=== PATIENT | female | born 1945 | race Caucasian/White ===

== ENCOUNTER 2017-05-25 01:12 | Inpatient (IN) | payer MEDICARE ==
[2017-05-25] VITALS (8 sets, daily range): BP systolic 139–182; BP diastolic 67–93; PULSE 68–116; RESP 14–18; TEMP 97.3–99; O2SAT 94–98
[~2017-05-25] VITALS: Ht 162.6 cm; Wt 96.3 kg
[~2017-05-25 01:12] MED LIST: LISI40TA PO; LYNPARZA PO; REGL10TA5 PO; SENO8.6T5 PO; XANA1TAB2 PO
[2017-05-25] MEDS ORDERED: SODIUM CHLOR 0.9% 1000 ML INJ 1,000 ML IV SCH (01:36)
--- NOTE | 2017-05-25 01:43 | PD ---
HPI Chief Complaint: GI Complaint Time Seen by Provider: 01:23 Travel History International Travel<30 days: No Contact w/Intl Traveler<30days: No Traveled to known affect area: No History of Present Illness HPI The patient is a 71-year-old female who presents emergency department for abdominal pain and distention of 5 days' duration. The patient states abdominal pain and distention started 5 days ago, she notes decreased bowel movements over the last several days with a few small loose and runny bowel movements with decreasing passage of flatus. The patient does have a history of similar symptoms 1 year ago secondary to a small bowel obstruction. The patient does have a history of ovarian carcinoma and is currently treated by Dr. Huang. The patient does note nausea and vomiting earlier this week which have currently resolved. She also notes decreased appetite and estimates a 5 pound weight loss over the last several days. The patient does have a history of multiple previous abdominal surgeries including hysterectomy and cholecystectomy. She also has had a previous tummy tuck. The patient's primary physician is Dr. Hensley who is located in [place], [place]. She denies any fever, chills, or sweats. PFSH Past Medical History Anxiety: Yes Depression: No Cancer: Yes (DX 2011) Cardiovascular Problems: Yes (HTN) Chemotherapy: Yes (3 COURSES) Cerebrovascular Accident: No Diabetes: No Hypertension: Yes Kidney Stones: No Musculoskeletal: Yes Neurologic: No Psychiatric: Yes Respiratory: No Radiation Therapy: No Seizures: No Past Surgical History Abdominal Surgery: Yes (GALLBLADDER REMOVAL) Eye Surgery: Yes (LASIK SURGERY) Gynecologic Surgery: Yes (C SECTION X2, TUBAL LIG., CERVICAL CRYO) Oral Surgery: Yes (T & A) Other Surgery: Yes Social History Alcohol Use: No Tobacco Use: No Substance Use: No Allergies-Medications (Allergen,Severity, Reaction): Coded Allergies: amlodipine (Unverified Allergy, Severe, 05/25/17) atorvastatin (Unverified Allergy, Severe, 05/25/17) penicillin G (Unverified Allergy, Severe, RASH, 05/25/17) pravastatin (Unverified Allergy, Severe, 05/25/17) simvastatin (Unverified Allergy, Severe, 05/25/17) Uncoded Allergies: ZOCOR (Adverse Reaction, Severe, RENAL FAILURE, 11/05/11) Reported Meds & Prescriptions Reported Meds & Active Scripts Active Reported Xanax (Alprazolam) 1 Mg Tab 1 Mg PO HS PRN Reglan (Metoclopramide HCl) 10 Mg Tab 10 Mg PO BID Senokot (Sennosides) 8.6 Mg Tab 8.6 Mg PO BID Lisinopril 40 Mg Tab 40 Mg PO BID [Lynparza] 8 Tab PO BID Review of Systems Except as stated in HPI: all other systems reviewed are Neg HENT: No: Lightheadedness Cardiovascular: No: Chest Pain or Discomfort Respiratory: No: Shortness of Breath Gastrointestinal: Positive: Nausea, Vomiting, Abdominal Pain, Constipation, Changes in Bowel Habits, Loss of Appetite, No: Diarrhea Genitourinary: No: Dysuria Musculoskeletal: Positive: Weakness Neurologic: Positive: Weakness Physical Exam Narrative GENERAL: Awake, alert, pleasant 71-year-old female appears her stated age and is in no acute respiratory distress. SKIN: Focused skin assessment warm/dry. HEAD: Atraumatic. Normocephalic. EYES: No injection or drainage. ENT: No nasal bleeding or discharge. Slightly dry mucous members. NECK: Trachea midline. No JVD. CARDIOVASCULAR: Regular, tachycardic with a heart rate of 105. RESPIRATORY: No accessory muscle use. Clear to auscultation. Breath sounds equal bilaterally. GASTROINTESTINAL: Abdomen distended and tympanic. Mild diffuse tenderness. Rectal: The exam was performed in the presence of a female nurse. Digital exam reveals no fecal impaction. No gross blood. MUSCULOSKELETAL: No obvious deformities. No clubbing. No cyanosis. No edema. NEUROLOGICAL: Awake and alert. No obvious cranial nerve deficits. Motor grossly within normal limits. Normal speech. PSYCHIATRIC: Appropriate mood and affect; insight and judgment normal. Data Data Last Documented VS Vital Signs Date Time Temp Pulse Resp B/P (MAP) Pulse Ox O2 Delivery O2 Flow Rate FiO2 05/25/17 01:13 99.0 116 18 182/93 (122) 98 Room Air Orders Orders Complete Blood Count With Diff (05/25/17 01:36) Comprehensive Metabolic Panel (05/25/17 01:36) Lipase (05/25/17 01:36) Lactic Acid (05/25/17 01:36) Urinalysis - C+S If Indicated (05/25/17 01:36) Ct Abd/Pel W/O Iv Contrast (05/25/17 01:36) Iv Access Insert/Monitor (05/25/17 01:36) Ecg Monitoring (05/25/17 01:36) Oximetry (05/25/17 01:36) Morphine Inj (Morphine Inj) (05/25/17 01:45) Ondansetron Inj (Zofran Inj) (05/25/17 01:45) Sodium Chlor 0.9% 1000 Ml Inj (Ns 1000 M (05/25/17 01:36) Sodium Chloride 0.9% Flush (Ns Flush) (05/25/17 01:45) Electrocardiogram (05/25/17 01:36) Admit Order (Ed Use Only) (05/25/17 03:38) Labs Laboratory Tests Test 05/25/17 01:45 White Blood Count 3.5 TH/MM3 Red Blood Count 3.04 MIL/MM3 Hemoglobin 10.4 GM/DL Hematocrit 31.3 % Mean Corpuscular Volume 102.8 FL Mean Corpuscular Hemoglobin 34.3 PG Mean Corpuscular Hemoglobin Concent 33.4 % Red Cell Distribution Width 17.1 % Platelet Count 118 TH/MM3 Mean Platelet Volume 9.2 FL Neutrophils (%) (Auto) 65.9 % Lymphocytes (%) (Auto) 26.9 % Monocytes (%) (Auto) 6.6 % Eosinophils (%) (Auto) 0.5 % Basophils (%) (Auto) 0.1 % Neutrophils # (Auto) 2.3 TH/MM3 Lymphocytes # (Auto) 1.0 TH/MM3 Monocytes # (Auto) 0.2 TH/MM3 Eosinophils # (Auto) 0.0 TH/MM3 Basophils # (Auto) 0.0 TH/MM3 CBC Comment AUTO DIFF Differential Total Cells Counted 100 Neutrophils % (Manual) 72 % Lymphocytes % 26 % Monocytes % 2 % Neutrophils # (Manual) 2.5 TH/MM3 Differential Comment FINAL DIFF MANUAL Platelet Estimate LOW Platelet Morphology Comment NORMAL Ovalocytes 1+ Blood Urea Nitrogen 11 MG/DL Creatinine 1.02 MG/DL Random Glucose 120 MG/DL Total Protein 6.3 GM/DL Albumin 3.0 GM/DL Calcium Level 8.3 MG/DL Alkaline Phosphatase 100 U/L Aspartate Amino Transf (AST/SGOT) 63 U/L Alanine Aminotransferase (ALT/SGPT) 184 U/L Total Bilirubin 0.5 MG/DL Sodium Level 137 MEQ/L Potassium Level 3.2 MEQ/L Chloride Level 104 MEQ/L Carbon Dioxide Level 25.2 MEQ/L Anion Gap 8 MEQ/L Estimat Glomerular Filtration Rate 53 ML/MIN Lactic Acid Level 1.0 mmol/L Lipase 114 U/L MDM Medical Decision Making Medical Screen Exam Complete: Yes Emergency Medical Condition: Yes Medical Record Reviewed: Yes Interpretation(s) Laboratory Tests Test 05/25/17 01:45 White Blood Count 3.5 TH/MM3 Red Blood Count 3.04 MIL/MM3 Hemoglobin 10.4 GM/DL Hematocrit 31.3 % Mean Corpuscular Volume 102.8 FL Mean Corpuscular Hemoglobin 34.3 PG Mean Corpuscular Hemoglobin Concent 33.4 % Red Cell Distribution Width 17.1 % Platelet Count 118 TH/MM3 Mean Platelet Volume 9.2 FL Neutrophils (%) (Auto) 65.9 % Lymphocytes (%) (Auto) 26.9 % Monocytes (%) (Auto) 6.6 % Eosinophils (%) (Auto) 0.5 % Basophils (%) (Auto) 0.1 % Neutrophils # (Auto) 2.3 TH/MM3 Lymphocytes # (Auto) 1.0 TH/MM3 Monocytes # (Auto) 0.2 TH/MM3 Eosinophils # (Auto) 0.0 TH/MM3 Basophils # (Auto) 0.0 TH/MM3 CBC Comment AUTO DIFF Blood Urea Nitrogen 11 MG/DL Creatinine 1.02 MG/DL Random Glucose 120 MG/DL Total Protein 6.3 GM/DL Albumin 3.0 GM/DL Calcium Level 8.3 MG/DL Alkaline Phosphatase 100 U/L Aspartate Amino Transf (AST/SGOT) 63 U/L Alanine Aminotransferase (ALT/SGPT) 184 U/L Total Bilirubin 0.5 MG/DL Sodium Level 137 MEQ/L Potassium Level 3.2 MEQ/L Chloride Level 104 MEQ/L Carbon Dioxide Level 25.2 MEQ/L Anion Gap 8 MEQ/L Estimat Glomerular Filtration Rate 53 ML/MIN Lactic Acid Level 1.0 mmol/L Lipase 114 U/L Last Impressions Abdomen/Pelvis CT 05/25/17 0136 Signed Impressions: Service Date/Time: Thursday, May 25, 2017 01:51 - CONCLUSION: Diffusely dilated loops of small bowel down to the terminal ileum with air-fluid levels suggesting either diffuse ileus or small bowel obstruction. Renato Driscoll MD EKG reveals normal sinus rhythm with a rate of 75. Left axis deviation. Differential Diagnosis Differential diagnosis includes small bowel obstruction, volvulus, carcinoma, large bowel obstruction, ileus, dehydration, electrolyte abnormality. Narrative Course The patient's port was accessed, labs are drawn and sent, and the patient was placed on cardiac telemetry monitoring and continuous pulse oximetry monitoring. The patient was administered morphine, Zofran, and IV fluids. CT of the abdomen and pelvis was ordered to evaluate for obstruction. Labs revealed mild hypokalemia, mild leukopenia, mild anemia with a hemoglobin of 10.5. CT the abdomen and pelvis reveals ileus versus small bowel obstruction. The patient has poor intake secondary to increasing symptoms, therefore, will be admitted to the hospital with routine consult placed to her gynecologic oncologist. Patient agrees and understands. Physician Communication Physician Communication I discussed the patient with Dr. Nato Rae who agrees with admission to Dr. Arellano. Diagnosis Primary Impression: Small bowel obstruction Additional Impression: Hypokalemia Admitting Information Admitting Physician Requests: Admit Condition: Stable Guille Francois MD May 25, 2017 01:43
[2017-05-25] MEDS ORDERED: ONDANSETRON HCL 4 MG/2 ML VIAL IVP ONE (01:45)
[2017-05-25] MEDS ORDERED: MORPHINE SULFATE 4 MG/ML INJ IV PUSH ONE (01:45)
[2017-05-25] MEDS ORDERED: SODIUM CHLORIDE 0.9% FLUSH 10 ML FLUSH IV FLUSH PRN (01:45)
--- NOTE | 2017-05-25 02:21 | RADRPT ---
EXAM DATE/TIME: 05/25/2017 01:51 [facility] COMPARISON: SMALL BOWEL SERIES W/GASTROGRAFIN, April 23, 2016, 10:17. CT ABDOMEN & PELVIS W/O CONTRAST, April 22, 2016, 0:27. INDICATIONS : Abdominal pain with constipation. ORAL CONTRAST: No oral contrast ingested. RADIATION DOSE: 11.09 CTDIvol (mGy) MEDICAL HISTORY : Carcinoma, not otherwise specified. Hypertension. SURGICAL HISTORY : Cholecystectomy. Hysterectomy.Tubal ligation. ENCOUNTER: Initial ACUITY: 4 - 6 days PAIN SCALE: 8/10 LOCATION: abdomen TECHNIQUE: Volumetric scanning of the abdomen and pelvis was performed. Using automated exposure control and ad justment of the mA and/or kV according to patient size, radiation dose was kept as low as reasonably achievable to obtain optimal diagnostic quality images. DICOM format image data is available electro nically for review and comparison. FINDINGS: LOWER LUNGS: The visualized lower lungs are clear. LIVER: Homogeneous density without lesion for noncontrast technique. There is no dilation of the biliary tr ee. Hemoclips in the prachi from prior cholecystectomy. SPLEEN: Normal size without lesion. PANCREAS: Within normal limits. KIDNEYS: Normal in size and shape. There is no mass, stone, or hydronephrosis. ADRENAL GLANDS: Within normal limits. VASCULAR: There is no aortic aneurysm. BOWEL/MESENTERY: Diffusely dilated loops of small bowel containing multiple air fluid levels. Small bowel loops measu re up to 4.7 cm and are dilated down to the terminal ileum. No dilation of the colon. The appendix is identified in the right lower quadrant, measures 6 mm and has a normal radiographic appearance. N o evidence of free intraperitoneal gas or free fluid. ABDOMINAL WALL: Within normal limits. RETROPERITONEUM: There is no lymphadenopathy. BLADDER: No wall thickening or mass. REPRODUCTIVE: Within normal limits. INGUINAL: There is no lymphadenopathy or hernia. MUSCULOSKELETAL: Degenerative changes in posterior elements of the lower lumbar spine. CONCLUSION: Diffusely dilated loops of small bowel down to the terminal ileum with air-fluid levels suggesting ei ther diffuse ileus or small bowel obstruction. Renato Driscoll MD on May 25, 2017 at 2:14 Board Certified Radiologist. This report was verified electronically.
[2017-05-25 03:14] LABS: AUTOMATED NEUTROPHIL # 2.3 TH/MM3 (1.8-7.7); BASOPHIL % 0.1 % (0.0-2.0); EOSINOPHIL % 0.5 % (0.0-4.0); HEMATOCRIT 31.3 % (35.0-46.0); LYMPH % 26.9 % (9.0-44.0); MEAN CELL VOLUME 102.8 FL (80.0-100.0); MEAN CORPUSCULAR HEMOGLOBIN 34.3 PG (27.0-34.0); MEAN CORPUSCULAR HGB CONC 33.4 % (32.0-36.0); MONO % 6.6 % (0.0-8.0); NEUT % 65.9 % (16.0-70.0); PLATELET COUNT 118 TH/MM3 (150-450); RED BLOOD COUNT 3.04 MIL/MM3 (4.00-5.30); RED CELL DISTRIBUTION WIDTH 17.1 % (11.6-17.2); WHITE BLOOD COUNT 3.5 TH/MM3 (4.0-11.0)
[2017-05-25 03:17] LABS: ALT (GPT) 184 U/L (10-53); ANION GAP 8 MEQ/L (5-15); AST (GOT) 63 U/L (15-37); BICARBONATE 25.2 MEQ/L (21.0-32.0); BLOOD UREA NITROGEN 11 MG/DL (7-18); CHLORIDE 104 MEQ/L (98-107); GLOMERULAR FILTRATION RATE 53 ML/MIN (>89); POTASSIUM 3.2 MEQ/L (3.5-5.1); SODIUM (NA) 137 MEQ/L (136-145)
[2017-05-25 03:20] LABS: ALKALINE PHOSPHATASE 100 U/L (45-117); TOTAL BILIRUBIN ADULT 0.5 MG/DL (0.2-1.0)
[2017-05-25 03:22] LABS: HEMO FLAGS AUTO DIFF
[2017-05-25 04:33] LABS: NEUTROPHIL # MANUAL DIFF 2.5 TH/MM3 (1.8-7.7); POLYS (SEG NEUTROPHILS) 72 % (16-70); WBC DIFF SAMPLE 100
[2017-05-25 04:34] LABS: OVALOCYTES 1+ (NORMAL); PLATELET ESTIMATE SMEAR LOW (NORMAL); PLATELET MORPHOLOGY NORMAL (NORMAL); SCAN/DIFF FINAL DIFF MANUAL
[2017-05-25] MEDS ORDERED: NS + KCL 20 MEQ INJ 1,000 ML IV SCH (04:45)
[2017-05-25] MEDS ORDERED: ACETAMINOPHEN 325 MG TAB PO PRN (04:45)
[2017-05-25] MEDS ORDERED: ACETAMINOPHEN 650 MG SUPP PR PRN (04:45)
[2017-05-25] MEDS ORDERED: ONDANSETRON HCL 4 MG/2 ML VIAL IV PRN (04:45)
[2017-05-25] MEDS: MORPHINE SULFATE 4 MG/ML INJ IV PUSH PRN ×3 (04:52→15:24)
[2017-05-25] MEDS: SODIUM CHLORIDE 0.9% FLUSH 10 ML FLUSH IVF PRN (04:52)
[2017-05-25] MEDS: SODIUM CHLORIDE 0.9% FLUSH 10 ML FLUSH IV FLUSH SCH ×2 (09:00→21:00)
--- NOTE | 2017-05-25 09:43 | HHI.HP ---
HPI Service [facility]ists Primary Care Physician Nik Hensley MD Admission Diagnosis small bowel obstruction versus ileus Chief Complaint: abdomen pain Travel History International Travel<30 Days: No Contact w/Intl Traveler <30 Da: No Traveled to Known Affected Are: No History of Present Illness Pt is 71 yo with brca 2 who had ovarian ca with david/bso, omentectomy, lysis of adhesions back [place] [address] Huang. Has had chemo with taxol, carboplatin, gemzar, tamoxifen and then lynparza this past year. There have been concerns of recurrence with a recent rise in ca 125. She and dr Huang have done pet scans and find no major focus of disease. She was admitted last year for ileus felt related to lynparza 5 days after starting it. She needed left ureter stent soon after that admission for hydro and ureter stenosis. Now she has been getting Topotecan weekly for past 3 weeks and pt says this is when she has developed crampy abdomen pain with each treatment and now progression to no bm over past several days. CT in ED of A/P shows some dilation diffusely of the small bowel with afl and tapering down at ileum. Morphine has completely resolved her pain and she has no vomiting this AM. her abdomen is still more distended than baseline. she has been using senakot and miralax daily at home. She also restarted tamoxifen recently. Review of Systems Other abdomen pain and cramping on/off over past 3 weeks related to topotecan Past Family Social History Past Medical History ovarian ca. brca 2 s/p david/bso/omentectomy hx of taxol/carbaplatin/gemzar, lynparza this past year..?caused ileus her ca 125 has been rising.. apparent pet scans have been negative topotecan started 3 weeks ago. cholecystectomy port hx breast reconstructionl htn anxiety. Reported Medications Xanax (Alprazolam) 1 Mg Tab 1 Mg PO HS PRN Senokot (Sennosides) 8.6 Mg Tab 8.6 Mg PO BID miralax Lisinopril 40 Mg Tab 40mg daily topotecan x 3 weeks tamoxifen Allergies: Coded Allergies: amlodipine (Unverified Allergy, Severe, 05/25/17) atorvastatin (Unverified Allergy, Severe, 05/25/17) penicillin G (Unverified Allergy, Severe, RASH, 05/25/17) pravastatin (Unverified Allergy, Severe, 05/25/17) simvastatin (Unverified Allergy, Severe, 05/25/17) Uncoded Allergies: ZOCOR (Adverse Reaction, Severe, RENAL FAILURE, 11/05/11) Family History nc Social History no etoh/tob Physical Exam Vital Signs heart reg lung cta abd mild distention. bs. nontender ext no edema Vital Signs Date Time Temp Pulse Resp B/P (MAP) Pulse Ox O2 Delivery O2 Flow Rate FiO2 05/25/17 08:00 98.4 75 15 139/67 (91) 98 05/25/17 06:14 97.3 78 18 148/69 (95) 98 05/25/17 05:25 95 05/25/17 04:25 83 14 149/67 (94) 96 Room Air 05/25/17 01:13 99.0 116 18 182/93 (122) 98 Room Air Laboratory Laboratory Tests Test 05/25/17 01:45 White Blood Count 3.5 Red Blood Count 3.04 Hemoglobin 10.4 Hematocrit 31.3 Mean Corpuscular Volume 102.8 Mean Corpuscular Hemoglobin 34.3 Mean Corpuscular Hemoglobin Concent 33.4 Red Cell Distribution Width 17.1 Platelet Count 118 Mean Platelet Volume 9.2 Neutrophils (%) (Auto) 65.9 Lymphocytes (%) (Auto) 26.9 Monocytes (%) (Auto) 6.6 Eosinophils (%) (Auto) 0.5 Basophils (%) (Auto) 0.1 Neutrophils # (Auto) 2.3 Lymphocytes # (Auto) 1.0 Monocytes # (Auto) 0.2 Eosinophils # (Auto) 0.0 Basophils # (Auto) 0.0 CBC Comment AUTO DIFF Differential Total Cells Counted 100 Neutrophils % (Manual) 72 Lymphocytes % 26 Monocytes % 2 Neutrophils # (Manual) 2.5 Differential Comment FINAL DIFF MANUAL Platelet Estimate LOW Platelet Morphology Comment NORMAL Ovalocytes 1+ Blood Urea Nitrogen 11 Creatinine 1.02 Random Glucose 120 Total Protein 6.3 Albumin 3.0 Calcium Level 8.3 Alkaline Phosphatase 100 Aspartate Amino Transf (AST/SGOT) 63 Alanine Aminotransferase (ALT/SGPT) 184 Total Bilirubin 0.5 Sodium Level 137 Potassium Level 3.2 Chloride Level 104 Carbon Dioxide Level 25.2 Anion Gap 8 Estimat Glomerular Filtration Rate 53 Lactic Acid Level 1.0 Lipase 114 Result Diagram: 05/25/1714405/25/17144 Caprini VTE Risk Assessment Caprini VTE Risk Assessment: Mod/High Risk (score >= 2) Caprini Risk Assessment Model Point Value = 1 Point Value = 2 Point Value = 3 Point Value = 5 Age 41-60 Minor surgery BMI > 25 kg/m2 Swollen legs Varicose veins or History of unexplained or recurrent spontaneous Oral contraceptives or hormone replacement Sepsis (< 1 month) Serious lung disease, including pneumonia (< 1 month) Abnormal pulmonary function Acute myocardial infarction Congestive heart failure (< 1 month) History of inflammatory bowel disease Medical patient at bed rest Age 61-74 Arthroscopic surgery Major open surgery (> 45 min) Laparoscopic surgery (> 45 min) Malignancy Confined to bed (> 72 hours) Immobilizing plaster cast Central venous access Age >= 75 History of VTE Family history of VTE Factor V Leiden Prothrombin [id number] Lupus anticoagulant Anticardiolipin antibodies Elevated serum homocysteine Heparin-induced thrombocytopenia Other congenital or acquired thrombophilia Stroke (< 1 month) Elective arthroplasty Hip, pelvis, or leg fracture Acute spinal cord injury (< 1 month) Prophylaxis Regimen Total Risk Factor Score Risk Level Prophylaxis Regimen 0-1 Low Early ambulation 2 Moderate Order ONE of the following: *Sequential Compression Device (SCD) *Heparin 5000 units SQ BID 3-4 Higher Order ONE of the following medications: *Heparin 5000 units SQ TID *Enoxaparin/Lovenox 40 mg SQ daily (WT < 150 kg, CrCl > 30 mL/min) *Enoxaparin/Lovenox 30 mg SQ daily (WT < 150 kg, CrCl > 10-29 mL/min) *Enoxaparin/Lovenox 30 mg SQ BID (WT < 150 kg, CrCl > 30 mL/min) AND/OR *Sequential Compression Device (SCD) 5 or more Highest Order ONE of the following medications: *Heparin 5000 units SQ TID (Preferred with Epidurals) *Enoxaparin/Lovenox 40 mg SQ daily (WT < 150 kg, CrCl > 30 mL/min) *Enoxaparin/Lovenox 30 mg SQ daily (WT < 150 kg, CrCl > 10-29 mL/min) *Enoxaparin/Lovenox 30 mg SQ BID (WT < 150 kg, CrCl > 30 mL/min) AND *Sequential Compression Device (SCD) Assessment and Plan Problem List: (1) Bowel obstruction ICD Codes: K56.60 - Unspecified intestinal obstruction Status: Acute Plan: 1. small bowel ileus vs obstruction. similar events after starting lynparza in 2016 recently started topotecan within last [address] a/p shows small bowel dilation and AFL's down to Ileum.?medication/ adhesion/tumor 2. recurrent ovarian ca. brca 2 brca 2 who had ovarian ca with david/bso, omentectomy, lysis of adhesions [place] [address] Huang. Has had chemo with taxol, carboplatin, gemzar, tamoxifen and then lynparza Now on topotecan cont ivf check and replace lytes gentle laxative ambulate advance diet if flatus/bm slowly consulted dr Huang currently pain free. no need for ngt yet (2) Hypokalemia ICD Codes: E87.6 - Hypokalemia Status: Acute (3) Recurrent carcinoma of ovary ICD Codes: C56.9 - Malignant neoplasm of unspecified ovary Status: Chronic (4) HTN (hypertension), benign ICD Codes: I10 - Essential (primary) hypertension Status: Chronic (5) Anxiety ICD Codes: F41.9 - Anxiety disorder, unspecified Status: Chronic Physician Certification 2 Midnight Certification Type: Admission for Inpatient Services Order for Inpatient Services 3The services are ordered in accordance with Medicare regulations or non- Medicare payer requirements, as applicable. In the case of services not specified as inpatient-only, they are appropriately provided as inpatient services in accordance with the 2-midnight benchmark. Estimated LOS (days): 3 3 days is the estimated time the patient will need to remain in the hospital, assuming treatment plan goals are met and no additional complications. Post-Hospital Plan: Home Gary Arellano MD May 25, 2017 09:43
[2017-05-25] MEDS ORDERED: LACTULOSE SYRUP 20 GM/30 ML CUP PO ONE (10:15)
[2017-05-25] MEDS ORDERED: BISACODYL EC 5 MG TABEC PO ONE (10:15)
--- NOTE | 2017-05-25 12:53 | MB ---
cc: GARFIELD ROBLEDO M.D., KELLY L. MD SCAGLIA,FAUSTO ARELLANO,NAIDA RIOS,RUSSELL Diez MD DATE OF CONSULTATION: 05/25/2017 PHYSICIAN REQUESTING CONSULT: Dr. Guille Francois. Dr. Naida Arellano. REASON FOR CONSULTATION: Ovarian cancer, under our care, admitted for evaluation and management of small bowel obstruction versus ileus. HISTORY OF PRESENT ILLNESS: This is a 71 year-old female with known recurrent ovarian cancer who most recently started topotecan, she has now received three infusions of the weekly regimen. She is scheduled for labs next week and scheduled for topotecan to follow. She reports that after each topotecan infusion she had very intense cramp like pain in her abdomen, associated with decreased bowel sounds, decreased flatus but it has subsided each time such that she was able to take the next infusion. However, now she has gone several days with no bowel movements, has not had any flatus in a couple of days. She did have some nausea and vomiting at home, she has not had any more nausea or vomiting since she has been admitted to the hospital. Currently her morphine has controlled her pain. She is seen now in consultation. Her is present at the bedside. On further evaluation and recommendations regarding these findings. OBJECTIVE: CT imaging shows basically all of the small bowel could be dilated with air/fluid levels and largest diameter of small bowel 4.7 cm's, the colon is not distended, it is a noncontrasted study it is difficult to tell if the colon is full of stool but limited gas in the large bowel. There is no overt evidence of measurable disease detected on the study. No overt ascites, nodularity, adenopathy, some degenerative changes were noted in the lower lumbar spine. The patient has post operative changes in the gallbladder fossa. LABORATORY FINDINGS: Hemoglobin and hematocrit 10.4, 31.3, white count 3.5, platelets are 118. Electrolytes, potassium is low at 3.2. Blood urea nitrogen and creatinine are 11 and 1.02. Transaminase is elevated with an aspartate aminotransferase of 63, ALT 184. PAST MEDICAL HISTORY: Recurrent stage 3C ovarian cancer. She had surgery back in 2011, and been intermittently on treatment. PAST SURGICAL HISTORY Includes breast reconstruction ovarian cancer surgery cholecystectomy MEDICATIONS: Are as listed in the chart, they are reviewed. FAMILY HISTORY Noncontributory. SOCIAL HISTORY: Social history she is , has a supportive family. No significant alcohol or tobacco use. REVIEW OF SYSTEMS Review of systems is as per history of present illness. No fever, no bright red blood or melanotic stool change and no one else in the family has been sick. PHYSICAL EXAMINATION VITAL SIGNS: She is afebrile pulse ranging from 75-116 improving with hydration, respiratory rate 14-18, blood pressure 139-182 over 67-93, O2 saturations greater than equal to 95%. IN GENERAL: She is alert and oriented x3, currently comfortable. No acute distress. BACK: Back is nontender. No costovertebral angle tenderness. ABDOMEN: Abdomen is distended but it is nonacute. She allows the exam of deep palpation without rebound or guarding in all four quadrants. Bowel sounds are hypoactive. PELVIC: Exam deferred given recent office exam. EXTREMITIES: 1+ chronic symmetrical edema. No palpable cords. DISCUSSION: Time spent discussion with her reviewing the findings in her case to date is uncertain if this represents an obstruction due to small volume of multifocal carcinomatous implants, verses an ileus. She was admitted in 2016 for similar problem and followed and prior to chemotherapy and she may be prone to decrease peristalsis effects of some of these chemotherapeutic agents. IV fluids and bowel rest and is recommended if she has any more nausea or vomiting I would recommended nasogastric tube which at the present time she refuses and she reminds us that she refused it in the past, never the less the potential value was discussed and reviewed. The small bowel is functioning adequately but the colon is impacted with decreased peristalsis some stimulation per rectum starting with suppositories possibly enemas to try to overcome the symptoms, may be helpful. Furthermore reminded that upper GI with small-bowel follow thought previously did not show any focal obstruction that could be utilized to determine if there is a focal obstruction in the region of the ileocecum there may also be some cathartic benefit as the contrast causes significant GI stimulation and this may be considered if she is not significantly better within the next 24-48 hours. She is to use of narcotics as needed but minimally as the slow down peristalsis. She is encouraged to ambulate and physical activity can be beneficial, we will replete fluids correct. Electrolytes provide supportive care and I am very grateful for Dr. Arellano and his colleagues for excellent care. ASSESSMENT 1. Recurrent stage III C ovarian cancer. 2. Recently started on weekly Topotecan. 3. Small bowel obstruction versus ileus. 4. Discussion. PLAN 1. Continue IV fluids, correction of electrolyte supportive care on narcotic use sparingly. 2. Initiate using suppositories if they all provide some response in 24 hours consider enema and if that does not provide response with in 24-48 hours. Consider upper GI series with small-bowel follow-through for diagnostic and potentially therapeutic purposes. Thank for the consultation. Will follow along her care. MD ADELA Dennis/lulu /11:10 AM /12:33 PM
--- NOTE | 2017-05-25 14:56 | EKG ---
Date Performed: 05/25/2017 Time Performed: 03:43:50 PTAGE: 71 years EKG: Sinus rhythm MARKED LEFT AXIS DEVIATION ABNORMAL ECG PREVIOUS TRACING : 05/14/2016 12.27 Since previous tracing, the PVCs are no longer present. DOCTOR: Gary Tejeda Interpretating Date/Time 05/25/2017 14:55:02
[2017-05-25] MEDS: NS + KCL 20 MEQ INJ 1,000 ML IV SCH ×2 (14:58→22:54)
[2017-05-25] MEDS ORDERED: HYDROmorphone HCL PF 1 MG/ML VIAL IV PUSH ONE (18:00)
[2017-05-25] MEDS: BISACODYL 10 MG SUPP RECTAL SCH ×2 (18:25→22:53)
[2017-05-25] MEDS ORDERED: ENALAPRILAT 1.25 MG/ML VIAL IV PUSH PRN (19:00)
[2017-05-25] MEDS: HYDROmorphone HCL PF 1 MG/ML VIAL IV PUSH PRN (22:51)
[2017-05-26] VITALS (8 sets, daily range): BP systolic 139–185; BP diastolic 73–90; PULSE 85–102; RESP 16–18; TEMP 97.8–98.7; O2SAT 96–98
[2017-05-26] MEDS: BISACODYL 10 MG SUPP RECTAL SCH ×3 (05:01→17:52)
[2017-05-26] MEDS: NS + KCL 20 MEQ INJ 1,000 ML IV SCH ×3 (05:17→20:59)
[2017-05-26 07:10] LABS: BICARBONATE 20.8 MEQ/L (21.0-32.0); MAGNESIUM 1.7 MG/DL (1.5-2.5); POTASSIUM 3.8 MEQ/L (3.5-5.1)
[2017-05-26] MEDS: SODIUM CHLORIDE 0.9% FLUSH 10 ML FLUSH IV FLUSH SCH ×2 (08:10→20:58)
[2017-05-26] MEDS: HYDROmorphone HCL PF 1 MG/ML VIAL IV PUSH PRN ×3 (08:10→22:09)
[2017-05-26] MEDS ORDERED: LACTULOSE SYRUP 20 GM/30 ML CUP PO ONE (09:00)
[2017-05-26] MEDS ORDERED: ENALAPRILAT 1.25 MG/ML VIAL IV PUSH PRN (09:00)
[2017-05-26] MEDS ORDERED: BISACODYL EC 5 MG TABEC PO ONE (09:00)
--- NOTE | 2017-05-26 09:01 | HHI.PR ---
Subjective Remarks abdomen cramping no vomiting moved a semisolid bm last night small amt of liquid brown stool this AM Objective Vitals heart reg lung cta abd bs/mild distention ext no edema Vital Signs Date Time Temp Pulse Resp B/P (MAP) Pulse Ox O2 Delivery O2 Flow Rate FiO2 05/26/17 08:00 98.7 102 16 173/87 (115) 97 05/26/17 04:00 98.5 89 18 177/80 (112) 96 05/26/17 00:53 16 05/26/17 00:00 98.7 98 17 139/81 (100) 98 05/25/17 20:00 98.0 82 18 148/75 (99) 94 05/25/17 16:00 98.2 82 18 180/88 (118) 97 05/25/17 12:00 98.8 68 149/67 (94) 97 Result Diagram: 05/25/17 0145 05/26/17 0603 A/P Problem List: (1) Bowel obstruction ICD Codes: K56.60 - Unspecified intestinal obstruction Status: Acute Plan: 1. small bowel ileus vs partial obstruction. similar events after starting lynparza in 2016 recently started topotecan within last [address] a/p shows small bowel dilation and AFL's down to Ileum.?medication/ adhesion/tumor 2. recurrent ovarian ca. brca 2 brca 2 who had ovarian ca with david/bso, omentectomy, lysis of adhesions [place] [address] Huang. Has had chemo with taxol, carboplatin, gemzar, tamoxifen and then lynparza Now on topotecan cont ivf gentle laxatives liquid diet resume po meds. bp/anxiety prn ambulate consulted dr Huang. case discussed prn pain control. no need for ngt yet kub pending. (2) Hypokalemia ICD Codes: E87.6 - Hypokalemia Status: Acute (3) Recurrent carcinoma of ovary ICD Codes: C56.9 - Malignant neoplasm of unspecified ovary Status: Chronic (4) HTN (hypertension), benign ICD Codes: I10 - Essential (primary) hypertension Status: Chronic (5) Anxiety ICD Codes: F41.9 - Anxiety disorder, unspecified Status: Chronic Gary Arellano MD May 26, 2017 09:01
[2017-05-26] MEDS: LISINOPRIL 20 MG TAB PO SCH ×2 (09:59→20:57)
--- NOTE | 2017-05-26 12:00 | RADRPT ---
EXAM DATE/TIME: 05/26/2017 10:15 [facility] COMPARISON: CT ABDOMEN & PELVIS W/O CONTRAST, May 25, 2017, 1:51. ABDOMEN KUB ONLY, April 23, 2016, 8:06. INDICATIONS : Abdominal pain with constipation. MEDICAL HISTORY : None. SURGICAL HISTORY : section. Cholecystectomy. Hysterectomy. ENCOUNTER: Initial ACUITY: 4 - 6 days PAIN SCORE: 8/10 LOCATION: Bilateral abdomen FINDINGS: 2 supine frontal views of the abdomen and demonstrate abnormally dilated small bowel measuring up to 5.4 cm. The abnormally dilated bowel in the left mid abdomen demonstrates thumbprinting. Cholecystect connie clips are present. There is a paucity of distal bowel gas present. Bones demonstrate no acute fin ding. CONCLUSION: Stable abnormally dilated small bowel measuring up to 5.4 cm with paucity of distal bowel gas. Findin gs are suspicious for distal small bowel obstruction. One of the small bowel segments in the left abd omen demonstrates thumbprinting which can be seen with submucosal edema. Nik Bae MD on May 26, 2017 at 11:56 Board Certified Radiologist. This report was verified electronically.
[2017-05-26] MEDS: cloNIDine HCL 0.1 MG TAB PO PRN (14:20)
[2017-05-26] MEDS ORDERED: ALUMINUM/MAGNESIUM/SIMETH 30 ML CUP PO PRN (18:30)
[2017-05-26] MEDS ORDERED: BUMETANIDE INJ 1 MG/4 ML VIAL IV PUSH ONE (18:30)
[2017-05-26] MEDS ORDERED: ALUMINUM/MAGNESIUM/SIMETH 30 ML CUP PO ONE (18:30)
[2017-05-27] VITALS (7 sets, daily range): BP systolic 127–148; BP diastolic 56–73; PULSE 96–110; RESP 17–20; TEMP 97.1–99.2; O2SAT 92–97
[2017-05-27] MEDS: BISACODYL 10 MG SUPP RECTAL SCH ×3 (00:42→12:42)
[2017-05-27] MEDS: HYDROmorphone HCL PF 1 MG/ML VIAL IV PUSH PRN (01:49)
--- NOTE | 2017-05-27 08:09 | PD.ONC.PN ---
Subjective Subjective Remarks pt is resting in bed states had small amount of liquid stool last night cramping in abd when she lays down flat and that is when she has vomiting as well refusing NG tube Objective Data Date Time Temp Pulse Resp B/P (MAP) Pulse Ox O2 Delivery O2 Flow Rate FiO2 05/27/17 04:00 99.2 109 18 129/73 (91) 96 05/27/17 00:00 98.2 103 17 148/67 (94) 97 05/26/17 20:00 97.8 93 18 146/73 (97) 96 05/26/17 16:00 97.8 92 18 168/80 (109) 96 05/26/17 15:45 185/74 (111) 05/26/17 13:51 98 21 05/26/17 12:00 98.1 85 18 177/90 (119) 97 05/26/17 08:00 98.7 102 16 173/87 (115) 97 05/27/17 05/27/17 05/27/17 07:00 15:00 23:00 Output Total 600 ml Balance -600 ml Result Diagram: 05/25/17 0145 05/26/17 0603 Imaging Studies Last Impressions Abdomen X-Ray 05/26/17 0600 Signed Impressions: Service Date/Time: Friday, May 26, 2017 10:15 - CONCLUSION: Stable abnormally dilated small bowel measuring up to 5.4 cm with paucity of distal bowel gas. Findings are suspicious for distal small bowel obstruction. One of the small bowel segments in the left abdomen demonstrates thumbprinting which can be seen with submucosal edema. Nik Bae MD Abdomen/Pelvis CT 05/25/17 0136 Signed Impressions: Service Date/Time: Thursday, May 25, 2017 01:51 - CONCLUSION: Diffusely dilated loops of small bowel down to the terminal ileum with air-fluid levels suggesting either diffuse ileus or small bowel obstruction. Renato Driscoll MD Administered Medications Medications (Trade) Dose Ordered Sig/Anette Route PRN Reason Start Time Stop Time Status Last Admin Dose Admin Sodium Chloride (NS Flush) 2 ml BID IV FLUSH 05/25/17 09:00 05/26/17 20:58 Sodium Chloride (NS Flush) 2 ml UNSCH PRN IVF FLUSH AFTER USING IV ACCESS 05/25/17 04:45 05/25/17 04:52 Bisacodyl (Dulcolax Supp) 10 mg Q6HR RECTAL 05/25/17 18:00 05/27/17 12:00 05/27/17 00:42 Hydromorphone HCl (Dilaudid Pf Inj) 1 mg Q3H PRN IV PUSH pain over 4 05/25/17 18:00 05/27/17 01:49 Clonidine (Catapres) 0.1 mg Q6H PRN PO sbp > 170 05/26/17 09:00 05/26/17 14:20 Lisinopril (Prinivil) 20 mg Q12HR PO 05/26/17 09:00 05/26/17 20:57 Al Hydrox/Mg Hydrox/Simethicone (Mag-Al Plus Susp Liq) 30 ml Q4H PRN PO HEARTBURN 05/26/17 18:30 05/26/17 22:13 Potassium Chloride/Sodium Chloride 1,000 ml @ 75 mls/hr [id number] IV 05/26/17 21:00 05/26/17 20:59 Objective Remarks GENERAL: Well-nourished, well-developed patient. SKIN: Warm and dry. HEAD: Normocephalic. EYES: No scleral icterus. No injection or drainage. NECK: Supple CARDIOVASCULAR: Regular rate and rhythm without murmurs. RESPIRATORY: Breath sounds equal bilaterally. No accessory muscle use. GASTROINTESTINAL: Abdomen mildly distended + BS X 4, nontender EXTREMITIES: No cyanosis, or edema. MUSCULOSKELETAL: Adequate muscle tone. PSYCHIATRIC: Appropriate mood and affect; insight and judgment normal. Assessment/Plan Problem List: (1) Small bowel obstruction ICD Codes: K56.69 - Other intestinal obstruction Status: Acute Plan: pt to try enema today refusing NG tube has been OOB to ambulate and sitting in chair if no further response then consider small bowel follow through study for both diagnostic and therapeutic purposes. (2) Recurrent carcinoma of ovary ICD Codes: C56.9 - Malignant neoplasm of unspecified ovary Status: Chronic Plan: patient is s/p treatment for recurrent ovarian cancer with Topotecan has discusses with Dr. Huang changing her treatment Olivia Thacker May 27, 2017 08:09
[2017-05-27] MEDS: LISINOPRIL 20 MG TAB PO SCH ×2 (09:24→21:00)
[2017-05-27] MEDS: SODIUM CHLORIDE 0.9% FLUSH 10 ML FLUSH IV FLUSH SCH ×2 (09:24→21:00)
[2017-05-27] MEDS: NS + KCL 20 MEQ INJ 1,000 ML IV SCH ×2 (10:20→15:04)
--- NOTE | 2017-05-27 16:58 | HHI.PR ---
Subjective Remarks Pt with one watery BM this AM. Pt continues to have episodes of vomiting. Objective Vitals Vital Signs Date Time Temp Pulse Resp B/P (MAP) Pulse Ox O2 Delivery O2 Flow Rate FiO2 05/27/17 12:29 99.1 104 19 140/65 (90) 92 05/27/17 08:42 97.8 110 20 145/65 (91) 95 05/27/17 04:00 99.2 109 18 129/73 (91) 96 05/27/17 00:00 98.2 103 17 148/67 (94) 97 05/26/17 20:00 97.8 93 18 146/73 (97) 96 Result Diagram: 05/25/17 0145 05/26/17 0603 Imaging Last Impressions Abdomen X-Ray 05/26/17 0600 Signed Impressions: Service Date/Time: Friday, May 26, 2017 10:15 - CONCLUSION: Stable abnormally dilated small bowel measuring up to 5.4 cm with paucity of distal bowel gas. Findings are suspicious for distal small bowel obstruction. One of the small bowel segments in the left abdomen demonstrates thumbprinting which can be seen with submucosal edema. Nik Bae MD Abdomen/Pelvis CT 05/25/17 0136 Signed Impressions: Service Date/Time: Thursday, May 25, 2017 01:51 - CONCLUSION: Diffusely dilated loops of small bowel down to the terminal ileum with air-fluid levels suggesting either diffuse ileus or small bowel obstruction. Renato Driscoll MD Objective Remarks GENERAL: This is a well-nourished, well-developed patient, in no apparent distress. CARDIOVASCULAR: Regular rate and rhythm without murmurs, gallops, or rubs. RESPIRATORY: Clear to auscultation. Breath sounds equal bilaterally. No wheezes , rales, or rhonchi. GASTROINTESTINAL: distended, high pitched bowel sounds, no g/r/r MUSCULOSKELETAL: Extremities without clubbing, cyanosis, or edema. NEURO: Alert & Oriented x4 to person, place, time, situation. Moves all ext x4 A/P Problem List: (1) Bowel obstruction ICD Codes: K56.60 - Unspecified intestinal obstruction Status: Acute Plan: 1. small bowel ileus vs partial obstruction. similar events after starting lynparza in 2016 recently started topotecan within last [address] a/p shows small bowel dilation and AFL's down to Ileum.?medication/ adhesion/tumor 2. recurrent ovarian ca. brca 2 brca 2 who had ovarian ca with david/bso, omentectomy, lysis of adhesions back in [address] Huang. Has had chemo with taxol, carboplatin, gemzar, tamoxifen and then lynparza Now on topotecan - cont ivf - NGT - SBFT - encourage ambulation (2) Hypokalemia ICD Codes: E87.6 - Hypokalemia Status: Acute (3) Recurrent carcinoma of ovary ICD Codes: C56.9 - Malignant neoplasm of unspecified ovary Status: Chronic (4) HTN (hypertension), benign ICD Codes: I10 - Essential (primary) hypertension Status: Chronic (5) Anxiety ICD Codes: F41.9 - Anxiety disorder, unspecified Status: Chronic Brown Rivera DO May 27, 2017 16:58
[2017-05-27] MEDS ORDERED: LORazepam 2 MG/ML VIAL IV ONE (19:15)
[2017-05-28 04:00] VITALS: BP 126/76; PULSE 81; RESP 17; TEMP 97.7; O2SAT 93
[2017-05-28 06:37] LABS: AUTOMATED NEUTROPHIL # 5.3 TH/MM3 (1.8-7.7); BASOPHIL % 0.1 % (0.0-2.0); EOSINOPHIL % 0.2 % (0.0-4.0); HEMATOCRIT 29.2 % (35.0-46.0); LYMPH % 17.7 % (9.0-44.0); LYMPHOCYTE # 1.3 TH/MM3 (1.0-4.8); MEAN CELL VOLUME 101.8 FL (80.0-100.0); MEAN CORPUSCULAR HEMOGLOBIN 34.9 PG (27.0-34.0); MEAN CORPUSCULAR HGB CONC 34.3 % (32.0-36.0); MONO % 9.5 % (0.0-8.0); NEUT % 72.5 % (16.0-70.0); PLATELET COUNT 227 TH/MM3 (150-450); RED BLOOD COUNT 2.86 MIL/MM3 (4.00-5.30); RED CELL DISTRIBUTION WIDTH 17.7 % (11.6-17.2); WHITE BLOOD COUNT 7.3 TH/MM3 (4.0-11.0)
[2017-05-28 06:41] LABS: HEMO FLAGS AUTO DIFF
[2017-05-28] MEDS: ONDANSETRON HCL 4 MG/2 ML VIAL IV PRN (06:48)
[2017-05-28 06:59] LABS: BICARBONATE 24.8 MEQ/L (21.0-32.0); MAGNESIUM 1.9 MG/DL (1.5-2.5)
[2017-05-28 08:00] VITALS: BP 151/70; PULSE 99; RESP 18; TEMP 97.1; O2SAT 95
[2017-05-28] MEDS: LORazepam 2 MG/ML VIAL IV PUSH PRN ×2 (08:03→13:06)
[2017-05-28] MEDS: SODIUM CHLORIDE 0.9% FLUSH 10 ML FLUSH IV FLUSH SCH ×2 (08:04→22:05)
[2017-05-28 08:27] LABS: BANDS 22 % (0-6); CORRECTED NUCLEATED RBC 2 /100 WBC (0-0); MYELOCYTES 3 % (0-0); NEUTROPHIL # MANUAL DIFF 5.4 TH/MM3 (1.8-7.7); POLYS (SEG NEUTROPHILS) 49 % (16-70); WBC DIFF SAMPLE 100
[2017-05-28 08:28] LABS: DOHLE BODIES PRESENT (NONE SEEN); PLATELET ESTIMATE SMEAR NORMAL (NORMAL); PLATELET MORPHOLOGY NORMAL (NORMAL); SCAN/DIFF FINAL DIFF MANUAL
[2017-05-28] MEDS ORDERED: DIATRIZOATE MEGLUM/DIATRIZOATE SOD 120 ML BTL (for RAD DIAG) NG ONE (08:45)
[2017-05-28] MEDS: LISINOPRIL 20 MG TAB PO SCH ×2 (09:00→20:15)
[2017-05-28 12:00] VITALS: BP 148/69; PULSE 105; RESP 20; TEMP 98.2; O2SAT 95
[2017-05-28] MEDS: NS + KCL 20 MEQ INJ 1,000 ML IV SCH (13:00)
[2017-05-28 16:00] VITALS: BP 137/80; PULSE 118; RESP 22; TEMP 97.6; O2SAT 95
--- NOTE | 2017-05-28 17:21 | RADRPT ---
EXAM DATE/TIME: 05/28/2017 08:36 [facility] COMPARISON: CT ABDOMEN & PELVIS W/O CONTRAST, May 25, 2017, 1:51. SMALL BOWEL SERIES W/GASTROGRAFIN, [place] 2015, 10:17. INDICATIONS : Nausea, vomiting, constipation. FLUORO TIME: 0 minutes IMAGE COUNT: 15 CONTRAST: MD Troncoso IMAGING TIME(S): 15 min, 30 min, 45 min, 1 hr, 2 hr5hr 15min, 8.5 HR MEDICAL HISTORY : Hypertension. Arthritis. Ovarian carcinoma. SURGICAL HISTORY : section. Hysterectomy. Cholecystectomy. ENCOUNTER: Subsequent ACUITY: 4 - 6 days PAIN SCORE: 0/ 10 LOCATION: Abdomen. FINDINGS: A access developer view demonstrates abnormal bowel gas pattern with numerous dilated loops of small bowel seen, and some air in nondilated ascending colon. Contrast is instilled via NG tube, the distal tip of whi ch projects at the esophagogastric junction. The stomach is normal in appearance. Numerous dilated lo ops of small intestine progressively opacified with contrast over several hours. Contrast is felt to reach the large bowel on the 8.5 hour film to the level of the hepatic flexure. CONCLUSION: Delay in transit of the contrast to the large bowel by 8.5 hours. Numerous dilated loops of small intestine are seen. Luisito Barahona MD on May 28, 2017 at 17:17 Board Certified Radiologist. This report was verified electronically.
[2017-05-28 17:34] VITALS: O2SAT 95
--- NOTE | 2017-05-28 18:04 | HHI.PR ---
Subjective Remarks continued nausea and abdominal distension. Objective Vitals Vital Signs Date Time Temp Pulse Resp B/P (MAP) Pulse Ox O2 Delivery O2 Flow Rate FiO2 05/28/17 17:34 95 21 05/28/17 12:00 98.2 105 20 148/69 (95) 95 05/28/17 08:00 97.1 99 18 151/70 (97) 95 05/28/17 04:00 97.7 81 17 126/76 (93) 93 05/27/17 20:00 98.8 101 17 139/62 (87) 94 Result Diagram: 05/28/1715 05/28/17614 Other Results Laboratory Tests Test 05/28/17 06:15 White Blood Count 7.3 TH/MM3 Red Blood Count 2.86 MIL/MM3 Hemoglobin 10.0 GM/DL Hematocrit 29.2 % Mean Corpuscular Volume 101.8 FL Mean Corpuscular Hemoglobin 34.9 PG Mean Corpuscular Hemoglobin Concent 34.3 % Red Cell Distribution Width 17.7 % Platelet Count 227 TH/MM3 Mean Platelet Volume 8.9 FL Neutrophils (%) (Auto) 72.5 % Lymphocytes (%) (Auto) 17.7 % Monocytes (%) (Auto) 9.5 % Eosinophils (%) (Auto) 0.2 % Basophils (%) (Auto) 0.1 % Neutrophils # (Auto) 5.3 TH/MM3 Lymphocytes # (Auto) 1.3 TH/MM3 Monocytes # (Auto) 0.7 TH/MM3 Eosinophils # (Auto) 0.0 TH/MM3 Basophils # (Auto) 0.0 TH/MM3 CBC Comment AUTO DIFF Differential Total Cells Counted 100 Neutrophils % (Manual) 49 % Band Neutrophils % 22 % Lymphocytes % 17 % Monocytes % 9 % Neutrophils # (Manual) 5.4 TH/MM3 Myelocytes 3 % Nucleated Red Blood Cells 2 /100 WBC Differential Comment FINAL DIFF MANUAL Dohle Bodies PRESENT Platelet Estimate NORMAL Platelet Morphology Comment NORMAL Blood Urea Nitrogen 22 MG/DL Creatinine 1.00 MG/DL Random Glucose 119 MG/DL Calcium Level 8.5 MG/DL Magnesium Level 1.9 MG/DL Sodium Level 139 MEQ/L Potassium Level 4.0 MEQ/L Chloride Level 106 MEQ/L Carbon Dioxide Level 24.8 MEQ/L Anion Gap 8 MEQ/L Estimat Glomerular Filtration Rate 55 ML/MIN Imaging Last Impressions Small Bowel X-Ray 05/28/17 0000 Signed Impressions: Service Date/Time: Sunday, May 28, 2017 08:36 - CONCLUSION: Delay in transit of the contrast to the large bowel by 8.5 hours. Numerous dilated loops of small intestine are seen. Luisito Barahona MD Abdomen X-Ray 05/26/17 0600 Signed Impressions: Service Date/Time: Friday, May 26, 2017 10:15 - CONCLUSION: Stable abnormally dilated small bowel measuring up to 5.4 cm with paucity of distal bowel gas. Findings are suspicious for distal small bowel obstruction. One of the small bowel segments in the left abdomen demonstrates thumbprinting which can be seen with submucosal edema. Nik Bae MD Abdomen/Pelvis CT 05/25/17 0136 Signed Impressions: Service Date/Time: Thursday, May 25, 2017 01:51 - CONCLUSION: Diffusely dilated loops of small bowel down to the terminal ileum with air-fluid levels suggesting either diffuse ileus or small bowel obstruction. Renato Driscoll MD Objective Remarks General: NAD, AAOx3 Chest: CTA Cardiac: Regular Abd: distended, high pitched bowel sounds, no g/r/r Ext: No edema A/P Problem List: (1) Bowel obstruction ICD Codes: K56.60 - Unspecified intestinal obstruction Status: Acute Plan: - Pt is 71 yo with brca 2 who had ovarian Ca with LIZ/BSO, omentectomy, lysis of adhesions [place] [address] Huang. Has had chemo with Taxol, Carboplatin, Gemzar, Tamoxifen and then Lynparza this past year. There have been concerns of recurrence with a recent rise in ca 125. Dr. Huang has done PET scans and find no major focus of disease. Most recently she has been getting Topotecan weekly for past 3 weeks - Pt presented with crampy abdomen pain which occurs with each treatment and then progressed to no BM over several days prior to admission. - CT A/P shows diffusely dilated loops of small bowel down to the terminal ileum with air-fluid levels suggesting either diffuse ileus or small bowel obstruction. - Pt had similar events after starting lynparza in 2016 - Cont IVF - KUB (05/26) --> Stable abnormally dilated small bowel measuring up to 5.4 cm with paucity of distal bowel gas. Findings are suspicious for distal small bowel obstruction. One of the small bowel segments in the left abdomen demonstrates thumbprinting which can be seen with submucosal edema. - NGT with 250mL out overnight - SBFT (05/28) --> Delay in transit of the contrast to the large bowel by 8.5 hours. Numerous dilated loops of small intestine are seen. - SBFT results were discussed with radiology and they feel that these findings are most likely consistent with obstruction. - We will discuss the case with Dr. Huang and will consult [facility] General Surgery for further recommendations - NGT needs to be advanced as well, its noted to be in the GE junction on SBFT. - NPO except meds - Encourage ambulation (2) Recurrent carcinoma of ovary ICD Codes: C56.9 - Malignant neoplasm of unspecified ovary Status: Chronic Plan: - See above. (3) Hypokalemia ICD Codes: E87.6 - Hypokalemia Status: Acute Plan: - Improved. (4) HTN (hypertension), benign ICD Codes: I10 - Essential (primary) hypertension Status: Chronic Plan: - Home meds continued - monitor (5) Anxiety ICD Codes: F41.9 - Anxiety disorder, unspecified Status: Chronic Assessment and Plan Patient examined. Assessment and plan formulated with Julita Jones PA-C. I agree with the above. Julita Jones May 28, 2017 18:04 Brown Rivera DO May 29, 2017 09:19
[2017-05-28 20:00] VITALS: BP 141/67; PULSE 107; RESP 17; TEMP 99.6; O2SAT 94
[2017-05-29] VITALS (8 sets, daily range): BP systolic 134–168; BP diastolic 60–76; PULSE 91–108; RESP 17–20; TEMP 97–99.8; O2SAT 92–94
[2017-05-29] MEDS: NS + KCL 20 MEQ INJ 1,000 ML IV SCH (02:00)
[2017-05-29 04:09] LABS: AUTOMATED NEUTROPHIL # 7.2 TH/MM3 (1.8-7.7); BASOPHIL % 0.1 % (0.0-2.0); HEMATOCRIT 29.1 % (35.0-46.0); LYMPH % 9.9 % (9.0-44.0); LYMPHOCYTE # 0.9 TH/MM3 (1.0-4.8); MEAN CELL VOLUME 102.1 FL (80.0-100.0); MEAN CORPUSCULAR HEMOGLOBIN 33.6 PG (27.0-34.0); MEAN CORPUSCULAR HGB CONC 32.9 % (32.0-36.0); MONO % 6.5 % (0.0-8.0); NEUT % 83.5 % (16.0-70.0); PLATELET COUNT 263 TH/MM3 (150-450); RED BLOOD COUNT 2.85 MIL/MM3 (4.00-5.30); RED CELL DISTRIBUTION WIDTH 18.2 % (11.6-17.2); WHITE BLOOD COUNT 8.7 TH/MM3 (4.0-11.0)
[2017-05-29 04:14] LABS: HEMO FLAGS AUTO DIFF
[2017-05-29 04:31] LABS: BICARBONATE 27.3 MEQ/L (21.0-32.0); MAGNESIUM 2.1 MG/DL (1.5-2.5); POTASSIUM 3.8 MEQ/L (3.5-5.1)
[2017-05-29 05:36] LABS: BANDS 27 % (0-6); CORRECTED NUCLEATED RBC 1 /100 WBC (0-0); METAMYELOCYTES 1 % (0-1); MYELOCYTES 2 % (0-0); OVALOCYTES 1+ (NORMAL); POLYS (SEG NEUTROPHILS) 59 % (16-70); PROMYELOCYTES 3 % (0-0); SCAN/DIFF FINAL DIFF MANUAL; WBC DIFF SAMPLE 100
[2017-05-29 05:37] LABS: DOHLE BODIES PRESENT (NONE SEEN); PLATELET ESTIMATE SMEAR NORMAL (NORMAL); PLATELET MORPHOLOGY NORMAL (NORMAL)
[2017-05-29 05:38] LABS: ACANTHOCYTES OCC (NORMAL)
[2017-05-29 05:51] LABS: POLYCHROMASIA 3.2 % (0.0-1.9)
--- NOTE | 2017-05-29 05:58 | MB ---
cc: RYNE KNUTSON DATE OF CONSULTATION 05/29/2017 REASON FOR EVALUATION Bowel obstruction. HISTORY OF PRESENT ILLNESS This is a 71-year-old female with a history of ovarian cancer status post LIZ-BSO, omentectomy, who has been on chemotherapy, admitted with abdominal distension, findings concerning for ileus versus obstruction. The patient had a small bowel series today which revealed delayed passage of contrast into the colon. Surgical consult was requested. The patient states she is passing gas. She had a large bowel movement today. She complains of irritation of her throat from her NG tube. She denies abdominal pain. MEDICAL HISTORY Significant for above. SURGICAL HISTORY 1. Significant for above as well as - 2. Hysterectomy. 3. Cholecystectomy. 4. Breast reconstruction. MEDICATIONS The patient's medications can be obtained from the med reconciliation. ALLERGIES PENICILLIN. STATINS. AMLODIPINE. SOCIAL HISTORY She does not smoke or drink alcohol. PHYSICAL EXAMINATION GENERAL: On exam she is laying in bed in no acute distress. EYES: Pupils are reactive. RESPIRATIONS: Clear. Trachea is midline. ABDOMEN: Soft, distended. Well-healed Pfannenstiel incision. She has a reducible hernia in this incision, nontender. MUSCULOSKELETAL: No deformities. The patient was passing gas while I was in the room. RADIOLOGICAL IMAGES Reviewed. ASSESSMENT This is a patient with a history of recurrent ovarian CA on chemotherapy for this who likely has an ileus. PLAN We will try clamping the NG tube and checking residuals. If the residuals are low, we start her on a liquid diet. No surgical intervention at present. MD SLADE Godinez/SSB /3:33 AM /5:48 AM
--- NOTE | 2017-05-29 06:48 | RADRPT ---
EXAM DATE/TIME: 05/29/2017 06:24 [facility] COMPARISON: SMALL BOWEL SERIES W/GASTROGRAFIN, May 28, 2017, 8:36. INDICATIONS : Ileus. MEDICAL HISTORY : None. SURGICAL HISTORY : section. Cholecystectomy. Hysterectomy. ENCOUNTER: Initial ACUITY: 4 - 6 days PAIN SCORE: 1/10 LOCATION: Bilateral lower quadrant abdomen FINDINGS: Supine view of the abdomen was performed. Gaseous distention of small bowel is stable to slightly imp roved from May 26. There is residual contrast in large bowel. CONCLUSION: 1. Persistent dilatation of small bowel which is stable to slightly improved from May 26. Resid ual contrast throughout colon. Miki Chan MD on May 29, 2017 at 6:45 Board Certified Radiologist. This report was verified electronically.
[2017-05-29] MEDS: LISINOPRIL 20 MG TAB PO SCH ×2 (08:09→21:41)
--- NOTE | 2017-05-29 08:09 | PD.ONC.PN ---
Subjective Subjective Remarks pt is sleeping, awakens to voice denies BM general surgery into see pt and orders placed to clamp NG tube and start clear liquids Objective Data Date Time Temp Pulse Resp B/P (MAP) Pulse Ox O2 Delivery O2 Flow Rate FiO2 05/29/17 04:00 98.6 108 17 134/61 (85) 92 05/29/17 02:40 94 05/29/17 00:00 98.5 104 18 138/75 (96) 94 05/28/17 20:00 99.6 107 17 141/67 (91) 94 05/28/17 17:34 95 21 05/28/17 16:00 97.6 118 22 137/80 (99) 95 05/28/17 12:00 98.2 105 20 148/69 (95) 95 05/29/17 05/29/17 05/29/17 07:00 15:00 23:00 Output Total 1200 ml Balance -1200 ml Result Diagram: 05/29/17 0400 05/29/17 0400 Laboratory Results Laboratory Tests Test 05/29/17 04:00 White Blood Count 8.7 TH/MM3 Red Blood Count 2.85 MIL/MM3 Hemoglobin 9.6 GM/DL Hematocrit 29.1 % Mean Corpuscular Volume 102.1 FL Mean Corpuscular Hemoglobin 33.6 PG Mean Corpuscular Hemoglobin Concent 32.9 % Red Cell Distribution Width 18.2 % Platelet Count 263 TH/MM3 Mean Platelet Volume 8.3 FL Neutrophils (%) (Auto) 83.5 % Lymphocytes (%) (Auto) 9.9 % Monocytes (%) (Auto) 6.5 % Eosinophils (%) (Auto) 0.0 % Basophils (%) (Auto) 0.1 % Neutrophils # (Auto) 7.2 TH/MM3 Lymphocytes # (Auto) 0.9 TH/MM3 Monocytes # (Auto) 0.6 TH/MM3 Eosinophils # (Auto) 0.0 TH/MM3 Basophils # (Auto) 0.0 TH/MM3 CBC Comment AUTO DIFF Differential Total Cells Counted 100 Neutrophils % (Manual) 59 % Band Neutrophils % 27 % Lymphocytes % 4 % Monocytes % 4 % Neutrophils # (Manual) 8.0 TH/MM3 Metamyelocytes 1 % Myelocytes 2 % Promyelocytes 3 % Nucleated Red Blood Cells 1 /100 WBC Differential Comment FINAL DIFF MANUAL Toxic Granulation Dohle Bodies PRESENT Platelet Estimate NORMAL Platelet Morphology Comment NORMAL Polychromasia 3.2 % Ovalocytes 1+ Acanthocytes OCC Blood Urea Nitrogen 26 MG/DL Creatinine 1.03 MG/DL Random Glucose 131 MG/DL Calcium Level 8.5 MG/DL Magnesium Level 2.1 MG/DL Sodium Level 146 MEQ/L Potassium Level 3.8 MEQ/L Chloride Level 110 MEQ/L Carbon Dioxide Level 27.3 MEQ/L Anion Gap 9 MEQ/L Estimat Glomerular Filtration Rate 53 ML/MIN CA 125 Antigen 325.5 U/ML Imaging Studies Last 24 hours Impressions Abdomen X-Ray 05/29/17 0600 Signed Impressions: Service Date/Time: Monday, May 29, 2017 06:24 - CONCLUSION: 1. Persistent dilatation of small bowel which is stable to slightly improved from May 26. Residual contrast throughout colon. Miki Chan MD Administered Medications Medications (Trade) Dose Ordered Sig/Anette Route PRN Reason Start Time Stop Time Status Last Admin Dose Admin Sodium Chloride (NS Flush) 2 ml BID IV FLUSH 05/25/17 09:00 05/28/17 22:05 Sodium Chloride (NS Flush) 2 ml UNSCH PRN IVF FLUSH AFTER USING IV ACCESS 05/25/17 04:45 05/25/17 04:52 Ondansetron HCl (Zofran Inj) 4 mg Q4H PRN IV NAUSEA OR VOMITING 05/25/17 10:00 05/28/17 06:48 Hydromorphone HCl (Dilaudid Pf Inj) 1 mg Q3H PRN IV PUSH pain over 4 05/25/17 18:00 05/27/17 01:49 Clonidine (Catapres) 0.1 mg Q6H PRN PO sbp > 170 05/26/17 09:00 05/26/17 14:20 Lisinopril (Prinivil) 20 mg Q12HR PO 05/26/17 09:00 05/27/17 09:24 Al Hydrox/Mg Hydrox/Simethicone (Mag-Al Plus Susp Liq) 30 ml Q4H PRN PO HEARTBURN 05/26/17 18:30 05/26/17 22:13 Potassium Chloride/Sodium Chloride 1,000 ml @ 75 mls/hr [id number] IV 05/26/17 21:00 05/29/17 02:00 Objective Remarks GENERAL: Well-nourished, well-developed patient. SKIN: Warm and dry. HEAD: Normocephalic. EYES: No scleral icterus. No injection or drainage. CARDIOVASCULAR: Regular rate and rhythm without murmurs. RESPIRATORY: Breath sounds equal bilaterally. No accessory muscle use. GASTROINTESTINAL: abdomen distended, hyperactive BS x 4 quad EXTREMITIES: teds and scds MUSCULOSKELETAL: Adequate muscle tone. NEUROLOGICAL: No obvious focal deficit. Awake, alert, and oriented x3. PSYCHIATRIC: Appropriate mood and affect; insight and judgment normal. Assessment/Plan Problem List: (1) Small bowel obstruction ICD Codes: K56.69 - Other intestinal obstruction Status: Acute Plan: NG tube in place to [facility] general surgery consulted and orders placed to clamp NG and start clear liquids check residuals pt denies BM as of yet encouraged to get OOB and ambulate (2) Recurrent carcinoma of ovary ICD Codes: C56.9 - Malignant neoplasm of unspecified ovary Status: Chronic Plan: consideration of changing pt's current treatment for recurrent ovarian cancer. will follow up as outpt once discharged from hospital to further discuss with Dr. Huang. Attending Statement Dr. Huang is in agreement with plan of care. Olivia Thacker May 29, 2017 08:09
[2017-05-29] MEDS: SODIUM CHLORIDE 0.9% FLUSH 10 ML FLUSH IV FLUSH SCH ×2 (08:13→21:00)
[2017-05-29] MEDS: 1/2 NS + KCL 20 MEQ INJ 1,000 ML IV SCH ×2 (11:47→23:52)
--- NOTE | 2017-05-29 18:07 | HHI.PR ---
Subjective Remarks Pt reports 2 very small BMs early this AM. Objective Vitals Vital Signs Date Time Temp Pulse Resp B/P (MAP) Pulse Ox O2 Delivery O2 Flow Rate FiO2 05/29/17 12:00 92 05/29/17 12:00 97.0 91 18 139/67 (91) 94 05/29/17 08:00 97.5 95 20 134/60 (84) 93 05/29/17 04:00 98.6 108 17 134/61 (85) 92 05/29/17 02:40 94 05/29/17 00:00 98.5 104 18 138/75 (96) 94 05/28/17 20:00 99.6 107 17 141/67 (91) 94 05/29/17 05/29/17 05/30/17 15:00 23:00 07:00 Intake Total 0 ml 80 ml Output Total 1000 ml Balance -1000 ml 80 ml Intake Oral 0 ml 80 ml Gastric Drainage Total 1000 ml # Bowel Movements 1 1 Result Diagram: 05/29/17 0400 05/29/17 0400 Imaging Last Impressions Abdomen X-Ray 05/29/17 0600 Signed Impressions: Service Date/Time: Monday, May 29, 2017 06:24 - CONCLUSION: 1. Persistent dilatation of small bowel which is stable to slightly improved from May 26. Residual contrast throughout colon. Miki Chan MD Small Bowel X-Ray 05/28/17 0000 Signed Impressions: Service Date/Time: Sunday, May 28, 2017 08:36 - CONCLUSION: Delay in transit of the contrast to the large bowel by 8.5 hours. Numerous dilated loops of small intestine are seen. Luisito Barahona MD Abdomen/Pelvis CT 05/25/17 0136 Signed Impressions: Service Date/Time: Thursday, May 25, 2017 01:51 - CONCLUSION: Diffusely dilated loops of small bowel down to the terminal ileum with air-fluid levels suggesting either diffuse ileus or small bowel obstruction. Renato Driscoll MD Objective Remarks General: NAD, AAOx3 Chest: CTA Cardiac: Regular Abd: distended, bowel sounds present today, no g/r/r Ext: No edema A/P Problem List: (1) Bowel obstruction ICD Codes: K56.60 - Unspecified intestinal obstruction Status: Acute Plan: - Pt is 71 yo with brca 2 who had ovarian Ca with LIZ/BSO, omentectomy, lysis of adhesions [place] [address] Huang. Has had chemo with Taxol, Carboplatin, Gemzar, Tamoxifen and then Lynparza this past year. There have been concerns of recurrence with a recent rise in ca 125. Dr. Huang has done PET scans and find no major focus of disease. Most recently she has been getting Topotecan weekly for past 3 weeks - comgmt with [facility] - Pt presented with crampy abdomen pain which occurs with each treatment and then progressed to no BM over several days prior to admission. - CT A/P shows diffusely dilated loops of small bowel down to the terminal ileum with air-fluid levels suggesting either diffuse ileus or small bowel obstruction. - Pt had similar events after starting lynparza in 2016 - Cont IVF - KUB (05/26) --> Stable abnormally dilated small bowel measuring up to 5.4 cm with paucity of distal bowel gas. Findings are suspicious for distal small bowel obstruction. One of the small bowel segments in the left abdomen demonstrates thumbprinting which can be seen with submucosal edema. - NGT with 250mL out overnight - SBFT (05/28) --> Delay in transit of the contrast to the large bowel by 8.5 hours. Numerous dilated loops of small intestine are seen. - SBFT results were discussed with radiology and they feel that these findings are most likely consistent with obstruction. - bowel sounds improving - NGT - NPO except meds & hard candy - Encourage ambulation - continue supportive care (2) Recurrent carcinoma of ovary ICD Codes: C56.9 - Malignant neoplasm of unspecified ovary Status: Chronic Plan: - See above. (3) Hypokalemia ICD Codes: E87.6 - Hypokalemia Status: Acute Plan: - Improved. (4) HTN (hypertension), benign ICD Codes: I10 - Essential (primary) hypertension Status: Chronic Plan: - Home meds continued - monitor (5) Anxiety ICD Codes: F41.9 - Anxiety disorder, unspecified Status: Chronic Brown Rivera DO May 29, 2017 18:07
[2017-05-30] VITALS (9 sets, daily range): BP systolic 155–192; BP diastolic 76–89; PULSE 91–95; RESP 17–20; TEMP 97.4–98.7; O2SAT 91–99
[2017-05-30] MEDS: cloNIDine HCL 0.1 MG TAB PO PRN ×2 (04:04→15:57)
[2017-05-30 08:40] LABS: BICARBONATE 31.5 MEQ/L (21.0-32.0); MAGNESIUM 2.2 MG/DL (1.5-2.5); POTASSIUM 3.7 MEQ/L (3.5-5.1)
[2017-05-30] MEDS: SODIUM CHLORIDE 0.9% FLUSH 10 ML FLUSH IV FLUSH SCH ×2 (09:00→20:14)
[2017-05-30] MEDS: LISINOPRIL 20 MG TAB PO SCH ×2 (09:41→20:14)
--- NOTE | 2017-05-30 11:02 | HHI.PR ---
Subjective Subjective Notes She wants to eat. Very concerned about her nutrition. She has questions about her kidney function. Objective Vitals/I&O Vital Signs Date Time Temp Pulse Resp B/P (MAP) Pulse Ox O2 Delivery O2 Flow Rate FiO2 05/30/17 09:15 95 21 05/30/17 08:40 97.4 95 19 156/89 (111) Labs Laboratory Tests Test 05/30/17 07:30 Blood Urea Nitrogen 23 Creatinine 0.96 Random Glucose 88 Calcium Level 8.4 Magnesium Level 2.2 Sodium Level 147 Potassium Level 3.7 Chloride Level 109 Carbon Dioxide Level 31.5 Anion Gap 7 Estimat Glomerular Filtration Rate 57 Narrative Exam Anxious, no distress Abd: distended, soft, nontender. NGT 1000 cc output overnight. A/P Assessment and Plan 71 yo H/o radical hysterectomy/oophorectomy on chemotherapy for recurrent ovarian cancer with diffuse small bowel ileus vs partial obstruction. Contrast has reached rectum on yesterday KUB. Having small liquid bms and flatus. Still high output from NGT. She can have sips of clears and popsicles for comfort. This appears more consistent with ileus than obstruction. Reg Earl MD May 30, 2017 11:02
--- NOTE | 2017-05-30 11:15 | RADRPT ---
EXAM DATE/TIME: 05/30/2017 09:06 [place] COMPARISON: ABDOMEN KUB ONLY, May 29, 2017, 6:24. INDICATIONS : Obstruction. MEDICAL HISTORY : Hypertension. SURGICAL HISTORY : Hysterectomy. section. Mariah Hameed. ENCOUNTER: Subsequent ACUITY: 4 - 6 days PAIN SCORE: 0/10 LOCATION: Abdomen. FINDINGS: 2 AP supine views of the abdomen. Nasogastric tube is in place with the tip in the stomach. Multiple dilated air-filled loops of small bowel again identified. The maximum dilatation is unchanged. Disten tion of the cecum is seen as well. Minimal residual contrast in the distal colon. Scattered gas in th e mid to distal colon. Small amount contrast in the stomach. CONCLUSION: Persistent diffuse air filled small bowel dilatation. No significant interval change. Jakob Hassan MD on May 30, 2017 at 11:11 Board Certified Radiologist. This report was verified electronically.
[2017-05-30] MEDS: 1/2 NS + KCL 20 MEQ INJ 1,000 ML IV SCH (11:41)
--- NOTE | 2017-05-30 13:51 | HHI.PR ---
Subjective Remarks Patient reports feeling better now that she is able to have hard candy her throat is less sore continues to be concerned with nutritional status reports 2-3 small BMs (described a squirts) and endorse positive flatus Objective Vitals Vital Signs Date Time Temp Pulse Resp B/P (MAP) Pulse Ox O2 Delivery O2 Flow Rate FiO2 05/30/17 12:11 98.6 92 19 155/87 (109) 94 05/30/17 09:15 95 21 05/30/17 08:40 97.4 95 19 156/89 (111) 91 05/30/17 04:00 98.0 95 17 192/82 (118) 92 05/30/17 00:00 98.7 95 17 164/76 (105) 92 05/29/17 21:14 92 05/29/17 20:00 99.1 105 18 136/65 (88) 92 05/29/17 18:00 99.8 99 18 168/76 (106) 93 Result Diagram: 05/29/17 0400 05/30/17 0730 Other Results Laboratory Tests Test 05/28/17 06:15 05/29/17 04:00 05/30/17 07:30 White Blood Count 7.3 TH/MM3 8.7 TH/MM3 Red Blood Count 2.86 MIL/MM3 2.85 MIL/MM3 Hemoglobin 10.0 GM/DL 9.6 GM/DL Hematocrit 29.2 % 29.1 % Mean Corpuscular Volume 101.8 FL 102.1 FL Mean Corpuscular Hemoglobin 34.9 PG 33.6 PG Mean Corpuscular Hemoglobin Concent 34.3 % 32.9 % Red Cell Distribution Width 17.7 % 18.2 % Platelet Count 227 TH/MM3 263 TH/MM3 Mean Platelet Volume 8.9 FL 8.3 FL Neutrophils (%) (Auto) 72.5 % 83.5 % Lymphocytes (%) (Auto) 17.7 % 9.9 % Monocytes (%) (Auto) 9.5 % 6.5 % Eosinophils (%) (Auto) 0.2 % 0.0 % Basophils (%) (Auto) 0.1 % 0.1 % Neutrophils # (Auto) 5.3 TH/MM3 7.2 TH/MM3 Lymphocytes # (Auto) 1.3 TH/MM3 0.9 TH/MM3 Monocytes # (Auto) 0.7 TH/MM3 0.6 TH/MM3 Eosinophils # (Auto) 0.0 TH/MM3 0.0 TH/MM3 Basophils # (Auto) 0.0 TH/MM3 0.0 TH/MM3 CBC Comment AUTO DIFF AUTO DIFF Differential Total Cells Counted 100 100 Neutrophils % (Manual) 49 % 59 % Band Neutrophils % 22 % 27 % Lymphocytes % 17 % 4 % Monocytes % 9 % 4 % Neutrophils # (Manual) 5.4 TH/MM3 8.0 TH/MM3 Myelocytes 3 % 2 % Nucleated Red Blood Cells 2 /100 WBC 1 /100 WBC Differential Comment FINAL DIFF MANUAL FINAL DIFF MANUAL Dohle Bodies PRESENT PRESENT Platelet Estimate NORMAL NORMAL Platelet Morphology Comment NORMAL NORMAL Blood Urea Nitrogen 22 MG/DL 26 MG/DL 23 MG/DL Creatinine 1.00 MG/DL 1.03 MG/DL 0.96 MG/DL Random Glucose 119 MG/DL 131 MG/DL 88 MG/DL Calcium Level 8.5 MG/DL 8.5 MG/DL 8.4 MG/DL Magnesium Level 1.9 MG/DL 2.1 MG/DL 2.2 MG/DL Sodium Level 139 MEQ/L 146 MEQ/L 147 MEQ/L Potassium Level 4.0 MEQ/L 3.8 MEQ/L 3.7 MEQ/L Chloride Level 106 MEQ/L 110 MEQ/L 109 MEQ/L Carbon Dioxide Level 24.8 MEQ/L 27.3 MEQ/L 31.5 MEQ/L Anion Gap 8 MEQ/L 9 MEQ/L 7 MEQ/L Estimat Glomerular Filtration Rate 55 ML/MIN 53 ML/MIN 57 ML/MIN Metamyelocytes 1 % Promyelocytes 3 % Toxic Granulation Polychromasia 3.2 % Ovalocytes 1+ Acanthocytes OCC CA 125 Antigen 325.5 U/ML Imaging Last Impressions Abdomen X-Ray 05/29/17 0600 Signed Impressions: Service Date/Time: Monday, May 29, 2017 06:24 - CONCLUSION: 1. Persistent dilatation of small bowel which is stable to slightly improved from May 26. Residual contrast throughout colon. Miki Chan MD Small Bowel X-Ray 05/28/17 0000 Signed Impressions: Service Date/Time: Sunday, May 28, 2017 08:36 - CONCLUSION: Delay in transit of the contrast to the large bowel by 8.5 hours. Numerous dilated loops of small intestine are seen. Luisito Barahona MD Abdomen/Pelvis CT 05/25/17 0136 Signed Impressions: Service Date/Time: Saturday, May 25, 2017 01:51 - CONCLUSION: Diffusely dilated loops of small bowel down to the terminal ileum with air-fluid levels suggesting either diffuse ileus or small bowel obstruction. Renato Driscoll MD Objective Remarks General: NAD, AAOx3 Chest: CTA Cardiac: Regular Abd: soft distended, faint normoactive bowel sounds present, NG tube Ext: No edema A/P Problem List: (1) Bowel obstruction ICD Codes: K56.60 - Unspecified intestinal obstruction Status: Acute Plan: - Pt is 71 yo with brca 2 who had ovarian Ca with LIZ/BSO, omentectomy, lysis of adhesions [place] [address] Huang. Has had chemo with Taxol, Carboplatin, Gemzar, Tamoxifen and then Lynparza this past year. There have been concerns of recurrence with a recent rise in ca 125. Dr. Huang has done PET scans and find no major focus of disease. Most recently she has been getting Topotecan weekly for past 3 weeks - comgmt with [employer] [facility] - Pt presented with crampy abdomen pain which occurs with each treatment and then progressed to no BM over several days prior to admission. - CT A/P shows diffusely dilated loops of small bowel down to the terminal ileum with air-fluid levels suggesting either diffuse ileus or small bowel obstruction. - Pt had similar events after starting lynparza in 2016 - Cont IVF - KUB (05/26) --> Stable abnormally dilated small bowel measuring up to 5.4 cm with paucity of distal bowel gas. Findings are suspicious for distal small bowel obstruction. One of the small bowel segments in the left abdomen demonstrates thumbprinting which can be seen with submucosal edema. - NGT with 250mL out overnight - SBFT (05/28) --> Delay in transit of the contrast to the large bowel by 8.5 hours. Numerous dilated loops of small intestine are seen. - SBFT results were discussed with radiology and they feel that these findings are most likely consistent with obstruction. - bowel sounds improving - NGT - NPO except meds, hard candy and sips of clear liquids - Discussed case with Dr. Earl recommends continue current course of treatment - Encourage ambulation - continue supportive care (2) Recurrent carcinoma of ovary ICD Codes: C56.9 - Malignant neoplasm of unspecified ovary Status: Chronic Plan: - See above. (3) Hypokalemia ICD Codes: E87.6 - Hypokalemia Status: Acute Plan: - Improved. (4) HTN (hypertension), benign ICD Codes: I10 - Essential (primary) hypertension Status: Chronic Plan: - Home meds continued - monitor (5) Anxiety ICD Codes: F41.9 - Anxiety disorder, unspecified Status: Chronic Assessment and Plan Patient examined. Assessment and plan formulated with Le Flood PA-C. I agree with the above. Le Flood May 30, 2017 13:50 Brown Rivera DO Jun 01, 2017 00:01
[2017-05-30] MEDS: METOCLOPRAMIDE HCL 10 MG/2 ML VIAL IV PUSH SCH ×3 (14:00→22:30)
--- NOTE | 2017-05-30 17:03 | MB ---
cc: DENISE MEJIA MD, JEFFREY B. M.D. HILL, JOHN M. MD DATE OF CONSULTATION 05/30/17 FOLLOW UP CONSULTATION, DISCUSSION HISTORY Follow up discussion today with Shahida Hayden with her and daughter present. I summarized the findings again thus far. The upper GI series apparently had the contrast make it through the small bowel into the colon although the transit was delayed, there was no overt focal area of obstruction. Her plain film x-rays remained relatively unchanged with multiple dilated loops of small bowel. Overall, her labs are relatively normal. CA-125 is not unexpectedly elevated at 325. Renal function is preserved. BUN and creatinine 23 and 0.96. H&H 9.6 and 29.1. White count 8.7, platelets 263. Also, explained that her magnesium and phosphorus were normal all in response to questions regarding the labs, magnesium 2.2, phosphorus just below the normal range at 8.4. Clinically, there are a few points of optimism. Her intense intestinal crampy pain has resolved at the present time. On exam her abdomen is softer. There is no rebound or guarding. Bowel sounds remain hypoactive. The nasogastric tube is still having fairly significant output, 2000 cc over the previous 24 hours and 600 cc but it should be noted that she is on clear liquids and has been drinking a fair bit. Furthermore, she has had some flatus and she has had some loose watery bowel movements. Nursing reports five bowel movements today but in talking with Shahida Hayden her recollection is that she has had little to no bowel activity but I believe she has recently taken some anxiety medicine or pain medicine such that her recollection seems a little bit cloudy at the time of this discussion. Nevertheless, she is alert enough to feel that topotecan was the underlying problem that triggered this profound ileus. It is possible with that chemotherapeutic agent contributed significantly to this finding. It is also possible that she has a small volume but multifocal diffuse carcinomatous implants that are disrupting normal peristalsis and fixing loops of bowel and mesentery that are delaying normal digestion and peristalsis even though imaging does not show an overt tumor mass, ascites or adenopathy and with an elevated CA-125 and knowing her history as well as the behavior of ovarian cancer, multifocal carcinomatous implants are likely contributing factor as well. She is encouraged to get out of bed. I think it would be reasonable to clamp her NG tube at periods of time for 30 minutes, get her out of bed to a chair and to walk in the hallway as she has done little activity since hospital admission. It may be reasonable to elicit the help of physical therapy for evaluation and recommendations to help maintain her strength and facilitate her recovery. With respect to treatment for the cancer we will definitely discontinue the topotecan even though she has only received one cycle. Given her current set of circumstances and her strong belief that the chemotherapy was the underlying problem we will discontinue that chemotherapy. We will reevaluate her treatment history when she follows up in our office and we can make new recommendations accordingly. Discussion ensued, questions were answered to the best of my capacity for her, her and daughter. They expressed good understanding. They are aware that I will be out of town now until this forthcoming Saturday and very grateful for the care provided by hospitalists, surgeon's and all others involved in her care during. Olivia Thacker, our nurse practitioner, will be taking on her tomorrow. MD ADELA Dennis/SCOTTY /4:09 PM /4:47 PM LIZZIE
[2017-05-30] MEDS: POTASSIUM CHLORIDE INJ 20 MEQ in DEXTROSE 5% IN WATE 1000ML INJ 1,000 ML IV SCH ×2 (22:30)
[2017-05-30] MEDS: ALPRAZolam 1 MG TAB PO PRN (22:30)
[2017-05-31] VITALS (8 sets, daily range): BP systolic 133–163; BP diastolic 69–91; PULSE 85–103; RESP 18–20; TEMP 97.9–98.9; O2SAT 91–93
[2017-05-31] MEDS: METOCLOPRAMIDE HCL 10 MG/2 ML VIAL IV PUSH SCH ×3 (05:34→21:47)
[2017-05-31 06:19] LABS: BICARBONATE 31.6 MEQ/L (21.0-32.0); POTASSIUM 3.6 MEQ/L (3.5-5.1)
[2017-05-31] MEDS: SODIUM CHLORIDE 0.9% FLUSH 10 ML FLUSH IV FLUSH SCH ×2 (07:35→19:43)
--- NOTE | 2017-05-31 08:28 | PD.ONC.PN ---
Subjective Subjective Remarks rehabilitation physician/onc pt in bed no complaints at this time states had 3 liquid stool overnight and + flatus. NG tube to LIWS has not been OOB to ambulate encourage to ambulate Objective Data Date Time Temp Pulse Resp B/P (MAP) Pulse Ox O2 Delivery O2 Flow Rate FiO2 05/31/17 08:23 93 21 05/31/17 04:00 98.9 91 20 159/76 (103) 93 05/31/17 00:00 98.7 101 20 163/91 (115) 93 05/30/17 20:13 159/82 (107) 05/30/17 20:00 98.4 94 20 180/81 (114) 93 05/30/17 19:20 21 05/30/17 18:01 160/78 (105) 05/30/17 16:32 98.5 91 19 182/84 (116) 99 05/30/17 12:11 98.6 92 19 155/87 (109) 94 05/30/17 09:15 95 21 05/30/17 08:40 97.4 95 19 156/89 (111) 91 05/31/17 05/31/17 05/31/17 07:00 15:00 23:00 Intake Total 400 ml Output Total 2020 ml Balance -1620 ml Result Diagram: 05/29/17 0400 05/31/17 0535 Laboratory Results Laboratory Tests Test 05/31/17 05:35 Blood Urea Nitrogen 17 MG/DL Creatinine 1.08 MG/DL Random Glucose 149 MG/DL Calcium Level 8.4 MG/DL Sodium Level 141 MEQ/L Potassium Level 3.6 MEQ/L Chloride Level 102 MEQ/L Carbon Dioxide Level 31.6 MEQ/L Anion Gap 7 MEQ/L Estimat Glomerular Filtration Rate 50 ML/MIN Administered Medications Medications (Trade) Dose Ordered Sig/Anette Route PRN Reason Start Time Stop Time Status Last Admin Dose Admin Sodium Chloride (NS Flush) 2 ml BID IV FLUSH 05/25/17 09:00 05/28/17 22:05 Sodium Chloride (NS Flush) 2 ml UNSCH PRN IVF FLUSH AFTER USING IV ACCESS 05/25/17 04:45 05/25/17 04:52 Ondansetron HCl (Zofran Inj) 4 mg Q4H PRN IV NAUSEA OR VOMITING 05/25/17 10:00 05/28/17 06:48 Alprazolam (Xanax) 1 mg HS PRN PO anxiety 05/25/17 21:00 05/30/17 22:30 Hydromorphone HCl (Dilaudid Pf Inj) 1 mg Q3H PRN IV PUSH pain over 4 05/25/17 18:00 05/27/17 01:49 Clonidine (Catapres) 0.1 mg Q6H PRN PO sbp > 170 05/26/17 09:00 05/30/17 15:57 Al Hydrox/Mg Hydrox/Simethicone (Mag-Al Plus Susp Liq) 30 ml Q4H PRN PO HEARTBURN 05/26/17 18:30 05/26/17 22:13 Lisinopril (Prinivil) 40 mg BID PO 05/30/17 09:00 05/30/17 20:14 Metoclopramide HCl (Reglan Inj) 10 mg Q8HR IV PUSH 05/30/17 14:00 05/31/17 05:34 Potassium Chloride 20 meq/ Dextrose 1,010 ml @ 84 mls/hr Q12H2M IV 05/30/17 19:00 05/30/17 22:30 Objective Remarks GENERAL: Well-nourished, well-developed patient. SKIN: Warm and dry. HEAD: Normocephalic. EYES: No scleral icterus. No injection or drainage. CARDIOVASCULAR: Regular rate and rhythm without murmurs. RESPIRATORY: Breath sounds equal bilaterally. No accessory muscle use. GASTROINTESTINAL: Abdomen distended, hypoactive BS EXTREMITIES: teds and scds MUSCULOSKELETAL: Adequate muscle tone. Assessment/Plan Problem List: (1) Small bowel obstruction ICD Codes: K56.69 - Other intestinal obstruction Status: Acute Plan: NG tube in place to LIWS + liquid stool overnight pt drinking clear liquids encourage pt to ambulate continue medical management (2) Recurrent carcinoma of ovary ICD Codes: C56.9 - Malignant neoplasm of unspecified ovary Status: Chronic Plan: consideration of changing pt's current treatment for recurrent ovarian cancer. will follow up as outpt once discharged from hospital to further discuss with Dr. Huang. Olivia Thacker May 31, 2017 08:28
[2017-05-31] MEDS: LISINOPRIL 20 MG TAB PO SCH ×2 (08:44→19:44)
[2017-05-31] MEDS: POTASSIUM CHLORIDE INJ 20 MEQ in DEXTROSE 5% IN WATE 1000ML INJ 1,000 ML IV SCH ×2 (10:12)
[2017-05-31] MEDS: LORazepam 2 MG/ML VIAL IV PUSH PRN ×3 (10:35→18:43)
--- NOTE | 2017-05-31 11:38 | HHI.PR ---
Subjective Subjective Notes Denies abdominal pain. Had bowel movts and flatus overnight. Objective Vitals/I&O Vital Signs Date Time Temp Pulse Resp B/P (MAP) Pulse Ox O2 Delivery O2 Flow Rate FiO2 05/31/17 08:23 93 21 05/31/17 08:00 98.4 95 18 156/83 (107) Labs Laboratory Tests Test 05/31/17 05:35 Blood Urea Nitrogen 17 Creatinine 1.08 Random Glucose 149 Calcium Level 8.4 Sodium Level 141 Potassium Level 3.6 Chloride Level 102 Carbon Dioxide Level 31.6 Anion Gap 7 Estimat Glomerular Filtration Rate 50 Narrative Exam NAD Abd: distended, soft, nontender. NGT clear dark green output A/P Assessment and Plan 71 yo H/o radical hysterectomy/oophorectomy on chemotherapy for recurrent ovarian cancer with diffuse small bowel ileus vs partial obstruction. D/w radiology yesterday- not completely clear on imaging if diffuse severe ileus or partial high grade obstruction. Would continue nonoperative management. Dr. Huang note reviewed- there is possibility of low volume diffuse carcinomatosis. Will order chlorseptic spray. Replace K+. Reg Earl MD May 31, 2017 11:38
[2017-05-31] MEDS ORDERED: PHENOL 1.4% SOLN 180 ML BTL OROPHARYNG PRN (11:45)
[2017-05-31] MEDS: POTASSIUM CHLOR 20 MEQ PREMIX 100 ML IV SCH ×2 (11:51→14:05)
--- NOTE | 2017-05-31 13:02 | HHI.PR ---
Subjective Remarks Patient reports 250ml of liquid stool with flatus last night also has had 2 other smaller BMs today continues to have sore throat offers no other complaints at this time Objective Vitals Vital Signs Date Time Temp Pulse Resp B/P (MAP) Pulse Ox O2 Delivery O2 Flow Rate FiO2 05/31/17 12:29 98.7 85 18 158/78 (104) 93 05/31/17 08:23 93 21 05/31/17 08:00 98.4 95 18 156/83 (107) 91 05/31/17 04:00 98.9 91 20 159/76 (103) 93 05/31/17 00:00 98.7 101 20 163/91 (115) 93 05/30/17 20:13 159/82 (107) 05/30/17 20:00 98.4 94 20 180/81 (114) 93 05/30/17 19:20 21 05/30/17 18:01 160/78 (105) 05/30/17 16:32 98.5 91 19 182/84 (116) 99 05/31/17 05/31/17 06/01/17 15:00 23:00 07:00 Intake Total 1000 ml Balance 1000 ml IV Total 1000 ml Result Diagram: 05/29/17 0400 05/31/17 0535 Other Results Laboratory Tests Test 05/29/17 04:00 05/30/17 07:30 05/31/17 05:35 White Blood Count 8.7 TH/MM3 Red Blood Count 2.85 MIL/MM3 Hemoglobin 9.6 GM/DL Hematocrit 29.1 % Mean Corpuscular Volume 102.1 FL Mean Corpuscular Hemoglobin 33.6 PG Mean Corpuscular Hemoglobin Concent 32.9 % Red Cell Distribution Width 18.2 % Platelet Count 263 TH/MM3 Mean Platelet Volume 8.3 FL Neutrophils (%) (Auto) 83.5 % Lymphocytes (%) (Auto) 9.9 % Monocytes (%) (Auto) 6.5 % Eosinophils (%) (Auto) 0.0 % Basophils (%) (Auto) 0.1 % Neutrophils # (Auto) 7.2 TH/MM3 Lymphocytes # (Auto) 0.9 TH/MM3 Monocytes # (Auto) 0.6 TH/MM3 Eosinophils # (Auto) 0.0 TH/MM3 Basophils # (Auto) 0.0 TH/MM3 CBC Comment AUTO DIFF Differential Total Cells Counted 100 Neutrophils % (Manual) 59 % Band Neutrophils % 27 % Lymphocytes % 4 % Monocytes % 4 % Neutrophils # (Manual) 8.0 TH/MM3 Metamyelocytes 1 % Myelocytes 2 % Promyelocytes 3 % Nucleated Red Blood Cells 1 /100 WBC Differential Comment FINAL DIFF MANUAL Toxic Granulation Dohle Bodies PRESENT Platelet Estimate NORMAL Platelet Morphology Comment NORMAL Polychromasia 3.2 % Ovalocytes 1+ Acanthocytes OCC Blood Urea Nitrogen 26 MG/DL 23 MG/DL 17 MG/DL Creatinine 1.03 MG/DL 0.96 MG/DL 1.08 MG/DL Random Glucose 131 MG/DL 88 MG/DL 149 MG/DL Calcium Level 8.5 MG/DL 8.4 MG/DL 8.4 MG/DL Magnesium Level 2.1 MG/DL 2.2 MG/DL Sodium Level 146 MEQ/L 147 MEQ/L 141 MEQ/L Potassium Level 3.8 MEQ/L 3.7 MEQ/L 3.6 MEQ/L Chloride Level 110 MEQ/L 109 MEQ/L 102 MEQ/L Carbon Dioxide Level 27.3 MEQ/L 31.5 MEQ/L 31.6 MEQ/L Anion Gap 9 MEQ/L 7 MEQ/L 7 MEQ/L Estimat Glomerular Filtration Rate 53 ML/MIN 57 ML/MIN 50 ML/MIN CA 125 Antigen 325.5 U/ML Imaging Last Impressions Abdomen X-Ray 05/29/17 0600 Signed Impressions: Service Date/Time: Monday, May 29, 2017 06:24 - CONCLUSION: 1. Persistent dilatation of small bowel which is stable to slightly improved from May 26. Residual contrast throughout colon. Miki Chan MD Small Bowel X-Ray 05/28/17 0000 Signed Impressions: Service Date/Time: Sunday, May 28, 2017 08:36 - CONCLUSION: Delay in transit of the contrast to the large bowel by 8.5 hours. Numerous dilated loops of small intestine are seen. Luisito Barahona MD Abdomen/Pelvis CT 05/25/17 0136 Signed Impressions: Service Date/Time: Thursday, May 25, 2017 01:51 - CONCLUSION: Diffusely dilated loops of small bowel down to the terminal ileum with air-fluid levels suggesting either diffuse ileus or small bowel obstruction. Renato Driscoll MD Objective Remarks General: NAD, AAOx3 Chest: CTA Cardiac: Regular Abd: soft distended, faint normoactive bowel sounds present, NG tube in place Ext: No edema A/P Problem List: (1) Bowel obstruction ICD Codes: K56.60 - Unspecified intestinal obstruction Status: Acute Plan: - Pt is 71 yo with brca 2 who had ovarian Ca with LIZ/BSO, omentectomy, lysis of adhesions [place] [address] Huang. Has had chemo with Taxol, Carboplatin, Gemzar, Tamoxifen and then Lynparza this past year. There have been concerns of recurrence with a recent rise in ca 125. Dr. Huang has done PET scans and find no major focus of disease. Most recently she has been getting Topotecan weekly for past 3 weeks - comgmt with [facility] - Pt presented with crampy abdomen pain which occurs with each treatment and then progressed to no BM over several days prior to admission. - CT A/P shows diffusely dilated loops of small bowel down to the terminal ileum with air-fluid levels suggesting either diffuse ileus or small bowel obstruction. - Pt had similar events after starting lynparza in 2016 - Cont IVF - KUB (05/26) --> Stable abnormally dilated small bowel measuring up to 5.4 cm with paucity of distal bowel gas. Findings are suspicious for distal small bowel obstruction. One of the small bowel segments in the left abdomen demonstrates thumbprinting which can be seen with submucosal edema. - NGT with 250mL out overnight - SBFT (05/28) --> Delay in transit of the contrast to the large bowel by 8.5 hours. Numerous dilated loops of small intestine are seen. - SBFT results were discussed with radiology and they feel that these findings are most likely consistent with obstruction. - bowel sounds improving - NGT - NPO except meds, hard candy and sips of clear liquids - Discussed case with Dr. Earl recommends continue current course of treatment, added Reglan (05/30) - Chloraseptic spray ordered - Encourage ambulation - continue supportive care (2) Recurrent carcinoma of ovary ICD Codes: C56.9 - Malignant neoplasm of unspecified ovary Status: Chronic Plan: - See above. (3) Hypokalemia ICD Codes: E87.6 - Hypokalemia Status: Acute Plan: - Improved. (4) HTN (hypertension), benign ICD Codes: I10 - Essential (primary) hypertension Status: Chronic Plan: - Home meds continued - monitor (5) Anxiety ICD Codes: F41.9 - Anxiety disorder, unspecified Status: Chronic Assessment and Plan Patient examined. Assessment and plan formulated with Le Flood PA-C. I agree with the above. Case d/w Drs. Earl and Sal. Continue current treatment plan thru 06/02/17. Eg. IVFs, reglan, NGT to suction, and supportive care. Come 06/02/17 case will need to be reviewed between Medicine, [facility], and Gen Surgery If no improvement by Saturday, consider initiation of TPN. Le Flood May 31, 2017 13:02 Brown Rivera DO Jun 01, 2017 00:04
[2017-05-31] MEDS: 1/2 NS + KCL 20 MEQ INJ 1,000 ML IV SCH (14:05)
[2017-05-31] MEDS: ALPRAZolam 1 MG TAB PO PRN (21:47)
[2017-06-01] VITALS (7 sets, daily range): BP systolic 126–145; BP diastolic 67–87; PULSE 96–111; RESP 19–20; TEMP 99–99.6; O2SAT 90–93
[2017-06-01] MEDS: 1/2 NS + KCL 20 MEQ INJ 1,000 ML IV SCH ×2 (00:31→15:49)
[2017-06-01 05:11] LABS: BICARBONATE 31.7 MEQ/L (21.0-32.0); POTASSIUM 3.8 MEQ/L (3.5-5.1)
[2017-06-01] MEDS: METOCLOPRAMIDE HCL 10 MG/2 ML VIAL IV PUSH SCH ×3 (05:50→21:19)
--- NOTE | 2017-06-01 09:37 | HHI.PR ---
Subjective Subjective Notes She is still having high ngt output although is drinking some clears. Having some flatus and small BMs. Denies pain. Objective Vitals/I&O Vital Signs Date Time Temp Pulse Resp B/P (MAP) Pulse Ox O2 Delivery O2 Flow Rate FiO2 06/01/17 08:40 99.1 98 20 137/72 (93) 90 Manual Cuff/Auscultation 05/31/17 08:23 21 Labs Laboratory Tests Test 06/01/17 04:30 Blood Urea Nitrogen 14 Creatinine 1.15 Random Glucose 99 Calcium Level 8.3 Sodium Level 140 Potassium Level 3.8 Chloride Level 101 Carbon Dioxide Level 31.7 Anion Gap 7 Estimat Glomerular Filtration Rate 47 Narrative Exam NAD Abd: distended, soft, nontender. NGT clear dark green output A/P Assessment and Plan 71 yo H/o radical hysterectomy/oophorectomy on chemotherapy for recurrent ovarian cancer with diffuse small bowel ileus vs partial obstruction. Continue nonoperative management. Reg Earl MD Jun 01, 2017 09:37
[2017-06-01] MEDS ORDERED: BENZOCAINE 6 MG/MENTHOL 10 MG LOZENGE BUCCAL PRN (09:45)
[2017-06-01] MEDS: SODIUM CHLORIDE 0.9% FLUSH 10 ML FLUSH IV FLUSH SCH ×2 (10:22→21:00)
[2017-06-01] MEDS: LISINOPRIL 20 MG TAB PO SCH ×2 (10:25→21:20)
--- NOTE | 2017-06-01 10:29 | HHI.PR ---
Subjective Remarks Patient reports continued sore throat reports 2 BMs and flatus Objective Vitals Vital Signs Date Time Temp Pulse Resp B/P (MAP) Pulse Ox O2 Delivery O2 Flow Rate FiO2 06/01/17 08:40 99.1 98 20 137/72 (93) 90 Manual Cuff/Auscultation 06/01/17 04:00 99.1 96 19 126/87 (100) 91 06/01/17 00:00 99.4 111 19 127/67 (87) 91 05/31/17 20:00 152/80 (104) 05/31/17 20:00 97.9 103 18 139/69 (92) 92 05/31/17 19:23 92 05/31/17 16:00 98.9 97 18 133/71 (91) 91 05/31/17 12:29 98.7 85 18 158/78 (104) 93 Result Diagram: 05/29/17 0400 06/01/17 0430 Other Results Laboratory Tests Test 05/30/17 07:30 05/31/17 05:35 06/01/17 04:30 Blood Urea Nitrogen 23 MG/DL 17 MG/DL 14 MG/DL Creatinine 0.96 MG/DL 1.08 MG/DL 1.15 MG/DL Random Glucose 88 MG/DL 149 MG/DL 99 MG/DL Calcium Level 8.4 MG/DL 8.4 MG/DL 8.3 MG/DL Magnesium Level 2.2 MG/DL Sodium Level 147 MEQ/L 141 MEQ/L 140 MEQ/L Potassium Level 3.7 MEQ/L 3.6 MEQ/L 3.8 MEQ/L Chloride Level 109 MEQ/L 102 MEQ/L 101 MEQ/L Carbon Dioxide Level 31.5 MEQ/L 31.6 MEQ/L 31.7 MEQ/L Anion Gap 7 MEQ/L 7 MEQ/L 7 MEQ/L Estimat Glomerular Filtration Rate 57 ML/MIN 50 ML/MIN 47 ML/MIN Imaging Last Impressions Abdomen X-Ray 05/29/17 0600 Signed Impressions: Service Date/Time: Monday, May 29, 2017 06:24 - CONCLUSION: 1. Persistent dilatation of small bowel which is stable to slightly improved from May 26. Residual contrast throughout colon. Miki Chan MD Small Bowel X-Ray 05/28/17 0000 Signed Impressions: Service Date/Time: Sunday, May 28, 2017 08:36 - CONCLUSION: Delay in transit of the contrast to the large bowel by 8.5 hours. Numerous dilated loops of small intestine are seen. Luisito Barahona MD Abdomen/Pelvis CT 05/25/17 0136 Signed Impressions: Service Date/Time: Thursday, May 25, 2017 01:51 - CONCLUSION: Diffusely dilated loops of small bowel down to the terminal ileum with air-fluid levels suggesting either diffuse ileus or small bowel obstruction. Renato Driscoll MD Objective Remarks General: NAD, AAOx3 Chest: CTA Cardiac: Regular Abd: soft distended, faint normoactive bowel sounds as well as some high pitch bowel sounds present, NG tube in place to LIWS Ext: nonpitting edema BLE A/P Problem List: (1) Bowel obstruction ICD Codes: K56.60 - Unspecified intestinal obstruction Status: Acute Plan: - Pt is 71 yo with brca 2 who had ovarian Ca with LIZ/BSO, omentectomy, lysis of adhesions [place] [address] Huang. Has had chemo with Taxol, Carboplatin, Gemzar, Tamoxifen and then Lynparza this past year. There have been concerns of recurrence with a recent rise in ca 125. Dr. Huang has done PET scans and find no major focus of disease. Most recently she has been getting Topotecan weekly for past 3 weeks - comgmt with [facility] - Pt presented with crampy abdomen pain which occurs with each treatment and then progressed to no BM over several days prior to admission. - CT A/P shows diffusely dilated loops of small bowel down to the terminal ileum with air-fluid levels suggesting either diffuse ileus or small bowel obstruction. - Pt had similar events after starting lynparza in 2016 - Cont IVF - KUB (05/26) --> Stable abnormally dilated small bowel measuring up to 5.4 cm with paucity of distal bowel gas. Findings are suspicious for distal small bowel obstruction. One of the small bowel segments in the left abdomen demonstrates thumbprinting which can be seen with submucosal edema. - NGT with 250mL out overnight - SBFT (05/28) --> Delay in transit of the contrast to the large bowel by 8.5 hours. Numerous dilated loops of small intestine are seen. - SBFT results were discussed with radiology and they feel that these findings are most likely consistent with obstruction. - bowel sounds improving - NGT - NPO except meds, hard candy and sips of clear liquids - Discussed case with Dr. Earl recommends continue current course of treatment, added Reglan (05/30) - Chloraseptic spray - add lozenges - Encourage ambulation - continue supportive care - Case discussed by Dr. Rivera with Drs. Earl and Sal 05/31/17 - Per Dr. Huang consult note: small volume but multifocal diffuse carcinomatous implants that are disrupting normal peristalsis and fixing loops of bowel and mesentery that are delaying normal digestion and peristalsis even though imaging does not show an overt tumor mass, ascites or adenopathy - plan to Continue current treatment plan thru 06/02/17. Eg. IVFs, reglan , NGT to LIWS and supportive care. - Come 06/02/17 case will need to be reviewed between Medicine, [facility], and Gen Surgery - If no improvement by Saturday, consider initiation of TPN. - Patient has incresing edema BLE and tenderness to palpation RLE- US ordered to R/O DVT - start Lovenox daily (2) Recurrent carcinoma of ovary ICD Codes: C56.9 - Malignant neoplasm of unspecified ovary Status: Chronic Plan: - See above. (3) Hypokalemia ICD Codes: E87.6 - Hypokalemia Status: Acute Plan: - Improved. (4) HTN (hypertension), benign ICD Codes: I10 - Essential (primary) hypertension Status: Chronic Plan: - Home meds continued - monitor (5) Anxiety ICD Codes: F41.9 - Anxiety disorder, unspecified Status: Chronic Assessment and Plan Patient examined. Assessment and plan formulated with Le Flood PA-C. I agree with the above. Le Flood Jun 01, 2017 10:29 Brown Rivera DO Jun 03, 2017 00:21
--- NOTE | 2017-06-01 12:06 | RADRPT ---
EXAM DATE/TIME: 06/01/2017 11:21 [facility] COMPARISON: CT ABDOMEN & PELVIS W/O CONTRAST, May 25, 2017, 1:51. ABDOMEN KUB ONLY, May 30, 2017, 9: 06. INDICATIONS : Chest discomfort, abdominal distension MEDICAL HISTORY : Hypertension SURGICAL HISTORY : Hysterectomy. section. Mariah Hameed ENCOUNTER: Subsequent ACUITY: 4 - 6 days PAIN SCORE: 0/10 LOCATION: Bilateral chest FINDINGS: AP upright portable view the chest demonstrates mild left basilar airspace opacity which is new as co mpared to the prior CT and may reflect atelectasis versus early airspace consolidation. The right hem ithorax is clear. There is a right-sided central line with the tip overlying the distal SVC. NG tube in over the left upper quadrant with the proximal port below the level the diaphragm. The imaged port ion of the abdomen demonstrates air distention within large bowel. No evidence of free air. CONCLUSION: New left basilar airspace density consistent with either atelectasis or early air space consolidation .. Kaitlin Lu MD on June 01, 2017 at 12:02 Board Certified Radiologist. This report was verified electronically.
[2017-06-01] MEDS ORDERED: ENOXAPARIN SODIUM 40 MG/0.4 ML SYRINGE SQ SCH (13:00)
[2017-06-01] MEDS: LORazepam 2 MG/ML VIAL IV PUSH PRN ×2 (13:20→19:19)
--- NOTE | 2017-06-01 14:35 | RADRPT ---
EXAM DATE/TIME: 06/01/2017 13:35 [facility] COMPARISON: No previous studies available for comparison. INDICATIONS : Bilateral leg swelling. MEDICAL HISTORY : Hypertension. Arthritis. Osteoarthritis. Neck pain. Genital herpes. Ovarian can cer. Renal disease. Anxiety. Chemotherapy. SURGICAL HISTORY : Tonsillectomy.Cholecystectomy. section.Lasik eye surgery. Adenoidecto my. Tubal ligation. ENCOUNTER: Initial ACUITY: PAIN SCORE: LOCATION: Bilateral legs. TECHNIQUE: Venous ultrasound of the left and right leg was performed from the inguinal ligament t o the proximal calf. Real-time, color Doppler and spectral tracing, compression and augmentation deya hniques were used. FINDINGS: RIGHT LEG: There is normal compressibility and flow noted in the common femoral vein with flow de monstrated in the iliac vein. There is occlusive thrombus in the right proximal femoral vein extendin g to the posterior tibial vein. Greater saphenous vein is patent. LEFT LEG: There is partially occlusive chronic appearing thrombus involving the proximal femoral vein and posterior tibial vein. Otherwise, there is normal compressibility of the deep venous system from the inguinal region to the proximal calf. No echogenic clot is seen in the lumen of the common femoral, and popliteal veins. CONCLUSION: 1. Findings consistent with extensive acute right lower extremity DVT extending from the proximal rig ht femoral vein to the posterior tibial vein. More centrally, the common femoral and iliac veins appe ar patent. 2. 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 Patricio Pantoja MD on June 01, 2017 at 14:29 Board Certified Radiologist. This report was verified electronically.
[2017-06-01] MEDS: ENOXAPARIN SODIUM 100 MG/ML SYRINGE SQ SCH (18:53)
[2017-06-02] VITALS: BP 166/81; PULSE 107; RESP 19; TEMP 99.1; O2SAT 92
[2017-06-02 04:00] VITALS: BP 152/66; PULSE 114; RESP 20; TEMP 100.3; O2SAT 91
[2017-06-02] MEDS: ENOXAPARIN SODIUM 100 MG/ML SYRINGE SQ SCH ×2 (04:50→19:00)
[2017-06-02] MEDS: METOCLOPRAMIDE HCL 10 MG/2 ML VIAL IV PUSH SCH ×3 (04:50→21:28)
[2017-06-02] MEDS: LORazepam 2 MG/ML VIAL IV PUSH PRN ×3 (04:51→19:00)
[2017-06-02] MEDS: 1/2 NS + KCL 20 MEQ INJ 1,000 ML IV SCH ×2 (04:55→13:22)
[2017-06-02 05:37] LABS: AUTOMATED NEUTROPHIL # 9.7 TH/MM3 (1.8-7.7); BASOPHIL % 0.2 % (0.0-2.0); EOSINOPHIL # 0.1 TH/MM3 (0-0.4); EOSINOPHIL % 0.4 % (0.0-4.0); HEMATOCRIT 31.2 % (35.0-46.0); LYMPH % 11.1 % (9.0-44.0); LYMPHOCYTE # 1.3 TH/MM3 (1.0-4.8); MEAN CELL VOLUME 100.8 FL (80.0-100.0); MEAN CORPUSCULAR HGB CONC 31.8 % (32.0-36.0); MONO % 6.9 % (0.0-8.0); NEUT % 81.4 % (16.0-70.0); PLATELET COUNT 225 TH/MM3 (150-450); RED CELL DISTRIBUTION WIDTH 19.1 % (11.6-17.2); WHITE BLOOD COUNT 11.9 TH/MM3 (4.0-11.0)
[2017-06-02 05:55] LABS: HEMO FLAGS AUTO DIFF
[2017-06-02 06:26] LABS: SCAN/DIFF AUTO DIFF CONFIRMED
[2017-06-02 07:50] VITALS: BP 132/61; PULSE 95; RESP 20; TEMP 100.3; O2SAT 95
[2017-06-02] MEDS: SODIUM CHLORIDE 0.9% FLUSH 10 ML FLUSH IV FLUSH SCH ×2 (09:29→21:00)
[2017-06-02] MEDS: LISINOPRIL 20 MG TAB PO SCH ×2 (09:30→21:29)
--- NOTE | 2017-06-02 10:35 | HHI.PR ---
Subjective Remarks Patient reports feeling weak- concerned with nutritional status denies chills, cough, SOB, dysuria or increase urinary frequency still having liquid stool and positive flatus Objective Vitals Vital Signs Date Time Temp Pulse Resp B/P (MAP) Pulse Ox O2 Delivery O2 Flow Rate FiO2 06/02/17 07:50 100.3 95 20 132/61 (84) 95 06/02/17 05:14 Nasal Cannula 1.00 06/02/17 04:00 100.3 114 20 152/66 (94) 91 06/02/17 00:00 99.1 107 19 166/81 (109) 92 06/01/17 20:00 99.0 98 19 145/80 (101) 93 06/01/17 16:01 99.6 100 19 128/75 (92) 92 06/01/17 12:53 92 21 06/01/17 12:14 99.3 98 19 130/80 (97) 92 06/02/17 06/02/17 06/03/17 15:00 23:00 07:00 Output Total 300 ml Balance -300 ml Gastric Drainage Total 300 ml Result Diagram: 06/02/17 0500 06/01/17 0430 Other Results Laboratory Tests Test 05/31/17 05:35 06/01/17 04:30 06/02/17 05:00 Blood Urea Nitrogen 17 MG/DL 14 MG/DL Creatinine 1.08 MG/DL 1.15 MG/DL Random Glucose 149 MG/DL 99 MG/DL Calcium Level 8.4 MG/DL 8.3 MG/DL Sodium Level 141 MEQ/L 140 MEQ/L Potassium Level 3.6 MEQ/L 3.8 MEQ/L Chloride Level 102 MEQ/L 101 MEQ/L Carbon Dioxide Level 31.6 MEQ/L 31.7 MEQ/L Anion Gap 7 MEQ/L 7 MEQ/L Estimat Glomerular Filtration Rate 50 ML/MIN 47 ML/MIN White Blood Count 11.9 TH/MM3 Red Blood Count 3.10 MIL/MM3 Hemoglobin 9.9 GM/DL Hematocrit 31.2 % Mean Corpuscular Volume 100.8 FL Mean Corpuscular Hemoglobin 32.0 PG Mean Corpuscular Hemoglobin Concent 31.8 % Red Cell Distribution Width 19.1 % Platelet Count 225 TH/MM3 Mean Platelet Volume 8.5 FL Neutrophils (%) (Auto) 81.4 % Lymphocytes (%) (Auto) 11.1 % Monocytes (%) (Auto) 6.9 % Eosinophils (%) (Auto) 0.4 % Basophils (%) (Auto) 0.2 % Neutrophils # (Auto) 9.7 TH/MM3 Lymphocytes # (Auto) 1.3 TH/MM3 Monocytes # (Auto) 0.8 TH/MM3 Eosinophils # (Auto) 0.1 TH/MM3 Basophils # (Auto) 0.0 TH/MM3 CBC Comment AUTO DIFF Differential Comment AUTO DIFF CONFIRMED Imaging Last Impressions Abdomen X-Ray 05/29/17 0600 Signed Impressions: Service Date/Time: Monday, May 29, 2017 06:24 - CONCLUSION: 1. Persistent dilatation of small bowel which is stable to slightly improved from May 26. Residual contrast throughout colon. Miki Chan MD Small Bowel X-Ray 05/28/17 0000 Signed Impressions: Service Date/Time: Sunday, May 28, 2017 08:36 - CONCLUSION: Delay in transit of the contrast to the large bowel by 8.5 hours. Numerous dilated loops of small intestine are seen. Luisito Barahona MD Abdomen/Pelvis CT 05/25/17 0136 Signed Impressions: Service Date/Time: Thursday, May 25, 2017 01:51 - CONCLUSION: Diffusely dilated loops of small bowel down to the terminal ileum with air-fluid levels suggesting either diffuse ileus or small bowel obstruction. Renato Driscoll MD Objective Remarks General: NAD, AAOx3 Chest: CTA Cardiac: Regular Abd: soft distended, occasional faint normoactive bowel sounds, NG tube in place to LIWS Ext: nonpitting edema BLE A/P Problem List: (1) Bowel obstruction ICD Codes: K56.60 - Unspecified intestinal obstruction Status: Acute Plan: - Pt is 71 yo with brca 2 who had ovarian Ca with LIZ/BSO, omentectomy, lysis of adhesions [place] [address] Huang. Has had chemo with Taxol, Carboplatin, Gemzar, Tamoxifen and then Lynparza this past year. There have been concerns of recurrence with a recent rise in ca 125. Dr. Huang has done PET scans and find no major focus of disease. Most recently she has been getting Topotecan weekly for past 3 weeks - comgmt with [facility] - Pt presented with crampy abdomen pain which occurs with each treatment and then progressed to no BM over several days prior to admission. - CT A/P shows diffusely dilated loops of small bowel down to the terminal ileum with air-fluid levels suggesting either diffuse ileus or small bowel obstruction. - Pt had similar events after starting lynparza in 2016 - Cont IVF - KUB (05/26) --> Stable abnormally dilated small bowel measuring up to 5.4 cm with paucity of distal bowel gas. Findings are suspicious for distal small bowel obstruction. One of the small bowel segments in the left abdomen demonstrates thumbprinting which can be seen with submucosal edema. - NGT with 250mL out overnight - SBFT (05/28) --> Delay in transit of the contrast to the large bowel by 8.5 hours. Numerous dilated loops of small intestine are seen. - SBFT results were discussed with radiology and they feel that these findings are most likely consistent with obstruction. - bowel sounds improving - NGT - NPO except meds, hard candy and sips of clear liquids - Discussed case with Dr. Earl recommends continue current course of treatment, added Reglan (05/30) - Chloraseptic spray and lozenges for comfort - Encourage ambulation - continue supportive care - Case discussed by Dr. Rivera with Drs. Earl and Sal 05/31/17 - Per Dr. Huang consult note: small volume but multifocal diffuse carcinomatous implants that are disrupting normal peristalsis and fixing loops of bowel and mesentery that are delaying normal digestion and peristalsis even though imaging does not show an overt tumor mass, ascites or adenopathy - plan to Continue current treatment plan thru 06/02/17. Eg. IVFs, reglan , NGT to LIWS and supportive care. - Come 06/02/17 case will need to be reviewed between Medicine, [facility] On[facility], and Gen Surgery - If no improvement by Saturday, consider initiation of TPN. - Patient has increasing edema BLE and tenderness to palpation RLE - US BLE reviewed and reveals: extensive acute right lower extremity DVT extending from the proximal right femoral vein to the posterior tibial vein Chronic partially occlusive DVT involving the proximal left femoral vein and posterior tibial vein - Lovenox 100mg SQ BID - patient with fever 100.3 this a.m. urinalysis, stool for C diff, chest x-ray PA and lateral pending, white blood cell count increased to 11.9 neutrophils 81.4 - will start TPN - repeat labs in AM (2) Recurrent carcinoma of ovary ICD Codes: C56.9 - Malignant neoplasm of unspecified ovary Status: Chronic Plan: - See above. (3) Hypokalemia ICD Codes: E87.6 - Hypokalemia Status: Acute Plan: - Improved. (4) HTN (hypertension), benign ICD Codes: I10 - Essential (primary) hypertension Status: Chronic Plan: - Home meds continued - monitor (5) Anxiety ICD Codes: F41.9 - Anxiety disorder, unspecified Status: Chronic Assessment and Plan Patient examined. Assessment and plan formulated with Le Flood PA-C. I agree with the above. eL Flood Jun 02, 2017 10:35 Brown Rivera DO Jun 03, 2017 00:21
--- NOTE | 2017-06-02 11:22 | RADRPT ---
EXAM DATE/TIME: 06/02/2017 10:42 [facility] COMPARISON: CHEST SINGLE AP, June 01, 2017, 11:21. INDICATIONS : Fever MEDICAL HISTORY : Hypertension. Arthritis. Osteoarthritis. Neck pain. Genital herpes. Ovarian cancer Renal disease. Anx iety. Chemotherapy. SURGICAL HISTORY : Tonsillectomy.Cholecystectomy. section.Lasik eye surgery. Adenoidectomy. Tubal ligation. ENCOUNTER: Subsequent ACUITY: 2 weeks PAIN SCORE: 0/10 LOCATION: Bilateral chest FINDINGS: The heart is normal in size. The mediastinal contours are within normal limits. There is an area of p latelike atelectasis in the left midlung field. The Aiskhg-m-Kwzm in good position. There is a nasoga stric tube present. CONCLUSION: Small area of atelectasis in the left midlung field unchanged from previous. Lungs are otherwise betty r. Support equipment is stable. Malick Arias MD on June 02, 2017 at 11:19 Board Certified Radiologist. This report was verified electronically.
[2017-06-02 11:45] VITALS: BP 148/68; PULSE 104; RESP 20; TEMP 99.6; O2SAT 93
--- NOTE | 2017-06-02 14:26 | HHI.PR ---
Subjective Subjective Notes The patient states that she has had no abdominal pain or nausea. She has continued to pass flatus and has had several small bowel movements even today. Overall she states she is scared but has no other complaints. Objective Vitals/I&O Vital Signs Date Time Temp Pulse Resp B/P (MAP) Pulse Ox O2 Delivery O2 Flow Rate FiO2 06/02/17 11:45 99.6 104 20 148/68 (94) 93 06/02/17 05:14 Nasal Cannula 1.00 06/01/17 12:53 21 Labs Laboratory Tests Test 06/02/17 05:00 White Blood Count 11.9 Red Blood Count 3.10 Hemoglobin 9.9 Hematocrit 31.2 Mean Corpuscular Volume 100.8 Mean Corpuscular Hemoglobin 32.0 Mean Corpuscular Hemoglobin Concent 31.8 Red Cell Distribution Width 19.1 Platelet Count 225 Mean Platelet Volume 8.5 Neutrophils (%) (Auto) 81.4 Lymphocytes (%) (Auto) 11.1 Monocytes (%) (Auto) 6.9 Eosinophils (%) (Auto) 0.4 Basophils (%) (Auto) 0.2 Neutrophils # (Auto) 9.7 Lymphocytes # (Auto) 1.3 Monocytes # (Auto) 0.8 Eosinophils # (Auto) 0.1 Basophils # (Auto) 0.0 CBC Comment AUTO DIFF Differential Comment AUTO DIFF CONFIRMED Cardiovascular: Regular Lungs: Clear Extremities: No edema Narrative Exam The patient's abdomen is distended and tympanitic. She has no tenderness to palpation anywhere abdomen. She has no guarding or rebound. A/P Assessment and Plan Impression: Partial small bowel obstruction probably secondary to ovarian carcinoma. She is stable overall and has had increasing bowel function. Plan: I have clamped her nasogastric tube and have asked the nurses to open it to suction should she have any nausea or vomiting. A flat and upright abdominal film are ordered for tomorrow morning. I discussed with the patient and her that she may well require surgery at some point in the near future should she not resolve this issue. Heath Olivas MD Jun 02, 2017 14:26
[2017-06-02 15:50] VITALS: BP 140/69; PULSE 104; RESP 20; TEMP 99.4; O2SAT 92
[2017-06-02 20:00] VITALS: BP 145/70; PULSE 103; RESP 18; TEMP 99.8; O2SAT 92
[2017-06-02] MEDS: CLINIMIX E 5/25 2000 mL- >42 mls/hr IV-CENTRAL SCH ×3 (21:29)
[2017-06-02] MEDS: FAT EMULSION 20% INJ 250 ML (@10 mls/hr) IV-CENTRAL SCH (21:30)
[2017-06-02 22:06] LABS: BACTERIA, URINE RARE /hpf; BLOOD, URINE NEG (NEG); CALCIUM OXALATE CRYSTALS,URINE OCC /hpf; COMMENT (UR) CULTURE INDICATED; CULTURE IF INDICATED CULTURE INDICATED; GLUCOSE,URINE NEG (NEG); KETONE, URINE 10 mg/dL (NEG); NITRITE,URINE NEG (NEG); PH, URINE 8.5 (5.0-8.5); SQUAMOUS EPITHELIAL CELL URINE 3 /hpf (0-5); URINE COLOR YELLOW (YELLW/STRAW)
[2017-06-03] VITALS: BP 136/65; PULSE 101; RESP 19; TEMP 98.9; O2SAT 92
[2017-06-03 04:00] VITALS: BP 133/66; PULSE 105; RESP 18; TEMP 99.7; O2SAT 93
[2017-06-03] MEDS: METOCLOPRAMIDE HCL 10 MG/2 ML VIAL IV PUSH SCH ×3 (05:41→21:52)
[2017-06-03] MEDS: ENOXAPARIN SODIUM 100 MG/ML SYRINGE SQ SCH ×2 (05:41→17:17)
[2017-06-03 06:28] LABS: AUTOMATED NEUTROPHIL # 11.3 TH/MM3 (1.8-7.7); BASOPHIL % 0.1 % (0.0-2.0); EOSINOPHIL # 0.1 TH/MM3 (0-0.4); EOSINOPHIL % 0.5 % (0.0-4.0); HEMATOCRIT 30.8 % (35.0-46.0); LYMPH % 9.1 % (9.0-44.0); LYMPHOCYTE # 1.2 TH/MM3 (1.0-4.8); MEAN CELL VOLUME 100.3 FL (80.0-100.0); MEAN CORPUSCULAR HEMOGLOBIN 33.2 PG (27.0-34.0); MEAN CORPUSCULAR HGB CONC 33.1 % (32.0-36.0); MONO % 4.8 % (0.0-8.0); NEUT % 85.5 % (16.0-70.0); PLATELET COUNT 227 TH/MM3 (150-450); RED BLOOD COUNT 3.07 MIL/MM3 (4.00-5.30); RED CELL DISTRIBUTION WIDTH 19.3 % (11.6-17.2); WHITE BLOOD COUNT 13.2 TH/MM3 (4.0-11.0)
[2017-06-03 06:32] LABS: HEMO FLAGS AUTO DIFF
[2017-06-03 06:54] LABS: BICARBONATE 31.1 MEQ/L (21.0-32.0); POTASSIUM 3.7 MEQ/L (3.5-5.1)
--- NOTE | 2017-06-03 07:51 | PD.ONC.PN ---
Subjective Subjective Remarks Patient is resting in bed + flatus + liquid stool NG clamped no n/v with sips TPN started to help support nutrition patient felt too weak last night to walk but states she will try again today general surgery following pt on isolation precautions d/t fevers, elevated WBC c diff culture ordered blood culture and urine cultures are pending Objective Data Date Time Temp Pulse Resp B/P (MAP) Pulse Ox O2 Delivery O2 Flow Rate FiO2 06/03/17 04:00 99.7 105 18 133/66 (88) 93 06/03/17 00:00 98.9 101 19 136/65 (88) 92 06/02/17 21:28 Room Air 92 06/02/17 20:00 99.8 103 18 145/70 (95) 92 06/02/17 15:50 99.4 104 20 140/69 (92) 92 06/02/17 13:20 Room Air 06/02/17 11:45 99.6 104 20 148/68 (94) 93 06/02/17 07:50 100.3 95 20 132/61 (84) 95 06/03/17 06/03/17 06/03/17 07:00 15:00 23:00 Intake Total 240 ml Output Total 300 ml Balance -60 ml Result Diagram: 06/03/17 0545 06/03/1745 Laboratory Results Laboratory Tests Test 06/02/17 21:50 06/03/17 05:45 Urine Color YELLOW Urine Turbidity HAZY Urine pH 8.5 Urine Specific [place] 1.018 Urine Protein 100 mg/dL Urine Glucose (UA) NEG mg/dL Urine Ketones 10 mg/dL Urine Occult Blood NEG Urine Nitrite NEG Urine Bilirubin NEG Urine Urobilinogen 2.0 MG/DL Urine Leukocyte Esterase LARGE Urine RBC 4 /hpf Urine WBC 81 /hpf Urine Squamous Epithelial Cells 3 /hpf Urine Calcium Oxalate Crystals OCC /hpf Urine Bacteria RARE /hpf Microscopic Urinalysis Comment CULTURE INDICATED White Blood Count 13.2 TH/MM3 Red Blood Count 3.07 MIL/MM3 Hemoglobin 10.2 GM/DL Hematocrit 30.8 % Mean Corpuscular Volume 100.3 FL Mean Corpuscular Hemoglobin 33.2 PG Mean Corpuscular Hemoglobin Concent 33.1 % Red Cell Distribution Width 19.3 % Platelet Count 227 TH/MM3 Mean Platelet Volume 8.9 FL Neutrophils (%) (Auto) 85.5 % Lymphocytes (%) (Auto) 9.1 % Monocytes (%) (Auto) 4.8 % Eosinophils (%) (Auto) 0.5 % Basophils (%) (Auto) 0.1 % Neutrophils # (Auto) 11.3 TH/MM3 Lymphocytes # (Auto) 1.2 TH/MM3 Monocytes # (Auto) 0.6 TH/MM3 Eosinophils # (Auto) 0.1 TH/MM3 Basophils # (Auto) 0.0 TH/MM3 CBC Comment AUTO DIFF Blood Urea Nitrogen 15 MG/DL Creatinine 1.08 MG/DL Random Glucose 203 MG/DL Calcium Level 7.9 MG/DL Sodium Level 137 MEQ/L Potassium Level 3.7 MEQ/L Chloride Level 99 MEQ/L Carbon Dioxide Level 31.1 MEQ/L Anion Gap 7 MEQ/L Estimat Glomerular Filtration Rate 50 ML/MIN Culture Results Microbiology Date/Time Source Procedure Growth Status 06/02/17 14:45 Blood Peripheral Aerobic Blood Culture Pending Received 06/02/17 14:45 Blood Peripheral Anaerobic Blood Culture Pending Received 06/02/17 14:40 Blood Peripheral Aerobic Blood Culture Pending Received 06/02/17 14:40 Blood Peripheral Anaerobic Blood Culture Pending Received 06/02/17 21:50 Urine Random Urine Urine Culture Pending Received Imaging Studies Last Impressions Chest X-Ray 06/02/17 0000 Signed Impressions: Service Date/Time: Friday, June 02, 2017 10:42 - CONCLUSION: Small area of atelectasis in the left midlung field unchanged from previous. Lungs are otherwise clear. Support equipment is stable. Malick Arias MD Lower Extremity Ultrasound 06/01/17 0000 Signed Impressions: Service Date/Time: Thursday, June 01, 2017 13:35 - CONCLUSION: 1. Findings consistent with extensive acute right lower extremity DVT extending from the proximal right femoral vein to the posterior tibial vein. More centrally, the common femoral and iliac veins appear patent. 2. 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 Patricio Pantoja MD Abdomen X-Ray 05/30/17 0800 Signed Impressions: Service Date/Time: May 09:06 - CONCLUSION: Persistent diffuse air filled small bowel dilatation. No significant interval change. Jakob Hassan MD Small Bowel X-Ray 05/28/17 0000 Signed Impressions: Service Date/Time: Sunday, May 28, 2017 08:36 - CONCLUSION: Delay in transit of the contrast to the large bowel by 8.5 hours. Numerous dilated loops of small intestine are seen. Luisito Barahona MD Abdomen/Pelvis CT 05/25/17 0136 Signed Impressions: Service Date/Time: Thursday, May 25, 2017 01:51 - CONCLUSION: Diffusely dilated loops of small bowel down to the terminal ileum with air-fluid levels suggesting either diffuse ileus or small bowel obstruction. Renato Driscoll MD Administered Medications Medications (Trade) Dose Ordered Sig/Anette Route PRN Reason Start Time Stop Time Status Last Admin Dose Admin Sodium Chloride (NS Flush) 2 ml BID IV FLUSH 05/25/17 09:00 05/28/17 22:05 Sodium Chloride (NS Flush) 2 ml UNSCH PRN IVF FLUSH AFTER USING IV ACCESS 05/25/17 04:45 05/25/17 04:52 Ondansetron HCl (Zofran Inj) 4 mg Q4H PRN IV NAUSEA OR VOMITING 05/25/17 10:00 05/28/17 06:48 Alprazolam (Xanax) 1 mg HS PRN PO anxiety 05/25/17 21:00 05/31/17 21:47 Hydromorphone HCl (Dilaudid Pf Inj) 1 mg Q3H PRN IV PUSH pain over 4 05/25/17 18:00 05/27/17 01:49 Clonidine (Catapres) 0.1 mg Q6H PRN PO sbp > 170 05/26/17 09:00 05/30/17 15:57 Al Hydrox/Mg Hydrox/Simethicone (Mag-Al Plus Susp Liq) 30 ml Q4H PRN PO HEARTBURN 05/26/17 18:30 05/26/17 22:13 Lorazepam (Ativan Inj) 1 mg Q4H PRN IV PUSH anxiety 05/28/17 14:00 06/02/17 19:00 Lisinopril (Prinivil) 40 mg BID PO 05/30/17 09:00 06/02/17 21:29 Metoclopramide HCl (Reglan Inj) 10 mg Q8HR IV PUSH 05/30/17 14:00 06/03/17 05:41 Phenol (Chloraseptic [place]) 2 spray Q2H PRN OROPHARYNG SORE THROAT 05/31/17 11:45 05/31/17 14:26 Potassium Chloride/Sodium Chloride 1,000 ml @ 84 mls/hr [id number] IV 05/31/17 13:15 06/02/17 04:55 Enoxaparin Sodium (Lovenox Inj) 100 mg Q12H SQ 06/01/17 18:00 06/03/17 05:41 Multivitamins 10 ml/Folic Acid 1 mg/Amino Acids/ Electrolytes/ Dextrose 2,010.2 ml @ 83 mls/hr Q24H IV-CENTRAL 06/02/17 20:00 06/02/17 21:29 Fat Emulsion Intravenous 250 ml @ 10 mls/hr Q24H IV-CENTRAL 06/02/17 20:00 06/02/17 21:30 Objective Remarks GENERAL: Well-nourished, well-developed patient. SKIN: Warm and dry. HEAD: Normocephalic. EYES: No scleral icterus. No injection or drainage. CARDIOVASCULAR: Regular rate and rhythm without murmurs. RESPIRATORY: Breath sounds equal bilaterally. No accessory muscle use. GASTROINTESTINAL: Abdomen soft, non-tender, nondistended. + BS x 4 EXTREMITIES: teds and scds MUSCULOSKELETAL: Adequate muscle tone. NEUROLOGICAL: No obvious focal deficit. Awake, alert, and oriented x3. PSYCHIATRIC: Appropriate mood and affect; insight and judgment normal. Assessment/Plan Problem List: (1) Small bowel obstruction ICD Codes: K56.69 - Other intestinal obstruction Status: Acute Plan: NG tube clamped denies N/V with sips general surgery following, surgery maybe recommended if she does not continue to improve TPN small progress with + flatus and + liquid stool Fevers and elevated WBCs c-diff culture ordered urine and blood cultures pending pt on isolation (2) Recurrent carcinoma of ovary ICD Codes: C56.9 - Malignant neoplasm of unspecified ovary Status: Chronic Plan: Dr. Huang considering changing IV chemo once patient is well enough to restart IV chemo. Olivia Thacker Jun 03, 2017 07:51
[2017-06-03] MEDS: LISINOPRIL 20 MG TAB PO SCH ×2 (08:21→21:51)
[2017-06-03] MEDS: SODIUM CHLORIDE 0.9% FLUSH 10 ML FLUSH IV FLUSH SCH ×2 (08:22→21:00)
[2017-06-03 08:33] LABS: BANDS 7 % (0-6); BASOPHILS 1 % (0-2); CORRECTED NUCLEATED RBC 1 /100 WBC (0-0); HELMET CELLS OCC (NORMAL); MYELOCYTES 3 % (0-0); NEUTROPHIL # MANUAL DIFF 10.8 TH/MM3 (1.8-7.7); OVALOCYTES 1+ (NORMAL); PLATELET ESTIMATE SMEAR NORMAL (NORMAL); PLATELET MORPHOLOGY ENLARGED (NORMAL); POLYS (SEG NEUTROPHILS) 72 % (16-70); WBC DIFF SAMPLE 100
[2017-06-03 08:36] LABS: ACANTHOCYTES OCC (NORMAL); SCAN/DIFF FINAL DIFF MANUAL; TOXIC GRANULATION 1+ (NORMAL)
[2017-06-03 08:40] VITALS: BP 134/68; PULSE 103; RESP 20; TEMP 100.9; O2SAT 93
--- NOTE | 2017-06-03 09:24 | HHI.PR ---
Subjective Remarks alot of bloating/gas 2 small liquid bm's per griselda. no abdomen pain Objective Vitals ngt heart reg lung cta abd bs/distended. nt ext mild swelling lower ext. Vital Signs Date Time Temp Pulse Resp B/P (MAP) Pulse Ox O2 Delivery O2 Flow Rate FiO2 06/03/17 04:00 99.7 105 18 133/66 (88) 93 06/03/17 00:00 98.9 101 19 136/65 (88) 92 06/02/17 21:28 Room Air 92 06/02/17 20:00 99.8 103 18 145/70 (95) 92 06/02/17 15:50 99.4 104 20 140/69 (92) 92 06/02/17 13:20 Room Air 06/02/17 11:45 99.6 104 20 148/68 (94) 93 Result Diagram: 06/03/17 0545 06/03/17 0545 Imaging Last Impressions Abdomen X-Ray 05/29/17 0600 Signed Impressions: Service Date/Time: Monday, May 29, 2017 06:24 - CONCLUSION: 1. Persistent dilatation of small bowel which is stable to slightly improved from May 26. Residual contrast throughout colon. Miki Chan MD Small Bowel X-Ray 05/28/17 0000 Signed Impressions: Service Date/Time: Sunday, May 28, 2017 08:36 - CONCLUSION: Delay in transit of the contrast to the large bowel by 8.5 hours. Numerous dilated loops of small intestine are seen. Luisito Barahona MD Abdomen/Pelvis CT 05/25/17 0136 Signed Impressions: Service Date/Time: Thursday, May 25, 2017 01:51 - CONCLUSION: Diffusely dilated loops of small bowel down to the terminal ileum with air-fluid levels suggesting either diffuse ileus or small bowel obstruction. Renato Driscoll MD A/P Problem List: (1) Bowel obstruction ICD Codes: K56.60 - Unspecified intestinal obstruction Status: Acute Plan: - Pt is 71 yo with brca 2 who had ovarian Ca with LIZ/BSO, omentectomy, lysis of adhesions [place] [address] Huang. Has had chemo with Taxol, Carboplatin, Gemzar, Tamoxifen and then Lynparza this past year. There have been concerns of recurrence with a recent rise in ca 125. Dr. Huang has done PET scans and find no major focus of disease. Most recently she has been getting Topotecan weekly for past 3 weeks - comgmt with [facility] - Pt presented with crampy abdomen pain which occurs with each treatment and then progressed to no BM over several days prior to admission. - CT A/P shows diffusely dilated loops of small bowel down to the terminal ileum with air-fluid levels suggesting either diffuse ileus or small bowel obstruction. - Pt had similar events after starting lynparza in 2016 - Cont IVF - KUB (05/26) --> Stable abnormally dilated small bowel measuring up to 5.4 cm with paucity of distal bowel gas. Findings are suspicious for distal small bowel obstruction. One of the small bowel segments in the left abdomen demonstrates thumbprinting which can be seen with submucosal edema. - NGT with 250mL out overnight - SBFT (05/28) --> Delay in transit of the contrast to the large bowel by 8.5 hours. Numerous dilated loops of small intestine are seen. - SBFT results were discussed with radiology and they feel that these findings are most likely consistent with obstruction. - bowel sounds improving - NGT - NPO except meds, hard candy and sips of clear liquids - Discussed case with Dr. Earl recommends continue current course of treatment, added Reglan (05/30) - Chloraseptic spray and lozenges for comfort - Encourage ambulation - continue supportive care - Case discussed by Dr. Rivera with Drs. Earl and Sla 05/31/17 - Per Dr. Huang consult note: small volume but multifocal diffuse carcinomatous implants that are disrupting normal peristalsis and fixing loops of bowel and mesentery that are delaying normal digestion and peristalsis even though imaging does not show an overt tumor mass, ascites or adenopathy - Patient had increasing edema BLE and tenderness to palpation RLE - US BLE reviewed and reveals: extensive acute right lower extremity DVT extending from the proximal right femoral vein to the posterior tibial vein Chronic partially occlusive DVT involving the proximal left femoral vein and posterior tibial vein - Lovenox 100mg SQ BID - patient with low grade fevers. sources could be dvt, uti, bowel obstruction she is on TPN ambulate cont reglan gen surg following. ngt liws kub pending cont lovenox for dvt and convert to eliquis on d/c f/u cx for possible uti (2) Recurrent carcinoma of ovary ICD Codes: C56.9 - Malignant neoplasm of unspecified ovary Status: Chronic Plan: - See above. (3) Hypokalemia ICD Codes: E87.6 - Hypokalemia Status: Acute Plan: - Improved. (4) HTN (hypertension), benign ICD Codes: I10 - Essential (primary) hypertension Status: Chronic Plan: - Home meds continued - monitor (5) Anxiety ICD Codes: F41.9 - Anxiety disorder, unspecified Status: Chronic Gary Arellano MD Jun 03, 2017 09:24
[2017-06-03] MEDS ORDERED: SIMETHICONE 125 MG CHEWABLE TAB PO ONE (09:30)
[2017-06-03] MEDS: LORazepam 2 MG/ML VIAL IV PUSH PRN ×2 (10:29→16:21)
--- NOTE | 2017-06-03 10:51 | RADRPT ---
EXAM DATE/TIME: 06/03/2017 10:02 [facility] COMPARISON: ABDOMEN KUB ONLY, May 30, 2017, 9:06. INDICATIONS : Abdomen pain and discomfort. MEDICAL HISTORY : Hypertension. ovarian cancer SURGICAL HISTORY : section. Hysterectomy. Cholecystectomy. ENCOUNTER: Subsequent ACUITY: 1 week PAIN SCORE: 1/10 LOCATION: Bilateral abdomen FINDINGS: There is an NGT in position. Loops of significantly dilated air-filled small bowel are noted througho ut the abdomen with multiple air-fluid levels. Air is seen in the rectum although there is general pa ucity of air in the remainder of the colon. No definitive free air or pneumatosis. Remainder of the e xam is unchanged. CONCLUSION: 1. Persistent diffuse gaseous small bowel distention consistent with distal small bowel obstruction v ersus severe adynamic ileus. No definitive radiographically evidence for perforation or bowel infarct ion at this time. Patriico Pantoja MD on June 03, 2017 at 10:47 Board Certified Radiologist. This report was verified electronically.
[2017-06-03] MEDS: SIMETHICONE 125 MG CHEWABLE TAB PO SCH ×2 (12:24→21:52)
[2017-06-03] MEDS: SODIUM CHLORIDE 0.9% FLUSH 10 ML FLUSH IVF PRN ×2 (12:25→14:15)
[2017-06-03 12:58] VITALS: BP 107/59; PULSE 98; RESP 20; TEMP 97.7; O2SAT 94
[2017-06-03] MEDS: ONDANSETRON HCL 4 MG/2 ML VIAL IV PRN (14:11)
[2017-06-03 14:56] LABS: C. DIFF EPI 027 PRESUMPTIVE NEGATIVE (NEGATIVE)
[2017-06-03] MEDS: LEVOFLOXACIN 500 MG PREMIX INJ 100 ML IV SCH (16:00)
--- NOTE | 2017-06-03 16:03 | HHI.PR ---
Subjective Subjective Notes She required ng placed back to suction this afternoon after vomiting. It had been clamped for about twenty hrs. Denies abd pain. Tm 100.9 and has mild leukocytosis. Still having small liquid BMs. Objective Vitals/I&O Vital Signs Date Time Temp Pulse Resp B/P (MAP) Pulse Ox O2 Delivery O2 Flow Rate FiO2 06/03/17 12:58 97.7 98 20 107/59 (75) 94 06/03/17 11:14 Room Air 06/02/17 21:28 92 06/02/17 05:14 1.00 Labs Laboratory Tests Test 06/02/17 21:50 06/03/17 05:45 06/03/17 12:45 Urine Color YELLOW Urine Turbidity HAZY Urine pH 8.5 Urine Specific [place] 1.018 Urine Protein 100 Urine Glucose (UA) NEG Urine Ketones 10 Urine Occult Blood NEG Urine Nitrite NEG Urine Bilirubin NEG Urine Urobilinogen 2.0 Urine Leukocyte Esterase LARGE Urine RBC 4 Urine WBC 81 Urine Squamous Epithelial Cells 3 Urine Calcium Oxalate Crystals OCC Urine Bacteria RARE Microscopic Urinalysis Comment CULTURE INDICATED White Blood Count 13.2 Red Blood Count 3.07 Hemoglobin 10.2 Hematocrit 30.8 Mean Corpuscular Volume 100.3 Mean Corpuscular Hemoglobin 33.2 Mean Corpuscular Hemoglobin Concent 33.1 Red Cell Distribution Width 19.3 Platelet Count 227 Mean Platelet Volume 8.9 Neutrophils (%) (Auto) 85.5 Lymphocytes (%) (Auto) 9.1 Monocytes (%) (Auto) 4.8 Eosinophils (%) (Auto) 0.5 Basophils (%) (Auto) 0.1 Neutrophils # (Auto) 11.3 Lymphocytes # (Auto) 1.2 Monocytes # (Auto) 0.6 Eosinophils # (Auto) 0.1 Basophils # (Auto) 0.0 CBC Comment AUTO DIFF Differential Total Cells Counted 100 Neutrophils % (Manual) 72 Band Neutrophils % 7 Lymphocytes % 13 Monocytes % 4 Basophils % 1 Neutrophils # (Manual) 10.8 Myelocytes 3 Nucleated Red Blood Cells 1 Differential Comment FINAL DIFF MANUAL Atypical Lymphocytes Toxic Granulation 1+ Platelet Estimate NORMAL Platelet Morphology Comment ENLARGED Ovalocytes 1+ Helmet Cells OCC Acanthocytes OCC Blood Urea Nitrogen 15 Creatinine 1.08 Random Glucose 203 Calcium Level 7.9 Sodium Level 137 Potassium Level 3.7 Chloride Level 99 Carbon Dioxide Level 31.1 Anion Gap 7 Estimat Glomerular Filtration Rate 50 Stool C. difficile Toxin (PCR) NEGATIVE Stl C. difficile Toxin Epiderm 027 PRESUMPTIVE NEGATIVE Date/Time Source Procedure Growth Status 06/02/17 14:45 Blood Peripheral Aerobic Blood Culture - Preliminary NO GROWTH IN 1 DAY Resulted 06/02/17 14:45 Blood Peripheral Anaerobic Blood Culture - Preliminary NO GROWTH IN 1 DAY Resulted 06/02/17 21:50 Urine Random Urine Urine Culture - Preliminary Gram Negative [place] Resulted Narrative Exam NAD Abd: distended, soft, nontender. NGT clear dark green output A/P Assessment and Plan 71 yo H/o radical hysterectomy/oophorectomy on chemotherapy for recurrent ovarian cancer with diffuse small bowel ileus vs partial obstruction. She does not seem to be having any overall improvement. She may require operative intervention. I d/w Dr. Huang. She likely has carcinomatosis probably causing or contributing to the obstruction. Will f/u tomorrow. Reg Earl MD Jun 03, 2017 16:03
[2017-06-03 16:46] VITALS: BP 115/61; PULSE 103; RESP 20; TEMP 99.3; O2SAT 94
[2017-06-03 20:00] VITALS: BP 121/61; PULSE 115; RESP 18; TEMP 98.3; O2SAT 93
[2017-06-03] MEDS: FAT EMULSION 20% INJ 250 ML (@10 mls/hr) IV-CENTRAL SCH (21:51)
[2017-06-03] MEDS: ALPRAZolam 1 MG TAB PO PRN (21:52)
[2017-06-03] MEDS: CLINIMIX E 5/25 2000 mL- >42 mls/hr IV-CENTRAL SCH ×3 (21:53)
[2017-06-04] VITALS: BP 125/66; PULSE 99; RESP 17; TEMP 97.5; O2SAT 93
[2017-06-04 04:00] VITALS: BP 128/59; PULSE 100; RESP 17; TEMP 98.9; O2SAT 93
[2017-06-04] MEDS: ENOXAPARIN SODIUM 100 MG/ML SYRINGE SQ SCH ×2 (05:37→18:00)
[2017-06-04] MEDS: METOCLOPRAMIDE HCL 10 MG/2 ML VIAL IV PUSH SCH ×3 (05:44→20:44)
[2017-06-04] MEDS: LORazepam 2 MG/ML VIAL IV PUSH PRN ×4 (05:44→20:44)
[2017-06-04] MEDS: SIMETHICONE 125 MG CHEWABLE TAB PO SCH ×3 (05:49→20:41)
--- NOTE | 2017-06-04 08:04 | MB ---
cc: GARFIELD ROBLEDO M.D.,CACHORRO MEJIA,DENISE NAVARRO,NAIDA RIOS,RUSSELL Diez MD DATE OF CONSULTATION: 06/04/2017 Meeting with Shahida Hayden again, up dating overview, realizing that she had to have the NG tube placed back on suction after emesis. She has had some loose watery bowel movements but normal return of bowel function. Exam and imaging continue to show multiple dilated loops of small bowel without significant change. There is no evidence of perforation. New findings are that of gram-negative rods in the urine culture so she has an urinary tract infection. The white count was elevated yesterday up to 13.2. She remains anxious and apprehensive about the status. Again in our discussion I explained that there is almost certainly multifocal diffuse carcinomatous implants that are affecting the bowel and the mesentery and are contributing either directly or indirectly to hindering of the peristalsis. Imaging does not show a large measurable tumor mass and her abnormality has persisted for a significant period of time and is unlikely to be related just to an adynamic ileus. I had the opportunity to speak with Dr. Earl who is working with his colleagues to determine whether not surgical intervention is warranted. I explained to Ms. Hayden that if she cannot improve by conservative measures surgery may be warranted to evaluate and determine the cause of her obstruction and to alleviate it, it may require bowel resection. This may potentially result in ileostomy or colostomy which will try to be avoided if possible. Other alternatives would be placement of a gastrostomy tube which would not alleviate the obstruction but would allow palliative decompression of the stomach and small bowel without the NG tube in the nose, but this would not fix the underlying problem. With respect to the underlying problem she has had multiple lines of chemotherapy and the unfortunate nature of ovarian cancer is that at some point it becomes resistant to treatment and when we start seeing resistance to treatment it becomes less and less likely that any additional treatment would have a substantial or sustained response. I am not sure we are to that point but those are my concerns considering her current status and increasing CA-125 despite recent treatment. She recently completed treatment with a PARP inhibitor with elevated CA-125 and now on topotecan CA-125 is further elevated at 325. Discussion ensued. Questions were answered. Will continue current management, work with general surgery and follow their recommendations regarding surgical intervention. MD ADELA Dennis/GUICHO /7:40 AM /7:49 AM
[2017-06-04 08:55] VITALS: BP 114/59; PULSE 101; RESP 18; TEMP 98.7; O2SAT 96
[2017-06-04] MEDS: SODIUM CHLORIDE 0.9% FLUSH 10 ML FLUSH IV FLUSH SCH ×2 (09:59→21:00)
--- NOTE | 2017-06-04 10:01 | HHI.PR ---
Subjective Remarks irritated. wants to feel better. abdomen still distended ngt painful. Objective Vitals ngt heart reg lung cta abd reduced bs.distended. ext no edema Vital Signs Date Time Temp Pulse Resp B/P (MAP) Pulse Ox O2 Delivery O2 Flow Rate FiO2 06/04/17 08:55 98.7 101 18 114/59 (77) 96 06/04/17 04:00 98.9 100 17 128/59 (82) 93 06/04/17 00:00 97.5 99 17 125/66 (85) 93 06/03/17 21:52 Room Air 21 06/03/17 20:00 98.3 115 18 121/61 (81) 93 06/03/17 16:46 99.3 103 20 115/61 (79) 94 06/03/17 12:58 97.7 98 20 107/59 (75) 94 06/03/17 11:14 93 Room Air Result Diagram: 06/03/17 0545 06/03/17 0545 Imaging Last Impressions Abdomen X-Ray 05/29/17 0600 Signed Impressions: Service Date/Time: Monday, May 29, 2017 06:24 - CONCLUSION: 1. Persistent dilatation of small bowel which is stable to slightly improved from May 26. Residual contrast throughout colon. Miki Chan MD Small Bowel X-Ray 05/28/17 0000 Signed Impressions: Service Date/Time: Sunday, May 28, 2017 08:36 - CONCLUSION: Delay in transit of the contrast to the large bowel by 8.5 hours. Numerous dilated loops of small intestine are seen. Luisito Barahona MD Abdomen/Pelvis CT 05/25/17 0136 Signed Impressions: Service Date/Time: Thursday, May 25, 2017 01:51 - CONCLUSION: Diffusely dilated loops of small bowel down to the terminal ileum with air-fluid levels suggesting either diffuse ileus or small bowel obstruction. Renato Driscoll MD A/P Problem List: (1) Bowel obstruction ICD Codes: K56.60 - Unspecified intestinal obstruction Status: Acute Plan: - Pt is 71 yo with brca 2 who had ovarian Ca with LIZ/BSO, omentectomy, lysis of adhesions [place] [address] Huang. Has had chemo with Taxol, Carboplatin, Gemzar, Tamoxifen and then Lynparza this past year. There have been concerns of recurrence with a recent rise in ca 125. Dr. Huang has done PET scans and find no major focus of disease. Most recently she has been getting Topotecan weekly for past 3 weeks - comgmt with [facility] - Pt presented with crampy abdomen pain which occurs with each treatment and then progressed to no BM over several days prior to admission. - CT A/P shows diffusely dilated loops of small bowel down to the terminal ileum with air-fluid levels suggesting either diffuse ileus or small bowel obstruction. - Pt had similar events after starting lynparza in 2016 - Cont IVF - KUB (05/26) --> Stable abnormally dilated small bowel measuring up to 5.4 cm with paucity of distal bowel gas. Findings are suspicious for distal small bowel obstruction. One of the small bowel segments in the left abdomen demonstrates thumbprinting which can be seen with submucosal edema. - NGT with 250mL out overnight - SBFT (05/28) --> Delay in transit of the contrast to the large bowel by 8.5 hours. Numerous dilated loops of small intestine are seen. - SBFT results were discussed with radiology and they feel that these findings are most likely consistent with obstruction. - bowel sounds improving - NGT - NPO except meds, hard candy and sips of clear liquids - Discussed case with Dr. Earl recommends continue current course of treatment, added Reglan (05/30) - Chloraseptic spray and lozenges for comfort - Encourage ambulation - continue supportive care - Case discussed by Dr. Rivera with Drs. Earl and Sal 05/31/17 - Per Dr. Huang consult note: small volume but multifocal diffuse carcinomatous implants that are disrupting normal peristalsis and fixing loops of bowel and mesentery that are delaying normal digestion and peristalsis even though imaging does not show an overt tumor mass, ascites or adenopathy - Patient had increasing edema BLE and tenderness to palpation RLE - US BLE reviewed and reveals: extensive acute right lower extremity DVT extending from the proximal right femoral vein to the posterior tibial vein Chronic partially occlusive DVT involving the proximal left femoral vein and posterior tibial vein - Lovenox 100mg SQ BID - patient with low grade fevers. sources could be dvt, uti, bowel obstruction she is on TPN ambulate cont reglan gen surg following. ngt liws kub pending cont lovenox for dvt and convert to eliquis on d/c..will need to hold if surgery planned. f/u cx for uti. cont abx. 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 (3) Hypokalemia ICD Codes: E87.6 - Hypokalemia Status: Acute Plan: - Improved. (4) HTN (hypertension), benign ICD Codes: I10 - Essential (primary) hypertension Status: Chronic Plan: - Home meds continued - monitor (5) Anxiety ICD Codes: F41.9 - Anxiety disorder, unspecified Status: Chronic Gary Arellano MD Jun 04, 2017 10:01
[2017-06-04 12:00] VITALS: BP 131/58; PULSE 103; RESP 18; TEMP 98.9; O2SAT 95
[2017-06-04] MEDS: LISINOPRIL 20 MG TAB PO SCH ×2 (12:15→20:40)
[2017-06-04] MEDS: LEVOFLOXACIN 500 MG PREMIX INJ 100 ML IV SCH (15:00)
[2017-06-04 16:00] VITALS: BP 126/63; PULSE 106; RESP 18; TEMP 98.5; O2SAT 95
[2017-06-04 20:00] VITALS: BP 106/62; PULSE 107; RESP 18; TEMP 100.3; O2SAT 94
[2017-06-04] MEDS: FAT EMULSION 20% INJ 250 ML (@10 mls/hr) IV-CENTRAL SCH (20:43)
[2017-06-04] MEDS: CLINIMIX E 5/25 2000 mL- >42 mls/hr IV-CENTRAL SCH ×3 (20:43)
[2017-06-04] MEDS: ACETAMINOPHEN 1000 MG/100 ML 100 ML IV PRN ×2 (20:44→22:16)
[2017-06-05] VITALS: BP 99/53; PULSE 92; RESP 17; TEMP 98.1; O2SAT 93
[2017-06-05 04:00] VITALS: BP 110/65; PULSE 99; RESP 18; TEMP 97.1; O2SAT 95
[2017-06-05] MEDS: SIMETHICONE 125 MG CHEWABLE TAB PO SCH ×3 (04:08→21:15)
[2017-06-05 07:50] VITALS: BP 115/56; PULSE 112; RESP 20; TEMP 96.3; O2SAT 96
--- NOTE | 2017-06-05 07:56 | HHI.PR ---
Subjective Remarks frustrated. wants to know about surgery. passed some liquid stool ngt painful Objective Vitals ngt heart reg lung cta abd distended. reduced bs ext no edema Vital Signs Date Time Temp Pulse Resp B/P (MAP) Pulse Ox O2 Delivery O2 Flow Rate FiO2 06/05/17 04:00 97.1 99 18 110/65 (80) 95 06/05/17 00:00 98.1 92 17 99/53 (68) 93 06/04/17 20:55 Room Air 21 06/04/17 20:00 100.3 107 18 106/62 (77) 94 06/04/17 16:00 98.5 106 18 126/63 (84) 95 06/04/17 12:00 98.9 103 18 131/58 (82) 95 06/04/17 09:59 96 Room Air 21 06/04/17 08:55 98.7 101 18 114/59 (77) 96 Result Diagram: 06/03/17 0545 06/03/17 0545 Imaging Last Impressions Abdomen X-Ray 05/29/17 0600 Signed Impressions: Service Date/Time: Monday, May 29, 2017 06:24 - CONCLUSION: 1. Persistent dilatation of small bowel which is stable to slightly improved from May 26. Residual contrast throughout colon. Miki Chan MD Small Bowel X-Ray 05/28/17 0000 Signed Impressions: Service Date/Time: Sunday, May 28, 2017 08:36 - CONCLUSION: Delay in transit of the contrast to the large bowel by 8.5 hours. Numerous dilated loops of small intestine are seen. Luisito Barahona MD Abdomen/Pelvis CT 05/25/17 0136 Signed Impressions: Service Date/Time: Thursday, May 25, 2017 01:51 - CONCLUSION: Diffusely dilated loops of small bowel down to the terminal ileum with air-fluid levels suggesting either diffuse ileus or small bowel obstruction. Renato Driscoll MD A/P Problem List: (1) Bowel obstruction ICD Codes: K56.60 - Unspecified intestinal obstruction Status: Acute Plan: - Pt is 71 yo with brca 2 who had ovarian Ca with LIZ/BSO, omentectomy, lysis of adhesions [place] [address] Huang. Has had chemo with Taxol, Carboplatin, Gemzar, Tamoxifen and then Lynparza this past year. There have been concerns of recurrence with a recent rise in ca 125. Dr. Huang has done PET scans and find no major focus of disease. Most recently she has been getting Topotecan weekly for past 3 weeks - comgmt with [facility] - Pt presented with crampy abdomen pain which occurs with each treatment and then progressed to no BM over several days prior to admission. - CT A/P shows diffusely dilated loops of small bowel down to the terminal ileum with air-fluid levels suggesting either diffuse ileus or small bowel obstruction. - Pt had similar events after starting lynparza in 2016 - Cont IVF - KUB (05/26) --> Stable abnormally dilated small bowel measuring up to 5.4 cm with paucity of distal bowel gas. Findings are suspicious for distal small bowel obstruction. One of the small bowel segments in the left abdomen demonstrates thumbprinting which can be seen with submucosal edema. - NGT with 250mL out overnight - SBFT (05/28) --> Delay in transit of the contrast to the large bowel by 8.5 hours. Numerous dilated loops of small intestine are seen. - SBFT results were discussed with radiology and they feel that these findings are most likely consistent with obstruction. - bowel sounds improving - NGT - NPO except meds, hard candy and sips of clear liquids - Discussed case with Dr. Earl recommends continue current course of treatment, added Reglan (05/30) - Chloraseptic spray and lozenges for comfort - Encourage ambulation - continue supportive care - Case discussed by Dr. Rivera with Drs. Earl and Sal 05/31/17 - Per Dr. Huang consult note: small volume but multifocal diffuse carcinomatous implants that are disrupting normal peristalsis and fixing loops of bowel and mesentery that are delaying normal digestion and peristalsis even though imaging does not show an overt tumor mass, ascites or adenopathy - Patient had increasing edema BLE and tenderness to palpation RLE - US BLE reviewed and reveals: extensive acute right lower extremity DVT extending from the proximal right femoral vein to the posterior tibial vein Chronic partially occlusive DVT involving the proximal left femoral vein and posterior tibial vein - Lovenox 100mg SQ BID - patient with low grade fevers. sources could be dvt, uti, bowel obstruction she is on TPN ambulate cont reglan ngt liws cont lovenox for dvt and convert to eliquis on d/c. on hold for possible surgery abx for uti we are awaiting surgical plans. 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 (3) Hypokalemia ICD Codes: E87.6 - Hypokalemia Status: Acute Plan: - Improved. (4) HTN (hypertension), benign ICD Codes: I10 - Essential (primary) hypertension Status: Chronic Plan: - Home meds continued - monitor (5) Anxiety ICD Codes: F41.9 - Anxiety disorder, unspecified Status: Chronic Gary Arellano MD Jun 05, 2017 07:55
--- NOTE | 2017-06-05 08:04 | PD.ONC.PN ---
Subjective Subjective Remarks Patient is sitting on bedside commode liquid stool + flatus NG tube clamped overnight, pt denies N/V explained to pt that we are awaiting general surgery decision +/- surgery as she is not making progress the concern is that carcinomatosis maybe causing the obstruction. Objective Data Date Time Temp Pulse Resp B/P (MAP) Pulse Ox O2 Delivery O2 Flow Rate FiO2 06/05/17 04:00 97.1 99 18 110/65 (80) 95 06/05/17 00:00 98.1 92 17 99/53 (68) 93 06/04/17 20:55 Room Air 21 06/04/17 20:00 100.3 107 18 106/62 (77) 94 06/04/17 16:00 98.5 106 18 126/63 (84) 95 06/04/17 12:00 98.9 103 18 131/58 (82) 95 06/04/17 09:59 96 Room Air 21 06/04/17 08:55 98.7 101 18 114/59 (77) 96 Result Diagram: 06/03/1745 06/03/17 0545 Culture Results Microbiology Date/Time Source Procedure Growth Status 06/02/17 14:45 Blood Peripheral Aerobic Blood Culture - Preliminary NO GROWTH IN 2 DAYS Resulted 06/02/17 14:45 Blood Peripheral Anaerobic Blood Culture - Preliminary NO GROWTH IN 2 DAYS Resulted 06/02/17 14:40 Blood Peripheral Aerobic Blood Culture - Preliminary NO GROWTH IN 2 DAYS Resulted 06/02/17 14:40 Blood Peripheral Anaerobic Blood Culture - Preliminary NO GROWTH IN 2 DAYS Resulted 06/02/17 21:50 Urine Random Urine Urine Culture - Final Escherichia Coli Complete Administered Medications Medications (Trade) Dose Ordered Sig/Anette Route PRN Reason Start Time Stop Time Status Last Admin Dose Admin Sodium Chloride (NS Flush) 2 ml BID IV FLUSH 05/25/17 09:00 06/04/17 09:59 Sodium Chloride (NS Flush) 2 ml UNSCH PRN IVF FLUSH AFTER USING IV ACCESS 05/25/17 04:45 06/03/17 14:15 Ondansetron HCl (Zofran Inj) 4 mg Q4H PRN IV NAUSEA OR VOMITING 05/25/17 10:00 06/03/17 14:11 Alprazolam (Xanax) 1 mg HS PRN PO anxiety 05/25/17 21:00 06/03/17 21:52 Clonidine (Catapres) 0.1 mg Q6H PRN PO sbp > 170 05/26/17 09:00 05/30/17 15:57 Al Hydrox/Mg Hydrox/Simethicone (Mag-Al Plus Susp Liq) 30 ml Q4H PRN PO HEARTBURN 05/26/17 18:30 05/26/17 22:13 Lorazepam (Ativan Inj) 1 mg Q4H PRN IV PUSH anxiety 05/28/17 14:00 06/04/17 20:44 Lisinopril (Prinivil) 40 mg BID PO 05/30/17 09:00 06/04/17 12:15 Metoclopramide HCl (Reglan Inj) 10 mg Q8HR IV PUSH 05/30/17 14:00 06/04/17 20:44 Phenol (Chloraseptic [place]) 2 spray Q2H PRN OROPHARYNG SORE THROAT 05/31/17 11:45 05/31/17 14:26 Enoxaparin Sodium (Lovenox Inj) 100 mg Q12H SQ 06/01/17 18:00 06/03/17 17:17 Multivitamins 10 ml/Folic Acid 1 mg/Amino Acids/ Electrolytes/ Dextrose 2,010.2 ml @ 83 mls/hr Q24H IV-CENTRAL 06/02/17 20:00 06/04/17 20:43 Fat Emulsion Intravenous 250 ml @ 10 mls/hr Q24H IV-CENTRAL 06/02/17 20:00 06/04/17 20:43 Simethicone (Phazyme Chew) 125 mg Q8HR PO 06/03/17 14:00 06/03/17 21:52 Acetaminophen 100 ml @ 400 mls/hr Q6H PRN IV fever/pain 1-10 06/03/17 09:30 06/04/17 22:16 Levofloxacin/ Dextrose 100 ml @ 100 mls/hr Q24H IV 06/03/17 16:00 06/04/17 15:00 Objective Remarks GENERAL: well-developed patient, frail SKIN: Warm and dry. HEAD: Normocephalic. EYES: No scleral icterus. No injection or drainage. CARDIOVASCULAR: Regular rate and rhythm without murmurs. RESPIRATORY: Breath sounds equal bilaterally. No accessory muscle use. GASTROINTESTINAL: Abdomen firm with tympanic BS EXTREMITIES: edema to bilat LE mild MUSCULOSKELETAL: Adequate muscle tone. NEUROLOGICAL: No obvious focal deficit. Awake, alert, and oriented x3. Assessment/Plan Problem List: (1) Small bowel obstruction ICD Codes: K56.69 - Other intestinal obstruction Status: Acute Plan: NG tube clamped and was restarted on LIWS d/t vomiting. 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 Huang to determine next course of chemo If patient continues to decline consider consult Palliative Care. Olivia Thacker Jun 05, 2017 08:04
[2017-06-05] MEDS: SODIUM CHLORIDE 0.9% FLUSH 10 ML FLUSH IV FLUSH SCH ×2 (09:03→21:00)
[2017-06-05] MEDS: METOCLOPRAMIDE HCL 10 MG/2 ML VIAL IV PUSH SCH ×3 (09:03→21:11)
[2017-06-05] MEDS: LORazepam 2 MG/ML VIAL IV PUSH PRN ×3 (09:04→19:03)
[2017-06-05] MEDS: ENOXAPARIN SODIUM 100 MG/ML SYRINGE SQ SCH ×2 (10:27→18:00)
[2017-06-05] MEDS ORDERED: VANCOMYCIN INJ 1,000 MG in SODIUM CHLOR 0.9% 250 ML INJ 250 ML IV SCH (11:15)
[2017-06-05] MEDS ORDERED: metroNIDAZOLE 500 MG INJ 100 ML IV SCH (11:15)
[2017-06-05 11:50] VITALS: BP 128/60; PULSE 107; RESP 20; TEMP 98.2; O2SAT 97
[2017-06-05 12:10] LABS: AUTOMATED NEUTROPHIL # 11.6 TH/MM3 (1.8-7.7); BASOPHIL % 0.2 % (0.0-2.0); EOSINOPHIL # 0.1 TH/MM3 (0-0.4); EOSINOPHIL % 0.8 % (0.0-4.0); HEMATOCRIT 30.8 % (35.0-46.0); LYMPH % 9.6 % (9.0-44.0); LYMPHOCYTE # 1.3 TH/MM3 (1.0-4.8); MEAN CORPUSCULAR HEMOGLOBIN 32.7 PG (27.0-34.0); MEAN CORPUSCULAR HGB CONC 32.4 % (32.0-36.0); MONO % 6.4 % (0.0-8.0); PLATELET COUNT 182 TH/MM3 (150-450); RED BLOOD COUNT 3.05 MIL/MM3 (4.00-5.30); RED CELL DISTRIBUTION WIDTH 19.2 % (11.6-17.2)
[2017-06-05 12:12] LABS: HEMO FLAGS AUTO DIFF
[2017-06-05 12:45] LABS: BICARBONATE 26.4 MEQ/L (21.0-32.0); POTASSIUM 3.7 MEQ/L (3.5-5.1)
[2017-06-05 13:10] LABS: BANDS 11 % (0-6); EOSINOPHILS 1 % (0-4); METAMYELOCYTES 3 % (0-1); MYELOCYTES 12 % (0-0); NEUTROPHIL # MANUAL DIFF 12.2 TH/MM3 (1.8-7.7); POLYS (SEG NEUTROPHILS) 61 % (16-70); TOXIC GRANULATION 2+ (NORMAL); WBC DIFF SAMPLE 100
[2017-06-05 13:11] LABS: ACANTHOCYTES OCC (NORMAL); OVALOCYTES 2+ (NORMAL)
[2017-06-05 13:12] LABS: PLATELET ESTIMATE SMEAR NORMAL (NORMAL)
[2017-06-05 13:13] LABS: PLATELET MORPHOLOGY NORMAL (NORMAL)
[2017-06-05 13:14] LABS: SCAN/DIFF FINAL DIFF MANUAL
[2017-06-05] MEDS ORDERED: ROCURONIUM INJ 50 MG/5 ML SYRINGE IV PUSH ONE (14:03)
[2017-06-05] MEDS ORDERED: PHENYLEPH/NS 1000 MCG/10 ML SYR IV ONE (14:03)
[2017-06-05] MEDS ORDERED: GLYCOPYRROLATE 1 MG/5 ML SYRINGE IV PUSH ONE (14:03)
[2017-06-05] MEDS ORDERED: ePHEDrine/NS 25 MG/5 ML SYR IV ONE (14:03)
[2017-06-05] MEDS ORDERED: PHENYLEPHRINE HCL 10 MG/ML VIAL IV ONE (14:03)
[2017-06-05] MEDS ORDERED: NEOSTIGMINE 3 MG/3 ML SYR IV ONE (14:03)
[2017-06-05] MEDS ORDERED: LACTATED RINGER'S 1000 ML INJ 1,000 ML IV ONE (14:03)
[2017-06-05] MEDS ORDERED: SUCCINYLCHOLINE CHLORIDE 100 MG/5 ML SYRINGE IV PUSH ONE (14:03)
[2017-06-05] MEDS ORDERED: MORPHINE SULFATE 4 MG/ML INJ IV ONE (14:03)
[2017-06-05] MEDS ORDERED: ONDANSETRON HCL 4 MG/2 ML VIAL IV PUSH ONE (14:03)
[2017-06-05] MEDS ORDERED: MIDAZOLAM HCL 2 MG/2 ML VIAL IV ONE (14:03)
[2017-06-05] MEDS ORDERED: PROPOFOL 200 MG/20 ML AMP IV ONE (14:03)
[2017-06-05] MEDS ORDERED: LIDOCAINE HCL 1% PF 5 ML AMPULE OTHER ONE (14:03)
[2017-06-05] MEDS ORDERED: SODIUM CHLORIDE 0.9% FLUSH 10 ML FLUSH IV FLUSH PRN (16:45)
[2017-06-05] MEDS: SODIUM CHLOR 0.9% 1000 ML INJ 1,000 ML IV SCH (16:45)
[2017-06-05] MEDS ORDERED: oxyCODONE/ACETAMINOPHEN 5 MG/325 MG TAB PO PRN (16:45)
[2017-06-05] MEDS ORDERED: Post-op Orders (for Pharmacy) MISC XX ONE (16:45)
[2017-06-05] MEDS ORDERED: D5 NS ONE (17:39)
[2017-06-05] MEDS ORDERED: KCL ONE (17:39)
[2017-06-05] MEDS: LEVOFLOXACIN 500 MG PREMIX INJ 100 ML IV SCH (17:45)
[2017-06-05] MEDS: D5-1/2 NS + KCL 20 MEQ INJ 1,000 ML IV SCH (18:00)
[2017-06-05] MEDS: LISINOPRIL 20 MG TAB PO SCH ×2 (18:06→21:00)
[2017-06-05] MEDS ORDERED: DO NOT ADM ANY ANTICOAGULANT DRUGS PRN (18:15)
[2017-06-05 18:40] VITALS: BP 108/55; PULSE 123; RESP 20; TEMP 98; O2SAT 96
[2017-06-05] MEDS: ONDANSETRON HCL 4 MG/2 ML VIAL IV PUSH PRN (19:03)
[2017-06-05] MEDS: oxyCODONE/ACETAMINOPHEN 5 MG/325 MG TAB PO PRN (19:08)
[2017-06-05 20:00] VITALS: BP 109/51; PULSE 112; RESP 17; TEMP 96.4; O2SAT 97
[2017-06-05] MEDS: metroNIDAZOLE 500 MG INJ 100 ML IV SCH (21:00)
[2017-06-05] MEDS: MORPHINE SULFATE 4 MG/ML INJ IV PRN ×2 (21:10→23:30)
[2017-06-05] MEDS: KETOROLAC TROMETHAMINE 30 MG/ML (IVP) VIAL IV PUSH SCH (21:10)
[2017-06-05] MEDS: FAT EMULSION 20% INJ 250 ML (@10 mls/hr) IV-CENTRAL SCH (21:11)
[2017-06-05] MEDS: CLINIMIX E 5/25 2000 mL- >42 mls/hr IV-CENTRAL SCH ×3 (21:11)
[2017-06-05] MEDS: ACETAMINOPHEN 1000 MG/100 ML 100 ML IV PRN (23:32)
[2017-06-06] VITALS (8 sets, daily range): BP systolic 109–127; BP diastolic 54–58; PULSE 90–99; RESP 17–20; TEMP 96.3–97.2; O2SAT 94–98
[2017-06-06] MEDS: LORazepam 2 MG/ML VIAL IV PUSH PRN ×4 (00:29→21:18)
[2017-06-06] MEDS: ALPRAZolam 1 MG TAB PO PRN (01:33)
[2017-06-06] MEDS: D5-1/2 NS + KCL 20 MEQ INJ 1,000 ML IV SCH ×3 (02:00→16:57)
[2017-06-06] MEDS: SODIUM CHLOR 0.9% 1000 ML INJ 1,000 ML IV SCH (02:03)
[2017-06-06] MEDS: KETOROLAC TROMETHAMINE 30 MG/ML (IVP) VIAL IV PUSH SCH ×4 (04:03→21:18)
[2017-06-06] MEDS: metroNIDAZOLE 500 MG INJ 100 ML IV SCH ×2 (04:04→13:21)
[2017-06-06] MEDS: METOCLOPRAMIDE HCL 10 MG/2 ML VIAL IV PUSH SCH ×3 (04:51→21:18)
[2017-06-06] MEDS: SIMETHICONE 125 MG CHEWABLE TAB PO SCH ×3 (04:52→21:17)
[2017-06-06 05:24] LABS: AUTOMATED NEUTROPHIL # 9.7 TH/MM3 (1.8-7.7); BASOPHIL % 0.3 % (0.0-2.0); EOSINOPHIL # 0.1 TH/MM3 (0-0.4); LYMPH % 9.8 % (9.0-44.0); LYMPHOCYTE # 1.2 TH/MM3 (1.0-4.8); MEAN CELL VOLUME 101.1 FL (80.0-100.0); MEAN CORPUSCULAR HEMOGLOBIN 32.3 PG (27.0-34.0); MEAN CORPUSCULAR HGB CONC 31.9 % (32.0-36.0); MONO % 6.6 % (0.0-8.0); NEUT % 82.3 % (16.0-70.0); PLATELET COUNT 137 TH/MM3 (150-450); RED BLOOD COUNT 2.47 MIL/MM3 (4.00-5.30); WHITE BLOOD COUNT 11.8 TH/MM3 (4.0-11.0)
[2017-06-06 05:32] LABS: HEMO FLAGS AUTO DIFF
[2017-06-06 05:34] LABS: POTASSIUM 3.7 MEQ/L (3.5-5.1)
--- NOTE | 2017-06-06 06:18 | MP ---
cc: EAMONRYNE DATE OF 1945 DATE OF OPERATION 06/05/2017 PREOPERATIVE DIAGNOSIS Bowel obstruction. 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 PROCEDURE Laparoscopic gastrostomy tube placement, 20-Bulgarian Mick-gonzales catheter, laparoscopic loop ileostomy. SURGEON Ryne Franklin MD ANESTHESIA General endotracheal anesthesia. ESTIMATED BLOOD LOSS Scant. FINDINGS The patient was obstructed secondary to tumor that studded her bowels and obstructed in the right pelvis. The distal bowel that was decompressed was also involved with this tumor. It appeared to be distal terminal ileum. The patient also appeared to have some studding of the tumor in her cecum and descending colon. As a result it was decided to do a diverting ileostomy proximal to this and placement of a gastrostomy tube. SPECIMENS None. COMPLICATIONS None. OPERATION The patient was brought to the operating room, placed on the operating table in supine position. Bilateral sequential inflation device was connected, general anesthesia instituted. The abdomen was prepped and draped sterilely. The abdominal cavity was inspected. Findings were as above. A gastrostomy tube was focused on initially. Using the introducer kit and a Seldinger technique, a 20-Bulgarian Imck-gonzales catheter was placed into the stomach. The catheter was inflated with 10 cc of water. The stomach was secured to the abdominal wall using a T-fastener. Attention was then focused on the lower abdomen, the patient placed in Trendelenburg position. A point proximal to the obstruction was identified. This bowel was grasped with graspers the distance of approximately 1 foot proximal to the obstructed point. The CO2 was then released and then a point in the right lower quadrant identified. A coin-sized circular incision was made. It was taken through the fat, to the anterior rectus. The rectus muscle was split with Betzaida clamps and the posterior rectus opened, the peritoneal cavity entered. The grasper was then brought into the wound with the proximal bowel. This bowel was grabbed with Babcocks and brought through the opening. The joanna was then placed through the mesentery. The CO2 was released, all additional laparoscopic ports removed. The skin edges were approximated 4-0 Vicryl on the laparoscopic trocar sites. The bowel was then opened and the stoma matured. A colostomy appliance was applied and attention then focused on the G tube. The tube was secured to the flanges using 0 Vicryl suture and the flange was secured to the abdominal wall using 2-0 nylon. The abdominal wall was then cleaned and sterile dressing placed. The patient was awakened and taken to the recovery room. Ryne Franklin MD JS/SSB /6:03 PM /6:02 AM
[2017-06-06] MEDS: ENOXAPARIN SODIUM 100 MG/ML SYRINGE SQ SCH ×2 (06:33→16:57)
--- NOTE | 2017-06-06 08:11 | PD.ONC.PN ---
Subjective Subjective Remarks POD #1 exploratory laparoscopy, resection of bowel obstruction, ileostomy and g tube placement...by general surgery Patient states that her pain is controlled no complaints at this time patient is anxious to speak with general surgery about findings and daughter at bedside Objective Data Date Time Temp Pulse Resp B/P (MAP) Pulse Ox O2 Delivery O2 Flow Rate FiO2 06/06/17 04:00 96.3 91 18 112/54 (73) 97 06/06/17 00:00 97.2 99 17 109/54 (72) 96 06/05/17 20:20 Nasal Cannula 2.00 06/05/17 20:00 96.4 112 17 109/51 (70) 97 06/05/17 18:40 98.0 123 20 108/55 (72) 96 06/05/17 18:00 119 18 105/62 (76) 100 Nasal Cannula 3 06/05/17 17:30 123 18 111/58 (75) 98 Nasal Cannula 3 06/05/17 17:15 98.9 123 18 119/60 (79) 96 Nasal Cannula 3 06/05/17 11:50 98.2 107 20 128/60 (82) 97 06/05/17 08:52 95 Room Air 21 06/06/17 06/06/17 06/06/17 07:00 15:00 23:00 Intake Total 100 ml Output Total 1625 ml Balance -1525 ml Result Diagram: 06/06/17 0400 06/06/17 0400 Laboratory Results Laboratory Tests Test 06/05/17 09:10 06/06/17 04:00 White Blood Count 14.0 TH/MM3 11.8 TH/MM3 Red Blood Count 3.05 MIL/MM3 2.47 MIL/MM3 Hemoglobin 10.0 GM/DL 8.0 GM/DL Hematocrit 30.8 % 25.0 % Mean Corpuscular Volume 101.0 FL 101.1 FL Mean Corpuscular Hemoglobin 32.7 PG 32.3 PG Mean Corpuscular Hemoglobin Concent 32.4 % 31.9 % Red Cell Distribution Width 19.2 % 19.0 % Platelet Count 182 TH/MM3 137 TH/MM3 Mean Platelet Volume 9.6 FL 10.0 FL Neutrophils (%) (Auto) 83.0 % 82.3 % Lymphocytes (%) (Auto) 9.6 % 9.8 % Monocytes (%) (Auto) 6.4 % 6.6 % Eosinophils (%) (Auto) 0.8 % 1.0 % Basophils (%) (Auto) 0.2 % 0.3 % Neutrophils # (Auto) 11.6 TH/MM3 9.7 TH/MM3 Lymphocytes # (Auto) 1.3 TH/MM3 1.2 TH/MM3 Monocytes # (Auto) 0.9 TH/MM3 0.8 TH/MM3 Eosinophils # (Auto) 0.1 TH/MM3 0.1 TH/MM3 Basophils # (Auto) 0.0 TH/MM3 0.0 TH/MM3 CBC Comment AUTO DIFF AUTO DIFF Differential Total Cells Counted 100 Neutrophils % (Manual) 61 % Band Neutrophils % 11 % Lymphocytes % 9 % Monocytes % 3 % Eosinophils % 1 % Neutrophils # (Manual) 12.2 TH/MM3 Metamyelocytes 3 % Myelocytes 12 % Differential Comment FINAL DIFF MANUAL Toxic Granulation 2+ Platelet Estimate NORMAL Platelet Morphology Comment NORMAL Ovalocytes 2+ Acanthocytes OCC Blood Urea Nitrogen 27 MG/DL 27 MG/DL Creatinine 1.10 MG/DL 1.08 MG/DL Random Glucose 146 MG/DL 162 MG/DL Calcium Level 8.0 MG/DL 7.6 MG/DL Sodium Level 136 MEQ/L 136 MEQ/L Potassium Level 3.7 MEQ/L 3.7 MEQ/L Chloride Level 101 MEQ/L 105 MEQ/L Carbon Dioxide Level 26.4 MEQ/L 25.0 MEQ/L Anion Gap 9 MEQ/L 6 MEQ/L Estimat Glomerular Filtration Rate 49 ML/MIN 50 ML/MIN Administered Medications Medications (Trade) Dose Ordered Sig/Anette Route PRN Reason Start Time Stop Time Status Last Admin Dose Admin Alprazolam (Xanax) 1 mg HS PRN PO anxiety 05/25/17 21:00 06/06/17 01:33 Clonidine (Catapres) 0.1 mg Q6H PRN PO sbp > 170 05/26/17 09:00 05/30/17 15:57 Al Hydrox/Mg Hydrox/Simethicone (Mag-Al Plus Susp Liq) 30 ml Q4H PRN PO HEARTBURN 05/26/17 18:30 05/26/17 22:13 Lorazepam (Ativan Inj) 1 mg Q4H PRN IV PUSH anxiety 05/28/17 14:00 06/06/17 04:36 Lisinopril (Prinivil) 40 mg BID PO 05/30/17 09:00 06/04/17 12:15 Metoclopramide HCl (Reglan Inj) 10 mg Q8HR IV PUSH 05/30/17 14:00 06/06/17 04:51 Phenol (Chloraseptic [place]) 2 spray Q2H PRN OROPHARYNG SORE THROAT 05/31/17 11:45 05/31/17 14:26 Enoxaparin Sodium (Lovenox Inj) 100 mg Q12H SQ 06/01/17 18:00 06/06/17 06:33 Multivitamins 10 ml/Folic Acid 1 mg/Amino Acids/ Electrolytes/ Dextrose 2,010.2 ml @ 83 mls/hr Q24H IV-CENTRAL 06/02/17 20:00 06/05/17 21:11 Fat Emulsion Intravenous 250 ml @ 10 mls/hr Q24H IV-CENTRAL 06/02/17 20:00 06/05/17 21:11 Simethicone (Phazyme Chew) 125 mg Q8HR PO 06/03/17 14:00 06/06/17 04:52 Acetaminophen 100 ml @ 400 mls/hr Q6H PRN IV fever/pain 1-10 06/03/17 09:30 06/05/17 23:32 Levofloxacin/ Dextrose 100 ml @ 100 mls/hr Q24H IV 06/03/17 16:00 06/05/17 17:45 Oxycodone/ Acetaminophen (Percocet 5-325 Mg) 1 tab Q4H PRN PO PAIN SCALE 1 TO 5 06/05/17 16:45 06/05/17 19:08 Ondansetron HCl (Zofran Inj) 4 mg Q4H PRN IV PUSH NAUSEA OR VOMITING 06/05/17 16:45 06/05/17 19:03 Metronidazole 100 ml @ 200 mls/hr Q8H IV 06/05/17 21:00 06/06/17 13:29 06/06/17 04:04 Potassium Chloride/Dextrose/ Sod Cl 1,000 ml @ 125 mls/hr Q8H IV 06/05/17 18:00 06/05/17 18:00 Ketorolac Tromethamine (Toradol Inj) 30 mg Q6H IV PUSH 06/05/17 21:00 06/10/17 20:59 06/06/17 04:03 Morphine Sulfate (Morphine Inj) 2 mg Q1H PRN IV BREAKTROUGH PAIN > 5 06/05/17 21:00 06/05/17 23:30 Objective Remarks GENERAL: frail SKIN: Warm and dry. HEAD: Normocephalic. EYES: No scleral icterus. No injection or drainage. CARDIOVASCULAR: Regular rate and rhythm without murmurs. RESPIRATORY: Breath sounds equal bilaterally. No accessory muscle use. GASTROINTESTINAL: SS are c/d/i and ileostomy to right quad MUSCULOSKELETAL: Adequate muscle tone. NEUROLOGICAL: No obvious focal deficit. Awake, alert, and oriented x3. 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 Huang to determine next course of chemo (3) UTI (urinary tract infection) ICD Codes: N39.0 - Urinary tract infection, site not specified Status: Resolved Plan: + e coli Levaquin Attending Statement Discussed with Dr. Huang and he is in agreement. Olivia Thacker Jun 06, 2017 08:11
[2017-06-06 08:19] LABS: BANDS 15 % (0-6); EOSINOPHILS 1 % (0-4); METAMYELOCYTES 2 % (0-1); MYELOCYTES 4 % (0-0); NEUTROPHIL # MANUAL DIFF 10.1 TH/MM3 (1.8-7.7); OVALOCYTES 1+ (NORMAL); POLYS (SEG NEUTROPHILS) 65 % (16-70); WBC DIFF SAMPLE 100
[2017-06-06 08:20] LABS: ACANTHOCYTES OCC (NORMAL); PLATELET ESTIMATE SMEAR LOW (NORMAL); PLATELET MORPHOLOGY NORMAL (NORMAL); SCAN/DIFF FINAL DIFF MANUAL
[2017-06-06] MEDS: LISINOPRIL 20 MG TAB PO SCH (09:04)
[2017-06-06] MEDS: SODIUM CHLORIDE 0.9% FLUSH 10 ML FLUSH IV FLUSH SCH ×2 (09:04→21:00)
--- NOTE | 2017-06-06 09:17 | HHI.PR ---
Subjective Remarks family present. alot of questions. long discussion. Objective Vitals heart reg lung cta abd no bs. gastrostomy tube. ileostomy ext no edema Vital Signs Date Time Temp Pulse Resp B/P (MAP) Pulse Ox O2 Delivery O2 Flow Rate FiO2 06/06/17 08:38 96.4 90 20 120/56 (77) 94 06/06/17 04:00 96.3 91 18 112/54 (73) 97 06/06/17 00:00 97.2 99 17 109/54 (72) 96 06/05/17 20:20 Nasal Cannula 2.00 06/05/17 20:00 96.4 112 17 109/51 (70) 97 06/05/17 18:40 98.0 123 20 108/55 (72) 96 06/05/17 18:00 119 18 105/62 (76) 100 Nasal Cannula 3 06/05/17 17:30 123 18 111/58 (75) 98 Nasal Cannula 3 06/05/17 17:15 98.9 123 18 119/60 (79) 96 Nasal Cannula 3 06/05/17 11:50 98.2 107 20 128/60 (82) 97 Result Diagram: 06/06/17 0400 06/06/17 0400 Imaging Last Impressions Abdomen X-Ray 05/29/17 0600 Signed Impressions: Service Date/Time: Monday, May 29, 2017 06:24 - CONCLUSION: 1. Persistent dilatation of small bowel which is stable to slightly improved from May 26. Residual contrast throughout colon. Miki Chan MD Small Bowel X-Ray 05/28/17 0000 Signed Impressions: Service Date/Time: Sunday, May 28, 2017 08:36 - CONCLUSION: Delay in transit of the contrast to the large bowel by 8.5 hours. Numerous dilated loops of small intestine are seen. Luisito Barahona MD Abdomen/Pelvis CT 05/25/17 0136 Signed Impressions: Service Date/Time: Thursday, May 25, 2017 01:51 - CONCLUSION: Diffusely dilated loops of small bowel down to the terminal ileum with air-fluid levels suggesting either diffuse ileus or small bowel obstruction. Renato Driscoll MD A/P Problem List: (1) Bowel obstruction ICD Codes: K56.60 - Unspecified intestinal obstruction Status: Acute Plan: - Pt is 71 yo with brca 2 who had ovarian Ca with LIZ/BSO, omentectomy, lysis of adhesions [place] [address] Huang. Has had chemo with Taxol, Carboplatin, Gemzar, Tamoxifen and then Lynparza this past year. There have been concerns of recurrence with a recent rise in ca 125. Dr. Huang has done PET scans and find no major focus of disease. Most recently she has been getting Topotecan weekly for past 3 weeks - comgmt with [facility] - Pt presented with crampy abdomen pain which occurs with each treatment and then progressed to no BM over several days prior to admission. - CT A/P shows diffusely dilated loops of small bowel down to the terminal ileum with air-fluid levels suggesting either diffuse ileus or small bowel obstruction. - Pt had similar events after starting lynparza in 2016 - KUB (05/26) --> Stable abnormally dilated small bowel measuring up to 5.4 cm with paucity of distal bowel gas. Findings are suspicious for distal small bowel obstruction. One of the small bowel segments in the left abdomen demonstrates thumbprinting which can be seen with submucosal edema. - SBFT (05/28) --> Delay in transit of the contrast to the large bowel by 8.5 hours. Numerous dilated loops of small intestine are seen. - SBFT results were discussed with radiology and they feel that these findings are most likely consistent with obstruction. -- Per Dr. 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 ivf increase activity pain control cont anticoagulation for dvt hold bp meds cont reglan abx for uti updated pt/family. 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 (3) Hypokalemia ICD Codes: E87.6 - Hypokalemia Status: Acute Plan: - Improved. (4) HTN (hypertension), benign ICD Codes: I10 - Essential (primary) hypertension Status: Chronic Plan: - Home meds continued - monitor (5) Anxiety ICD Codes: F41.9 - Anxiety disorder, unspecified Status: Chronic Gary Arellano MD Jun 06, 2017 09:17
[2017-06-06] MEDS: VANCOMYCIN INJ 1,000 MG in SODIUM CHLOR 0.9% 250 ML INJ 250 ML IV SCH (13:23)
[2017-06-06] MEDS: LEVOFLOXACIN 500 MG PREMIX INJ 100 ML IV SCH (16:56)
[2017-06-06] MEDS: FAT EMULSION 20% INJ 250 ML (@10 mls/hr) IV-CENTRAL SCH (21:19)
[2017-06-06] MEDS: CLINIMIX E 5/25 2000 mL- >42 mls/hr IV-CENTRAL SCH ×3 (21:19)
[2017-06-07] VITALS (8 sets, daily range): BP systolic 95–126; BP diastolic 55–67; PULSE 92–110; RESP 14–18; TEMP 97.4–98.5; O2SAT 94–98
[2017-06-07] MEDS: D5-1/2 NS + KCL 20 MEQ INJ 1,000 ML IV SCH ×3 (02:00→18:04)
[2017-06-07] MEDS: VANCOMYCIN INJ 1,000 MG in SODIUM CHLOR 0.9% 250 ML INJ 250 ML IV SCH (02:07)
[2017-06-07] MEDS: KETOROLAC TROMETHAMINE 30 MG/ML (IVP) VIAL IV PUSH SCH ×4 (02:07→19:54)
[2017-06-07] MEDS: METOCLOPRAMIDE HCL 10 MG/2 ML VIAL IV PUSH SCH ×3 (04:33→22:48)
[2017-06-07] MEDS: SIMETHICONE 125 MG CHEWABLE TAB PO SCH ×3 (04:33→22:47)
[2017-06-07] MEDS: ACETAMINOPHEN 1000 MG/100 ML 100 ML IV PRN (04:33)
[2017-06-07] MEDS: ENOXAPARIN SODIUM 100 MG/ML SYRINGE SQ SCH ×2 (04:34→18:04)
[2017-06-07] MEDS: LORazepam 2 MG/ML VIAL IV PUSH PRN ×3 (04:43→22:48)
[2017-06-07 06:56] LABS: BICARBONATE 26.3 MEQ/L (21.0-32.0); POTASSIUM 4.1 MEQ/L (3.5-5.1)
--- NOTE | 2017-06-07 07:26 | MB ---
cc: RUSSELL RIOS MD,DENISE CRAWFORD,FAUSTO KNUTSON,RYNE NAVARRO,NAIDA ROBLEDO,GARFIELD Reese M.D. DATE OF CONSULTATION 06/07/2017 REASON FOR CONSULTATION I know she has been given some information and followup regarding findings at surgery. I wanted to reiterate findings and the steps taken at surgery. I explained that there is a plaque of tumor in the pelvis effecting and obstructive multifocal loops of small bowel. It was felt that neither resection or bypass were advisable. The bowel was markedly edematous. She has been malnourished because of prolonged obstruction and there was concern about adequate healing and for these reasons, Dr. Sinha had recommended and performed a diversion with ileostomy as the proximal small bowel appeared relatively normal, as well as a gastrostomy tube for palliation and to help facilitate healing. I explained the difficult nature of ovarian cancer and the situation that is present. In the past, she has been on and off chemotherapy and had excellent response to treatment, but as we have discussed on numerous prior occasions and with each subsequent treatment, the cancer develops resistance to chemotherapy or other interventions. To the extent to which additional treatment will be effective is unknown. We will certainly remain aggressive and continue to work for treating the tumor as long as she is philosophically in favor. At this time, she is still in favor of being aggressive against the tumor. She is understandably anxious and disappointing regarding the status of findings and the situation regarding the cancer. We will continue to provide supportive care physical and emotional support. More questions were asked and answered to the best my capacity. She expressed a good understanding. It is understood that at the present time, her performance status is diminished and she is not able to take additional treatment, but hopefully with hospital recovery and some time for rehabilitation, we will see her back in the office as well as an outpatient for reevaluation and consideration of additional intervention. MD ADELA Dennis/JIN /6:59 AM /7:15 AM
[2017-06-07] MEDS: SODIUM CHLORIDE 0.9% FLUSH 10 ML FLUSH IV FLUSH SCH ×2 (08:18→19:54)
--- NOTE | 2017-06-07 09:13 | HHI.PR ---
Subjective Remarks doing ok overnight. Objective Vitals heart reg lung air entry jodi abd bs/ostomy functioning. g tube ext no edema Vital Signs Date Time Temp Pulse Resp B/P (MAP) Pulse Ox O2 Delivery O2 Flow Rate FiO2 06/07/17 05:00 98.0 94 17 120/55 (76) 96 06/07/17 00:00 97.7 92 17 95/56 (69) 94 06/06/17 21:05 Room Air 06/06/17 20:00 96.7 97 17 127/57 (80) 94 06/06/17 18:20 98 06/06/17 15:30 96.3 92 20 109/58 (75) 98 06/06/17 11:35 97 06/06/17 11:30 96.8 90 20 109/54 (72) 97 06/06/17 10:38 Room Air Result Diagram: 06/06/17 0400 06/07/17 0610 Imaging Last Impressions Abdomen X-Ray 05/29/17 0600 Signed Impressions: Service Date/Time: Monday, May 29, 2017 06:24 - CONCLUSION: 1. Persistent dilatation of small bowel which is stable to slightly improved from May 26. Residual contrast throughout colon. Miki Chan MD Small Bowel X-Ray 05/28/17 0000 Signed Impressions: Service Date/Time: Sunday, May 28, 2017 08:36 - CONCLUSION: Delay in transit of the contrast to the large bowel by 8.5 hours. Numerous dilated loops of small intestine are seen. Luisito Barahona MD Abdomen/Pelvis CT 05/25/17 0136 Signed Impressions: Service Date/Time: Thursday, May 25, 2017 01:51 - CONCLUSION: Diffusely dilated loops of small bowel down to the terminal ileum with air-fluid levels suggesting either diffuse ileus or small bowel obstruction. Renato Driscoll MD A/P Problem List: (1) Bowel obstruction ICD Codes: K56.60 - Unspecified intestinal obstruction Status: Acute Plan: - Pt is 71 yo with brca 2 who had ovarian Ca with LIZ/BSO, omentectomy, lysis of adhesions [place] [address] Huang. Has had chemo with Taxol, Carboplatin, Gemzar, Tamoxifen and then Lynparza this past year. There have been concerns of recurrence with a recent rise in ca 125. Dr. Huang has done PET scans and find no major focus of disease. Most recently she has been getting Topotecan weekly for past 3 weeks - comgmt with [facility] - Pt presented with crampy abdomen pain which occurs with each treatment and then progressed to no BM over several days prior to admission. - CT A/P shows diffusely dilated loops of small bowel down to the terminal ileum with air-fluid levels suggesting either diffuse ileus or small bowel obstruction. - Pt had similar events after starting lynparza in 2016 - KUB (05/26) --> Stable abnormally dilated small bowel measuring up to 5.4 cm with paucity of distal bowel gas. Findings are suspicious for distal small bowel obstruction. One of the small bowel segments in the left abdomen demonstrates thumbprinting which can be seen with submucosal edema. - SBFT (05/28) --> Delay in transit of the contrast to the large bowel by 8.5 hours. Numerous dilated loops of small intestine are seen. - SBFT results were discussed with radiology and they feel that these findings are most likely consistent with obstruction. -- Per Dr. 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 ivf advance diet per GS increase activity pain control cont anticoagulation for dvt. convert to po on d/c hold bp meds cont reglan abx for uti updated pt/family. discussed with Dr Huang....cont chemo after pt heals. pt considering snf. 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 (3) Hypokalemia ICD Codes: E87.6 - Hypokalemia Status: Acute Plan: - Improved. (4) HTN (hypertension), benign ICD Codes: I10 - Essential (primary) hypertension Status: Chronic Plan: - Home meds continued - monitor (5) Anxiety ICD Codes: F41.9 - Anxiety disorder, unspecified Status: Chronic Gary Arellano MD Jun 07, 2017 09:13
--- NOTE | 2017-06-07 14:46 | HHI.PR ---
Subjective Subjective Notes Laying in bed Denies abdominal pain Objective Vitals/I&O Vital Signs Date Time Temp Pulse Resp B/P (MAP) Pulse Ox O2 Delivery O2 Flow Rate FiO2 06/07/17 12:00 97.7 110 14 112/67 (82) 98 06/07/17 09:42 Room Air 06/05/17 20:20 2.00 06/05/17 08:52 21 Labs Laboratory Tests Test 06/07/17 06:10 Blood Urea Nitrogen 32 Creatinine 1.06 Random Glucose 181 Calcium Level 7.8 Sodium Level 135 Potassium Level 4.1 Chloride Level 103 Carbon Dioxide Level 26.3 Anion Gap 6 Estimat Glomerular Filtration Rate 51 Date/Time Source Procedure Growth Status 06/02/17 14:45 Blood Peripheral Aerobic Blood Culture - Final NO GROWTH IN 5 DAYS Complete 06/02/17 14:45 Blood Peripheral Anaerobic Blood Culture - Final NO GROWTH IN 5 DAYS Complete 06/02/17 21:50 Urine Random Urine Urine Culture - Final Escherichia Coli Complete Radiology Last Impressions Abdomen X-Ray 06/03/17 0800 Signed Impressions: Service Date/Time: Saturday, June 03, 2017 10:02 - CONCLUSION: 1. Persistent diffuse gaseous small bowel distention consistent with distal small bowel obstruction versus severe adynamic ileus. No definitive radiographically evidence for perforation or bowel infarction at this time. Patricio Pantoja MD Chest X-Ray 06/02/17 0000 Signed Impressions: Service Date/Time: Friday, June 02, 2017 10:42 - CONCLUSION: Small area of atelectasis in the left midlung field unchanged from previous. Lungs are otherwise clear. Support equipment is stable. Malick Arias MD Lower Extremity Ultrasound 06/01/17 0000 Signed Impressions: Service Date/Time: Thursday, June 01, 2017 13:35 - CONCLUSION: 1. Findings consistent with extensive acute right lower extremity DVT extending from the proximal right femoral vein to the posterior tibial vein. More centrally, the common femoral and iliac veins appear patent. 2. 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 Patricio Pantoja MD Small Bowel X-Ray 05/28/17 0000 Signed Impressions: Service Date/Time: Sunday, May 28, 2017 08:36 - CONCLUSION: Delay in transit of the contrast to the large bowel by 8.5 hours. Numerous dilated loops of small intestine are seen. Luisito Barahona MD Abdomen/Pelvis CT 05/25/17 0136 Signed Impressions: Service Date/Time: Thursday, May 25, 2017 01:51 - CONCLUSION: Diffusely dilated loops of small bowel down to the terminal ileum with air-fluid levels suggesting either diffuse ileus or small bowel obstruction. Renato Driscoll MD Cardiovascular: Regular Lungs: Clear Abdomen: Non-distended Extremities: Perfused Narrative Exam Rt ileostomy stoma pink with moderate amount of liquid output Lt G-tube with minimal output in gravity bag. Abdomen non-distended with hypoactive bowel sounds. A/P Assessment and Plan 71yo F Status post exploratory laparotomy with creation of diverting ileostomy -Continue with OOB to chair -Advance to full liquid diet The exam, history, and the medical decision-making described in the above note were completed with the assistance of the mid-level provider. I reviewed and agree with the findings presented. I attest that I had a [id number] encounter with the patient on the same day, and personally performed and documented my assessment and findings in the medical record. Christin Aldridge Jun 07, 2017 14:46 Luke Franklin MD Jun 26, 2017 12:42
[2017-06-07] MEDS: LEVOFLOXACIN 500 MG PREMIX INJ 100 ML IV SCH (15:06)
[2017-06-07] MEDS: CLINIMIX E 5/25 2000 mL- >42 mls/hr IV-CENTRAL SCH ×3 (19:55)
[2017-06-07] MEDS: FAT EMULSION 20% INJ 250 ML (@10 mls/hr) IV-CENTRAL SCH (20:00)
[2017-06-07] MEDS: ALPRAZolam 1 MG TAB PO PRN (22:47)
[2017-06-08] VITALS: BP 133/73; PULSE 100; RESP 17; TEMP 98.4; O2SAT 98
[2017-06-08] MEDS: D5-1/2 NS + KCL 20 MEQ INJ 1,000 ML IV SCH ×2 (02:00→02:30)
[2017-06-08] MEDS: KETOROLAC TROMETHAMINE 30 MG/ML (IVP) VIAL IV PUSH SCH ×4 (03:48→20:30)
[2017-06-08 04:00] VITALS: BP 129/65; PULSE 95; RESP 18; TEMP 99.2; O2SAT 97
[2017-06-08] MEDS: SIMETHICONE 125 MG CHEWABLE TAB PO SCH ×3 (05:55→21:56)
[2017-06-08] MEDS: METOCLOPRAMIDE HCL 10 MG/2 ML VIAL IV PUSH SCH ×3 (05:56→22:05)
[2017-06-08 06:05] LABS: BICARBONATE 29.7 MEQ/L (21.0-32.0)
[2017-06-08] MEDS: ENOXAPARIN SODIUM 100 MG/ML SYRINGE SQ SCH ×2 (06:07→18:57)
[2017-06-08 08:00] VITALS: BP 131/66; PULSE 97; RESP 16; TEMP 99.3; O2SAT 97
[2017-06-08] MEDS: SODIUM CHLORIDE 0.9% FLUSH 10 ML FLUSH IV FLUSH SCH ×2 (08:42→20:33)
[2017-06-08] MEDS: LORazepam 2 MG/ML VIAL IV PUSH PRN ×2 (09:48→20:55)
--- NOTE | 2017-06-08 10:02 | HHI.PR ---
Subjective Remarks nervous about d/c to snf. tolerating liquids Objective Vitals heart reg lung cta abd ostomy.bs. ext trace edema Vital Signs Date Time Temp Pulse Resp B/P (MAP) Pulse Ox O2 Delivery O2 Flow Rate FiO2 06/08/17 08:00 Room Air 06/08/17 08:00 99.3 97 16 131/66 (87) 97 06/08/17 04:00 99.2 95 18 129/65 (86) 97 06/08/17 00:00 98.4 100 17 133/73 (93) 98 06/07/17 20:00 98.3 101 18 119/62 (81) 98 06/07/17 17:39 98 21 06/07/17 16:00 98.5 98 14 126/60 (82) 98 06/07/17 12:00 97.7 110 14 112/67 (82) 98 06/07/17 11:45 Room Air 06/07/17 10:25 97 06/08/17 06/08/17 06/09/17 14:59 22:59 06:59 Output Total 200 ml Balance -200 ml Stool Total 200 ml Result Diagram: 06/06/17 0400 06/08/17 0400 Imaging Last Impressions Abdomen X-Ray 05/29/17 0600 Signed Impressions: Service Date/Time: Monday, May 29, 2017 06:24 - CONCLUSION: 1. Persistent dilatation of small bowel which is stable to slightly improved from May 26. Residual contrast throughout colon. Miki Chan MD Small Bowel X-Ray 05/28/17 0000 Signed Impressions: Service Date/Time: Sunday, May 28, 2017 08:36 - CONCLUSION: Delay in transit of the contrast to the large bowel by 8.5 hours. Numerous dilated loops of small intestine are seen. Luisito Barahona MD Abdomen/Pelvis CT 05/25/17 0136 Signed Impressions: Service Date/Time: Thursday, May 25, 2017 01:51 - CONCLUSION: Diffusely dilated loops of small bowel down to the terminal ileum with air-fluid levels suggesting either diffuse ileus or small bowel obstruction. Renato Driscoll MD A/P Problem List: (1) Bowel obstruction ICD Codes: K56.60 - Unspecified intestinal obstruction Status: Acute Plan: - Pt is 71 yo with brca 2 who had ovarian Ca with LIZ/BSO, omentectomy, lysis of adhesions [place] [address] Huang. Has had chemo with Taxol, Carboplatin, Gemzar, Tamoxifen and then Lynparza this past year. There have been concerns of recurrence with a recent rise in ca 125. Dr. Huang has done PET scans and find no major focus of disease. Most recently she has been getting Topotecan weekly for past 3 weeks - comgmt with [facility] - Pt presented with crampy abdomen pain which occurs with each treatment and then progressed to no BM over several days prior to admission. - CT A/P shows diffusely dilated loops of small bowel down to the terminal ileum with air-fluid levels suggesting either diffuse ileus or small bowel obstruction. - Pt had similar events after starting lynparza in 2016 - KUB (05/26) --> Stable abnormally dilated small bowel measuring up to 5.4 cm with paucity of distal bowel gas. Findings are suspicious for distal small bowel obstruction. One of the small bowel segments in the left abdomen demonstrates thumbprinting which can be seen with submucosal edema. - SBFT (05/28) --> Delay in transit of the contrast to the large bowel by 8.5 hours. Numerous dilated loops of small intestine are seen. - SBFT results were discussed with radiology and they feel that these findings are most likely consistent with obstruction. -- Per Dr. uHang consult note: small volume but multifocal diffuse carcinomatous implants that are disrupting normal peristalsis and fixing loops of bowel and mesentery that are delaying normal digestion and peristalsis even though imaging does not show an overt tumor mass, ascites or adenopathy - US BLE reviewed and reveals: extensive acute right lower extremity DVT extending from the proximal right femoral vein to the posterior tibial vein Chronic partially occlusive DVT involving the proximal left femoral vein and posterior tibial vein - s/p gastrostomy tube and diverting loop ileostomy for carcinomatosis/ obstruction 06/05 tpn. ivf advance diet per GS. once advanced then wean tpn off increase activity pain control cont anticoagulation for dvt. convert to po on d/c hold bp meds cont reglan abx for uti updated pt/family. discussed with Dr Huang....cont chemo after pt heals. pt considering snf.....projected d/c to snf probably Saturday/Saturday. 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 (3) Hypokalemia ICD Codes: E87.6 - Hypokalemia Status: Acute Plan: - Improved. (4) HTN (hypertension), benign ICD Codes: I10 - Essential (primary) hypertension Status: Chronic Plan: - Home meds continued - monitor (5) Anxiety ICD Codes: F41.9 - Anxiety disorder, unspecified Status: Chronic Gary Arellano MD Jun 08, 2017 10:02
[2017-06-08 12:00] VITALS: BP 129/64; PULSE 104; RESP 16; TEMP 98.4; O2SAT 100
[2017-06-08] MEDS: LEVOFLOXACIN 500 MG PREMIX INJ 100 ML IV SCH (14:55)
[2017-06-08 16:00] VITALS: BP 125/62; PULSE 99; RESP 18; TEMP 98.2; O2SAT 100
[2017-06-08 20:00] VITALS: BP 140/66; PULSE 107; RESP 18; TEMP 97.9; O2SAT 97
[2017-06-08] MEDS: CLINIMIX E 5/25 2000 mL- >42 mls/hr IV-CENTRAL SCH ×3 (20:35)
[2017-06-08] MEDS: FAT EMULSION 20% INJ 250 ML (@10 mls/hr) IV-CENTRAL SCH (20:36)
[2017-06-09] VITALS (7 sets, daily range): BP systolic 129–158; BP diastolic 54–82; PULSE 81–106; RESP 16–18; TEMP 97.5–98.6; O2SAT 95–98
[2017-06-09] MEDS: D5-1/2 NS + KCL 20 MEQ INJ 1,000 ML IV SCH (02:30)
[2017-06-09] MEDS: KETOROLAC TROMETHAMINE 30 MG/ML (IVP) VIAL IV PUSH SCH ×2 (02:30→08:26)
[2017-06-09] MEDS: METOCLOPRAMIDE HCL 10 MG/2 ML VIAL IV PUSH SCH ×3 (06:45→21:41)
[2017-06-09] MEDS: SIMETHICONE 125 MG CHEWABLE TAB PO SCH ×3 (06:45→21:41)
[2017-06-09] MEDS: ENOXAPARIN SODIUM 100 MG/ML SYRINGE SQ SCH ×2 (06:48→17:10)
[2017-06-09] MEDS: SODIUM CHLORIDE 0.9% FLUSH 10 ML FLUSH IV FLUSH SCH ×2 (08:26→19:40)
--- NOTE | 2017-06-09 09:35 | HHI.PR ---
Subjective Remarks tolerating food anxious about snf Objective Vitals heart reg lung cta abd gastrostomy/ileostomy ext no edema Vital Signs Date Time Temp Pulse Resp B/P (MAP) Pulse Ox O2 Delivery O2 Flow Rate FiO2 06/09/17 08:55 Room Air 06/09/17 08:00 98.6 98 16 129/60 (83) 95 06/09/17 07:23 97 21 06/09/17 04:00 97.6 98 18 140/58 (85) 96 06/09/17 03:45 20 06/09/17 00:00 97.9 106 18 136/54 (81) 96 06/08/17 21:00 97 Room Air 21 06/08/17 20:00 97.9 107 18 140/66 (90) 97 06/08/17 16:00 98.2 99 18 125/62 (83) 100 06/08/17 12:00 98.4 104 16 129/64 (85) 100 Result Diagram: 06/06/17 0400 06/08/17 0400 Imaging Last Impressions Abdomen X-Ray 05/29/17 0600 Signed Impressions: Service Date/Time: Monday, May 29, 2017 06:24 - CONCLUSION: 1. Persistent dilatation of small bowel which is stable to slightly improved from May 26. Residual contrast throughout colon. Miki Chan MD Small Bowel X-Ray 05/28/17 0000 Signed Impressions: Service Date/Time: Sunday, May 28, 2017 08:36 - CONCLUSION: Delay in transit of the contrast to the large bowel by 8.5 hours. Numerous dilated loops of small intestine are seen. Luisito Barahona MD Abdomen/Pelvis CT 05/25/17 0136 Signed Impressions: Service Date/Time: Thursday, May 25, 2017 01:51 - CONCLUSION: Diffusely dilated loops of small bowel down to the terminal ileum with air-fluid levels suggesting either diffuse ileus or small bowel obstruction. Renato Driscoll MD A/P Problem List: (1) Bowel obstruction ICD Codes: K56.60 - Unspecified intestinal obstruction Status: Acute Plan: - Pt is 71 yo with brca 2 who had ovarian Ca with LIZ/BSO, omentectomy, lysis of adhesions [place] [address] Huang. Has had chemo with Taxol, Carboplatin, Gemzar, Tamoxifen and then Lynparza this past year. There have been concerns of recurrence with a recent rise in ca 125. Dr. Huang has done PET scans and find no major focus of disease. Most recently she has been getting Topotecan weekly for past 3 weeks - comgmt with [facility] - Pt presented with crampy abdomen pain which occurs with each treatment and then progressed to no BM over several days prior to admission. - CT A/P shows diffusely dilated loops of small bowel down to the terminal ileum with air-fluid levels suggesting either diffuse ileus or small bowel obstruction. - Pt had similar events after starting lynparza in 2016 - KUB (05/26) --> Stable abnormally dilated small bowel measuring up to 5.4 cm with paucity of distal bowel gas. Findings are suspicious for distal small bowel obstruction. One of the small bowel segments in the left abdomen demonstrates thumbprinting which can be seen with submucosal edema. - SBFT (05/28) --> Delay in transit of the contrast to the large bowel by 8.5 hours. Numerous dilated loops of small intestine are seen. - SBFT results were discussed with radiology and they feel that these findings are most likely consistent with obstruction. -- Per Dr. 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 ivf tolerating solid food wean off tpn tomorrow d/c beatty increase activity pain control cont anticoagulation for dvt. convert to po on d/c hold bp meds...resume as needed cont reglan abx for uti updated pt/family. discussed with Dr Huang....cont chemo after pt heals. pt considering snf.....projected d/c to snf probably Saturday/Saturday. 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 (3) Hypokalemia ICD Codes: E87.6 - Hypokalemia Status: Acute Plan: - Improved. (4) HTN (hypertension), benign ICD Codes: I10 - Essential (primary) hypertension Status: Chronic Plan: - Home meds continued - monitor (5) Anxiety ICD Codes: F41.9 - Anxiety disorder, unspecified Status: Chronic Gary Arellano MD Jun 09, 2017 09:35
--- NOTE | 2017-06-09 11:53 | HHI.PR ---
Subjective Subjective Notes The patient has no major complaints. Her pain is under control. She is still not very hungry but taking by mouth. Objective Vitals/I&O Vital Signs Date Time Temp Pulse Resp B/P (MAP) Pulse Ox O2 Delivery O2 Flow Rate FiO2 06/09/17 08:55 Room Air 06/09/17 08:00 98.6 98 16 129/60 (83) 95 06/09/17 07:23 21 06/05/17 20:20 2.00 Labs Laboratory Tests Test 06/08/17 04:00 Blood Urea Nitrogen 31 MG/DL Creatinine 1.14 MG/DL Random Glucose 182 MG/DL Calcium Level 8.4 MG/DL Sodium Level 134 MEQ/L Potassium Level 4.0 MEQ/L Chloride Level 99 MEQ/L Carbon Dioxide Level 29.7 MEQ/L Anion Gap 5 MEQ/L Estimat Glomerular Filtration Rate 47 ML/MIN Date/Time Source Procedure Growth Status 06/02/17 14:45 Blood Peripheral Aerobic Blood Culture - Final NO GROWTH IN 5 DAYS Complete 06/02/17 14:45 Blood Peripheral Anaerobic Blood Culture - Final NO GROWTH IN 5 DAYS Complete 06/02/17 21:50 Urine Random Urine Urine Culture - Final Escherichia Coli Complete Radiology Last Impressions Abdomen X-Ray 06/03/17 0800 Signed Impressions: Service Date/Time: Saturday, June 03, 2017 10:02 - CONCLUSION: 1. Persistent diffuse gaseous small bowel distention consistent with distal small bowel obstruction versus severe adynamic ileus. No definitive radiographically evidence for perforation or bowel infarction at this time. Patricio Pantoja MD Chest X-Ray 06/02/17 0000 Signed Impressions: Service Date/Time: Friday, June 02, 2017 10:42 - CONCLUSION: Small area of atelectasis in the left midlung field unchanged from previous. Lungs are otherwise clear. Support equipment is stable. Malick Arias MD Lower Extremity Ultrasound 06/01/17 0000 Signed Impressions: Service Date/Time: Thursday, June 01, 2017 13:35 - CONCLUSION: 1. Findings consistent with extensive acute right lower extremity DVT extending from the proximal right femoral vein to the posterior tibial vein. More centrally, the common femoral and iliac veins appear patent. 2. 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 Patricio Pantoja MD Small Bowel X-Ray 05/28/17 0000 Signed Impressions: Service Date/Time: Sunday, May 28, 2017 08:36 - CONCLUSION: Delay in transit of the contrast to the large bowel by 8.5 hours. Numerous dilated loops of small intestine are seen. Luisito Barahona MD Abdomen/Pelvis CT 05/25/17 0136 Signed Impressions: Service Date/Time: Thursday, May 25, 2017 01:51 - CONCLUSION: Diffusely dilated loops of small bowel down to the terminal ileum with air-fluid levels suggesting either diffuse ileus or small bowel obstruction. Renato Driscoll MD Cardiovascular: Regular Lungs: Clear Abdomen: Non-distended, Post-op tenderness Extremities: No edema Narrative Exam A/P Assessment and Plan Impression: Status post exploratory laparotomy with creation of diverting ileostomy. She is stable and gradually improving. Plan: The patient is scheduled to go to a rehabilitation facility this week and she should be stable from a general surgery standpoint to do so. Heath Olivas MD Jun 09, 2017 11:53
[2017-06-09] MEDS ORDERED: LEVOFLOXACIN 500 MG TAB PO ONE (13:00)
[2017-06-09] MEDS: ONDANSETRON HCL 4 MG/2 ML VIAL IV PUSH PRN (18:47)
[2017-06-09] MEDS: CLINIMIX E 5/25 2000 mL- >42 mls/hr IV-CENTRAL SCH ×3 (19:49)
[2017-06-09] MEDS: FAT EMULSION 20% INJ 250 ML (@10 mls/hr) IV-CENTRAL SCH (19:49)
[2017-06-09] MEDS: LORazepam 2 MG/ML VIAL IV PUSH PRN (21:41)
[2017-06-10] VITALS (7 sets, daily range): BP systolic 112–143; BP diastolic 59–72; PULSE 99–108; RESP 17–19; TEMP 97.6–99.1; O2SAT 95–98
[2017-06-10] MEDS: METOCLOPRAMIDE HCL 10 MG/2 ML VIAL IV PUSH SCH ×3 (05:20→22:59)
[2017-06-10] MEDS: ENOXAPARIN SODIUM 100 MG/ML SYRINGE SQ SCH ×2 (05:21→17:04)
[2017-06-10] MEDS: SIMETHICONE 125 MG CHEWABLE TAB PO SCH ×3 (05:21→22:59)
[2017-06-10 06:02] LABS: AUTOMATED NEUTROPHIL # 10.8 TH/MM3 (1.8-7.7); BASOPHIL % 0.2 % (0.0-2.0); EOSINOPHIL # 0.1 TH/MM3 (0-0.4); EOSINOPHIL % 0.9 % (0.0-4.0); HEMATOCRIT 27.8 % (35.0-46.0); LYMPH % 11.6 % (9.0-44.0); LYMPHOCYTE # 1.6 TH/MM3 (1.0-4.8); MEAN CELL VOLUME 98.3 FL (80.0-100.0); MEAN CORPUSCULAR HEMOGLOBIN 31.7 PG (27.0-34.0); MEAN CORPUSCULAR HGB CONC 32.2 % (32.0-36.0); NEUT % 79.3 % (16.0-70.0); PLATELET COUNT 286 TH/MM3 (150-450); RED BLOOD COUNT 2.83 MIL/MM3 (4.00-5.30); RED CELL DISTRIBUTION WIDTH 19.4 % (11.6-17.2); WHITE BLOOD COUNT 13.6 TH/MM3 (4.0-11.0)
[2017-06-10 06:20] LABS: HEMO FLAGS AUTO DIFF
[2017-06-10 06:23] LABS: POTASSIUM 4.4 MEQ/L (3.5-5.1)
[2017-06-10 06:50] LABS: BANDS 2 % (0-6); METAMYELOCYTES 2 % (0-1); MYELOCYTES 3 % (0-0); NEUTROPHIL # MANUAL DIFF 11.2 TH/MM3 (1.8-7.7); OVALOCYTES 1+ (NORMAL); PLATELET ESTIMATE SMEAR NORMAL (NORMAL); PLATELET MORPHOLOGY NORMAL (NORMAL); POLYS (SEG NEUTROPHILS) 75 % (16-70); SCAN/DIFF FINAL DIFF MANUAL; WBC DIFF SAMPLE 100
--- NOTE | 2017-06-10 07:24 | PD.ONC.PN ---
Subjective Subjective Remarks Mrs. Hayden is resting in bed, states pain is controlled still no appetite asking for Megace to hopefully help stimulate appetite will go to rehab in next day or so and follow up with foam tank laminator/onc as outpt for further discussion of chemotherapy Objective Data Date Time Temp Pulse Resp B/P (MAP) Pulse Ox O2 Delivery O2 Flow Rate FiO2 06/10/17 04:00 98.6 102 17 134/61 (85) 95 06/10/17 00:00 98.9 108 18 125/59 (81) 97 06/09/17 21:40 Room Air 06/09/17 20:00 97.5 81 18 158/82 (107) 98 06/09/17 16:00 97.5 106 16 142/63 (89) 98 06/09/17 12:00 98.4 95 16 130/63 (85) 96 06/09/17 08:55 Room Air 06/09/17 08:00 98.6 98 16 129/60 (83) 95 06/09/17 07:23 97 21 06/10/17 06/10/17 06/10/17 07:00 15:00 23:00 Intake Total 240 ml Output Total 2600 ml Balance -2360 ml Result Diagram: 06/10/17 0535 06/10/17 0535 Laboratory Results Laboratory Tests Test 06/10/17 05:35 White Blood Count 13.6 TH/MM3 Red Blood Count 2.83 MIL/MM3 Hemoglobin 9.0 GM/DL Hematocrit 27.8 % Mean Corpuscular Volume 98.3 FL Mean Corpuscular Hemoglobin 31.7 PG Mean Corpuscular Hemoglobin Concent 32.2 % Red Cell Distribution Width 19.4 % Platelet Count 286 TH/MM3 Mean Platelet Volume 9.4 FL Neutrophils (%) (Auto) 79.3 % Lymphocytes (%) (Auto) 11.6 % Monocytes (%) (Auto) 8.0 % Eosinophils (%) (Auto) 0.9 % Basophils (%) (Auto) 0.2 % Neutrophils # (Auto) 10.8 TH/MM3 Lymphocytes # (Auto) 1.6 TH/MM3 Monocytes # (Auto) 1.1 TH/MM3 Eosinophils # (Auto) 0.1 TH/MM3 Basophils # (Auto) 0.0 TH/MM3 CBC Comment AUTO DIFF Differential Total Cells Counted 100 Neutrophils % (Manual) 75 % Band Neutrophils % 2 % Lymphocytes % 14 % Monocytes % 4 % Neutrophils # (Manual) 11.2 TH/MM3 Metamyelocytes 2 % Myelocytes 3 % Differential Comment FINAL DIFF MANUAL Platelet Estimate NORMAL Platelet Morphology Comment NORMAL Ovalocytes 1+ Blood Urea Nitrogen 33 MG/DL Creatinine 1.06 MG/DL Random Glucose 152 MG/DL Calcium Level 8.5 MG/DL Sodium Level 132 MEQ/L Potassium Level 4.4 MEQ/L Chloride Level 98 MEQ/L Carbon Dioxide Level 28.0 MEQ/L Anion Gap 6 MEQ/L Estimat Glomerular Filtration Rate 51 ML/MIN Administered Medications Medications (Trade) Dose Ordered Sig/Anette Route PRN Reason Start Time Stop Time Status Last Admin Dose Admin Alprazolam (Xanax) 1 mg HS PRN PO anxiety 05/25/17 21:00 06/07/17 22:47 Clonidine (Catapres) 0.1 mg Q6H PRN PO sbp > 170 05/26/17 09:00 05/30/17 15:57 Al Hydrox/Mg Hydrox/Simethicone (Mag-Al Plus Susp Liq) 30 ml Q4H PRN PO HEARTBURN 05/26/17 18:30 05/26/17 22:13 Lorazepam (Ativan Inj) 1 mg Q4H PRN IV PUSH anxiety 05/28/17 14:00 06/09/17 21:41 Metoclopramide HCl (Reglan Inj) 10 mg Q8HR IV PUSH 05/30/17 14:00 06/10/17 05:20 Phenol (Chloraseptic [place]) 2 spray Q2H PRN OROPHARYNG SORE THROAT 05/31/17 11:45 05/31/17 14:26 Enoxaparin Sodium (Lovenox Inj) 100 mg Q12H SQ 06/01/17 18:00 06/10/17 05:21 Multivitamins 10 ml/Folic Acid 1 mg/Amino Acids/ Electrolytes/ Dextrose 2,010.2 ml @ 83 mls/hr Q24H IV-CENTRAL 06/02/17 20:00 06/09/17 19:49 Fat Emulsion Intravenous 250 ml @ 10 mls/hr Q24H IV-CENTRAL 06/02/17 20:00 06/09/17 19:49 Simethicone (Phazyme Chew) 125 mg Q8HR PO 06/03/17 14:00 06/10/17 05:21 Acetaminophen 100 ml @ 400 mls/hr Q6H PRN IV fever/pain 1-10 06/03/17 09:30 06/07/17 04:33 Sodium Chloride (NS Flush) 2 ml BID IV FLUSH 06/05/17 21:00 06/09/17 08:26 Oxycodone/ Acetaminophen (Percocet 5-325 Mg) 1 tab Q4H PRN PO PAIN SCALE 1 TO 5 06/05/17 16:45 06/05/17 19:08 Ondansetron HCl (Zofran Inj) 4 mg Q4H PRN IV PUSH NAUSEA OR VOMITING 06/05/17 16:45 06/09/17 18:47 Morphine Sulfate (Morphine Inj) 2 mg Q1H PRN IV BREAKTROUGH PAIN > 5 06/05/17 21:00 06/05/17 23:30 Objective Remarks General: A and oriented in NAD SKIN: Warm and dry. HEAD: Normocephalic. EYES: No scleral icterus. No injection or drainage. CARDIOVASCULAR: Regular rate and rhythm without murmurs. RESPIRATORY: Breath sounds equal bilaterally. No accessory muscle use. GASTROINTESTINAL: Abdomen soft, non-tender, nondistended. ileostomy to right quad MUSCULOSKELETAL: Adequate muscle tone. PSYCHIATRIC: Appropriate mood and affect; insight and judgment normal. Assessment/Plan Problem List: (1) Small bowel obstruction ICD Codes: K56.69 - Other intestinal obstruction Status: Acute Plan: POD # 5 exploratory laparoscopic resection of bowel obstruction, ileostomy and g tube placement general surgery following patient found to have diffuse carcinomatosis causing obstruction full diet IVF supportive care pt to SNF in next day or so will start Megace to increase appetite (2) Recurrent carcinoma of ovary ICD Codes: C56.9 - Malignant neoplasm of unspecified ovary Status: Chronic Plan: patient to rehab will follow up as outpt to discuss with Dr. Huang IV chemotherapy (3) UTI (urinary tract infection) ICD Codes: N39.0 - Urinary tract infection, site not specified Status: Resolved Plan: + e coli Levaquin Attending Statement Discussed with Dr. Huang and he is in agreement. Olivia Thacker Jun 10, 2017 07:24
[2017-06-10] MEDS: SODIUM CHLORIDE 0.9% FLUSH 10 ML FLUSH IV FLUSH SCH ×2 (07:28→19:58)
[2017-06-10] MEDS: MEGESTROL ACETATE SUSP 400 MG/10 ML CUP PO SCH (09:44)
[2017-06-10] MEDS: ONDANSETRON HCL 4 MG/2 ML VIAL IV PUSH PRN ×2 (09:44→19:58)
--- NOTE | 2017-06-10 13:34 | HHI.PR ---
Subjective Subjective Notes Occasional nausea but overall doing well. Ileostomy occasionally leaking. Objective Vitals/I&O Vital Signs Date Time Temp Pulse Resp B/P (MAP) Pulse Ox O2 Delivery O2 Flow Rate FiO2 06/10/17 12:54 98.1 99 19 132/61 (84) 98 06/10/17 07:32 Room Air 06/09/17 07:23 21 Labs Laboratory Tests Test 06/10/17 05:35 White Blood Count 13.6 Red Blood Count 2.83 Hemoglobin 9.0 Hematocrit 27.8 Mean Corpuscular Volume 98.3 Mean Corpuscular Hemoglobin 31.7 Mean Corpuscular Hemoglobin Concent 32.2 Red Cell Distribution Width 19.4 Platelet Count 286 Mean Platelet Volume 9.4 Neutrophils (%) (Auto) 79.3 Lymphocytes (%) (Auto) 11.6 Monocytes (%) (Auto) 8.0 Eosinophils (%) (Auto) 0.9 Basophils (%) (Auto) 0.2 Neutrophils # (Auto) 10.8 Lymphocytes # (Auto) 1.6 Monocytes # (Auto) 1.1 Eosinophils # (Auto) 0.1 Basophils # (Auto) 0.0 CBC Comment AUTO DIFF Differential Total Cells Counted 100 Neutrophils % (Manual) 75 Band Neutrophils % 2 Lymphocytes % 14 Monocytes % 4 Neutrophils # (Manual) 11.2 Metamyelocytes 2 Myelocytes 3 Differential Comment FINAL DIFF MANUAL Platelet Estimate NORMAL Platelet Morphology Comment NORMAL Ovalocytes 1+ Blood Urea Nitrogen 33 Creatinine 1.06 Random Glucose 152 Calcium Level 8.5 Sodium Level 132 Potassium Level 4.4 Chloride Level 98 Carbon Dioxide Level 28.0 Anion Gap 6 Estimat Glomerular Filtration Rate 51 Date/Time Source Procedure Growth Status 06/02/17 14:45 Blood Peripheral Aerobic Blood Culture - Final NO GROWTH IN 5 DAYS Complete 06/02/17 14:45 Blood Peripheral Anaerobic Blood Culture - Final NO GROWTH IN 5 DAYS Complete 06/02/17 21:50 Urine Random Urine Urine Culture - Final Escherichia Coli Complete Radiology Last Impressions Abdomen X-Ray 06/03/17 0800 Signed Impressions: Service Date/Time: Saturday, June 03, 2017 10:02 - CONCLUSION: 1. Persistent diffuse gaseous small bowel distention consistent with distal small bowel obstruction versus severe adynamic ileus. No definitive radiographically evidence for perforation or bowel infarction at this time. Patricio Pantoja MD Chest X-Ray 06/02/17 0000 Signed Impressions: Service Date/Time: Friday, June 02, 2017 10:42 - CONCLUSION: Small area of atelectasis in the left midlung field unchanged from previous. Lungs are otherwise clear. Support equipment is stable. Malick Arias MD Lower Extremity Ultrasound 06/01/17 0000 Signed Impressions: Service Date/Time: Thursday, June 01, 2017 13:35 - CONCLUSION: 1. Findings consistent with extensive acute right lower extremity DVT extending from the proximal right femoral vein to the posterior tibial vein. More centrally, the common femoral and iliac veins appear patent. 2. 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 Patricio Pantoja MD Small Bowel X-Ray 05/28/17 0000 Signed Impressions: Service Date/Time: Sunday, May 28, 2017 08:36 - CONCLUSION: Delay in transit of the contrast to the large bowel by 8.5 hours. Numerous dilated loops of small intestine are seen. Luisito Barahona MD Abdomen/Pelvis CT 05/25/17 0136 Signed Impressions: Service Date/Time: Thursday, May 25, 2017 01:51 - CONCLUSION: Diffusely dilated loops of small bowel down to the terminal ileum with air-fluid levels suggesting either diffuse ileus or small bowel obstruction. Renato Driscoll MD Narrative Exam NAD Abd: nondistended, soft. G tube clamped. Ileostomy pink, viable, edematous A/P Assessment and Plan 71 yo H/o radical hysterectomy/oophorectomy on chemotherapy for recurrent ovarian cancer with diffuse small bowel ileus vs partial obstruction. S/p ileostomy, g tube for obstruction. Requested appliance change from nursing due to leakage. Ok for dc to rehab when set up. Place g tube to gravity if significant nausea. Reg Earl MD Jun 10, 2017 13:34
[2017-06-10] MEDS: CLINIMIX E 5/25 2000 mL- >42 mls/hr IV-CENTRAL SCH ×3 (16:38)
[2017-06-10] MEDS: FAT EMULSION 20% INJ 250 ML (@10 mls/hr) IV-CENTRAL SCH (16:38)
--- NOTE | 2017-06-10 18:20 | HHI.PR ---
Subjective Remarks Pt had some nausea this morning but no vomiting She has had large volume output from ileostomy Objective Vitals Vital Signs Date Time Temp Pulse Resp B/P (MAP) Pulse Ox O2 Delivery O2 Flow Rate FiO2 06/10/17 17:36 97.6 06/10/17 16:00 99 18 143/72 (95) 95 06/10/17 12:54 98.1 99 19 132/61 (84) 98 06/10/17 08:00 99.1 100 19 123/59 (80) 97 06/10/17 07:32 Room Air 06/10/17 04:00 98.6 102 17 134/61 (85) 95 06/10/17 00:00 98.9 108 18 125/59 (81) 97 06/09/17 21:40 Room Air 06/09/17 20:00 97.5 81 18 158/82 (107) 98 06/10/17 06/10/17 06/11/17 15:00 23:00 07:00 Intake Total 120 ml Output Total 550 ml 1300 ml Balance -550 ml -1180 ml Intake Oral 120 ml Output Urine Total 200 ml 850 ml Stool Total 350 ml 450 ml # Voids 1 Result Diagram: 06/10/17 0535 06/10/17 0535 Other Results Laboratory Tests Test 06/10/17 05:35 White Blood Count 13.6 TH/MM3 Red Blood Count 2.83 MIL/MM3 Hemoglobin 9.0 GM/DL Hematocrit 27.8 % Mean Corpuscular Volume 98.3 FL Mean Corpuscular Hemoglobin 31.7 PG Mean Corpuscular Hemoglobin Concent 32.2 % Red Cell Distribution Width 19.4 % Platelet Count 286 TH/MM3 Mean Platelet Volume 9.4 FL Neutrophils (%) (Auto) 79.3 % Lymphocytes (%) (Auto) 11.6 % Monocytes (%) (Auto) 8.0 % Eosinophils (%) (Auto) 0.9 % Basophils (%) (Auto) 0.2 % Neutrophils # (Auto) 10.8 TH/MM3 Lymphocytes # (Auto) 1.6 TH/MM3 Monocytes # (Auto) 1.1 TH/MM3 Eosinophils # (Auto) 0.1 TH/MM3 Basophils # (Auto) 0.0 TH/MM3 CBC Comment AUTO DIFF Differential Total Cells Counted 100 Neutrophils % (Manual) 75 % Band Neutrophils % 2 % Lymphocytes % 14 % Monocytes % 4 % Neutrophils # (Manual) 11.2 TH/MM3 Metamyelocytes 2 % Myelocytes 3 % Differential Comment FINAL DIFF MANUAL Platelet Estimate NORMAL Platelet Morphology Comment NORMAL Ovalocytes 1+ Blood Urea Nitrogen 33 MG/DL Creatinine 1.06 MG/DL Random Glucose 152 MG/DL Calcium Level 8.5 MG/DL Sodium Level 132 MEQ/L Potassium Level 4.4 MEQ/L Chloride Level 98 MEQ/L Carbon Dioxide Level 28.0 MEQ/L Anion Gap 6 MEQ/L Estimat Glomerular Filtration Rate 51 ML/MIN Imaging Last Impressions Abdomen X-Ray 05/29/17 0600 Signed Impressions: Service Date/Time: Monday, May 29, 2017 06:24 - CONCLUSION: 1. Persistent dilatation of small bowel which is stable to slightly improved from May 26. Residual contrast throughout colon. Miki Chan MD Small Bowel X-Ray 05/28/17 0000 Signed Impressions: Service Date/Time: Sunday, May 28, 2017 08:36 - CONCLUSION: Delay in transit of the contrast to the large bowel by 8.5 hours. Numerous dilated loops of small intestine are seen. Luisito Barahona MD Abdomen/Pelvis CT 05/25/17 0136 Signed Impressions: Service Date/Time: Thursday, May 25, 2017 01:51 - CONCLUSION: Diffusely dilated loops of small bowel down to the terminal ileum with air-fluid levels suggesting either diffuse ileus or small bowel obstruction. Renato Driscoll MD Objective Remarks General: NAD, AAOx3 Chest: CTA Cardiac: Regular Abd: +BS, soft ileostomy in right abdomen, G-tub in place in LUQ Ext: No edema A/P Problem List: (1) Bowel obstruction ICD Codes: K56.60 - Unspecified intestinal obstruction Status: Acute Plan: - Pt is 71 yo with brca 2 who had ovarian Ca with LIZ/BSO, omentectomy, lysis of adhesions [place] [address] Huang. Has had chemo with Taxol, Carboplatin, Gemzar, Tamoxifen and then Lynparza this past year. There have been concerns of recurrence with a recent rise in ca 125. Dr. Huang has done PET scans and find no major focus of disease. Most recently she has been getting Topotecan weekly for past 3 weeks - comgmt with [facility] - Pt presented with crampy abdomen pain which occurs with each treatment and then progressed to no BM over several days prior to admission. - CT A/P shows diffusely dilated loops of small bowel down to the terminal ileum with air-fluid levels suggesting either diffuse ileus or small bowel obstruction. - Pt had similar events after starting lynparza in 2016 - KUB (05/26) --> Stable abnormally dilated small bowel measuring up to 5.4 cm with paucity of distal bowel gas. Findings are suspicious for distal small bowel obstruction. One of the small bowel segments in the left abdomen demonstrates thumbprinting which can be seen with submucosal edema. - SBFT (05/28) --> Delay in transit of the contrast to the large bowel by 8.5 hours. Numerous dilated loops of small intestine are seen. - SBFT results were discussed with radiology and they feel that these findings are most likely consistent with obstruction. -- Per Dr. Huang consult note: small volume but multifocal diffuse carcinomatous implants that are disrupting normal peristalsis and fixing loops of bowel and mesentery that are delaying normal digestion and peristalsis even though imaging does not show an overt tumor mass, ascites or adenopathy - US BLE reviewed and reveals: extensive acute right lower extremity DVT extending from the proximal right femoral vein to the posterior tibial vein Chronic partially occlusive DVT involving the proximal left femoral vein and posterior tibial vein - s/p gastrostomy tube and diverting loop ileostomy for carcinomatosis/ obstruction 06/05 - Pt weaned off TPN and IVF and is tolerating solid foods - increase activity - pain control - cont anticoagulation for dvt. convert to po on d/c - hold bp meds...resume as needed - cont reglan, watch ileostomy output - Abx for uti - Per previous discussion with with Dr Huang....cont chemo after pt heals. - Anticipate d/c tomorrow to SNF for continued rehab efforts (2) Recurrent carcinoma of ovary ICD Codes: C56.9 - Malignant neoplasm of unspecified ovary Status: Chronic Plan: - See above. (3) Hypokalemia ICD Codes: E87.6 - Hypokalemia Status: Acute Plan: - Improved. (4) HTN (hypertension), benign ICD Codes: I10 - Essential (primary) hypertension Status: Chronic Plan: - Home meds continued - monitor (5) Anxiety ICD Codes: F41.9 - Anxiety disorder, unspecified Status: Chronic Assessment and Plan Patient examined. Assessment and plan formulated with Julita Jones PA-C. I agree with the above. Julita Jones Jun 10, 2017 18:20 Brown Rivera DO Jun 15, 2017 23:43
[2017-06-10] MEDS: D5-1/2 NS + KCL 20 MEQ INJ 1,000 ML IV SCH (21:03)
[2017-06-10] MEDS: LORazepam 2 MG/ML VIAL IV PUSH PRN (23:02)
[2017-06-11] VITALS: BP 118/57; PULSE 98; RESP 17; TEMP 98.4; O2SAT 97
[2017-06-11] MEDS: oxyCODONE/ACETAMINOPHEN 5 MG/325 MG TAB PO PRN (02:37)
[2017-06-11 03:56] VITALS: BP 113/57; PULSE 90; RESP 16; TEMP 97.7; O2SAT 97
[2017-06-11] MEDS: D5-1/2 NS + KCL 20 MEQ INJ 1,000 ML IV SCH ×3 (03:59→20:15)
[2017-06-11 04:57] LABS: BASOPHIL # 0.1 TH/MM3 (0-0.2); BASOPHIL % 0.5 % (0.0-2.0); EOSINOPHIL # 0.1 TH/MM3 (0-0.4); HEMATOCRIT 28.7 % (35.0-46.0); LYMPH % 14.1 % (9.0-44.0); LYMPHOCYTE # 1.9 TH/MM3 (1.0-4.8); MEAN CELL VOLUME 97.5 FL (80.0-100.0); MEAN CORPUSCULAR HEMOGLOBIN 32.3 PG (27.0-34.0); MEAN CORPUSCULAR HGB CONC 33.1 % (32.0-36.0); MONO % 8.6 % (0.0-8.0); NEUT % 75.8 % (16.0-70.0); PLATELET COUNT 313 TH/MM3 (150-450); RED BLOOD COUNT 2.94 MIL/MM3 (4.00-5.30); RED CELL DISTRIBUTION WIDTH 19.9 % (11.6-17.2); WHITE BLOOD COUNT 13.2 TH/MM3 (4.0-11.0)
[2017-06-11 05:01] LABS: HEMO FLAGS AUTO DIFF
[2017-06-11 05:36] LABS: MAGNESIUM 1.9 MG/DL (1.5-2.5); POTASSIUM 4.8 MEQ/L (3.5-5.1)
[2017-06-11] MEDS: METOCLOPRAMIDE HCL 10 MG/2 ML VIAL IV PUSH SCH (06:00)
[2017-06-11] MEDS: ENOXAPARIN SODIUM 100 MG/ML SYRINGE SQ SCH ×2 (06:30→18:00)
[2017-06-11] MEDS: SIMETHICONE 125 MG CHEWABLE TAB PO SCH ×3 (06:30→22:00)
[2017-06-11 06:48] LABS: BANDS 4 % (0-6); EOSINOPHILS 1 % (0-4); METAMYELOCYTES 2 % (0-1); MYELOCYTES 1 % (0-0); NEUTROPHIL # MANUAL DIFF 11.6 TH/MM3 (1.8-7.7); POLYS (SEG NEUTROPHILS) 80 % (16-70); PROMYELOCYTES 1 % (0-0); WBC DIFF SAMPLE 100
[2017-06-11 06:49] LABS: OVALOCYTES 2+ (NORMAL); PLATELET ESTIMATE SMEAR NORMAL (NORMAL); PLATELET MORPHOLOGY NORMAL (NORMAL); SCAN/DIFF FINAL DIFF MANUAL
--- NOTE | 2017-06-11 07:54 | HHI.PR ---
Addendum to Inpatient Note Additional Information Patient seen. Trying to adjust to situation. Depressed affect. Working toward rehab placement. AF VSS Ox3 Abdomen soft, ileostomy & gastrostomy sites clean. Long discussion, Q&A. She remains hopeful for resuming additional treatment for ovarian cancer after rehab/recovery. CPM, increase OOB activity, ADAT, discharge planning. Betzaida Huang MD Jun 11, 2017 07:54
[2017-06-11 08:00] VITALS: BP 112/64; PULSE 93; TEMP 96.7; O2SAT 98
[2017-06-11] MEDS: MEGESTROL ACETATE SUSP 400 MG/10 ML CUP PO SCH (09:00)
[2017-06-11] MEDS ORDERED: DRONABINOL 5 MG CAP PO PRN (09:00)
[2017-06-11] MEDS: SODIUM CHLORIDE 0.9% FLUSH 10 ML FLUSH IV FLUSH SCH ×2 (09:00→20:50)
--- NOTE | 2017-06-11 10:14 | HHI.PR ---
Subjective Remarks Pt has had high volume output from ileostomy overnight Pt tolerating some oral intake Pts ostomy is still leaking and pt to be seen by Ostomy nurse today Objective Vitals Vital Signs Date Time Temp Pulse Resp B/P (MAP) Pulse Ox O2 Delivery O2 Flow Rate FiO2 06/11/17 08:00 96.7 93 112/64 (80) 98 06/11/17 03:56 97.7 90 16 113/57 (75) 97 06/11/17 00:00 98.4 98 17 118/57 (77) 97 06/10/17 21:13 Room Air 06/10/17 20:00 98.3 99 18 112/59 (76) 98 06/10/17 17:36 97.6 06/10/17 16:00 99 18 143/72 (95) 95 06/10/17 12:54 98.1 99 19 132/61 (84) 98 06/11/17 06/11/17 06/12/17 14:59 22:59 06:59 Output Total 400 ml Balance -400 ml Stool Total 400 ml Result Diagram: 06/11/17 0400 06/11/17 0400 Other Results Laboratory Tests Test 06/10/17 05:35 06/11/17 04:00 White Blood Count 13.6 TH/MM3 13.2 TH/MM3 Red Blood Count 2.83 MIL/MM3 2.94 MIL/MM3 Hemoglobin 9.0 GM/DL 9.5 GM/DL Hematocrit 27.8 % 28.7 % Mean Corpuscular Volume 98.3 FL 97.5 FL Mean Corpuscular Hemoglobin 31.7 PG 32.3 PG Mean Corpuscular Hemoglobin Concent 32.2 % 33.1 % Red Cell Distribution Width 19.4 % 19.9 % Platelet Count 286 TH/MM3 313 TH/MM3 Mean Platelet Volume 9.4 FL 9.4 FL Neutrophils (%) (Auto) 79.3 % 75.8 % Lymphocytes (%) (Auto) 11.6 % 14.1 % Monocytes (%) (Auto) 8.0 % 8.6 % Eosinophils (%) (Auto) 0.9 % 1.0 % Basophils (%) (Auto) 0.2 % 0.5 % Neutrophils # (Auto) 10.8 TH/MM3 10.0 TH/MM3 Lymphocytes # (Auto) 1.6 TH/MM3 1.9 TH/MM3 Monocytes # (Auto) 1.1 TH/MM3 1.1 TH/MM3 Eosinophils # (Auto) 0.1 TH/MM3 0.1 TH/MM3 Basophils # (Auto) 0.0 TH/MM3 0.1 TH/MM3 CBC Comment AUTO DIFF AUTO DIFF Differential Total Cells Counted 100 100 Neutrophils % (Manual) 75 % 80 % Band Neutrophils % 2 % 4 % Lymphocytes % 14 % 6 % Monocytes % 4 % 5 % Neutrophils # (Manual) 11.2 TH/MM3 11.6 TH/MM3 Metamyelocytes 2 % 2 % Myelocytes 3 % 1 % Differential Comment FINAL DIFF MANUAL FINAL DIFF MANUAL Platelet Estimate NORMAL NORMAL Platelet Morphology Comment NORMAL NORMAL Ovalocytes 1+ 2+ Blood Urea Nitrogen 33 MG/DL 36 MG/DL Creatinine 1.06 MG/DL 1.38 MG/DL Random Glucose 152 MG/DL 128 MG/DL Calcium Level 8.5 MG/DL 8.3 MG/DL Sodium Level 132 MEQ/L 129 MEQ/L Potassium Level 4.4 MEQ/L 4.8 MEQ/L Chloride Level 98 MEQ/L 94 MEQ/L Carbon Dioxide Level 28.0 MEQ/L 29.0 MEQ/L Anion Gap 6 MEQ/L 6 MEQ/L Estimat Glomerular Filtration Rate 51 ML/MIN 38 ML/MIN Eosinophils % 1 % Promyelocytes 1 % Magnesium Level 1.9 MG/DL Imaging Last Impressions Abdomen X-Ray 05/29/17 0600 Signed Impressions: Service Date/Time: Monday, May 29, 2017 06:24 - CONCLUSION: 1. Persistent dilatation of small bowel which is stable to slightly improved from May 26. Residual contrast throughout colon. Miki Chan MD Small Bowel X-Ray 05/28/17 0000 Signed Impressions: Service Date/Time: Sunday, May 28, 2017 08:36 - CONCLUSION: Delay in transit of the contrast to the large bowel by 8.5 hours. Numerous dilated loops of small intestine are seen. Luisito Barahona MD Abdomen/Pelvis CT 05/25/17 0136 Signed Impressions: Service Date/Time: Thursday, May 25, 2017 01:51 - CONCLUSION: Diffusely dilated loops of small bowel down to the terminal ileum with air-fluid levels suggesting either diffuse ileus or small bowel obstruction. Renato Driscoll MD Objective Remarks General: NAD, AAOx3 Chest: CTA Cardiac: Regular Abd: +BS, soft ileostomy in right abdomen, G-tub in place in LUQ Ext: No edema A/P Problem List: (1) Bowel obstruction ICD Codes: K56.60 - Unspecified intestinal obstruction Status: Acute Plan: - Pt is 71 yo with brca 2 who had ovarian Ca with LIZ/BSO, omentectomy, lysis of adhesions [place] [address] Huang. Has had chemo with Taxol, Carboplatin, Gemzar, Tamoxifen and then Lynparza this past year. There have been concerns of recurrence with a recent rise in ca 125. Dr. Huang has done PET scans and find no major focus of disease. Most recently she has been getting Topotecan weekly for past 3 weeks - comgmt with [facility] - Pt presented with crampy abdomen pain which occurs with each treatment and then progressed to no BM over several days prior to admission. - CT A/P shows diffusely dilated loops of small bowel down to the terminal ileum with air-fluid levels suggesting either diffuse ileus or small bowel obstruction. - Pt had similar events after starting lynparza in 2016 - KUB (05/26) --> Stable abnormally dilated small bowel measuring up to 5.4 cm with paucity of distal bowel gas. Findings are suspicious for distal small bowel obstruction. One of the small bowel segments in the left abdomen demonstrates thumbprinting which can be seen with submucosal edema. - SBFT (05/28) --> Delay in transit of the contrast to the large bowel by 8.5 hours. Numerous dilated loops of small intestine are seen. - SBFT results were discussed with radiology and they feel that these findings are most likely consistent with obstruction. -- Per Dr. 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 convert to po on d/c - Home BP meds on hold, BP is low but stable, resume as needed - Stop Reglan due to high volume ileostomy output and elevation in renal function today, pt to be given gentle IVF and repeat labs in AM - Monitor output from ostomy - Ostomy nurse to evaluate pt today for ostomy leakage - Abx for uti - Per previous discussion with with Dr Huang....cont chemo after pt heals. 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 (3) Hypokalemia ICD Codes: E87.6 - Hypokalemia Status: Acute Plan: - Improved. (4) HTN (hypertension), benign ICD Codes: I10 - Essential (primary) hypertension Status: Chronic Plan: - Home meds continued - monitor (5) Anxiety ICD Codes: F41.9 - Anxiety disorder, unspecified Status: Chronic Assessment and Plan Patient examined. Assessment and plan formulated with Julita Jones PA-C. I agree with the above. Pt becoming somewhat frustrated and depressed, especially regarding leaking ileostomy. Ostomy nurse, Gabi, arrived during my visit & will evaluate situation and provide education to pt and family. Pt requested that I start medication for depression. Pt c/o poor appetite, but unable to tolerate megace. Megace switched to Marinol. I discussed Marinol use with [facility] and Case Mgmt. Prior approval process initiated. Will repeat labs tomorrow and d/w Dr. Earl. Anticipate d/c to SNF in next 1-3 days. Julita Jones Jun 11, 2017 10:14 Brown Rivera DO Jun 11, 2017 11:38
[2017-06-11 13:20] VITALS: BP 121/72; PULSE 93; RESP 16; TEMP 97.7; O2SAT 98
[2017-06-11] MEDS: DULoxetine HCl DR 30 MG CAP PO SCH (13:42)
[2017-06-11] MEDS: NS + KCL 20 MEQ INJ 1,000 ML IV SCH (13:48)
--- NOTE | 2017-06-11 14:13 | PD.WCN.NOT ---
Wound Consult Description: Consult for New Ostomy Teaching of right lower abdomen loop ileostomy per Dr Arellano/tiarra on 06/10/17 @2052 Communicated with: Dr Miguel Mo,DENISE Patient Patient family members at bedside Recommendation: Write down any questions you may have for tomorrow's teaching session @ 0830 on 06/12/17 Additional Information: Patient seen on for New Ostomy Teaching Ostomy Type: Ileostomy Surgeon: Luke Franklin MD Date of Surgery: Jun 05, 2017 Complete: Starter kit ([facility] Rx (prescription left on chart today [facility] to [facility] ) Educated patient on: Appearance of stoma Stoma function Measuring stoma for correct barrier size When to change barrier and pouch Peristomal skin care Encrusting Emptying pouch of effluent when 1/3-1/2 full and before bedtime Removal of joanna from loop stoma on 06/12/17 Diet Staying hydrated Chewing foods well Additional information Patient seen on for New Ostomy Teaching of right lower quadrant loop ileostomy. Upon entering patients room on , Dr Rivera was at bedside speaking with patient and her family. DENISE Mo was emptying pouch of effluent. Patient states anxiety with new stoma saying "I can't even look at it". It was explained to the patient that she would be taught some things that would hopefully help with her anxiety about the new stoma. Patient c/o odor. It was explained to the patient that if the barrier is on correctly and not leaking and the pouch is closed, there will be no odor. Ostomy appliance was removed with a warm wet washcloth. Peristomal skin is noted with bright red irritation and partial thickness skin loss. There is a joanna in place with 2 sutures. Loop ileostomy is moderately protruding, minimally edematous, round, red, moist, lumen noted in center of 9o'clock and @3 o'clock functioning with green liquid and mucus. Mucocutaneous junction is noted with sutures circumferentially, otherwise unremarkable. Peristomal skin is noted with moisture related denuded skin and was cleansed with water only. Stoma is measuring 2". Stoma powder and Cavilon spray used to encrust the peristomal skin prior to cutting 4" barrier to fit around stoma after being informed that [facility] was out of appliances in size 2 3/4". 4" cut to fit barrier was obtained from [facility]. Dr Rivera notified Dr Earl of the joanna and sutures in the loop ileostomy and a verbal order was obtained to remove the 2 sutures from the joanna, leaving the joanna in place until tomorrow. Barrier was placed around stoma leaving 1/8" space for the sutures with joanna in place and intact. Clear pouch was placed over barrier with clip used for closure. Patient was unable to use the alternative pouch with InvisiClose tail closure. Patient family members had many questions that were answered regarding foods, and appliances. Patient will be followed up by proposal lead writer tomorrow morning for further teaching and stoma assessment. Gabi Giang [facility] Jun 11, 2017 14:13
[2017-06-11 16:00] VITALS: BP 142/72; PULSE 95; RESP 18; TEMP 97.4; O2SAT 98
[2017-06-11] MEDS: DRONABINOL 2.5 MG CAP PO SCH (16:20)
[2017-06-11] MEDS: LORazepam 2 MG/ML VIAL IV PUSH PRN (19:57)
[2017-06-11] MEDS: ONDANSETRON HCL 4 MG/2 ML VIAL IV PUSH PRN (19:58)
[2017-06-11 20:00] VITALS: BP 126/58; PULSE 97; RESP 17; TEMP 98.3; O2SAT 100
[2017-06-11] MEDS: FAT EMULSION 20% INJ 250 ML (@10 mls/hr) IV-CENTRAL SCH (20:12)
[2017-06-11] MEDS: CLINIMIX E 5/25 2000 mL- >42 mls/hr IV-CENTRAL SCH ×3 (20:12)
[2017-06-12] VITALS: BP 121/57; PULSE 104; RESP 17; TEMP 98.8; O2SAT 96
[2017-06-12] MEDS: NS + KCL 20 MEQ INJ 1,000 ML IV SCH (00:21)
[2017-06-12] MEDS: ONDANSETRON HCL 4 MG/2 ML VIAL IV PUSH PRN ×4 (03:48→16:56)
[2017-06-12] MEDS: LORazepam 2 MG/ML VIAL IV PUSH PRN ×2 (03:51→21:19)
[2017-06-12 04:00] VITALS: BP 130/58; PULSE 102; RESP 17; TEMP 98; O2SAT 98
[2017-06-12] MEDS: D5-1/2 NS + KCL 20 MEQ INJ 1,000 ML IV SCH ×2 (04:15→12:33)
[2017-06-12] MEDS: ENOXAPARIN SODIUM 100 MG/ML SYRINGE SQ SCH ×2 (05:35→16:58)
[2017-06-12] MEDS: SIMETHICONE 125 MG CHEWABLE TAB PO SCH ×3 (05:37→21:19)
[2017-06-12 06:15] LABS: AUTOMATED NEUTROPHIL # 9.3 TH/MM3 (1.8-7.7); BASOPHIL % 0.3 % (0.0-2.0); EOSINOPHIL # 0.1 TH/MM3 (0-0.4); HEMATOCRIT 30.4 % (35.0-46.0); LYMPH % 13.5 % (9.0-44.0); LYMPHOCYTE # 1.6 TH/MM3 (1.0-4.8); MEAN CELL VOLUME 97.8 FL (80.0-100.0); MEAN CORPUSCULAR HEMOGLOBIN 31.3 PG (27.0-34.0); MONO % 7.5 % (0.0-8.0); NEUT % 77.7 % (16.0-70.0); PLATELET COUNT 362 TH/MM3 (150-450); RED BLOOD COUNT 3.11 MIL/MM3 (4.00-5.30); RED CELL DISTRIBUTION WIDTH 19.7 % (11.6-17.2)
[2017-06-12 06:31] LABS: HEMO FLAGS AUTO DIFF
[2017-06-12 06:47] LABS: BICARBONATE 23.9 MEQ/L (21.0-32.0)
[2017-06-12 07:15] LABS: BANDS 18 % (0-6); EOSINOPHILS 1 % (0-4); METAMYELOCYTES 2 % (0-1); MYELOCYTES 2 % (0-0); NEUTROPHIL # MANUAL DIFF 10.3 TH/MM3 (1.8-7.7); OVALOCYTES 1+ (NORMAL); PLATELET ESTIMATE SMEAR NORMAL (NORMAL); PLATELET MORPHOLOGY NORMAL (NORMAL); POLYS (SEG NEUTROPHILS) 64 % (16-70); SCAN/DIFF FINAL DIFF MANUAL; WBC DIFF SAMPLE 100
[2017-06-12 07:50] VITALS: BP 126/68; PULSE 100; RESP 20; TEMP 98.2; O2SAT 96
--- NOTE | 2017-06-12 08:07 | PD.ONC.PN ---
Subjective Subjective Remarks Patient states she has episode of nausea/retching last night no vomiting still has no appetite, did not tolerate Megace was changed to Marinol 2.5mg pt would like to try increased dose. Labs this morning showing hyponatremia, electrolyte replacement per med team, once corrected she will be discharged to rehab close to home. Objective Data Date Time Temp Pulse Resp B/P (MAP) Pulse Ox O2 Delivery O2 Flow Rate FiO2 06/12/17 04:00 98.0 102 17 130/58 (82) 98 06/12/17 00:00 98.8 104 17 121/57 (78) 96 06/11/17 20:00 98.3 97 17 126/58 (80) 100 06/11/17 20:00 Room Air 06/11/17 16:00 97.4 95 18 142/72 (95) 98 06/11/17 13:20 97.7 93 16 121/72 (88) 98 06/11/17 08:00 Room Air 06/11/17 08:00 96.7 93 112/64 (80) 98 06/12/17 06/12/17 06/12/17 07:00 15:00 23:00 Output Total 850 ml Balance -850 ml Result Diagram: 06/12/17 0538 06/12/17 0538 Laboratory Results Laboratory Tests Test 06/12/17 05:38 White Blood Count 12.0 TH/MM3 Red Blood Count 3.11 MIL/MM3 Hemoglobin 9.7 GM/DL Hematocrit 30.4 % Mean Corpuscular Volume 97.8 FL Mean Corpuscular Hemoglobin 31.3 PG Mean Corpuscular Hemoglobin Concent 32.0 % Red Cell Distribution Width 19.7 % Platelet Count 362 TH/MM3 Mean Platelet Volume 8.8 FL Neutrophils (%) (Auto) 77.7 % Lymphocytes (%) (Auto) 13.5 % Monocytes (%) (Auto) 7.5 % Eosinophils (%) (Auto) 1.0 % Basophils (%) (Auto) 0.3 % Neutrophils # (Auto) 9.3 TH/MM3 Lymphocytes # (Auto) 1.6 TH/MM3 Monocytes # (Auto) 0.9 TH/MM3 Eosinophils # (Auto) 0.1 TH/MM3 Basophils # (Auto) 0.0 TH/MM3 CBC Comment AUTO DIFF Differential Total Cells Counted 100 Neutrophils % (Manual) 64 % Band Neutrophils % 18 % Lymphocytes % 10 % Monocytes % 3 % Eosinophils % 1 % Neutrophils # (Manual) 10.3 TH/MM3 Metamyelocytes 2 % Myelocytes 2 % Differential Comment FINAL DIFF MANUAL Platelet Estimate NORMAL Platelet Morphology Comment NORMAL Ovalocytes 1+ Blood Urea Nitrogen 33 MG/DL Creatinine 1.33 MG/DL Random Glucose 102 MG/DL Calcium Level 8.6 MG/DL Magnesium Level 2.0 MG/DL Sodium Level 130 MEQ/L Potassium Level 5.0 MEQ/L Chloride Level 98 MEQ/L Carbon Dioxide Level 23.9 MEQ/L Anion Gap 8 MEQ/L Estimat Glomerular Filtration Rate 39 ML/MIN Administered Medications Medications (Trade) Dose Ordered Sig/Anette Route PRN Reason Start Time Stop Time Status Last Admin Dose Admin Alprazolam (Xanax) 1 mg HS PRN PO anxiety 05/25/17 21:00 06/07/17 22:47 Clonidine (Catapres) 0.1 mg Q6H PRN PO sbp > 170 05/26/17 09:00 05/30/17 15:57 Al Hydrox/Mg Hydrox/Simethicone (Mag-Al Plus Susp Liq) 30 ml Q4H PRN PO HEARTBURN 05/26/17 18:30 05/26/17 22:13 Lorazepam (Ativan Inj) 1 mg Q4H PRN IV PUSH anxiety 05/28/17 14:00 06/12/17 03:51 Phenol (Chloraseptic Chase) 2 spray Q2H PRN OROPHARYNG SORE THROAT 05/31/17 11:45 05/31/17 14:26 Enoxaparin Sodium (Lovenox Inj) 100 mg Q12H SQ 06/01/17 18:00 06/12/17 05:35 Multivitamins 10 ml/Folic Acid 1 mg/Amino Acids/ Electrolytes/ Dextrose 2,010.2 ml @ 83 mls/hr Q24H IV-CENTRAL 06/02/17 20:00 06/09/17 19:49 Fat Emulsion Intravenous 250 ml @ 10 mls/hr Q24H IV-CENTRAL 06/02/17 20:00 06/09/17 19:49 Simethicone (Phazyme Chew) 125 mg Q8HR PO 06/03/17 14:00 06/11/17 13:42 Acetaminophen 100 ml @ 400 mls/hr Q6H PRN IV fever/pain 1-10 10/2/17 09:30 06/07/17 04:33 Sodium Chloride (NS Flush) 2 ml UNSCH PRN IV FLUSH FLUSH AFTER USING IV ACCESS 06/05/17 16:45 06/11/17 04:00 Sodium Chloride (NS Flush) 2 ml BID IV FLUSH 06/05/17 21:00 06/10/17 19:58 Oxycodone/ Acetaminophen (Percocet 5-325 Mg) 1 tab Q4H PRN PO PAIN SCALE 1 TO 5 06/05/17 16:45 06/11/17 02:37 Ondansetron HCl (Zofran Inj) 4 mg Q4H PRN IV PUSH NAUSEA OR VOMITING 06/05/17 16:45 06/12/17 03:48 Morphine Sulfate (Morphine Inj) 2 mg Q1H PRN IV BREAKTROUGH PAIN > 5 06/05/17 21:00 06/05/17 23:30 Megestrol Acetate (Megace Liq) 400 mg DAILY PO 06/10/17 09:00 06/10/17 09:44 Potassium Chloride/Dextrose/ Sod Cl 1,000 ml @ 125 mls/hr Q8H IV 06/10/17 20:15 06/11/17 13:43 Potassium Chloride/Sodium Chloride 1,000 ml @ 85 mls/hr [id number] IV 06/11/17 09:45 06/12/17 00:21 Duloxetine HCl (Cymbalta Dr) 30 mg DAILY PO 06/11/17 12:00 06/11/17 13:42 Dronabinol (Marinol) 2.5 mg BID@11,16 PO 06/11/17 16:00 06/11/17 16:20 Objective Remarks GENERAL: well-developed patient. SKIN: Warm and dry. HEAD: Normocephalic. EYES: No scleral icterus. No injection or drainage. CARDIOVASCULAR: Regular rate and rhythm without murmurs. RESPIRATORY: Breath sounds equal bilaterally. No accessory muscle use. GASTROINTESTINAL: Abdomen soft, non-tender, nondistended. g-tube (clamped) to Left quad, ileostomy to right quad with brown liquid EXTREMITIES: teds and scds MUSCULOSKELETAL: Adequate muscle tone. NEUROLOGICAL: No obvious focal deficit. Awake, alert, and oriented x3. PSYCHIATRIC: Appropriate mood and affect; insight and judgment normal. 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 Huang IV chemotherapy (3) UTI (urinary tract infection) ICD Codes: N39.0 - Urinary tract infection, site not specified Status: Resolved Plan: + e coli Levaquin Attending Statement Discussed with Dr. Huang and he is in agreement. Olivia Thacker Jun 12, 2017 08:07
[2017-06-12] MEDS: DULoxetine HCl DR 30 MG CAP PO SCH (08:16)
[2017-06-12] MEDS: MEGESTROL ACETATE SUSP 400 MG/10 ML CUP PO SCH (08:29)
[2017-06-12] MEDS: SODIUM CHLORIDE 0.9% FLUSH 10 ML FLUSH IV FLUSH SCH ×2 (08:29→21:19)
[2017-06-12] MEDS: DRONABINOL 2.5 MG CAP PO SCH (11:03)
[2017-06-12 11:50] VITALS: BP 140/64; PULSE 100; RESP 20; TEMP 97.7; O2SAT 97
--- NOTE | 2017-06-12 13:23 | PD.WCN.NOT ---
Wound Consult Description: Consult for New Ostomy Teaching of right lower abdomen loop ileostomy per Dr Arellano/tiarra on 06/10/17 @5074 Communicated with: Patient Patient Chely,RN Olivia Rivera Recommendation: Practice emptying pouch of effluent Assess stoma color and amount of output Additional Information: Patient seen earlier today from [id number] for Ostomy teaching Ostomy Type: Ileostomy (loop) Surgeon: Luke Franklin MD Date of Surgery: Jun 05, 2017 Complete: [facility] Education materials (Diet), Rx (prescription left on chart ) Educated patient on: ileostomy When to change barrier (best times of the day) Stoma size and appearance Consistency and amount of effluent When to empty the pouch How to remove barrier with adhesive removal wipes How to cleanse peristomal skin with water only How to measure stoma When and how to use stoma powder, stoma paste, and Cavilon skin prep How to apply new barrier How to apply new pouch Warming the barrier before and after application Opening and closing pouch Hydration Exercise Additional information Patient states anxiety and concern regarding the stoma and the overall taking care of it. Patient states that she cannot even look at it and says its so gross. An hour and a half was spent going over the stoma and care of the stoma. All questions were answered. 5 appliances were cut to fit for use once patient is discharged. Gabi Giang [facility] Jun 12, 2017 13:23
[2017-06-12 15:50] VITALS: BP 132/71; PULSE 92; RESP 20; TEMP 97.8; O2SAT 98
--- NOTE | 2017-06-12 16:07 | HHI.PR ---
Subjective Subjective Notes Persistent nausea and not tolerating much orally. Objective Vitals/I&O Vital Signs Date Time Temp Pulse Resp B/P (MAP) Pulse Ox O2 Delivery O2 Flow Rate FiO2 06/12/17 11:50 97.7 100 20 140/64 (89) 97 06/11/17 20:00 Room Air 06/09/17 07:23 21 Labs Laboratory Tests Test 06/12/17 05:38 White Blood Count 12.0 Red Blood Count 3.11 Hemoglobin 9.7 Hematocrit 30.4 Mean Corpuscular Volume 97.8 Mean Corpuscular Hemoglobin 31.3 Mean Corpuscular Hemoglobin Concent 32.0 Red Cell Distribution Width 19.7 Platelet Count 362 Mean Platelet Volume 8.8 Neutrophils (%) (Auto) 77.7 Lymphocytes (%) (Auto) 13.5 Monocytes (%) (Auto) 7.5 Eosinophils (%) (Auto) 1.0 Basophils (%) (Auto) 0.3 Neutrophils # (Auto) 9.3 Lymphocytes # (Auto) 1.6 Monocytes # (Auto) 0.9 Eosinophils # (Auto) 0.1 Basophils # (Auto) 0.0 CBC Comment AUTO DIFF Differential Total Cells Counted 100 Neutrophils % (Manual) 64 Band Neutrophils % 18 Lymphocytes % 10 Monocytes % 3 Eosinophils % 1 Neutrophils # (Manual) 10.3 Metamyelocytes 2 Myelocytes 2 Differential Comment FINAL DIFF MANUAL Platelet Estimate NORMAL Platelet Morphology Comment NORMAL Ovalocytes 1+ Blood Urea Nitrogen 33 Creatinine 1.33 Random Glucose 102 Calcium Level 8.6 Magnesium Level 2.0 Sodium Level 130 Potassium Level 5.0 Chloride Level 98 Carbon Dioxide Level 23.9 Anion Gap 8 Estimat Glomerular Filtration Rate 39 Date/Time Source Procedure Growth Status 06/02/17 14:45 Blood Peripheral Aerobic Blood Culture - Final NO GROWTH IN 5 DAYS Complete 06/02/17 14:45 Blood Peripheral Anaerobic Blood Culture - Final NO GROWTH IN 5 DAYS Complete 06/02/17 21:50 Urine Random Urine Urine Culture - Final Escherichia Coli Complete Radiology Last Impressions Abdomen X-Ray 06/03/17 0800 Signed Impressions: Service Date/Time: Saturday, June 03, 2017 10:02 - CONCLUSION: 1. Persistent diffuse gaseous small bowel distention consistent with distal small bowel obstruction versus severe adynamic ileus. No definitive radiographically evidence for perforation or bowel infarction at this time. Patricio Pantoja MD Chest X-Ray 06/02/17 0000 Signed Impressions: Service Date/Time: Friday, June 02, 2017 10:42 - CONCLUSION: Small area of atelectasis in the left midlung field unchanged from previous. Lungs are otherwise clear. Support equipment is stable. Malick Arias MD Lower Extremity Ultrasound 06/01/17 0000 Signed Impressions: Service Date/Time: Thursday, June 01, 2017 13:35 - CONCLUSION: 1. Findings consistent with extensive acute right lower extremity DVT extending from the proximal right femoral vein to the posterior tibial vein. More centrally, the common femoral and iliac veins appear patent. 2. 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 Patricio Pantoja MD Small Bowel X-Ray 05/28/17 0000 Signed Impressions: Service Date/Time: Sunday, May 28, 2017 08:36 - CONCLUSION: Delay in transit of the contrast to the large bowel by 8.5 hours. Numerous dilated loops of small intestine are seen. Luisito Barahona MD Abdomen/Pelvis CT 05/25/17 0136 Signed Impressions: Service Date/Time: Thursday, May 25, 2017 01:51 - CONCLUSION: Diffusely dilated loops of small bowel down to the terminal ileum with air-fluid levels suggesting either diffuse ileus or small bowel obstruction. Renato Driscoll MD Narrative Exam NAD Abd: nondistended, soft. G tube clamped. Ileostomy pink, viable, edematous A/P Assessment and Plan 71 yo H/o radical hysterectomy/oophorectomy on chemotherapy for recurrent ovarian cancer with diffuse small bowel ileus vs partial obstruction. S/p ileostomy, g tube for obstruction. Ok for ileostomy bar removal. Start scopolamine for nausea in addition to zofran. She is not tolerating much orally and continuing with fairly high output from ileostomy. Continue to observe and try to help increase her oral intake for hydration. Reg Earl MD Jun 12, 2017 16:07
[2017-06-12] MEDS ORDERED: SCOPOLAMINE 1.5 MG PATCH T-DERMAL SCH (18:00)
--- NOTE | 2017-06-12 18:22 | HHI.PR ---
Subjective Remarks Poor PO intake today. Pt c/o nausea today. Objective Vitals Vital Signs Date Time Temp Pulse Resp B/P (MAP) Pulse Ox O2 Delivery O2 Flow Rate FiO2 06/12/17 15:50 97.8 92 20 132/71 (91) 98 06/12/17 11:50 97.7 100 20 140/64 (89) 97 06/12/17 07:50 98.2 100 20 126/68 (87) 96 06/12/17 04:00 98.0 102 17 130/58 (82) 98 06/12/17 00:00 98.8 104 17 121/57 (78) 96 06/11/17 20:00 98.3 97 17 126/58 (80) 100 06/11/17 20:00 Room Air 06/12/17 06/12/17 06/13/17 14:59 22:59 06:59 Intake Total 420 ml Output Total 625 ml 500 ml Balance -625 ml -80 ml Intake Oral 420 ml Output Urine Total 350 ml Stool Total 625 ml 150 ml Result Diagram: 06/12/17 0538 06/12/17 0538 Imaging Last Impressions Abdomen X-Ray 05/29/17 0600 Signed Impressions: Service Date/Time: Monday, May 29, 2017 06:24 - CONCLUSION: 1. Persistent dilatation of small bowel which is stable to slightly improved from May 26. Residual contrast throughout colon. Miki Chan MD Small Bowel X-Ray 05/28/17 0000 Signed Impressions: Service Date/Time: Sunday, May 28, 2017 08:36 - CONCLUSION: Delay in transit of the contrast to the large bowel by 8.5 hours. Numerous dilated loops of small intestine are seen. Luisito Barahona MD Abdomen/Pelvis CT 05/25/17 0136 Signed Impressions: Service Date/Time: Thursday, May 25, 2017 01:51 - CONCLUSION: Diffusely dilated loops of small bowel down to the terminal ileum with air-fluid levels suggesting either diffuse ileus or small bowel obstruction. Renato Driscoll MD Objective Remarks General: NAD, AAOx3 Chest: CTA Cardiac: Regular Abd: +BS, soft ileostomy in right abdomen, G-tub in place in LUQ Ext: No edema A/P Problem List: (1) Bowel obstruction ICD Codes: K56.60 - Unspecified intestinal obstruction Status: Acute Plan: - Pt is 71 yo with brca 2 who had ovarian Ca with LIZ/BSO, omentectomy, lysis of adhesions [place] [address] Huang. Has had chemo with Taxol, Carboplatin, Gemzar, Tamoxifen and then Lynparza this past year. There have been concerns of recurrence with a recent rise in ca 125. Dr. Huang has done PET scans and find no major focus of disease. Most recently she has been getting Topotecan weekly for past 3 weeks - comgmt with [facility] - Pt presented with crampy abdomen pain which occurs with each treatment and then progressed to no BM over several days prior to admission. - CT A/P shows diffusely dilated loops of small bowel down to the terminal ileum with air-fluid levels suggesting either diffuse ileus or small bowel obstruction. - Pt had similar events after starting lynparza in 2016 - KUB (05/26) --> Stable abnormally dilated small bowel measuring up to 5.4 cm with paucity of distal bowel gas. Findings are suspicious for distal small bowel obstruction. One of the small bowel segments in the left abdomen demonstrates thumbprinting which can be seen with submucosal edema. - SBFT (05/28) --> Delay in transit of the contrast to the large bowel by 8.5 hours. Numerous dilated loops of small intestine are seen. - SBFT results were discussed with radiology and they feel that these findings are most likely consistent with obstruction. -- Per Dr. 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 Unclear if cymbalta is contributing --> observe - zofran prn nausea - Pain control PRN - Cont anticoagulation for dvt. convert to po on d/c - Home BP meds on hold, BP is low but stable, resume as needed - Reglan stopped due to high volume ileostomy output - watch renal fxn. modest improvement following IVFs - repeat BMP in AM - Monitor output from ostomy - decreased ostomy leakage with teaching from ostomy nurse and removal of bars - Abx for uti completed - Per previous discussion with with Dr Huang....cont chemo after pt heals. 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 (3) Hypokalemia ICD Codes: E87.6 - Hypokalemia Status: Acute Plan: - Improved. (4) HTN (hypertension), benign ICD Codes: I10 - Essential (primary) hypertension Status: Chronic Plan: - Home meds continued - monitor (5) Anxiety ICD Codes: F41.9 - Anxiety disorder, unspecified Status: Chronic Brown Rivera DO Jun 12, 2017 18:22
[2017-06-12 20:00] VITALS: BP 136/65; PULSE 101; RESP 18; TEMP 98; O2SAT 98
[2017-06-12] MEDS: DRONABINOL 5 MG CAP PO PRN (20:19)
[2017-06-13] VITALS: BP 136/63; PULSE 96; RESP 17; TEMP 98.1; O2SAT 96
[2017-06-13 04:00] VITALS: BP 160/80; PULSE 107; RESP 17; TEMP 97.5; O2SAT 97
[2017-06-13] MEDS: SIMETHICONE 125 MG CHEWABLE TAB PO SCH ×3 (04:13→19:59)
[2017-06-13] MEDS: DRONABINOL 5 MG CAP PO PRN ×3 (04:40→18:11)
[2017-06-13] MEDS: ENOXAPARIN SODIUM 100 MG/ML SYRINGE SQ SCH ×2 (04:40→17:00)
[2017-06-13 05:20] LABS: AUTOMATED NEUTROPHIL # 10.9 TH/MM3 (1.8-7.7); BASOPHIL % 0.2 % (0.0-2.0); EOSINOPHIL # 0.1 TH/MM3 (0-0.4); EOSINOPHIL % 0.8 % (0.0-4.0); LYMPH % 13.6 % (9.0-44.0); LYMPHOCYTE # 1.9 TH/MM3 (1.0-4.8); MEAN CELL VOLUME 98.2 FL (80.0-100.0); MEAN CORPUSCULAR HEMOGLOBIN 32.1 PG (27.0-34.0); MEAN CORPUSCULAR HGB CONC 32.7 % (32.0-36.0); MONO % 6.5 % (0.0-8.0); NEUT % 78.9 % (16.0-70.0); PLATELET COUNT 410 TH/MM3 (150-450); RED BLOOD COUNT 3.16 MIL/MM3 (4.00-5.30); RED CELL DISTRIBUTION WIDTH 19.8 % (11.6-17.2); WHITE BLOOD COUNT 13.8 TH/MM3 (4.0-11.0)
[2017-06-13 05:26] LABS: HEMO FLAGS AUTO DIFF
[2017-06-13 05:32] LABS: BICARBONATE 21.9 MEQ/L (21.0-32.0); POTASSIUM 4.9 MEQ/L (3.5-5.1)
[2017-06-13 07:20] LABS: BANDS 2 % (0-6); EOSINOPHILS 2 % (0-4); KERATOCYTES OCC (NORMAL); METAMYELOCYTES 2 % (0-1); NEUTROPHIL # MANUAL DIFF 11.7 TH/MM3 (1.8-7.7); OVALOCYTES 2+ (NORMAL); PLATELET ESTIMATE SMEAR NORMAL (NORMAL); PLATELET MORPHOLOGY NORMAL (NORMAL); POLYS (SEG NEUTROPHILS) 81 % (16-70); SCAN/DIFF FINAL DIFF MANUAL; WBC DIFF SAMPLE 100
[2017-06-13] MEDS: MEGESTROL ACETATE SUSP 400 MG/10 ML CUP PO SCH (07:47)
[2017-06-13] MEDS: SODIUM CHLORIDE 0.9% FLUSH 10 ML FLUSH IV FLUSH SCH ×2 (07:47→19:48)
[2017-06-13 08:00] VITALS: BP 132/63; PULSE 94; RESP 14; TEMP 97; O2SAT 98
--- NOTE | 2017-06-13 10:20 | HHI.PR ---
Addendum to Inpatient Note Additional Information S:c/o nausea and emesis yesterday, resolved now. She believes marinol has helped. no other c/o O:Afeb VSS 07/02, Na 129, creat 1.48 high output liquid per ileostomy A&O x 3 NAD, Abdomen non-acute, stoma sites non-tender. A/P Q&A, Making incremental improvement CPM, continue fluid & electrolyte repletion, supportive care Work toward outpatient transition Betzaida Huang MD Jun 13, 2017 10:20
--- NOTE | 2017-06-13 11:46 | HHI.PR ---
Subjective Subjective Notes Nausea improved. She tolerated some soft diet. Objective Vitals/I&O Vital Signs Date Time Temp Pulse Resp B/P (MAP) Pulse Ox O2 Delivery O2 Flow Rate FiO2 06/13/17 09:36 Room Air 06/13/17 08:00 97.0 94 14 132/63 (86) 98 06/09/17 07:23 21 Labs Laboratory Tests Test 06/13/17 04:50 White Blood Count 13.8 Red Blood Count 3.16 Hemoglobin 10.1 Hematocrit 31.0 Mean Corpuscular Volume 98.2 Mean Corpuscular Hemoglobin 32.1 Mean Corpuscular Hemoglobin Concent 32.7 Red Cell Distribution Width 19.8 Platelet Count 410 Mean Platelet Volume 9.1 Neutrophils (%) (Auto) 78.9 Lymphocytes (%) (Auto) 13.6 Monocytes (%) (Auto) 6.5 Eosinophils (%) (Auto) 0.8 Basophils (%) (Auto) 0.2 Neutrophils # (Auto) 10.9 Lymphocytes # (Auto) 1.9 Monocytes # (Auto) 0.9 Eosinophils # (Auto) 0.1 Basophils # (Auto) 0.0 CBC Comment AUTO DIFF Differential Total Cells Counted 100 Neutrophils % (Manual) 81 Band Neutrophils % 2 Lymphocytes % 11 Monocytes % 2 Eosinophils % 2 Neutrophils # (Manual) 11.7 Metamyelocytes 2 Differential Comment FINAL DIFF MANUAL Platelet Estimate NORMAL Platelet Morphology Comment NORMAL Ovalocytes 2+ Keratocytes OCC Blood Urea Nitrogen 32 Creatinine 1.48 Random Glucose 120 Calcium Level 8.8 Magnesium Level 2.0 Sodium Level 129 Potassium Level 4.9 Chloride Level 97 Carbon Dioxide Level 21.9 Anion Gap 10 Estimat Glomerular Filtration Rate 35 Date/Time Source Procedure Growth Status 06/02/17 14:45 Blood Peripheral Aerobic Blood Culture - Final NO GROWTH IN 5 DAYS Complete 06/02/17 14:45 Blood Peripheral Anaerobic Blood Culture - Final NO GROWTH IN 5 DAYS Complete 06/02/17 21:50 Urine Random Urine Urine Culture - Final Escherichia Coli Complete Radiology Last Impressions Abdomen X-Ray 06/03/17 0800 Signed Impressions: Service Date/Time: Saturday, June 03, 2017 10:02 - CONCLUSION: 1. Persistent diffuse gaseous small bowel distention consistent with distal small bowel obstruction versus severe adynamic ileus. No definitive radiographically evidence for perforation or bowel infarction at this time. Patricio Pantoja MD Chest X-Ray 06/02/17 0000 Signed Impressions: Service Date/Time: Friday, June 02, 2017 10:42 - CONCLUSION: Small area of atelectasis in the left midlung field unchanged from previous. Lungs are otherwise clear. Support equipment is stable. Malick Arias MD Lower Extremity Ultrasound 06/01/17 0000 Signed Impressions: Service Date/Time: Thursday, June 01, 2017 13:35 - CONCLUSION: 1. Findings consistent with extensive acute right lower extremity DVT extending from the proximal right femoral vein to the posterior tibial vein. More centrally, the common femoral and iliac veins appear patent. 2. 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 Patricio Pantoja MD Small Bowel X-Ray 05/28/17 0000 Signed Impressions: Service Date/Time: Sunday, May 28, 2017 08:36 - CONCLUSION: Delay in transit of the contrast to the large bowel by 8.5 hours. Numerous dilated loops of small intestine are seen. Luisito Barahona MD Abdomen/Pelvis CT 05/25/17 0136 Signed Impressions: Service Date/Time: Thursday, May 25, 2017 01:51 - CONCLUSION: Diffusely dilated loops of small bowel down to the terminal ileum with air-fluid levels suggesting either diffuse ileus or small bowel obstruction. Renato Driscoll MD Narrative Exam NAD Abd: nondistended, soft. G tube clamped. Ileostomy pink, viable, edematous A/P Assessment and Plan 71 yo H/o radical hysterectomy/oophorectomy on chemotherapy for recurrent ovarian cancer with diffuse small bowel ileus vs partial obstruction. S/p ileostomy, g tube for obstruction. Nausea improved and tolerated some diet. Still high output from ileostomy and not hydrating well on her own. Reg Earl MD Jun 13, 2017 11:46
--- NOTE | 2017-06-13 11:53 | PD.WCN.NOT ---
Wound Consult Description: Consult for New Ostomy Teaching of right lower abdomen loop ileostomy per Dr Arellano/tiarra on 06/10/17 @1198 Communicated with: DENISE Griffith Patient Patient Recommendation: Drink plenty of fluids Follow instructions that were written out for patient to reference Empty pouch when 1/3-1/2 full Additional Information: Patient seen on for ostomy assessment and remington removal. Ostomy Type: Ileostomy (loop) Surgeon: Luke Franklin MD Date of Surgery: Jun 05, 2017 Complete: [facility] Education materials (Diet), Rx (prescription left on chart ) Educated patient on: Educated patient on barrier removal, skin care, barrier and pouch application, emptying pouch. Instructions written down for patient to reference when discharged for ostomy appliance change and skin care. Hydrating Ambulating Exercise Additional information Patient seen on for remington removal and ostomy assessment. Patient was lying in bed upon arrival. Stoma assessed with light green soft effluent noted in clear pouch. Remington was removed from loop ileostomy on right side of abdomen. Stoma is moderately protruding, minimally edematous, red, round, moist, functioning with lumens noted @ 9 o'clock and 3 o'clock with effluent and mucus present. Patient had questions regarding the remington removal and changing of appliance that were answered and then written down for patient and her . Patient states that she feels much better today that her medications seem to be working. Patient was encouraged to drink plenty of fluids and set her alarm to do so. Also to empty her pouch prior to bed and set an alarm for the middle of the night to empty pouch as well. 5 barriers previously cut to fit her stoma size were packed up for her to take with her at discharge. Script was left on chart for wafer and pouches. Gabi Giang [facility] Jun 13, 2017 11:53
[2017-06-13 13:42] VITALS: BP 152/75; PULSE 103; RESP 20; TEMP 97.7; O2SAT 96
[2017-06-13 16:00] VITALS: BP 141/76; PULSE 97; RESP 16; TEMP 97; O2SAT 98
[2017-06-13] MEDS: ONDANSETRON HCL 4 MG/2 ML VIAL IV PUSH PRN (17:01)
--- NOTE | 2017-06-13 17:19 | HHI.PR ---
Subjective Remarks Nausea improved. Pt tolerating small amount of soft diet. Objective Vitals Vital Signs Date Time Temp Pulse Resp B/P (MAP) Pulse Ox O2 Delivery O2 Flow Rate FiO2 06/13/17 16:00 97.0 97 16 141/76 (97) 98 06/13/17 13:42 97.7 103 20 152/75 (100) 96 06/13/17 09:36 Room Air 06/13/17 08:00 97.0 94 14 132/63 (86) 98 06/13/17 04:00 97.5 107 17 160/80 (106) 97 06/13/17 00:00 98.1 96 17 136/63 (87) 96 06/12/17 21:19 Room Air 06/12/17 20:00 98.0 101 18 136/65 (88) 98 Result Diagram: 06/13/17 0450 06/13/17 0450 Imaging Last Impressions Abdomen X-Ray 05/29/17 0600 Signed Impressions: Service Date/Time: Monday, May 29, 2017 06:24 - CONCLUSION: 1. Persistent dilatation of small bowel which is stable to slightly improved from May 26. Residual contrast throughout colon. Miki Chan MD Small Bowel X-Ray 05/28/17 0000 Signed Impressions: Service Date/Time: Sunday, May 28, 2017 08:36 - CONCLUSION: Delay in transit of the contrast to the large bowel by 8.5 hours. Numerous dilated loops of small intestine are seen. Luisito Barahona MD Abdomen/Pelvis CT 05/25/17 0136 Signed Impressions: Service Date/Time: Thursday, May 25, 2017 01:51 - CONCLUSION: Diffusely dilated loops of small bowel down to the terminal ileum with air-fluid levels suggesting either diffuse ileus or small bowel obstruction. Renato Driscoll MD Objective Remarks General: NAD, AAOx3 Chest: CTA Cardiac: Regular Abd: +BS, soft ileostomy in right abdomen, G-tub in place in LUQ Ext: No edema A/P Problem List: (1) Bowel obstruction ICD Codes: K56.60 - Unspecified intestinal obstruction Status: Acute Plan: - Pt is 71 yo with brca 2 who had ovarian Ca with LIZ/BSO, omentectomy, lysis of adhesions [place] [address] Huang. Has had chemo with Taxol, Carboplatin, Gemzar, Tamoxifen and then Lynparza this past year. There have been concerns of recurrence with a recent rise in ca 125. Dr. Huang has done PET scans and find no major focus of disease. Most recently she has been getting Topotecan weekly for past 3 weeks - comgmt with [facility] - Pt presented with crampy abdomen pain which occurs with each treatment and then progressed to no BM over several days prior to admission. - CT A/P shows diffusely dilated loops of small bowel down to the terminal ileum with air-fluid levels suggesting either diffuse ileus or small bowel obstruction. - Pt had similar events after starting lynparza in 2016 - KUB (05/26) --> Stable abnormally dilated small bowel measuring up to 5.4 cm with paucity of distal bowel gas. Findings are suspicious for distal small bowel obstruction. One of the small bowel segments in the left abdomen demonstrates thumbprinting which can be seen with submucosal edema. - SBFT (05/28) --> Delay in transit of the contrast to the large bowel by 8.5 hours. Numerous dilated loops of small intestine are seen. - SBFT results were discussed with radiology and they feel that these findings are most likely consistent with obstruction. -- Per Dr. 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 Unclear if cymbalta is contributing --> observe - zofran prn nausea - Pain control PRN - Cont anticoagulation for dvt. convert to po on d/c - Home BP meds on hold, BP is low but stable, resume as needed - Reglan stopped due to high volume ileostomy output - watch renal fxn, some mild decline - repeat BMP in AM - Monitor output from ostomy - ostomy leakage resolved. Pt had teaching from ostomy nurse and removal of bars - Abx for uti completed - Per previous discussion with with Dr Huang....cont chemo after pt heals. - Case d/w Dr. 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 (3) Hypokalemia ICD Codes: E87.6 - Hypokalemia Status: Acute Plan: - Improved. (4) HTN (hypertension), benign ICD Codes: I10 - Essential (primary) hypertension Status: Chronic Plan: - Home meds continued - monitor (5) Anxiety ICD Codes: F41.9 - Anxiety disorder, unspecified Status: Chronic Brown Rivera DO Jun 13, 2017 17:19
[2017-06-13 19:04] VITALS: BP 168/71; PULSE 100; RESP 16; TEMP 98.1; O2SAT 98
[2017-06-13] MEDS: LORazepam 2 MG/ML VIAL IV PUSH PRN (23:08)
[2017-06-14] VITALS: BP 123/71; PULSE 97; RESP 17; TEMP 97.8; O2SAT 97
[2017-06-14] MEDS: DRONABINOL 5 MG CAP PO PRN ×4 (00:30→20:25)
[2017-06-14 04:00] VITALS: BP 121/60; PULSE 79; RESP 16; TEMP 97.9; O2SAT 96
[2017-06-14] MEDS: ENOXAPARIN SODIUM 100 MG/ML SYRINGE SQ SCH ×2 (05:25→17:16)
[2017-06-14] MEDS: SIMETHICONE 125 MG CHEWABLE TAB PO SCH ×2 (05:25→14:00)
[2017-06-14 07:04] VITALS: BP 123/63; PULSE 99; RESP 18; TEMP 96.7; O2SAT 93
[2017-06-14 07:46] LABS: AUTOMATED NEUTROPHIL # 10.3 TH/MM3 (1.8-7.7); BASOPHIL # 0.1 TH/MM3 (0-0.2); BASOPHIL % 0.5 % (0.0-2.0); EOSINOPHIL # 0.1 TH/MM3 (0-0.4); HEMATOCRIT 29.9 % (35.0-46.0); LYMPH % 14.8 % (9.0-44.0); MEAN CELL VOLUME 97.7 FL (80.0-100.0); MEAN CORPUSCULAR HGB CONC 32.8 % (32.0-36.0); MONO % 5.6 % (0.0-8.0); NEUT % 78.1 % (16.0-70.0); PLATELET COUNT 411 TH/MM3 (150-450); RED BLOOD COUNT 3.05 MIL/MM3 (4.00-5.30); RED CELL DISTRIBUTION WIDTH 19.9 % (11.6-17.2); WHITE BLOOD COUNT 13.2 TH/MM3 (4.0-11.0)
[2017-06-14 07:50] LABS: HEMO FLAGS AUTO DIFF
--- NOTE | 2017-06-14 08:05 | PD.ONC.PN ---
Subjective Subjective Remarks patient is resting in bed states ate more yesterday but had an episode of vomiting last night she is concerned that when she goes to rehab she will not be able to receive the Marinol for 12-18 hours after she is admitted to SNF pain controlled Objective Data Date Time Temp Pulse Resp B/P (MAP) Pulse Ox O2 Delivery O2 Flow Rate FiO2 06/14/17 04:00 97.9 79 16 121/60 (80) 96 06/14/17 00:00 97.8 97 17 123/71 (88) 97 06/13/17 19:04 98.1 100 16 168/71 (103) 98 06/13/17 16:00 97.0 97 16 141/76 (97) 98 06/13/17 13:42 97.7 103 20 152/75 (100) 96 06/13/17 09:36 Room Air 06/13/17 08:00 97.0 94 14 132/63 (86) 98 06/14/17 06/14/17 06/14/17 06:59 14:59 22:59 Intake Total 360 ml Output Total 725 ml Balance -365 ml Result Diagram: 06/14/17 0630 06/13/17 0450 Laboratory Results Laboratory Tests Test 06/14/17 06:30 White Blood Count 13.2 TH/MM3 Red Blood Count 3.05 MIL/MM3 Hemoglobin 9.8 GM/DL Hematocrit 29.9 % Mean Corpuscular Volume 97.7 FL Mean Corpuscular Hemoglobin 32.0 PG Mean Corpuscular Hemoglobin Concent 32.8 % Red Cell Distribution Width 19.9 % Platelet Count 411 TH/MM3 Mean Platelet Volume 8.5 FL Neutrophils (%) (Auto) 78.1 % Lymphocytes (%) (Auto) 14.8 % Monocytes (%) (Auto) 5.6 % Eosinophils (%) (Auto) 1.0 % Basophils (%) (Auto) 0.5 % Neutrophils # (Auto) 10.3 TH/MM3 Lymphocytes # (Auto) 2.0 TH/MM3 Monocytes # (Auto) 0.7 TH/MM3 Eosinophils # (Auto) 0.1 TH/MM3 Basophils # (Auto) 0.1 TH/MM3 CBC Comment AUTO DIFF Administered Medications Medications (Trade) Dose Ordered Sig/Anette Route PRN Reason Start Time Stop Time Status Last Admin Dose Admin Alprazolam (Xanax) 1 mg HS PRN PO anxiety 05/25/17 21:00 06/07/17 22:47 Clonidine (Catapres) 0.1 mg Q6H PRN PO sbp > 170 05/26/17 09:00 05/30/17 15:57 Al Hydrox/Mg Hydrox/Simethicone (Mag-Al Plus Susp Liq) 30 ml Q4H PRN PO HEARTBURN 05/26/17 18:30 05/26/17 22:13 Lorazepam (Ativan Inj) 1 mg Q4H PRN IV PUSH anxiety 05/28/17 14:00 06/13/17 23:08 Phenol (Chloraseptic [place]) 2 spray Q2H PRN OROPHARYNG SORE THROAT 05/31/17 11:45 05/31/17 14:26 Enoxaparin Sodium (Lovenox Inj) 100 mg Q12H SQ 06/01/17 18:00 06/14/17 05:25 Simethicone (Phazyme Chew) 125 mg Q8HR PO 06/03/17 14:00 06/11/17 13:42 Acetaminophen 100 ml @ 400 mls/hr Q6H PRN IV fever/pain 1-10 06/03/17 09:30 06/07/17 04:33 Sodium Chloride (NS Flush) 2 ml UNSCH PRN IV FLUSH FLUSH AFTER USING IV ACCESS 06/05/17 16:45 06/11/17 04:00 Sodium Chloride (NS Flush) 2 ml BID IV FLUSH 06/05/17 21:00 06/13/17 19:48 Oxycodone/ Acetaminophen (Percocet 5-325 Mg) 1 tab Q4H PRN PO PAIN SCALE 1 TO 5 06/05/17 16:45 06/11/17 02:37 Ondansetron HCl (Zofran Inj) 4 mg Q4H PRN IV PUSH NAUSEA OR VOMITING 06/05/17 16:45 06/13/17 17:01 Morphine Sulfate (Morphine Inj) 2 mg Q1H PRN IV BREAKTROUGH PAIN > 5 06/05/17 21:00 06/05/17 23:30 Megestrol Acetate (Megace Liq) 400 mg DAILY PO 06/10/17 09:00 06/10/17 09:44 Dronabinol (Marinol) 5 mg Q6HR PRN PO nausea 06/12/17 18:00 06/14/17 06:36 Objective Remarks GENERAL: well-developed patient. SKIN: Warm and dry. HEAD: Normocephalic. EYES: No scleral icterus. No injection or drainage. CARDIOVASCULAR: Regular rate and rhythm without murmurs. RESPIRATORY: Breath sounds equal bilaterally. No accessory muscle use. GASTROINTESTINAL: Abdomen soft, non-tender, nondistended. with ileostomy to right quad and g tube to left upper quad EXTREMITIES: teds and scds MUSCULOSKELETAL: Adequate muscle tone. NEUROLOGICAL: No obvious focal deficit. Awake, alert, and oriented x3. PSYCHIATRIC: Appropriate mood and affect; insight and judgment normal. 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 Huang IV chemotherapy (3) UTI (urinary tract infection) ICD Codes: N39.0 - Urinary tract infection, site not specified Status: Resolved Attending Statement discussed with patient, and Dr. Huang in agreement Olivia Thacker Jun 14, 2017 08:05
[2017-06-14] MEDS: MEGESTROL ACETATE SUSP 400 MG/10 ML CUP PO SCH (08:32)
[2017-06-14] MEDS: SODIUM CHLORIDE 0.9% FLUSH 10 ML FLUSH IV FLUSH SCH ×2 (08:32→20:24)
[2017-06-14 08:42] LABS: BICARBONATE 23.9 MEQ/L (21.0-32.0); POTASSIUM 4.5 MEQ/L (3.5-5.1)
[2017-06-14 08:44] LABS: BANDS 3 % (0-6); EOSINOPHILS 2 % (0-4); METAMYELOCYTES 3 % (0-1); MYELOCYTES 2 % (0-0); NEUTROPHIL # MANUAL DIFF 10.8 TH/MM3 (1.8-7.7); PLATELET ESTIMATE SMEAR NORMAL (NORMAL); PLATELET MORPHOLOGY NORMAL (NORMAL); POLYS (SEG NEUTROPHILS) 74 % (16-70); SCAN/DIFF FINAL DIFF MANUAL; WBC DIFF SAMPLE 100
[2017-06-14 08:45] LABS: OVALOCYTES 1+ (NORMAL); TEARDROP RBCS 1+ (NORMAL)
[2017-06-14 11:04] VITALS: BP 107/60; PULSE 85; RESP 18; TEMP 97.5; O2SAT 97
--- NOTE | 2017-06-14 11:26 | PD.WCN.NOT ---
Wound Consult Description: Consult for New Ostomy Teaching of right lower abdomen loop ileostomy per Dr Arellano/tiarra on 06/10/17 @4905 Communicated with: Patient Patient Patient daughter Recommendation: Practice emptying pouch of effluent Assess stoma color and amount of output Additional Information: Patient seen on [address] [place] [address] for ostomy teaching and ostomy assessment. Ostomy Type: Ileostomy (loop) Surgeon: Luke Franklin MD Date of Surgery: Jun 05, 2017 Complete: [facility] Education materials (Diet), Rx (prescription left on chart ) Educated patient on: Referencing the written instructions given to become familiar with the steps to change the barrier/wafer when its time. Additional information Patient seen on with patient Bill at bedside. Stoma is measuring 2" and located on the right quadrant of the abdomen. Barrier and pouch are intact and noted without leaks. The wafer/barrier is noted to be breaking down evenly around stoma which is expected. Stoma is moderately protruding, red, round, moist, functioning with lumens noted at 9 and 3 o'clock with green soft effluent, scant sanguinous drainage, moderate liquid effluent, and mucus noted in pouch ~20ml that was not emptied at this time. Patient states that she still cannot look at it, referring to the stoma, that it makes her sick. Patients daughter was spoken to via Bill's phone (patients ) and states that she would like to change it with someone helping her before discharge. It was explained to her that marketing underwriter would not be able to help her with that should it need to be changed over the weekend but that we could do it today or Saturday if the patient is still in house and she said ok. Patient had a few questions regarding the removal of the barrier and the supplies ordered for her to use in case of skin breakdown. Gabi Giang [facility] Jun 14, 2017 11:26
--- NOTE | 2017-06-14 14:06 | HHI.PR ---
Subjective Remarks Patient able to eat more today did have one episode of vomiting last night offers no specific complaints at this time Objective Vitals Vital Signs Date Time Temp Pulse Resp B/P (MAP) Pulse Ox O2 Delivery O2 Flow Rate FiO2 06/14/17 11:04 97.5 85 18 107/60 (76) 97 06/14/17 07:04 96.7 99 18 123/63 (83) 93 06/14/17 04:00 97.9 79 16 121/60 (80) 96 06/14/17 00:00 97.8 97 17 123/71 (88) 97 06/13/17 19:04 98.1 100 16 168/71 (103) 98 06/13/17 16:00 97.0 97 16 141/76 (97) 98 06/14/17 06/14/17 06/15/17 15:00 23:00 07:00 Output Total 150 ml Balance -150 ml Stool Total 150 ml Result Diagram: 06/14/1730 06/14/17629 Other Results Laboratory Tests Test 06/12/17 05:38 06/13/17 04:50 06/14/17 06:30 White Blood Count 12.0 TH/MM3 13.8 TH/MM3 13.2 TH/MM3 Red Blood Count 3.11 MIL/MM3 3.16 MIL/MM3 3.05 MIL/MM3 Hemoglobin 9.7 GM/DL 10.1 GM/DL 9.8 GM/DL Hematocrit 30.4 % 31.0 % 29.9 % Mean Corpuscular Volume 97.8 FL 98.2 FL 97.7 FL Mean Corpuscular Hemoglobin 31.3 PG 32.1 PG 32.0 PG Mean Corpuscular Hemoglobin Concent 32.0 % 32.7 % 32.8 % Red Cell Distribution Width 19.7 % 19.8 % 19.9 % Platelet Count 362 TH/MM3 410 TH/MM3 411 TH/MM3 Mean Platelet Volume 8.8 FL 9.1 FL 8.5 FL Neutrophils (%) (Auto) 77.7 % 78.9 % 78.1 % Lymphocytes (%) (Auto) 13.5 % 13.6 % 14.8 % Monocytes (%) (Auto) 7.5 % 6.5 % 5.6 % Eosinophils (%) (Auto) 1.0 % 0.8 % 1.0 % Basophils (%) (Auto) 0.3 % 0.2 % 0.5 % Neutrophils # (Auto) 9.3 TH/MM3 10.9 TH/MM3 10.3 TH/MM3 Lymphocytes # (Auto) 1.6 TH/MM3 1.9 TH/MM3 2.0 TH/MM3 Monocytes # (Auto) 0.9 TH/MM3 0.9 TH/MM3 0.7 TH/MM3 Eosinophils # (Auto) 0.1 TH/MM3 0.1 TH/MM3 0.1 TH/MM3 Basophils # (Auto) 0.0 TH/MM3 0.0 TH/MM3 0.1 TH/MM3 CBC Comment AUTO DIFF AUTO DIFF AUTO DIFF Differential Total Cells Counted 100 100 100 Neutrophils % (Manual) 64 % 81 % 74 % Band Neutrophils % 18 % 2 % 3 % Lymphocytes % 10 % 11 % 8 % Monocytes % 3 % 2 % 8 % Eosinophils % 1 % 2 % 2 % Neutrophils # (Manual) 10.3 TH/MM3 11.7 TH/MM3 10.8 TH/MM3 Metamyelocytes 2 % 2 % 3 % Myelocytes 2 % 2 % Differential Comment FINAL DIFF MANUAL FINAL DIFF MANUAL FINAL DIFF MANUAL Platelet Estimate NORMAL NORMAL NORMAL Platelet Morphology Comment NORMAL NORMAL NORMAL Ovalocytes 1+ 2+ 1+ Blood Urea Nitrogen 33 MG/DL 32 MG/DL 32 MG/DL Creatinine 1.33 MG/DL 1.48 MG/DL 1.28 MG/DL Random Glucose 102 MG/DL 120 MG/DL 113 MG/DL Calcium Level 8.6 MG/DL 8.8 MG/DL 9.4 MG/DL Magnesium Level 2.0 MG/DL 2.0 MG/DL 2.0 MG/DL Sodium Level 130 MEQ/L 129 MEQ/L 128 MEQ/L Potassium Level 5.0 MEQ/L 4.9 MEQ/L 4.5 MEQ/L Chloride Level 98 MEQ/L 97 MEQ/L 94 MEQ/L Carbon Dioxide Level 23.9 MEQ/L 21.9 MEQ/L 23.9 MEQ/L Anion Gap 8 MEQ/L 10 MEQ/L 10 MEQ/L Estimat Glomerular Filtration Rate 39 ML/MIN 35 ML/MIN 41 ML/MIN Keratocytes OCC Tear Drop Cells 1+ Imaging Last Impressions Abdomen X-Ray 05/29/17 0600 Signed Impressions: Service Date/Time: Monday, May 29, 2017 06:24 - CONCLUSION: 1. Persistent dilatation of small bowel which is stable to slightly improved from May 26. Residual contrast throughout colon. Miki Chan MD Small Bowel X-Ray 05/28/17 0000 Signed Impressions: Service Date/Time: Sunday, May 28, 2017 08:36 - CONCLUSION: Delay in transit of the contrast to the large bowel by 8.5 hours. Numerous dilated loops of small intestine are seen. Luisito Barahona MD Abdomen/Pelvis CT 05/25/17 0136 Signed Impressions: Service Date/Time: Thursday, May 25, 2017 01:51 - CONCLUSION: Diffusely dilated loops of small bowel down to the terminal ileum with air-fluid levels suggesting either diffuse ileus or small bowel obstruction. Renato Driscoll MD Objective Remarks General: NAD, AAOx3 Chest: CTA Cardiac: Regular Abd: +BS, soft ileostomy in right abdomen, G-tub in place in LUQ Ext: No edema Procedures ileostomy, g tube placement A/P Problem List: (1) Bowel obstruction ICD Codes: K56.60 - Unspecified intestinal obstruction Status: Acute Plan: - Pt is 71 yo with brca 2 who had ovarian Ca with LIZ/BSO, omentectomy, lysis of adhesions [place] [address] Huang. Has had chemo with Taxol, Carboplatin, Gemzar, Tamoxifen and then Lynparza this past year. There have been concerns of recurrence with a recent rise in ca 125. Dr. Huang has done PET scans and find no major focus of disease. Most recently she has been getting Topotecan weekly for past 3 weeks - comgmt with [facility] - Pt presented with crampy abdomen pain which occurs with each treatment and then progressed to no BM over several days prior to admission. - CT A/P shows diffusely dilated loops of small bowel down to the terminal ileum with air-fluid levels suggesting either diffuse ileus or small bowel obstruction. - Pt had similar events after starting lynparza in 2016 - KUB (05/26) --> Stable abnormally dilated small bowel measuring up to 5.4 cm with paucity of distal bowel gas. Findings are suspicious for distal small bowel obstruction. One of the small bowel segments in the left abdomen demonstrates thumbprinting which can be seen with submucosal edema. - SBFT (05/28) --> Delay in transit of the contrast to the large bowel by 8.5 hours. Numerous dilated loops of small intestine are seen. - SBFT results were discussed with radiology and they feel that these findings are most likely consistent with obstruction. -- Per Dr. 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 Unclear if cymbalta is contributing --> observe - zofran prn nausea - Pain control PRN - Cont anticoagulation for dvt. convert to po on d/c - Home BP meds on hold, BP is low but stable, resume as needed - Reglan stopped due to high volume ileostomy output - watch renal fxn, some mild decline - repeat BMP in AM - Monitor output from ostomy - ostomy leakage resolved. Pt had teaching from ostomy nurse and removal of bars - Abx for uti completed - Per previous discussion with with Dr Huang....cont chemo after pt heals. - Case d/w Dr. 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 (3) Hypokalemia ICD Codes: E87.6 - Hypokalemia Status: Acute Plan: - Improved. (4) HTN (hypertension), benign ICD Codes: I10 - Essential (primary) hypertension Status: Chronic Plan: - Home meds continued - monitor (5) Anxiety ICD Codes: F41.9 - Anxiety disorder, unspecified Status: Chronic Assessment and Plan Patient examined. Assessment and plan formulated with Le Flood PA-C. I agree with the above. Le Flood Jun 14, 2017 14:06 Brown Rivera DO Jun 15, 2017 23:45
[2017-06-14 15:30] VITALS: BP 138/67; PULSE 90; RESP 18; TEMP 98.1; O2SAT 99
[2017-06-14] MEDS: ONDANSETRON HCL 4 MG/2 ML VIAL IV PUSH PRN (17:16)
[2017-06-14 20:00] VITALS: BP 141/69; PULSE 91; RESP 16; TEMP 98.8; O2SAT 96
[2017-06-14] MEDS: LORazepam 2 MG/ML VIAL IV PUSH PRN (22:02)
[2017-06-15] VITALS: BP 119/70; PULSE 90; RESP 16; TEMP 98.5; O2SAT 97
[2017-06-15] MEDS: ENOXAPARIN SODIUM 100 MG/ML SYRINGE SQ SCH ×2 (05:30→17:38)
[2017-06-15] MEDS: DRONABINOL 5 MG CAP PO PRN ×4 (05:30→23:32)
[2017-06-15 05:49] LABS: AUTOMATED NEUTROPHIL # 11.6 TH/MM3 (1.8-7.7); BASOPHIL % 0.2 % (0.0-2.0); EOSINOPHIL # 0.1 TH/MM3 (0-0.4); LYMPH % 15.4 % (9.0-44.0); LYMPHOCYTE # 2.3 TH/MM3 (1.0-4.8); MEAN CELL VOLUME 96.1 FL (80.0-100.0); MEAN CORPUSCULAR HEMOGLOBIN 32.5 PG (27.0-34.0); MEAN CORPUSCULAR HGB CONC 33.9 % (32.0-36.0); NEUT % 77.4 % (16.0-70.0); PLATELET COUNT 472 TH/MM3 (150-450); RED BLOOD COUNT 3.43 MIL/MM3 (4.00-5.30); RED CELL DISTRIBUTION WIDTH 20.1 % (11.6-17.2)
[2017-06-15 05:53] LABS: HEMO FLAGS AUTO DIFF
[2017-06-15 06:16] LABS: BICARBONATE 25.2 MEQ/L (21.0-32.0); MAGNESIUM 1.9 MG/DL (1.5-2.5); POTASSIUM 4.3 MEQ/L (3.5-5.1)
[2017-06-15 08:00] VITALS: BP 133/72; PULSE 91; RESP 18; TEMP 97.3; O2SAT 96
[2017-06-15] MEDS: SODIUM CHLORIDE 0.9% FLUSH 10 ML FLUSH IV FLUSH SCH ×2 (09:00→21:00)
--- NOTE | 2017-06-15 10:16 | HHI.PR ---
Subjective Remarks Multiple family members at bedside patient offers no specific complaints no further nausea Objective Vitals Vital Signs Date Time Temp Pulse Resp B/P (MAP) Pulse Ox O2 Delivery O2 Flow Rate FiO2 06/15/17 00:00 98.5 90 16 119/70 (86) 97 06/14/17 20:00 98.8 91 16 141/69 (93) 96 06/14/17 15:30 98.1 90 18 138/67 (90) 99 06/14/17 11:04 97.5 85 18 107/60 (76) 97 06/15/17 06/15/17 06/16/17 15:00 23:00 07:00 Output Total 200 ml Balance -200 ml Stool Total 200 ml Result Diagram: 06/15/17 0530 06/15/1730 Other Results Laboratory Tests Test 06/13/17 04:50 06/14/17 06:30 06/15/17 05:30 White Blood Count 13.8 TH/MM3 13.2 TH/MM3 15.0 TH/MM3 Red Blood Count 3.16 MIL/MM3 3.05 MIL/MM3 3.43 MIL/MM3 Hemoglobin 10.1 GM/DL 9.8 GM/DL 11.2 GM/DL Hematocrit 31.0 % 29.9 % 33.0 % Mean Corpuscular Volume 98.2 FL 97.7 FL 96.1 FL Mean Corpuscular Hemoglobin 32.1 PG 32.0 PG 32.5 PG Mean Corpuscular Hemoglobin Concent 32.7 % 32.8 % 33.9 % Red Cell Distribution Width 19.8 % 19.9 % 20.1 % Platelet Count 410 TH/MM3 411 TH/MM3 472 TH/MM3 Mean Platelet Volume 9.1 FL 8.5 FL 8.0 FL Neutrophils (%) (Auto) 78.9 % 78.1 % 77.4 % Lymphocytes (%) (Auto) 13.6 % 14.8 % 15.4 % Monocytes (%) (Auto) 6.5 % 5.6 % 6.0 % Eosinophils (%) (Auto) 0.8 % 1.0 % 1.0 % Basophils (%) (Auto) 0.2 % 0.5 % 0.2 % Neutrophils # (Auto) 10.9 TH/MM3 10.3 TH/MM3 11.6 TH/MM3 Lymphocytes # (Auto) 1.9 TH/MM3 2.0 TH/MM3 2.3 TH/MM3 Monocytes # (Auto) 0.9 TH/MM3 0.7 TH/MM3 0.9 TH/MM3 Eosinophils # (Auto) 0.1 TH/MM3 0.1 TH/MM3 0.1 TH/MM3 Basophils # (Auto) 0.0 TH/MM3 0.1 TH/MM3 0.0 TH/MM3 CBC Comment AUTO DIFF AUTO DIFF AUTO DIFF Differential Total Cells Counted 100 100 Neutrophils % (Manual) 81 % 74 % Band Neutrophils % 2 % 3 % Lymphocytes % 11 % 8 % Monocytes % 2 % 8 % Eosinophils % 2 % 2 % Neutrophils # (Manual) 11.7 TH/MM3 10.8 TH/MM3 Metamyelocytes 2 % 3 % Differential Comment FINAL DIFF MANUAL FINAL DIFF MANUAL Platelet Estimate NORMAL NORMAL Platelet Morphology Comment NORMAL NORMAL Ovalocytes 2+ 1+ Keratocytes OCC Blood Urea Nitrogen 32 MG/DL 32 MG/DL 33 MG/DL Creatinine 1.48 MG/DL 1.28 MG/DL 1.21 MG/DL Random Glucose 120 MG/DL 113 MG/DL 102 MG/DL Calcium Level 8.8 MG/DL 9.4 MG/DL 8.9 MG/DL Magnesium Level 2.0 MG/DL 2.0 MG/DL 1.9 MG/DL Sodium Level 129 MEQ/L 128 MEQ/L 128 MEQ/L Potassium Level 4.9 MEQ/L 4.5 MEQ/L 4.3 MEQ/L Chloride Level 97 MEQ/L 94 MEQ/L 94 MEQ/L Carbon Dioxide Level 21.9 MEQ/L 23.9 MEQ/L 25.2 MEQ/L Anion Gap 10 MEQ/L 10 MEQ/L 9 MEQ/L Estimat Glomerular Filtration Rate 35 ML/MIN 41 ML/MIN 44 ML/MIN Myelocytes 2 % Tear Drop Cells 1+ Imaging Last Impressions Abdomen X-Ray 05/29/17 0600 Signed Impressions: Service Date/Time: Monday, May 29, 2017 06:24 - CONCLUSION: 1. Persistent dilatation of small bowel which is stable to slightly improved from May 26. Residual contrast throughout colon. Miki Chan MD Small Bowel X-Ray 05/28/17 0000 Signed Impressions: Service Date/Time: Sunday, May 28, 2017 08:36 - CONCLUSION: Delay in transit of the contrast to the large bowel by 8.5 hours. Numerous dilated loops of small intestine are seen. Luisito A. Jun, MD Abdomen/Pelvis CT 05/25/17 0136 Signed Impressions: Service Date/Time: Saturday, May 25, 2017 01:51 - CONCLUSION: Diffusely dilated loops of small bowel down to the terminal ileum with air-fluid levels suggesting either diffuse ileus or small bowel obstruction. Renato Driscoll MD Objective Remarks General: NAD, AAOx3 Chest: CTA Cardiac: Regular Abd: +BS, soft ileostomy in right abdomen, G-tub in place in LUQ Ext: No edema Procedures ileostomy, g tube placement A/P Problem List: (1) Bowel obstruction ICD Codes: K56.60 - Unspecified intestinal obstruction Status: Acute Plan: - Pt is 71 yo with brca 2 who had ovarian Ca with LIZ/BSO, omentectomy, lysis of adhesions [place] [address] Huang. Has had chemo with Taxol, Carboplatin, Gemzar, Tamoxifen and then Lynparza this past year. There have been concerns of recurrence with a recent rise in ca 125. Dr. Huang has done PET scans and find no major focus of disease. Most recently she has been getting Topotecan weekly for past 3 weeks - comgmt with [facility] - Pt presented with crampy abdomen pain which occurs with each treatment and then progressed to no BM over several days prior to admission. - CT A/P shows diffusely dilated loops of small bowel down to the terminal ileum with air-fluid levels suggesting either diffuse ileus or small bowel obstruction. - Pt had similar events after starting lynparza in 2016 - KUB (05/26) --> Stable abnormally dilated small bowel measuring up to 5.4 cm with paucity of distal bowel gas. Findings are suspicious for distal small bowel obstruction. One of the small bowel segments in the left abdomen demonstrates thumbprinting which can be seen with submucosal edema. - SBFT (05/28) --> Delay in transit of the contrast to the large bowel by 8.5 hours. Numerous dilated loops of small intestine are seen. - SBFT results were discussed with radiology and they feel that these findings are most likely consistent with obstruction. -- Per Dr. 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 Unclear if cymbalta is contributing --> observe - zofran prn nausea - Pain control PRN - Cont anticoagulation for dvt. convert to po on d/c - Home BP meds on hold, BP is low but stable, resume as needed - Reglan stopped due to high volume ileostomy output - watch renal fxn, some mild decline - Monitor output from ostomy - ostomy leakage resolved. Pt had teaching from ostomy nurse and removal of bars - Abx for uti completed - Per previous discussion with with Dr Huang....cont chemo after pt heals. - Case d/w Dr. 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 (3) Hypokalemia ICD Codes: E87.6 - Hypokalemia Status: Acute Plan: - Improved. (4) HTN (hypertension), benign ICD Codes: I10 - Essential (primary) hypertension Status: Chronic Plan: - Home meds continued - monitor (5) Anxiety ICD Codes: F41.9 - Anxiety disorder, unspecified Status: Chronic Assessment and Plan Patient examined. Assessment and plan formulated with Le Flood PA-C. I agree with the above. Le Flood Jun 15, 2017 10:16 Brown Rivera DO Jun 15, 2017 23:45
[2017-06-15 10:39] LABS: BANDS 5 % (0-6); BASOPHILS 1 % (0-2); METAMYELOCYTES 1 % (0-1); MYELOCYTES 6 % (0-0); NEUTROPHIL # MANUAL DIFF 11.4 TH/MM3 (1.8-7.7); POLYS (SEG NEUTROPHILS) 64 % (16-70); WBC DIFF SAMPLE 100
[2017-06-15 10:40] LABS: PLATELET ESTIMATE SMEAR HIGH (NORMAL); PLATELET MORPHOLOGY NORMAL (NORMAL); SCAN/DIFF FINAL DIFF MANUAL
[2017-06-15 10:41] LABS: POLYCHROMASIA 2.1 % (0.0-1.9)
--- NOTE | 2017-06-15 11:19 | HHI.PR ---
Subjective Subjective Notes Yesterday she had more oral input than output from ileostomy. She has more nausea with liquids than solids. Stool is thickening. Objective Vitals/I&O Vital Signs Date Time Temp Pulse Resp B/P (MAP) Pulse Ox O2 Delivery O2 Flow Rate FiO2 06/15/17 08:00 97.3 91 18 133/72 (92) 96 06/13/17 09:36 Room Air Labs Laboratory Tests Test 06/15/17 05:30 White Blood Count 15.0 Red Blood Count 3.43 Hemoglobin 11.2 Hematocrit 33.0 Mean Corpuscular Volume 96.1 Mean Corpuscular Hemoglobin 32.5 Mean Corpuscular Hemoglobin Concent 33.9 Red Cell Distribution Width 20.1 Platelet Count 472 Mean Platelet Volume 8.0 Neutrophils (%) (Auto) 77.4 Lymphocytes (%) (Auto) 15.4 Monocytes (%) (Auto) 6.0 Eosinophils (%) (Auto) 1.0 Basophils (%) (Auto) 0.2 Neutrophils # (Auto) 11.6 Lymphocytes # (Auto) 2.3 Monocytes # (Auto) 0.9 Eosinophils # (Auto) 0.1 Basophils # (Auto) 0.0 CBC Comment AUTO DIFF Differential Total Cells Counted 100 Neutrophils % (Manual) 64 Band Neutrophils % 5 Lymphocytes % 14 Monocytes % 9 Basophils % 1 Neutrophils # (Manual) 11.4 Metamyelocytes 1 Myelocytes 6 Differential Comment FINAL DIFF MANUAL Platelet Estimate HIGH Platelet Morphology Comment NORMAL Polychromasia 2.1 Blood Urea Nitrogen 33 Creatinine 1.21 Random Glucose 102 Calcium Level 8.9 Magnesium Level 1.9 Sodium Level 128 Potassium Level 4.3 Chloride Level 94 Carbon Dioxide Level 25.2 Anion Gap 9 Estimat Glomerular Filtration Rate 44 Date/Time Source Procedure Growth Status 06/02/17 14:45 Blood Peripheral Aerobic Blood Culture - Final NO GROWTH IN 5 DAYS Complete 06/02/17 14:45 Blood Peripheral Anaerobic Blood Culture - Final NO GROWTH IN 5 DAYS Complete 06/02/17 21:50 Urine Random Urine Urine Culture - Final Escherichia Coli Complete Radiology Last Impressions Abdomen X-Ray 06/03/17 0800 Signed Impressions: Service Date/Time: Saturday, June 03, 2017 10:02 - CONCLUSION: 1. Persistent diffuse gaseous small bowel distention consistent with distal small bowel obstruction versus severe adynamic ileus. No definitive radiographically evidence for perforation or bowel infarction at this time. Patricio Pantoja MD Chest X-Ray 06/02/17 0000 Signed Impressions: Service Date/Time: Friday, June 02, 2017 10:42 - CONCLUSION: Small area of atelectasis in the left midlung field unchanged from previous. Lungs are otherwise clear. Support equipment is stable. Malick Arias MD Lower Extremity Ultrasound 06/01/17 0000 Signed Impressions: Service Date/Time: Thursday, June 01, 2017 13:35 - CONCLUSION: 1. Findings consistent with extensive acute right lower extremity DVT extending from the proximal right femoral vein to the posterior tibial vein. More centrally, the common femoral and iliac veins appear patent. 2. 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 Patricio Pantoja MD Small Bowel X-Ray 05/28/17 0000 Signed Impressions: Service Date/Time: Sunday, May 28, 2017 08:36 - CONCLUSION: Delay in transit of the contrast to the large bowel by 8.5 hours. Numerous dilated loops of small intestine are seen. Luisito Barahona MD Abdomen/Pelvis CT 05/25/17 0136 Signed Impressions: Service Date/Time: Thursday, May 25, 2017 01:51 - CONCLUSION: Diffusely dilated loops of small bowel down to the terminal ileum with air-fluid levels suggesting either diffuse ileus or small bowel obstruction. Renato Driscoll MD Narrative Exam NAD Abd: nondistended, soft. G tube clamped. Ileostomy pink, viable, edematous. Stool soft solid and liquid A/P Assessment and Plan 71 yo H/o radical hysterectomy/oophorectomy on chemotherapy for recurrent ovarian cancer with diffuse small bowel ileus vs partial obstruction. S/p ileostomy, g tube for obstruction. Stool is thickening and she is taking more in orally. Renal function improved. Hopefully soon electrolytes will normalize. Reg Earl MD Jun 15, 2017 11:19
[2017-06-15 13:32] VITALS: BP 122/75; PULSE 96; RESP 18; TEMP 97.5; O2SAT 99
[2017-06-15] MEDS: ALPRAZolam 1 MG TAB PO PRN (14:27)
[2017-06-15] MEDS: LORazepam 2 MG/ML VIAL IV PUSH PRN ×2 (14:30→23:32)
--- NOTE | 2017-06-15 15:56 | RADRPT ---
EXAM DATE/TIME: 06/15/2017 14:55 [facility] COMPARISON: CHEST SINGLE AP, June 01, 2017, 11:21. INDICATIONS : Cough. MEDICAL HISTORY : Hypertension. Carcinoma, ovarian. SURGICAL HISTORY : Port placement. ENCOUNTER: Initial ACUITY: 1 day PAIN SCORE: 0/10 LOCATION: Bilateral chest FINDINGS: The cardiac silhouette is normal in transverse diameter. The lungs are free of acute parenchymal opac ity. No effusions are identified. [id number] is in place via right subclavian approach with its ti p in the superior vena cava. There is parenchymal scarring on the left. CONCLUSION: 1. No acute cardiopulmonary disease. Edgardo Valero MD on June 15, 2017 at 15:54 Board Certified Radiologist. This report was verified electronically.
[2017-06-15 16:00] VITALS: BP 103/71; PULSE 95; RESP 18; TEMP 97.6; O2SAT 100
[2017-06-15 19:45] VITALS: BP 115/64; PULSE 97; RESP 18; TEMP 99.1; O2SAT 98
[2017-06-15 23:30] VITALS: BP 119/70; PULSE 93; RESP 18; TEMP 98.5; O2SAT 99
[2017-06-16] MEDS: ENOXAPARIN SODIUM 100 MG/ML SYRINGE SQ SCH ×2 (05:32→17:57)
[2017-06-16] MEDS: DRONABINOL 5 MG CAP PO PRN ×3 (05:32→19:55)
[2017-06-16 06:01] LABS: AUTOMATED NEUTROPHIL # 14.8 TH/MM3 (1.8-7.7); BASOPHIL # 0.1 TH/MM3 (0-0.2); BASOPHIL % 0.3 % (0.0-2.0); EOSINOPHIL # 0.2 TH/MM3 (0-0.4); HEMATOCRIT 34.9 % (35.0-46.0); LYMPH % 15.2 % (9.0-44.0); LYMPHOCYTE # 2.9 TH/MM3 (1.0-4.8); MEAN CELL VOLUME 95.9 FL (80.0-100.0); MEAN CORPUSCULAR HEMOGLOBIN 31.9 PG (27.0-34.0); MEAN CORPUSCULAR HGB CONC 33.3 % (32.0-36.0); NEUT % 78.5 % (16.0-70.0); PLATELET COUNT 517 TH/MM3 (150-450); RED BLOOD COUNT 3.65 MIL/MM3 (4.00-5.30); RED CELL DISTRIBUTION WIDTH 19.9 % (11.6-17.2); WHITE BLOOD COUNT 18.9 TH/MM3 (4.0-11.0)
[2017-06-16 06:08] LABS: HEMO FLAGS AUTO DIFF
[2017-06-16 06:58] LABS: BICARBONATE 25.8 MEQ/L (21.0-32.0); POTASSIUM 5.1 MEQ/L (3.5-5.1)
[2017-06-16 07:16] LABS: BANDS 3 % (0-6); CORRECTED NUCLEATED RBC 1 /100 WBC (0-0); EOSINOPHILS 1 % (0-4); MYELOCYTES 2 % (0-0); NEUTROPHIL # MANUAL DIFF 15.3 TH/MM3 (1.8-7.7); POLYS (SEG NEUTROPHILS) 76 % (16-70); WBC DIFF SAMPLE 100
[2017-06-16 07:17] LABS: PLATELET ESTIMATE SMEAR HIGH (NORMAL); PLATELET MORPHOLOGY NORMAL (NORMAL); SCAN/DIFF FINAL DIFF MANUAL
[2017-06-16 07:53] VITALS: BP 112/63; PULSE 92; RESP 18; TEMP 95.9; O2SAT 96
[2017-06-16] MEDS: SODIUM CHLORIDE 0.9% FLUSH 10 ML FLUSH IV FLUSH SCH ×2 (08:15→22:26)
[2017-06-16 11:40] VITALS: BP 107/68; PULSE 96; RESP 18; TEMP 98; O2SAT 96
[2017-06-16] MEDS ORDERED: PROMETHAZINE HCL 25 MG SUPP RECTAL PRN (13:30)
--- NOTE | 2017-06-16 13:33 | HHI.PR ---
Subjective Subjective Notes Her oral intake has decreased. Renal function worsened. Worsened nausea. Objective Vitals/I&O Vital Signs Date Time Temp Pulse Resp B/P (MAP) Pulse Ox O2 Delivery O2 Flow Rate FiO2 06/16/17 07:53 95.9 92 18 112/63 (79) 96 06/13/17 09:36 Room Air Labs Laboratory Tests Test 06/16/17 05:45 White Blood Count 18.9 Red Blood Count 3.65 Hemoglobin 11.6 Hematocrit 34.9 Mean Corpuscular Volume 95.9 Mean Corpuscular Hemoglobin 31.9 Mean Corpuscular Hemoglobin Concent 33.3 Red Cell Distribution Width 19.9 Platelet Count 517 Mean Platelet Volume 7.8 Neutrophils (%) (Auto) 78.5 Lymphocytes (%) (Auto) 15.2 Monocytes (%) (Auto) 5.0 Eosinophils (%) (Auto) 1.0 Basophils (%) (Auto) 0.3 Neutrophils # (Auto) 14.8 Lymphocytes # (Auto) 2.9 Monocytes # (Auto) 1.0 Eosinophils # (Auto) 0.2 Basophils # (Auto) 0.1 CBC Comment AUTO DIFF Differential Total Cells Counted 100 Neutrophils % (Manual) 76 Band Neutrophils % 3 Lymphocytes % 13 Monocytes % 5 Eosinophils % 1 Neutrophils # (Manual) 15.3 Myelocytes 2 Nucleated Red Blood Cells 1 Differential Comment FINAL DIFF MANUAL Platelet Estimate HIGH Platelet Morphology Comment NORMAL Blood Urea Nitrogen 45 Creatinine 1.72 Random Glucose 110 Calcium Level 9.3 Sodium Level 125 Potassium Level 5.1 Chloride Level 88 Carbon Dioxide Level 25.8 Anion Gap 11 Estimat Glomerular Filtration Rate 29 Date/Time Source Procedure Growth Status 06/02/17 14:45 Blood Peripheral Aerobic Blood Culture - Final NO GROWTH IN 5 DAYS Complete 06/02/17 14:45 Blood Peripheral Anaerobic Blood Culture - Final NO GROWTH IN 5 DAYS Complete 06/02/17 21:50 Urine Random Urine Urine Culture - Final Escherichia Coli Complete Radiology Last Impressions Abdomen X-Ray 06/03/17 0800 Signed Impressions: Service Date/Time: Saturday, June 03, 2017 10:02 - CONCLUSION: 1. Persistent diffuse gaseous small bowel distention consistent with distal small bowel obstruction versus severe adynamic ileus. No definitive radiographically evidence for perforation or bowel infarction at this time. Patricio Pantoja MD Chest X-Ray 06/02/17 0000 Signed Impressions: Service Date/Time: Friday, June 02, 2017 10:42 - CONCLUSION: Small area of atelectasis in the left midlung field unchanged from previous. Lungs are otherwise clear. Support equipment is stable. Malick Arias MD Lower Extremity Ultrasound 06/01/17 0000 Signed Impressions: Service Date/Time: Thursday, June 01, 2017 13:35 - CONCLUSION: 1. Findings consistent with extensive acute right lower extremity DVT extending from the proximal right femoral vein to the posterior tibial vein. More centrally, the common femoral and iliac veins appear patent. 2. 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 Patricio Pantoja MD Small Bowel X-Ray 05/28/17 0000 Signed Impressions: Service Date/Time: Sunday, May 28, 2017 08:36 - CONCLUSION: Delay in transit of the contrast to the large bowel by 8.5 hours. Numerous dilated loops of small intestine are seen. Luisito Barahona MD Abdomen/Pelvis CT 05/25/17 0136 Signed Impressions: Service Date/Time: Thursday, May 25, 2017 01:51 - CONCLUSION: Diffusely dilated loops of small bowel down to the terminal ileum with air-fluid levels suggesting either diffuse ileus or small bowel obstruction. Renato Driscoll MD Narrative Exam NAD Abd: nondistended, soft. G tube clamped. Ileostomy pink, viable, edematous. Stool soft solid and liquid A/P Assessment and Plan 71 yo H/o radical hysterectomy/oophorectomy on chemotherapy for recurrent ovarian cancer with diffuse small bowel ileus vs partial obstruction. S/p ileostomy, g tube for obstruction. Nausea again. Schedule zofran and reglan, prn phenergan. D/w Dr. Rivera. Reg Earl MD Jun 16, 2017 13:33
--- NOTE | 2017-06-16 13:36 | HHI.PR ---
Subjective Remarks Pt c/o discomfort at gluteal clef. No nausea. Tolerating small amount of PO intake. Objective Vitals Vital Signs Date Time Temp Pulse Resp B/P (MAP) Pulse Ox O2 Delivery O2 Flow Rate FiO2 06/16/17 07:53 95.9 92 18 112/63 (79) 96 06/15/17 23:30 98.5 93 18 119/70 (86) 99 06/15/17 19:45 99.1 97 18 115/64 (81) 98 06/15/17 16:00 97.6 95 18 103/71 (82) 100 06/15/17 13:32 97.5 96 18 122/75 (91) 99 06/16/17 06/16/17 06/17/17 14:59 22:59 06:59 Intake Total 720 ml Balance 720 ml Intake Oral 720 ml # Voids 1 # Bowel Movements 0 Result Diagram: 06/16/17 0545 06/16/17 0545 Imaging Last Impressions Abdomen X-Ray 05/29/17 0600 Signed Impressions: Service Date/Time: Monday, May 29, 2017 06:24 - CONCLUSION: 1. Persistent dilatation of small bowel which is stable to slightly improved from May 26. Residual contrast throughout colon. Miki Chan MD Small Bowel X-Ray 05/28/17 0000 Signed Impressions: Service Date/Time: Sunday, May 28, 2017 08:36 - CONCLUSION: Delay in transit of the contrast to the large bowel by 8.5 hours. Numerous dilated loops of small intestine are seen. Luisito Barahona MD Abdomen/Pelvis CT 05/25/17 0136 Signed Impressions: Service Date/Time: Thursday, May 25, 2017 01:51 - CONCLUSION: Diffusely dilated loops of small bowel down to the terminal ileum with air-fluid levels suggesting either diffuse ileus or small bowel obstruction. Renato Driscoll MD Objective Remarks General: NAD, AAOx3 Chest: CTA Cardiac: Regular Abd: +BS, soft ileostomy in right abdomen, G-tube in place in LUQ Ext: No edema Procedures ileostomy, g tube placement A/P Problem List: (1) Bowel obstruction ICD Codes: K56.60 - Unspecified intestinal obstruction Status: Acute Plan: - Pt is 71 yo with brca 2 who had ovarian Ca with LIZ/BSO, omentectomy, lysis of adhesions [place] [address] Huang. Has had chemo with Taxol, Carboplatin, Gemzar, Tamoxifen and then Lynparza this past year. There have been concerns of recurrence with a recent rise in ca 125. Dr. Huang has done PET scans and find no major focus of disease. Most recently she has been getting Topotecan weekly for past 3 weeks - comgmt with [facility] [employer] [facility] - Pt presented with crampy abdomen pain which occurs with each treatment and then progressed to no BM over several days prior to admission. - CT A/P shows diffusely dilated loops of small bowel down to the terminal ileum with air-fluid levels suggesting either diffuse ileus or small bowel obstruction. - Pt had similar events after starting lynparza in 2016 - KUB (05/26) --> Stable abnormally dilated small bowel measuring up to 5.4 cm with paucity of distal bowel gas. Findings are suspicious for distal small bowel obstruction. One of the small bowel segments in the left abdomen demonstrates thumbprinting which can be seen with submucosal edema. - SBFT (05/28) --> Delay in transit of the contrast to the large bowel by 8.5 hours. Numerous dilated loops of small intestine are seen. - SBFT results were discussed with radiology and they feel that these findings are most likely consistent with obstruction. -- Per Dr. 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 cymbalta stopped - nausea worse today (06/16) - Monitor output from ostomy, higher output 06/15/17 - decreased NA to 125 (06/16), worsening BUN/CR 45/1.72 (06/16) - schedule zofran & reglan - prn phenergan - IVFs - repeat BMP/CBC/mag in AM - etiology of continued elevation of pt's WBC is unclear - obtain repeat CXR and UA - consider repeat CT abdomen - Pain control PRN - Cont anticoagulation for dvt. convert to po on d/c - Home BP meds on hold, BP is low but stable, resume as needed - ostomy leakage resolved. Pt had teaching from ostomy nurse and removal of bars - sourse of antibiotics completed vancomycin, levaquin, flagyl - Pt was treated for E.Coli UTI - Per previous discussion with with Dr Huang....cont chemo after pt heals. - Case d/w Dr. 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 (3) Hypokalemia ICD Codes: E87.6 - Hypokalemia Status: Chronic Plan: - Improved. (4) HTN (hypertension), benign ICD Codes: I10 - Essential (primary) hypertension Status: Chronic Plan: - see above (5) Anxiety ICD Codes: F41.9 - Anxiety disorder, unspecified Status: Chronic Brown Rivera DO Jun 16, 2017 13:36
[2017-06-16] MEDS: NYSTATIN 100,000 U/GM OINT 15 GM TUBE TOPICAL SCH ×2 (14:00→22:25)
[2017-06-16] MEDS: ONDANSETRON HCL 4 MG/2 ML VIAL IV PUSH SCH ×3 (14:36→22:25)
[2017-06-16] MEDS: METOCLOPRAMIDE HCL 10 MG/2 ML VIAL IV PUSH SCH ×2 (14:36→22:26)
[2017-06-16] MEDS: SODIUM CHLOR 0.9% 1000 ML INJ 1,000 ML IV SCH (15:01)
[2017-06-16 16:00] VITALS: BP 114/61; PULSE 97; RESP 18; TEMP 96.2; O2SAT 99
--- NOTE | 2017-06-16 16:03 | RADRPT ---
EXAM DATE/TIME: 06/16/2017 15:16 [facility] COMPARISON: ABDOMEN KUB ONLY, May 30, 2017, 9:06. INDICATIONS : Nausea. MEDICAL HISTORY : Hypertension. Carcinoma, ovarian. SURGICAL HISTORY : Port placement. G-tube. ENCOUNTER: Subsequent ACUITY: 3 days PAIN SCORE: 0/10 LOCATION: abdomen. FINDINGS: Supine view of the abdomen was performed. The abdominal bowel gas pattern is normal. No abnormal ma sses, calcifications, or organomegaly is seen. The osseous structures are unremarkable. A gastrostom y tube is in place overlying the region of the stomach. An ostomy is present in the right lower quadr ant. CONCLUSION: 1. No evidence of obstruction. Edgardo Valero MD on June 16, 2017 at 16:01 Board Certified Radiologist. This report was verified electronically.
[2017-06-16 17:35] LABS: BACTERIA, URINE OCC /hpf; BLOOD, URINE TRACE (NEG); COMMENT (UR) CULTURE INDICATED; CULTURE IF INDICATED CULTURE INDICATED; GLUCOSE,URINE NEG (NEG); GRANULAR CAST, URINE 3 /lpf; KETONE, URINE NEG (NEG); NITRITE,URINE NEG (NEG); PH, URINE 5.5 (5.0-8.5); SQUAMOUS EPITHELIAL CELL URINE 11 /hpf (0-5); TRANSITIONAL EPI CELLS, URINE <1 /hpf; URINE COLOR YELLOW (YELLW/STRAW)
[2017-06-16 19:00] VITALS: BP 121/60; PULSE 95; RESP 15; TEMP 96.5; O2SAT 99
[2017-06-16] MEDS: LORazepam 2 MG/ML VIAL IV PUSH PRN (22:36)
[2017-06-17] VITALS: BP 127/59; PULSE 83; RESP 16; TEMP 98.3; O2SAT 99
[2017-06-17] MEDS ORDERED: PADIMATE (CHAPSTICK) 4.5 GM TUBE TOPICAL PRN (00:45)
[2017-06-17] MEDS: ONDANSETRON HCL 4 MG/2 ML VIAL IV PUSH SCH ×6 (02:03→21:48)
[2017-06-17] MEDS: METOCLOPRAMIDE HCL 10 MG/2 ML VIAL IV PUSH SCH ×3 (05:36→21:48)
[2017-06-17] MEDS: DRONABINOL 5 MG CAP PO PRN ×3 (05:36→19:27)
[2017-06-17] MEDS: ENOXAPARIN SODIUM 100 MG/ML SYRINGE SQ SCH (05:36)
[2017-06-17] MEDS: NYSTATIN 100,000 U/GM OINT 15 GM TUBE TOPICAL SCH ×3 (05:37→21:48)
[2017-06-17 06:10] LABS: AUTOMATED NEUTROPHIL # 11.3 TH/MM3 (1.8-7.7); BASOPHIL % 0.3 % (0.0-2.0); EOSINOPHIL # 0.2 TH/MM3 (0-0.4); EOSINOPHIL % 1.4 % (0.0-4.0); HEMATOCRIT 31.8 % (35.0-46.0); LYMPH % 15.3 % (9.0-44.0); LYMPHOCYTE # 2.2 TH/MM3 (1.0-4.8); MEAN CELL VOLUME 96.2 FL (80.0-100.0); MEAN CORPUSCULAR HEMOGLOBIN 31.6 PG (27.0-34.0); MEAN CORPUSCULAR HGB CONC 32.9 % (32.0-36.0); MONO % 5.3 % (0.0-8.0); NEUT % 77.7 % (16.0-70.0); PLATELET COUNT 463 TH/MM3 (150-450); RED BLOOD COUNT 3.31 MIL/MM3 (4.00-5.30); RED CELL DISTRIBUTION WIDTH 19.3 % (11.6-17.2); WHITE BLOOD COUNT 14.6 TH/MM3 (4.0-11.0)
[2017-06-17 06:11] LABS: HEMO FLAGS AUTO DIFF
[2017-06-17 06:40] LABS: MAGNESIUM 2.1 MG/DL (1.5-2.5); POTASSIUM 4.3 MEQ/L (3.5-5.1)
[2017-06-17 07:06] VITALS: BP 116/55; PULSE 93; RESP 17; TEMP 97.4; O2SAT 99
[2017-06-17 07:16] LABS: BANDS 3 % (0-6); EOSINOPHILS 1 % (0-4); METAMYELOCYTES 1 % (0-1); MYELOCYTES 1 % (0-0); NEUTROPHIL # MANUAL DIFF 10.5 TH/MM3 (1.8-7.7); PLATELET ESTIMATE SMEAR HIGH (NORMAL); PLATELET MORPHOLOGY NORMAL (NORMAL); POLYS (SEG NEUTROPHILS) 67 % (16-70); SCAN/DIFF FINAL DIFF MANUAL; WBC DIFF SAMPLE 100
--- NOTE | 2017-06-17 07:46 | PD.ONC.PN ---
Subjective Subjective Remarks patient is resting in bed states is craving tomatoes and salty things was trying to drink Gatorade but she states it was making her feel ill...denies any vomiting in last 24 hours has been OOB to chair but very limited would like to speak with binding stitcher for suggestions Talked with Mrs. Ocasio about her kidney function that she has to increase fluids (IVF restarted). We can not give her chemo with poor kidney function and my concern is that although she may feel like she wants to continue on with treatment physically she is not improving to the point that she needs to be to be discharged and go to rehab. I will consult binding stitcher to see if they have any suggestions to help increase her intake. Objective Data Date Time Temp Pulse Resp B/P (MAP) Pulse Ox O2 Delivery O2 Flow Rate FiO2 06/16/17 19:00 96.5 95 15 121/60 (80) 99 06/16/17 16:00 96.2 97 18 114/61 (78) 99 06/16/17 11:40 98.0 96 18 107/68 (81) 96 06/16/17 07:53 95.9 92 18 112/63 (79) 96 06/17/17 06/17/17 06/17/17 07:00 15:00 23:00 Intake Total 380 ml Output Total 700 ml Balance -320 ml Result Diagram: 06/17/17 0534 06/17/17 0534 Laboratory Results Laboratory Tests Test 06/16/17 17:06 06/17/17 05:34 Urine Color YELLOW Urine Turbidity HAZY Urine pH 5.5 Urine Specific [place] 1.021 Urine Protein TRACE mg/dL Urine Glucose (UA) NEG mg/dL Urine Ketones NEG mg/dL Urine Occult Blood TRACE Urine Nitrite NEG Urine Bilirubin NEG Urine Urobilinogen LESS THAN 2.0 MG/DL Urine Leukocyte Esterase LARGE Urine RBC 5 /hpf Urine WBC 144 /hpf Urine WBC Clumps OCC Urine Squamous Epithelial Cells 11 /hpf Urine Transitional Epithelial Cells <1 /hpf Urine Bacteria OCC /hpf Urine Granular Casts 3 /lpf Urine Yeast (Budding) OCC Microscopic Urinalysis Comment CULTURE INDICATED White Blood Count 14.6 TH/MM3 Red Blood Count 3.31 MIL/MM3 Hemoglobin 10.5 GM/DL Hematocrit 31.8 % Mean Corpuscular Volume 96.2 FL Mean Corpuscular Hemoglobin 31.6 PG Mean Corpuscular Hemoglobin Concent 32.9 % Red Cell Distribution Width 19.3 % Platelet Count 463 TH/MM3 Mean Platelet Volume 8.2 FL Neutrophils (%) (Auto) 77.7 % Lymphocytes (%) (Auto) 15.3 % Monocytes (%) (Auto) 5.3 % Eosinophils (%) (Auto) 1.4 % Basophils (%) (Auto) 0.3 % Neutrophils # (Auto) 11.3 TH/MM3 Lymphocytes # (Auto) 2.2 TH/MM3 Monocytes # (Auto) 0.8 TH/MM3 Eosinophils # (Auto) 0.2 TH/MM3 Basophils # (Auto) 0.0 TH/MM3 CBC Comment AUTO DIFF Differential Total Cells Counted 100 Neutrophils % (Manual) 67 % Band Neutrophils % 3 % Lymphocytes % 22 % Monocytes % 5 % Eosinophils % 1 % Neutrophils # (Manual) 10.5 TH/MM3 Metamyelocytes 1 % Myelocytes 1 % Differential Comment FINAL DIFF MANUAL Platelet Estimate HIGH Platelet Morphology Comment NORMAL Blood Urea Nitrogen 55 MG/DL Creatinine 1.96 MG/DL Random Glucose 135 MG/DL Calcium Level 8.2 MG/DL Magnesium Level 2.1 MG/DL Sodium Level 125 MEQ/L Potassium Level 4.3 MEQ/L Chloride Level 89 MEQ/L Carbon Dioxide Level 26.0 MEQ/L Anion Gap 10 MEQ/L Estimat Glomerular Filtration Rate 25 ML/MIN Culture Results Microbiology Date/Time Source Procedure Growth Status 06/16/17 17:06 Urine Clean Catch Urine Culture Pending Received Administered Medications Medications (Trade) Dose Ordered Sig/Anette Route PRN Reason Start Time Stop Time Status Last Admin Dose Admin Alprazolam (Xanax) 1 mg HS PRN PO anxiety 05/25/17 21:00 06/07/17 22:47 Clonidine (Catapres) 0.1 mg Q6H PRN PO sbp > 170 05/26/17 09:00 05/30/17 15:57 Al Hydrox/Mg Hydrox/Simethicone (Mag-Al Plus Susp Liq) 30 ml Q4H PRN PO HEARTBURN 05/26/17 18:30 05/26/17 22:13 Lorazepam (Ativan Inj) 1 mg Q4H PRN IV PUSH anxiety 05/28/17 14:00 06/16/17 22:36 Phenol (Chloraseptic [place]) 2 spray Q2H PRN OROPHARYNG SORE THROAT 9/29/17 11:45 05/31/17 14:26 Enoxaparin Sodium (Lovenox Inj) 100 mg Q12H SQ 06/01/17 18:00 06/17/17 05:36 Acetaminophen 100 ml @ 400 mls/hr Q6H PRN IV fever/pain 1-10 06/03/17 09:30 06/07/17 04:33 Sodium Chloride (NS Flush) 2 ml UNSCH PRN IV FLUSH FLUSH AFTER USING IV ACCESS 06/05/17 16:45 06/11/17 04:00 Sodium Chloride (NS Flush) 2 ml BID IV FLUSH 06/05/17 21:00 06/16/17 22:26 Oxycodone/ Acetaminophen (Percocet 5-325 Mg) 1 tab Q4H PRN PO PAIN SCALE 1 TO 5 06/05/17 16:45 06/11/17 02:37 Morphine Sulfate (Morphine Inj) 2 mg Q1H PRN IV BREAKTROUGH PAIN > 5 06/05/17 21:00 06/05/17 23:30 Dronabinol (Marinol) 5 mg Q6HR PRN PO nausea 06/12/17 18:00 06/17/17 05:36 Sodium Chloride 1,000 ml @ 84 mls/hr [id number] IV 06/16/17 08:30 06/16/17 15:01 Ondansetron HCl (Zofran Inj) 4 mg Q4H IV PUSH 06/16/17 14:00 06/17/17 05:37 Metoclopramide HCl (Reglan Inj) 5 mg Q8HR IV PUSH 06/16/17 14:00 06/17/17 05:36 Nystatin (Mycostatin Oint) 1 applic Q8HR TOPICAL 06/16/17 14:00 06/17/17 05:37 Objective Remarks GENERAL: well-developed patient. SKIN: Warm and dry. HEAD: Normocephalic. EYES: No scleral icterus. No injection or drainage. NECK: Supple, trachea midline. CARDIOVASCULAR: Regular rate and rhythm without murmurs. RESPIRATORY: Breath sounds equal bilaterally. No accessory muscle use. GASTROINTESTINAL: Abdomen soft, non-tender, nondistended. with ileostomy to left quad and g tube to right quad EXTREMITIES: No cyanosis MUSCULOSKELETAL: Adequate muscle tone. NEUROLOGICAL: No obvious focal deficit. Awake, alert, and oriented x3. PSYCHIATRIC: Appropriate mood and affect; insight and judgment normal. Assessment/Plan Problem List: (1) Small bowel obstruction ICD Codes: K56.69 - Other intestinal obstruction Status: Acute Plan: s/p exploratory laparoscopic resection of bowel obstruction, ileostomy and g tube placement general surgery following, g tube to drainage bag patient found to have diffuse carcinomatosis causing obstruction full diet, improving intake slowly....low sodium encouraged intake to help improve Na+ and kidney function...IVF restarted binding stitcher consult supportive care pt to SNF close to home once she had improved intake Marinol to help increase appetite (2) Recurrent carcinoma of ovary ICD Codes: C56.9 - Malignant neoplasm of unspecified ovary Status: Chronic Plan: patient to rehab will follow up as outpt to discuss with Dr. Huang IV chemotherapy my concern is that physically she is not getting any stronger to be able to tolerate rehab we may consider Palliative Care consult if she does not improve in next couple of days. (3) UTI (urinary tract infection) ICD Codes: N39.0 - Urinary tract infection, site not specified Status: Resolved (4) Elevated WBC count ICD Codes: D72.829 - Elevated white blood cell count, unspecified Plan: afebrile and WBC improved with am labs urine culture is pending pt to X ray this morning prior CXR---NL prior abd x ray---- no obstruction (5) Hypokalemia ICD Codes: E87.6 - Hypokalemia Status: Chronic Plan: encourage intake IVF monitor labs pt with ileostomy...more formed stool binding stitcher consult. Olivia Thacker Jun 17, 2017 07:46
[2017-06-17] MEDS ORDERED: diphenhydrAMINE HCL 2%/ZINC ACETATE 0.1% CREAM 30 APPLIC/30 GM TUBE TOPICAL PRN (08:00)
--- NOTE | 2017-06-17 08:02 | RADRPT ---
EXAM DATE/TIME: 06/17/2017 07:48 [facility] COMPARISON: ABDOMEN KUB ONLY, June 16, 2017, 15:16. INDICATIONS : Cough. MEDICAL HISTORY : Hypertension. Carcinoma, ovarian. SURGICAL HISTORY : port placement. ENCOUNTER: Initial ACUITY: 1 day PAIN SCORE: 0/10 LOCATION: Bilateral chest FINDINGS: The [id number] in excellent position. The heart is normal in size. The mediastinal contours are wi thin normal limits. There is a small area of linear atelectasis at the left lung base. The lungs are otherwise clear. Visualized bony structures are grossly intact. Incidental note is made of a gastrost connie tube overlying the upper abdomen. CONCLUSION: 1. Small area of atelectasis at the left lung base. The lungs are otherwise clear. Malick Arias MD on June 17, 2017 at 7:59 Board Certified Radiologist. This report was verified electronically.
[2017-06-17] MEDS: SODIUM CHLOR 0.9% 1000 ML INJ 1,000 ML IV SCH ×3 (08:20→19:30)
[2017-06-17] MEDS: SODIUM CHLORIDE 0.9% FLUSH 10 ML FLUSH IV FLUSH SCH ×2 (08:55→19:30)
--- NOTE | 2017-06-17 10:49 | HHI.PR ---
Subjective Remarks pt says she is confused and unsure of what to do. Told that chemo will not change her poor prognosis. She will discuss with her . no vomiting. [place] food Objective Vitals heart reg lung cta abd s/nt/ostomy ext no edema Vital Signs Date Time Temp Pulse Resp B/P (MAP) Pulse Ox O2 Delivery O2 Flow Rate FiO2 06/17/17 07:06 97.4 93 17 116/55 (75) 99 06/16/17 19:00 96.5 95 15 121/60 (80) 99 06/16/17 16:00 96.2 97 18 114/61 (78) 99 06/16/17 11:40 98.0 96 18 107/68 (81) 96 Result Diagram: 06/17/17 0534 06/17/17 0534 Imaging Last Impressions Abdomen X-Ray 05/29/17 0600 Signed Impressions: Service Date/Time: Monday, May 29, 2017 06:24 - CONCLUSION: 1. Persistent dilatation of small bowel which is stable to slightly improved from May 26. Residual contrast throughout colon. Miki Chan MD Small Bowel X-Ray 05/28/17 0000 Signed Impressions: Service Date/Time: Sunday, May 28, 2017 08:36 - CONCLUSION: Delay in transit of the contrast to the large bowel by 8.5 hours. Numerous dilated loops of small intestine are seen. Luisito Barahona MD Abdomen/Pelvis CT 05/25/17 0136 Signed Impressions: Service Date/Time: Thursday, May 25, 2017 01:51 - CONCLUSION: Diffusely dilated loops of small bowel down to the terminal ileum with air-fluid levels suggesting either diffuse ileus or small bowel obstruction. Renato Driscoll MD Procedures ileostomy, g tube placement A/P Problem List: (1) Bowel obstruction ICD Codes: K56.60 - Unspecified intestinal obstruction Status: Acute Plan: - Pt is 71 yo with brca 2 who had ovarian Ca with LIZ/BSO, omentectomy, lysis of adhesions [place] [address] Huang. Has had chemo with Taxol, Carboplatin, Gemzar, Tamoxifen and then Lynparza this past year. There have been concerns of recurrence with a recent rise in ca 125. Dr. Huang has done PET scans and find no major focus of disease. Most recently she has been getting Topotecan weekly for past 3 weeks - comgmt with [facility] [employer] [facility] - Pt presented with crampy abdomen pain which occurs with each treatment and then progressed to no BM over several days prior to admission. - CT A/P shows diffusely dilated loops of small bowel down to the terminal ileum with air-fluid levels suggesting either diffuse ileus or small bowel obstruction. - Pt had similar events after starting lynparza in 2016 - KUB (05/26) --> Stable abnormally dilated small bowel measuring up to 5.4 cm with paucity of distal bowel gas. Findings are suspicious for distal small bowel obstruction. One of the small bowel segments in the left abdomen demonstrates thumbprinting which can be seen with submucosal edema. - SBFT (05/28) --> Delay in transit of the contrast to the large bowel by 8.5 hours. Numerous dilated loops of small intestine are seen. - SBFT results were discussed with radiology and they feel that these findings are most likely consistent with obstruction. -- Per Dr. 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 Pt had teaching from ostomy nurse and removal of bars - sourse of antibiotics completed vancomycin, levaquin, flagyl - Pt was treated for E.Coli UTI - dvt's...cont anticoagulation. will renal dose. - Per previous discussion with with Dr Huang....cont chemo after pt heals. - Her hyponatremia and declining renal function are barriers to d/c to snf. will increase ivf today. check urine and serum osmols. urine na. 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 (3) Hypokalemia ICD Codes: E87.6 - Hypokalemia Status: Chronic Plan: - Improved. (4) HTN (hypertension), benign ICD Codes: I10 - Essential (primary) hypertension Status: Chronic Plan: - see above (5) Anxiety ICD Codes: F41.9 - Anxiety disorder, unspecified Status: Chronic Gary Arellano MD Jun 17, 2017 10:49
[2017-06-17 11:15] VITALS: BP 117/56; PULSE 81; RESP 17; TEMP 96; O2SAT 99
[2017-06-17 16:00] VITALS: BP 123/58; PULSE 88; RESP 17; TEMP 97.7; O2SAT 100
--- NOTE | 2017-06-17 16:05 | PD.WCN.NOT ---
Wound Consult Description: Received consult for wound management of buttock from Doctor Miguel Communicated with: DENISE Garcia [address] [place] [address] and call placed to Doctor Arellano for orders Recommendation: Please continue antifungal cream every 8 hours and calazime barrier cream to buttock area BID and PRN. Please continue to assist patient in turning repositioning in bed to offload pressure from buttock area Additional Information: Patient seen on [address] [place] [address] for evaluation of buttock wound management. Patient able to turn self in bed for wound assessment. Buttock area noted with blanchable erythematous rash that presents with satellite lesions, indicating fungal etiology. Patient is on nystatin cream for rash and Calazime barrier cream for moisture related erythema. Patient states," It feels better than it did". Patient positioned self back in supine position. DENISE Garcia to apply Calazime barrier cream and nystatin antifungal cream. Myah Mercer [facility] Jun 17, 2017 16:05
[2017-06-17 20:45] VITALS: BP 95/71; PULSE 90; RESP 19; TEMP 97; O2SAT 100
[2017-06-18] MEDS: LORazepam 2 MG/ML VIAL IV PUSH PRN ×2 (00:25→21:35)
[2017-06-18] MEDS: ONDANSETRON HCL 4 MG/2 ML VIAL IV PUSH SCH ×6 (02:00→21:28)
[2017-06-18] MEDS: NYSTATIN 100,000 U/GM OINT 15 GM TUBE TOPICAL SCH ×3 (06:00→22:00)
[2017-06-18] MEDS: METOCLOPRAMIDE HCL 10 MG/2 ML VIAL IV PUSH SCH ×2 (06:00→14:12)
[2017-06-18 07:00] LABS: BICARBONATE 25.7 MEQ/L (21.0-32.0); POTASSIUM 4.5 MEQ/L (3.5-5.1)
[2017-06-18] MEDS: DRONABINOL 5 MG CAP PO PRN ×3 (07:41→21:28)
[2017-06-18 08:25] VITALS: BP 135/62; PULSE 87; RESP 20; TEMP 98.3; O2SAT 98
[2017-06-18] MEDS: ENOXAPARIN SODIUM 100 MG/ML SYRINGE SQ SCH (08:54)
[2017-06-18] MEDS: SODIUM CHLORIDE 0.9% FLUSH 10 ML FLUSH IV FLUSH SCH ×2 (08:54→21:00)
--- NOTE | 2017-06-18 10:49 | HHI.PR ---
Subjective Remarks feels better. Objective Vitals heart reg lung cta abd s/nt ostomy ext no edema Vital Signs Date Time Temp Pulse Resp B/P (MAP) Pulse Ox O2 Delivery O2 Flow Rate FiO2 06/18/17 08:25 98.3 87 20 135/62 (86) 98 06/17/17 20:45 97.0 90 19 95/71 (79) 100 06/17/17 16:00 97.7 88 17 123/58 (79) 100 06/17/17 11:15 96.0 81 17 117/56 (76) 99 06/18/17 06/18/17 06/19/17 14:59 22:59 06:59 Output Total 300 ml Balance -300 ml Stool Total 300 ml Result Diagram: 06/17/17 0534 06/18/17 0625 Imaging Last Impressions Abdomen X-Ray 05/29/17 0600 Signed Impressions: Service Date/Time: Monday, May 29, 2017 06:24 - CONCLUSION: 1. Persistent dilatation of small bowel which is stable to slightly improved from May 26. Residual contrast throughout colon. Miki Chan MD Small Bowel X-Ray 05/28/17 0000 Signed Impressions: Service Date/Time: Sunday, May 28, 2017 08:36 - CONCLUSION: Delay in transit of the contrast to the large bowel by 8.5 hours. Numerous dilated loops of small intestine are seen. Luisito Barahona MD Abdomen/Pelvis CT 05/25/17 0136 Signed Impressions: Service Date/Time: Thursday, May 25, 2017 01:51 - CONCLUSION: Diffusely dilated loops of small bowel down to the terminal ileum with air-fluid levels suggesting either diffuse ileus or small bowel obstruction. Renato Driscoll MD Procedures ileostomy, g tube placement A/P Problem List: (1) Bowel obstruction ICD Codes: K56.60 - Unspecified intestinal obstruction Status: Acute Plan: - Pt is 71 yo with brca 2 who had ovarian Ca with LIZ/BSO, omentectomy, lysis of adhesions [place] [address] Huang. Has had chemo with Taxol, Carboplatin, Gemzar, Tamoxifen and then Lynparza this past year. There have been concerns of recurrence with a recent rise in ca 125. Dr. Huang has done PET scans and find no major focus of disease. Most recently she has been getting Topotecan weekly for past 3 weeks - comgmt with [facility] - Pt presented with crampy abdomen pain which occurs with each treatment and then progressed to no BM over several days prior to admission. - CT A/P shows diffusely dilated loops of small bowel down to the terminal ileum with air-fluid levels suggesting either diffuse ileus or small bowel obstruction. - Pt had similar events after starting lynparza in 2016 - KUB (05/26) --> Stable abnormally dilated small bowel measuring up to 5.4 cm with paucity of distal bowel gas. Findings are suspicious for distal small bowel obstruction. One of the small bowel segments in the left abdomen demonstrates thumbprinting which can be seen with submucosal edema. - SBFT (05/28) --> Delay in transit of the contrast to the large bowel by 8.5 hours. Numerous dilated loops of small intestine are seen. - SBFT results were discussed with radiology and they feel that these findings are most likely consistent with obstruction. -- Per Dr. 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 - ostomy leakage resolved. Pt had teaching from ostomy nurse and removal of bars - Pt was treated for E.Coli UTI - dvt's...cont anticoagulation. will renal dose. - Per previous discussion with with Dr Huang....cont chemo after pt heals. - Her hyponatremia and declining renal function are barriers to d/c to snf. Her w/up is consistent with dehydration/hyponatremia/vonda from high output ostomy cont IVF. agree with trial of lamotil. bmp in AM. 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 (3) Hypokalemia ICD Codes: E87.6 - Hypokalemia Status: Chronic Plan: - Improved. (4) HTN (hypertension), benign ICD Codes: I10 - Essential (primary) hypertension Status: Chronic Plan: - see above (5) Anxiety ICD Codes: F41.9 - Anxiety disorder, unspecified Status: Chronic Gary Arellano MD Jun 18, 2017 10:49
[2017-06-18] MEDS: DIPHENOXYLATE/ATROPINE 2.5 MG/0.025 MG TAB PO SCH ×2 (12:25→18:19)
[2017-06-18] MEDS: SODIUM CHLOR 0.9% 1000 ML INJ 1,000 ML IV SCH ×2 (12:26→14:00)
[2017-06-18 12:39] VITALS: BP 96/58; PULSE 95; RESP 20; TEMP 98.3; O2SAT 97
--- NOTE | 2017-06-18 14:27 | HHI.PR ---
Subjective . No new c/o. Tolerating solid food, no N/V. Good pain control. Family present ( & daughter) Walked with PT to the end of the [place]ompson & back. Encouraged to continue OOB/ambulatory activities. Objective . Afeb, VSS. h/h 10.5, Na 128, Creat 1.59 A& O x 3 NAD, abdomen non-tender, stoma & G-tube sites clean, patent Assessment/Plan . Long discussion, Q&A CPM, initiate lomotil to slow output from ileostomy to improve fluid & electrolytes. OOB/Ambulate. work toward outpatient mgmt. Betzaida Huang MD Jun 18, 2017 14:27
[2017-06-18 17:18] VITALS: BP 138/59; PULSE 93; RESP 20; TEMP 98.4; O2SAT 99
[2017-06-18] MEDS: ALPRAZolam 1 MG TAB PO PRN (21:28)
[2017-06-18 21:30] VITALS: BP 131/60; PULSE 79; RESP 17; TEMP 99; O2SAT 100
[2017-06-19] MEDS: ONDANSETRON HCL 4 MG/2 ML VIAL IV PUSH SCH ×6 (01:02→21:43)
[2017-06-19] MEDS: DIPHENOXYLATE/ATROPINE 2.5 MG/0.025 MG TAB PO SCH ×5 (01:02→23:57)
[2017-06-19] MEDS: SODIUM CHLOR 0.9% 1000 ML INJ 1,000 ML IV SCH ×4 (02:45→17:46)
[2017-06-19] MEDS: LORazepam 2 MG/ML VIAL IV PUSH PRN ×2 (03:30→23:58)
[2017-06-19] MEDS: DRONABINOL 5 MG CAP PO PRN ×4 (03:31→23:58)
[2017-06-19] MEDS: NYSTATIN 100,000 U/GM OINT 15 GM TUBE TOPICAL SCH ×3 (06:00→21:43)
[2017-06-19 07:33] LABS: BICARBONATE 25.1 MEQ/L (21.0-32.0); POTASSIUM 4.5 MEQ/L (3.5-5.1)
[2017-06-19] MEDS: SODIUM CHLORIDE 0.9% FLUSH 10 ML FLUSH IV FLUSH SCH ×2 (07:56→20:39)
[2017-06-19] MEDS: ENOXAPARIN SODIUM 100 MG/ML SYRINGE SQ SCH (07:58)
[2017-06-19 08:49] VITALS: BP 114/55; PULSE 76; RESP 20; TEMP 98.2; O2SAT 98
--- NOTE | 2017-06-19 09:10 | PD.ONC.PN ---
Subjective Subjective Remarks Patient is resting in bed awakens to voice states was up walking yesterday and she is taking in more solid foods. still with liquid drainage from ileostomy, she is not sure if Imodium is helping at this point patient still wishes to improve her overall performance status to hopefully get IV chemotherapy I will talk with Dr. Huang about starting her on oral Tamoxifen ...she has taken it in the past and tolerated it well and our hopes would be to slow down progression of the disease. Objective Data Date Time Temp Pulse Resp B/P (MAP) Pulse Ox O2 Delivery O2 Flow Rate FiO2 06/19/17 08:49 98.2 76 20 114/55 (74) 98 06/18/17 21:30 99.0 79 17 131/60 (83) 100 06/18/17 17:18 98.4 93 20 138/59 (85) 99 06/18/17 12:39 98.3 95 20 96/58 (71) 97 06/19/17 06/19/17 06/19/17 07:00 15:00 23:00 Intake Total 2000 ml 480 ml Output Total 4500 ml 600 ml Balance -2500 ml -120 ml Result Diagram: 06/17/17 0534 06/19/17 0645 Laboratory Results Laboratory Tests Test 06/19/17 06:45 Blood Urea Nitrogen 27 MG/DL Creatinine 1.16 MG/DL Random Glucose 106 MG/DL Calcium Level 7.8 MG/DL Sodium Level 132 MEQ/L Potassium Level 4.5 MEQ/L Chloride Level 101 MEQ/L Carbon Dioxide Level 25.1 MEQ/L Anion Gap 6 MEQ/L Estimat Glomerular Filtration Rate 46 ML/MIN Culture Results Microbiology Date/Time Source Procedure Growth Status 06/16/17 17:06 Urine Clean Catch Urine Culture - Final 50-100,000 CFU/ML MIXED GRAM POSITIVE... Complete Administered Medications Medications (Trade) Dose Ordered Sig/Anette Route PRN Reason Start Time Stop Time Status Last Admin Dose Admin Alprazolam (Xanax) 1 mg HS PRN PO anxiety 05/25/17 21:00 06/18/17 21:28 Clonidine (Catapres) 0.1 mg Q6H PRN PO sbp > 170 05/26/17 09:00 05/30/17 15:57 Al Hydrox/Mg Hydrox/Simethicone (Mag-Al Plus Susp Liq) 30 ml Q4H PRN PO HEARTBURN 05/26/17 18:30 05/26/17 22:13 Lorazepam (Ativan Inj) 1 mg Q4H PRN IV PUSH anxiety 05/28/17 14:00 06/19/17 03:30 Phenol (Chloraseptic [place]) 2 spray Q2H PRN OROPHARYNG SORE THROAT 05/31/17 11:45 05/31/17 14:26 Acetaminophen 100 ml @ 400 mls/hr Q6H PRN IV fever/pain 1-10 06/03/17 09:30 06/07/17 04:33 Sodium Chloride (NS Flush) 2 ml UNSCH PRN IV FLUSH FLUSH AFTER USING IV ACCESS 06/05/17 16:45 06/11/17 04:00 Sodium Chloride (NS Flush) 2 ml BID IV FLUSH 06/05/17 21:00 06/18/17 21:00 Oxycodone/ Acetaminophen (Percocet 5-325 Mg) 1 tab Q4H PRN PO PAIN SCALE 1 TO 5 06/05/17 16:45 06/11/17 02:37 Morphine Sulfate (Morphine Inj) 2 mg Q1H PRN IV BREAKTROUGH PAIN > 5 06/05/17 21:00 06/05/17 23:30 Dronabinol (Marinol) 5 mg Q6HR PRN PO nausea 06/12/17 18:00 06/19/17 03:31 Ondansetron HCl (Zofran Inj) 4 mg Q4H IV PUSH 06/16/17 14:00 06/19/17 06:30 Nystatin (Mycostatin Oint) 1 applic Q8HR TOPICAL 06/16/17 14:00 06/19/17 06:00 Sodium Chloride 1,000 ml @ 100 mls/hr Q10H IV 06/17/17 10:45 06/19/17 08:03 Enoxaparin Sodium (Lovenox Inj) 100 mg DAILY SQ 06/18/17 09:00 06/19/17 07:58 Diphenoxylate HCl/ Atropine (Lomotil Tab) 1 tab Q6HR PO 06/18/17 12:00 06/19/17 06:30 Objective Remarks GENERAL: well-developed patient. SKIN: Warm and dry. HEAD: Normocephalic. EYES: No scleral icterus. No injection or drainage. NECK: Supple LYMPHATIC: No adenopathy. CARDIOVASCULAR: Regular rate and rhythm without murmurs. RESPIRATORY: Breath sounds equal bilaterally. No accessory muscle use. GASTROINTESTINAL: Abdomen soft, non-tender, nondistended. with ileostomy liquid brown drainage. g tube EXTREMITIES: No cyanosis, mild edema biat LE MUSCULOSKELETAL: Adequate muscle tone. NEUROLOGICAL: No obvious focal deficit. Awake, alert, and oriented x3. PSYCHIATRIC: Appropriate mood and affect; insight and judgment normal. Assessment/Plan Problem List: (1) Small bowel obstruction ICD Codes: K56.69 - Other intestinal obstruction Status: Acute Plan: s/p exploratory laparoscopic resection of bowel obstruction, ileostomy and g tube placement general surgery following. 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 improving electrolytes kidney function. improving continued IVF ux manager consult supportive care pt to SNF close to home once she had improved intake Marinol to help increase appetite (2) Recurrent carcinoma of ovary ICD Codes: C56.9 - Malignant neoplasm of unspecified ovary Status: Chronic Plan: patient to rehab will follow up as outpt to discuss with Dr. Huang IV chemotherapy will consider restarting Tamoxifen 20mg daily to hopefully slow progression of disease. (3) UTI (urinary tract infection) ICD Codes: N39.0 - Urinary tract infection, site not specified Status: Resolved Plan: current urine is being reintubated possible contaminate (4) Elevated WBC count ICD Codes: D72.829 - Elevated white blood cell count, unspecified Plan: afebrile urine culture reintubated pt to X ray small area of atelectasis to lower lobe prior abd x ray---- no obstruction (5) Hyponatremia ICD Codes: E87.1 - Hypo-osmolality and hyponatremia Status: Acute Plan: improving IVF encourage intake continue to monitor labs Olivia Thacker Jun 19, 2017 09:10
--- NOTE | 2017-06-19 10:44 | HHI.PR ---
Subjective Remarks overall seems to be doing better. [place] food. Objective Vitals heart reg lung cta abd s/nt/ostomy ext no edema Vital Signs Date Time Temp Pulse Resp B/P (MAP) Pulse Ox O2 Delivery O2 Flow Rate FiO2 06/19/17 08:49 98.2 76 20 114/55 (74) 98 06/18/17 21:30 99.0 79 17 131/60 (83) 100 06/18/17 17:18 98.4 93 20 138/59 (85) 99 06/18/17 12:39 98.3 95 20 96/58 (71) 97 06/19/17 06/19/17 06/20/17 15:00 23:00 07:00 Intake Total 480 ml Output Total 600 ml Balance -120 ml Intake Oral 480 ml Output Urine Total 200 ml Stool Total 400 ml Result Diagram: 06/17/17 0534 06/19/17 0645 Imaging Last Impressions Abdomen X-Ray 05/29/17 0600 Signed Impressions: Service Date/Time: Monday, May 29, 2017 06:24 - CONCLUSION: 1. Persistent dilatation of small bowel which is stable to slightly improved from May 26. Residual contrast throughout colon. Miki Chan MD Small Bowel X-Ray 05/28/17 0000 Signed Impressions: Service Date/Time: Sunday, May 28, 2017 08:36 - CONCLUSION: Delay in transit of the contrast to the large bowel by 8.5 hours. Numerous dilated loops of small intestine are seen. Luisito Barahona MD Abdomen/Pelvis CT 05/25/17 0136 Signed Impressions: Service Date/Time: Thursday, May 25, 2017 01:51 - CONCLUSION: Diffusely dilated loops of small bowel down to the terminal ileum with air-fluid levels suggesting either diffuse ileus or small bowel obstruction. Renato Driscoll MD Procedures ileostomy, g tube placement A/P Problem List: (1) Bowel obstruction ICD Codes: K56.60 - Unspecified intestinal obstruction Status: Acute Plan: - Pt is 71 yo with brca 2 who had ovarian Ca with LIZ/BSO, omentectomy, lysis of adhesions [place] [address] Huang. Has had chemo with Taxol, Carboplatin, Gemzar, Tamoxifen and then Lynparza this past year. There have been concerns of recurrence with a recent rise in ca 125. Dr. Huang has done PET scans and find no major focus of disease. Most recently she has been getting Topotecan weekly for past 3 weeks - comgmt with [facility] [employer] [facility] - Pt presented with crampy abdomen pain which occurs with each treatment and then progressed to no BM over several days prior to admission. - CT A/P shows diffusely dilated loops of small bowel down to the terminal ileum with air-fluid levels suggesting either diffuse ileus or small bowel obstruction. - Pt had similar events after starting lynparza in 2016 - KUB (05/26) --> Stable abnormally dilated small bowel measuring up to 5.4 cm with paucity of distal bowel gas. Findings are suspicious for distal small bowel obstruction. One of the small bowel segments in the left abdomen demonstrates thumbprinting which can be seen with submucosal edema. - SBFT (05/28) --> Delay in transit of the contrast to the large bowel by 8.5 hours. Numerous dilated loops of small intestine are seen. - SBFT results were discussed with radiology and they feel that these findings are most likely consistent with obstruction. -- Per Dr. 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 - ostomy leakage resolved. Pt had teaching from ostomy nurse and removal of bars - Pt was treated for E.Coli UTI - dvt's...cont anticoagulation. will renal dose. but will convert to eliquis tomorrow. - Per previous discussion with with Dr Huang....cont chemo after pt heals. - Her hyponatremia and declining renal function are barriers to d/c to snf. Her w/up is consistent with dehydration/hyponatremia/vonda from high output ostomy cont IVF. agree with trial of lamotil. her na and cr are improving. will give dose of questran to see if any component of bile acid diarrhea. 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 (3) Hypokalemia ICD Codes: E87.6 - Hypokalemia Status: Chronic Plan: - Improved. (4) HTN (hypertension), benign ICD Codes: I10 - Essential (primary) hypertension Status: Chronic Plan: - see above (5) Anxiety ICD Codes: F41.9 - Anxiety disorder, unspecified Status: Chronic Gary Arellano MD Jun 19, 2017 10:44
[2017-06-19] MEDS ORDERED: CHOLESTYRAMINE 4 GM PACKET PO ONE (12:30)
[2017-06-19 12:42] VITALS: BP 109/54; PULSE 81; RESP 20; TEMP 98.3; O2SAT 98
[2017-06-19 15:43] VITALS: BP 121/58; PULSE 84; RESP 20; TEMP 98.1; O2SAT 100
[2017-06-19] MEDS: PSYLLIUM FIBER SF/GF 6 GM POWD PKT PO SCH (20:31)
[2017-06-19 20:42] VITALS: BP 114/58; PULSE 80; RESP 18; TEMP 98.6; O2SAT 100
[2017-06-20] MEDS: ONDANSETRON HCL 4 MG/2 ML VIAL IV PUSH SCH ×6 (02:26→20:55)
[2017-06-20] MEDS: SODIUM CHLOR 0.9% 1000 ML INJ 1,000 ML IV SCH ×2 (03:41→14:08)
[2017-06-20] MEDS: DRONABINOL 5 MG CAP PO PRN ×3 (05:54→18:00)
[2017-06-20] MEDS: DIPHENOXYLATE/ATROPINE 2.5 MG/0.025 MG TAB PO SCH ×3 (05:54→18:00)
[2017-06-20] MEDS: NYSTATIN 100,000 U/GM OINT 15 GM TUBE TOPICAL SCH ×3 (06:11→20:57)
[2017-06-20 07:26] LABS: BICARBONATE 23.2 MEQ/L (21.0-32.0); POTASSIUM 4.3 MEQ/L (3.5-5.1)
[2017-06-20] MEDS: SODIUM CHLORIDE 0.9% FLUSH 10 ML FLUSH IV FLUSH SCH ×2 (08:56→20:54)
[2017-06-20] MEDS: PSYLLIUM FIBER SF/GF 6 GM POWD PKT PO SCH ×2 (08:56→20:54)
[2017-06-20] MEDS: ENOXAPARIN SODIUM 100 MG/ML SYRINGE SQ SCH (08:57)
--- NOTE | 2017-06-20 09:23 | HHI.PR ---
Subjective Remarks doing ok. now new complaints Objective Vitals heart reg lungcta abd gastrostomy. ileostomy ext no edema Vital Signs Date Time Temp Pulse Resp B/P (MAP) Pulse Ox O2 Delivery O2 Flow Rate FiO2 06/19/17 20:42 98.6 80 18 114/58 (76) 100 06/19/17 15:43 98.1 84 20 121/58 (79) 100 06/19/17 12:42 98.3 81 20 109/54 (72) 98 06/20/17 06/20/17 06/21/17 15:00 23:00 07:00 Output Total 200 ml Balance -200 ml Stool Total 200 ml Result Diagram: 06/17/17 0534 06/20/17 0545 Imaging Last Impressions Abdomen X-Ray 05/29/17 0600 Signed Impressions: Service Date/Time: Monday, May 29, 2017 06:24 - CONCLUSION: 1. Persistent dilatation of small bowel which is stable to slightly improved from May 26. Residual contrast throughout colon. Miki Chan MD Small Bowel X-Ray 05/28/17 0000 Signed Impressions: Service Date/Time: Sunday, May 28, 2017 08:36 - CONCLUSION: Delay in transit of the contrast to the large bowel by 8.5 hours. Numerous dilated loops of small intestine are seen. Luisito Barahona MD Abdomen/Pelvis CT 05/25/17 0136 Signed Impressions: Service Date/Time: Thursday, May 25, 2017 01:51 - CONCLUSION: Diffusely dilated loops of small bowel down to the terminal ileum with air-fluid levels suggesting either diffuse ileus or small bowel obstruction. Renato Driscoll MD Procedures ileostomy, g tube placement A/P Problem List: (1) Bowel obstruction ICD Codes: K56.60 - Unspecified intestinal obstruction Status: Acute Plan: - Pt is 71 yo with brca 2 who had ovarian Ca with LIZ/BSO, omentectomy, lysis of adhesions [place] [address] Huang. Has had chemo with Taxol, Carboplatin, Gemzar, Tamoxifen and then Lynparza this past year. There have been concerns of recurrence with a recent rise in ca 125. Dr. Huang has done PET scans and find no major focus of disease. Most recently she has been getting Topotecan weekly for past 3 weeks - comgmt with [facility] - Pt presented with crampy abdomen pain which occurs with each treatment and then progressed to no BM over several days prior to admission. - CT A/P shows diffusely dilated loops of small bowel down to the terminal ileum with air-fluid levels suggesting either diffuse ileus or small bowel obstruction. - Pt had similar events after starting lynparza in 2016 - KUB (05/26) --> Stable abnormally dilated small bowel measuring up to 5.4 cm with paucity of distal bowel gas. Findings are suspicious for distal small bowel obstruction. One of the small bowel segments in the left abdomen demonstrates thumbprinting which can be seen with submucosal edema. - SBFT (05/28) --> Delay in transit of the contrast to the large bowel by 8.5 hours. Numerous dilated loops of small intestine are seen. - SBFT results were discussed with radiology and they feel that these findings are most likely consistent with obstruction. -- Per Dr. 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 Pt had teaching from ostomy nurse and removal of bars - Pt was treated for E.Coli UTI - dvt's...cont anticoagulation. will renal dose. but will convert to eliquis - Per previous discussion with with Dr Huang....cont chemo after pt heals. - Her hyponatremia and declining renal function are barriers to d/c to snf with high ostomy output Her w/up is consistent with dehydration/hyponatremia/vonda from high output ostomy cont IVF. agree with trial of lamotil. her na and cr are improving. will give metamucil bid and monitor for lower output. If it drops then will try off NS prior to d/c (2) Recurrent carcinoma of ovary ICD Codes: C56.9 - Malignant neoplasm of unspecified ovary Status: Chronic Plan: - See above. (3) Hypokalemia ICD Codes: E87.6 - Hypokalemia Status: Chronic Plan: - Improved. (4) HTN (hypertension), benign ICD Codes: I10 - Essential (primary) hypertension Status: Chronic Plan: - see above (5) Anxiety ICD Codes: F41.9 - Anxiety disorder, unspecified Status: Chronic Gary Arellano MD Jun 20, 2017 09:23
--- NOTE | 2017-06-20 09:35 | PD.ONC.PN ---
Subjective Subjective Remarks patient is resting in bed states she has been oob to ambulate yesterday. tolerating solid foods increasing fluids and she feels that the liquid from the ileostomy has slowed down some over the last day. I explained that our hopes is to get her to rehab in the next few days and we will look into arranging HH once she is home and if she is in need of extra hydration hopefully that can be arranged for her. I also explained that once she is tolerating activity, her Na+ stabilizes and her creat remains stable around 1.0 then we can readdress chemo in hopes to stabilize her cancer. I explained that stabilization of disease is the best we can hope for. Objective Data Date Time Temp Pulse Resp B/P (MAP) Pulse Ox O2 Delivery O2 Flow Rate FiO2 06/19/17 20:42 98.6 80 18 114/58 (76) 100 06/19/17 15:43 98.1 84 20 121/58 (79) 100 06/19/17 12:42 98.3 81 20 109/54 (72) 98 06/20/17 06/20/17 06/20/17 07:00 15:00 23:00 Intake Total 946 ml Output Total 1800 ml 200 ml Balance -854 ml -200 ml Result Diagram: 06/17/17 0534 06/20/17 0545 Laboratory Results Laboratory Tests Test 06/20/17 05:45 Blood Urea Nitrogen 16 MG/DL Creatinine 1.07 MG/DL Random Glucose 98 MG/DL Calcium Level 7.8 MG/DL Sodium Level 135 MEQ/L Potassium Level 4.3 MEQ/L Chloride Level 106 MEQ/L Carbon Dioxide Level 23.2 MEQ/L Anion Gap 6 MEQ/L Estimat Glomerular Filtration Rate 51 ML/MIN Administered Medications Medications (Trade) Dose Ordered Sig/Anette Route PRN Reason Start Time Stop Time Status Last Admin Dose Admin Alprazolam (Xanax) 1 mg HS PRN PO anxiety 05/25/17 21:00 06/18/17 21:28 Clonidine (Catapres) 0.1 mg Q6H PRN PO sbp > 170 05/26/17 09:00 05/30/17 15:57 Al Hydrox/Mg Hydrox/Simethicone (Mag-Al Plus Susp Liq) 30 ml Q4H PRN PO HEARTBURN 05/26/17 18:30 05/26/17 22:13 Lorazepam (Ativan Inj) 1 mg Q4H PRN IV PUSH anxiety 05/28/17 14:00 06/19/17 23:58 Phenol (Chloraseptic [place]) 2 spray Q2H PRN OROPHARYNG SORE THROAT 05/31/17 11:45 05/31/17 14:26 Acetaminophen 100 ml @ 400 mls/hr Q6H PRN IV fever/pain 1-10 06/03/17 09:30 06/07/17 04:33 Sodium Chloride (NS Flush) 2 ml UNSCH PRN IV FLUSH FLUSH AFTER USING IV ACCESS 06/05/17 16:45 06/11/17 04:00 Sodium Chloride (NS Flush) 2 ml BID IV FLUSH 06/05/17 21:00 06/20/17 08:56 Oxycodone/ Acetaminophen (Percocet 5-325 Mg) 1 tab Q4H PRN PO PAIN SCALE 1 TO 5 06/05/17 16:45 06/11/17 02:37 Morphine Sulfate (Morphine Inj) 2 mg Q1H PRN IV BREAKTROUGH PAIN > 5 06/05/17 21:00 06/05/17 23:30 Dronabinol (Marinol) 5 mg Q6HR PRN PO nausea 06/12/17 18:00 06/20/17 05:54 Ondansetron HCl (Zofran Inj) 4 mg Q4H IV PUSH 06/16/17 14:00 06/20/17 05:54 Nystatin (Mycostatin Oint) 1 applic Q8HR TOPICAL 06/16/17 14:00 06/20/17 06:11 Sodium Chloride 1,000 ml @ 100 mls/hr Q10H IV 06/17/17 10:45 06/20/17 03:41 Enoxaparin Sodium (Lovenox Inj) 100 mg DAILY SQ 06/18/17 09:00 06/19/17 07:58 Diphenoxylate HCl/ Atropine (Lomotil Tab) 1 tab Q6HR PO 06/18/17 12:00 06/20/17 05:54 Psyllium Hydrophilic Mucilloid (Metamucil Smooth Texture Sf/ Gf Pkt) 1 pkt BID PO 06/19/17 21:00 06/20/17 08:56 Objective Remarks GENERAL: Well-nourished, well-developed patient. SKIN: Warm and dry. HEAD: Normocephalic. EYES: No scleral icterus. No injection or drainage. NECK: Supple, trachea midline. No JVD or lymphadenopathy. CARDIOVASCULAR: Regular rate and rhythm without murmurs. RESPIRATORY: Breath sounds equal bilaterally. No accessory muscle use. GASTROINTESTINAL: Abdomen soft, non-tender, nondistended. with g tube to upper left quad with yeast noted under left breast above g tube. ileostomy with brownish drainage EXTREMITIES: No cyanosis,mild bilat LE edema MUSCULOSKELETAL: Adequate muscle tone. NEUROLOGICAL: No obvious focal deficit. Awake, alert, and oriented x3. PSYCHIATRIC: Appropriate mood and affect. 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 improving Na+ kidney function. 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 Huang IV chemotherapy will consider restarting Tamoxifen 20mg daily to hopefully slow progression of disease. (3) UTI (urinary tract infection) ICD Codes: N39.0 - Urinary tract infection, site not specified Status: Resolved Plan: gram + josy (4) Elevated WBC count ICD Codes: D72.829 - Elevated white blood cell count, unspecified Plan: afebrile pt to X ray small area of atelectasis to lower lobe prior abd x ray---- no obstruction (5) Hyponatremia ICD Codes: E87.1 - Hypo-osmolality and hyponatremia Status: Acute Plan: improving IVF normal saline will slowly wean encourage intake continue to monitor labs will look into HH once pt is home from SNF, for continued PT and possible hydration if needed to help keep Na+ and creat normal Attending Statement Discussed with Dr. Huang, Dr. Arellano, patient and . Olivia ThackerP Jun 20, 2017 09:35
[2017-06-20 09:59] VITALS: BP 116/56; PULSE 77; RESP 20; TEMP 97.6; O2SAT 98
[2017-06-20 12:00] VITALS: BP 118/58; PULSE 79; RESP 18; TEMP 98.7; O2SAT 100
[2017-06-20 16:00] VITALS: BP 125/58; PULSE 84; RESP 18; TEMP 98.5; O2SAT 100
[2017-06-20] MEDS: APIXABAN 5 MG TABLET PO SCH (20:54)
[2017-06-20] MEDS: LORazepam 2 MG/ML VIAL IV PUSH PRN (22:21)
[2017-06-21] MEDS: DRONABINOL 5 MG CAP PO PRN ×4 (00:13→22:26)
[2017-06-21] MEDS: DIPHENOXYLATE/ATROPINE 2.5 MG/0.025 MG TAB PO SCH ×5 (00:13→23:02)
[2017-06-21] MEDS: SODIUM CHLOR 0.9% 1000 ML INJ 1,000 ML IV SCH ×2 (00:14→10:01)
[2017-06-21] MEDS: ONDANSETRON HCL 4 MG/2 ML VIAL IV PUSH SCH ×6 (02:42→20:24)
[2017-06-21] MEDS: NYSTATIN 100,000 U/GM OINT 15 GM TUBE TOPICAL SCH ×3 (06:00→20:25)
[2017-06-21 08:03] VITALS: BP 116/57; PULSE 78; RESP 20; TEMP 98.2; O2SAT 97
--- NOTE | 2017-06-21 08:05 | HHI.PR ---
Subjective . no new c/o. no n/v. tolerating po intake. Objective . afeb, VSS na 135, creat 1.07, h/h 10.5/31.8 a&o x 3 NAD, abdomen soft, non-tender, stoma patent with some decrease in output with marked improvement in electrolytes/overall status Assessment & Plan CPM, work toward outpatient transition f/u with me within 2 weeks of hospital d/c Betzaida Huang MD Jun 21, 2017 08:05
[2017-06-21] MEDS: SODIUM CHLORIDE 0.9% FLUSH 10 ML FLUSH IV FLUSH SCH ×2 (08:43→20:26)
[2017-06-21] MEDS: APIXABAN 5 MG TABLET PO SCH ×2 (08:48→20:24)
[2017-06-21] MEDS: PSYLLIUM FIBER SF/GF 6 GM POWD PKT PO SCH ×2 (09:42→20:24)
--- NOTE | 2017-06-21 09:48 | HHI.PR ---
Subjective Remarks doing ok. [employer]. Objective Vitals heart reg lung cta abd ostomy/gastrostomy ext no edema Vital Signs Date Time Temp Pulse Resp B/P (MAP) Pulse Ox O2 Delivery O2 Flow Rate FiO2 06/21/17 08:03 98.2 78 20 116/57 (76) 97 06/20/17 16:00 98.5 84 18 125/58 (80) 100 06/20/17 12:00 98.7 79 18 118/58 (78) 100 06/20/17 09:59 97.6 77 20 116/56 (76) 98 Result Diagram: 06/17/17 0534 06/20/17 0545 Imaging Last Impressions Abdomen X-Ray 05/29/17 0600 Signed Impressions: Service Date/Time: Monday, May 29, 2017 06:24 - CONCLUSION: 1. Persistent dilatation of small bowel which is stable to slightly improved from May 26. Residual contrast throughout colon. Miki Chan MD Small Bowel X-Ray 05/28/17 0000 Signed Impressions: Service Date/Time: Sunday, May 28, 2017 08:36 - CONCLUSION: Delay in transit of the contrast to the large bowel by 8.5 hours. Numerous dilated loops of small intestine are seen. Luisito Barahona MD Abdomen/Pelvis CT 05/25/17 0136 Signed Impressions: Service Date/Time: Thursday, May 25, 2017 01:51 - CONCLUSION: Diffusely dilated loops of small bowel down to the terminal ileum with air-fluid levels suggesting either diffuse ileus or small bowel obstruction. Renato Driscoll MD Procedures ileostomy, g tube placement A/P Problem List: (1) Bowel obstruction ICD Codes: K56.60 - Unspecified intestinal obstruction Status: Acute Plan: - Pt is 71 yo with brca 2 who had ovarian Ca with LIZ/BSO, omentectomy, lysis of adhesions [place] [address] Huang. Has had chemo with Taxol, Carboplatin, Gemzar, Tamoxifen and then Lynparza this past year. There have been concerns of recurrence with a recent rise in ca 125. Dr. Huang has done PET scans and find no major focus of disease. Most recently she has been getting Topotecan weekly for past 3 weeks - comgmt with [facility] [employer] [facility] - Pt presented with crampy abdomen pain which occurs with each treatment and then progressed to no BM over several days prior to admission. - CT A/P shows diffusely dilated loops of small bowel down to the terminal ileum with air-fluid levels suggesting either diffuse ileus or small bowel obstruction. - Pt had similar events after starting lynparza in 2016 - KUB (05/26) --> Stable abnormally dilated small bowel measuring up to 5.4 cm with paucity of distal bowel gas. Findings are suspicious for distal small bowel obstruction. One of the small bowel segments in the left abdomen demonstrates thumbprinting which can be seen with submucosal edema. - SBFT (05/28) --> Delay in transit of the contrast to the large bowel by 8.5 hours. Numerous dilated loops of small intestine are seen. - SBFT results were discussed with radiology and they feel that these findings are most likely consistent with obstruction. -- Per Dr. 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 Pt had teaching from ostomy nurse and removal of bars - Pt was treated for E.Coli UTI - dvt's...cont anticoagulation. will renal dose. but will convert to eliquis - Per previous discussion with with Dr Huang....cont chemo after pt heals. - Her hyponatremia and declining renal function are barriers to d/c to snf with high ostomy output Her w/up is consistent with dehydration/hyponatremia/vonda from high output ostomy cont IVF. agree with trial of lamotil. her na and cr are improving. giving metamucil bid and monitor for lower output. The output has slowly dropped. 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 (3) Hypokalemia ICD Codes: E87.6 - Hypokalemia Status: Chronic Plan: - Improved. (4) HTN (hypertension), benign ICD Codes: I10 - Essential (primary) hypertension Status: Chronic Plan: - see above (5) Anxiety ICD Codes: F41.9 - Anxiety disorder, unspecified Status: Chronic Gary Arellano MD Jun 21, 2017 09:48
[2017-06-21 12:23] VITALS: BP 129/59; PULSE 69; RESP 20; TEMP 98.1; O2SAT 99
[2017-06-21] MEDS: NYSTATIN 100,000 U/GM PWD 15 GM BTL TOPICAL SCH ×2 (15:55→20:25)
[2017-06-21 16:32] VITALS: BP 107/56; PULSE 76; RESP 20; TEMP 98.2; O2SAT 99
--- NOTE | 2017-06-21 16:48 | PD.WCN.NOT ---
Wound Consult Description: Patient seen at the request of RN for ostomy teaching and appliance change. Communicated with: Patient Patient daughter at bedside Recommendation: Please mix antifungal cream and calazime skin protectant paste to apply to bilateral buttocks and gluteal cleft BID and PRN. Please continue to encourage patient to reposition in bed to offload pressure from sacrum, coccyx, and bilateral buttocks. Recommend to apply Nystatin powder to underneath left breast BID for fungal rash. Recommend to cleanse around G tube site BID and PRN for moisture and apply/ change drain sponge as needed. Additional Information: Patient seen on for ostomy assessment, ostomy appliance change, gluteal cleft wound, and G-tube cleansing with dressing change. Patient daughter was at bedside and had many questions that were answered. Daughter also wanted to assist in the changing of the appliance which was completed today with service writer advisor present. Barrier was gently removed using adhesive removal wipes. Peristomal skin was cleansed with water and washcloths only. Stoma is oval, red, moist, moderately protruding, with lumens noted at 9 o'clock and 3 o'clock, and functioning with soft green effluent noted to pouch that was emptied prior to removing barrier. Mucocutaneous junction is noted with sutures in place otherwise unremarkable. Peristomal skin was irritated without open areas however the daughter wanted to be shown again how to encrust for peristomal complications. Stoma powder was applied and wiped away and then Cavilon spray was used prior to applying greg seal and then pre cut barrier to skin. Patient then held her hand over the appliance for warmth to activate the polymers for better adhesion. Patient asked for service writer advisor to visualize buttocks and gluteal cleft. Bilateral buttocks were blanchable, erythematous, and noted with satellite lesions indicating a moisture and fungal etiology. There was a fissure noted to the gluteal cleft as previously noted by VÍCTOR Glasgow with orders in place. Patient states that she has irritation under her left breast near her Gtube site that was visualized and noted to have evidence of moisture related breakdown with satellite lesions indicating fungal etiology. Nystatin powder was recommended for use under left breast with twice daily washings wound Gtube site with application of drain sponge. Ostomy Type: Ileostomy (loop) Surgeon: Luke Franklin MD Date of Surgery: Jun 05, 2017 Complete: Starter kit, Education materials, Rx Educated patient on: Skin care Appliance change Gabi Giang [facility] Jun 21, 2017 16:48
[2017-06-21 20:51] VITALS: BP 114/60; PULSE 78; RESP 18; TEMP 98; O2SAT 100
[2017-06-21] MEDS: LORazepam 2 MG/ML VIAL IV PUSH PRN (23:03)
[2017-06-22] MEDS: SODIUM CHLOR 0.9% 1000 ML INJ 1,000 ML IV SCH ×3 (00:18→16:38)
[2017-06-22] MEDS: ONDANSETRON HCL 4 MG/2 ML VIAL IV PUSH SCH ×6 (02:00→20:30)
[2017-06-22] MEDS: DIPHENOXYLATE/ATROPINE 2.5 MG/0.025 MG TAB PO SCH ×3 (05:49→17:51)
[2017-06-22] MEDS: NYSTATIN 100,000 U/GM PWD 15 GM BTL TOPICAL SCH ×3 (05:50→22:10)
[2017-06-22] MEDS: NYSTATIN 100,000 U/GM OINT 15 GM TUBE TOPICAL SCH ×3 (05:50→22:10)
[2017-06-22] MEDS: DRONABINOL 5 MG CAP PO PRN ×3 (05:58→20:29)
[2017-06-22 06:45] LABS: BICARBONATE 19.6 MEQ/L (21.0-32.0)
[2017-06-22 08:00] VITALS: BP 104/55; PULSE 74; RESP 18; TEMP 98.2; O2SAT 98
[2017-06-22] MEDS: SODIUM CHLORIDE 0.9% FLUSH 10 ML FLUSH IV FLUSH SCH ×2 (09:00→20:30)
[2017-06-22] MEDS: PSYLLIUM FIBER SF/GF 6 GM POWD PKT PO SCH ×2 (09:21→20:30)
[2017-06-22] MEDS: APIXABAN 5 MG TABLET PO SCH ×2 (09:22→20:29)
--- NOTE | 2017-06-22 10:12 | HHI.PR ---
Subjective Remarks upset about possible leakage of ostomy bag also demanding to see surgeon regarding her gastrostomy Objective Vitals heart reg lung cta abd gastrostomy/ostomy some superficial skin irritation around g tube with fungal cream applied. Vital Signs Date Time Temp Pulse Resp B/P (MAP) Pulse Ox O2 Delivery O2 Flow Rate FiO2 06/22/17 08:00 98.2 74 18 104/55 (71) 98 06/21/17 20:51 98.0 78 18 114/60 (78) 100 06/21/17 16:32 98.2 76 20 107/56 (73) 99 06/21/17 12:23 98.1 69 20 129/59 (82) 99 06/22/17 06/22/17 06/23/17 15:00 23:00 07:00 Output Total 600 ml Balance -600 ml Output Urine Total 500 ml Stool Total 100 ml Result Diagram: 06/22/17 0611 Imaging Last Impressions Abdomen X-Ray 05/29/17 0600 Signed Impressions: Service Date/Time: Monday, May 29, 2017 06:24 - CONCLUSION: 1. Persistent dilatation of small bowel which is stable to slightly improved from May 26. Residual contrast throughout colon. Miki Chan MD Small Bowel X-Ray 05/28/17 0000 Signed Impressions: Service Date/Time: Sunday, May 28, 2017 08:36 - CONCLUSION: Delay in transit of the contrast to the large bowel by 8.5 hours. Numerous dilated loops of small intestine are seen. Luisito Barahona MD Abdomen/Pelvis CT 05/25/17 0136 Signed Impressions: Service Date/Time: Thursday, May 25, 2017 01:51 - CONCLUSION: Diffusely dilated loops of small bowel down to the terminal ileum with air-fluid levels suggesting either diffuse ileus or small bowel obstruction. Renato Driscoll MD Procedures ileostomy, g tube placement A/P Problem List: (1) Bowel obstruction ICD Codes: K56.60 - Unspecified intestinal obstruction Status: Acute Plan: - Pt is 71 yo with brca 2 who had ovarian Ca with LIZ/BSO, omentectomy, lysis of adhesions [place] [address] Huang. Has had chemo with Taxol, Carboplatin, Gemzar, Tamoxifen and then Lynparza this past year. There have been concerns of recurrence with a recent rise in ca 125. Dr. Huang has done PET scans and find no major focus of disease. Most recently she has been getting Topotecan weekly for past 3 weeks - comgmt with [employer] [facility] - Pt presented with crampy abdomen pain which occurs with each treatment and then progressed to no BM over several days prior to admission. - CT A/P shows diffusely dilated loops of small bowel down to the terminal ileum with air-fluid levels suggesting either diffuse ileus or small bowel obstruction. - Pt had similar events after starting lynparza in 2016 - KUB (05/26) --> Stable abnormally dilated small bowel measuring up to 5.4 cm with paucity of distal bowel gas. Findings are suspicious for distal small bowel obstruction. One of the small bowel segments in the left abdomen demonstrates thumbprinting which can be seen with submucosal edema. - SBFT (05/28) --> Delay in transit of the contrast to the large bowel by 8.5 hours. Numerous dilated loops of small intestine are seen. - SBFT results were discussed with radiology and they feel that these findings are most likely consistent with obstruction. -- Per Dr. 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 Pt had teaching from ostomy nurse and removal of bars - Pt was treated for E.Coli UTI - dvt's...cont anticoagulation. will renal dose. but will convert to eliquis - Per previous discussion with with Dr Huang....cont chemo after pt heals. - Her hyponatremia and declining renal function are barriers to d/c to snf with high ostomy output Her w/up is consistent with dehydration/hyponatremia/vonda from high output ostomy cont IVF. cont lamotil and metamuci. Her ostomy output is steadily falling.. down to about 1.6 Liters. will cont tdoay and if output lower over next 24hrs then trial off NS ivf before d/c to snf. 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 (3) Hypokalemia ICD Codes: E87.6 - Hypokalemia Status: Chronic Plan: - Improved. (4) HTN (hypertension), benign ICD Codes: I10 - Essential (primary) hypertension Status: Chronic Plan: - see above (5) Anxiety ICD Codes: F41.9 - Anxiety disorder, unspecified Status: Chronic Gary Arellano MD Jun 22, 2017 10:12
[2017-06-22 12:00] VITALS: BP 105/53; PULSE 75; RESP 18; TEMP 98.5; O2SAT 98
[2017-06-22 16:00] VITALS: BP 120/56; PULSE 73; RESP 18; TEMP 98.2; O2SAT 98
[2017-06-22 20:44] VITALS: BP 132/63; PULSE 94; RESP 20; TEMP 98.7; O2SAT 99
[2017-06-23] MEDS: DIPHENOXYLATE/ATROPINE 2.5 MG/0.025 MG TAB PO SCH ×4 (00:42→18:29)
[2017-06-23] MEDS: LORazepam 2 MG/ML VIAL IV PUSH PRN ×2 (02:51→22:12)
[2017-06-23] MEDS: SODIUM CHLOR 0.9% 1000 ML INJ 1,000 ML IV SCH ×5 (02:53→21:10)
[2017-06-23] MEDS: ONDANSETRON HCL 4 MG/2 ML VIAL IV PUSH SCH ×6 (02:53→21:07)
[2017-06-23] MEDS: NYSTATIN 100,000 U/GM OINT 15 GM TUBE TOPICAL SCH ×3 (06:06→22:10)
[2017-06-23] MEDS: NYSTATIN 100,000 U/GM PWD 15 GM BTL TOPICAL SCH ×3 (06:06→22:10)
[2017-06-23 08:15] VITALS: BP 123/60; PULSE 87; RESP 20; TEMP 98.5; O2SAT 96
[2017-06-23] MEDS: APIXABAN 5 MG TABLET PO SCH ×2 (08:18→21:07)
[2017-06-23] MEDS: DRONABINOL 5 MG CAP PO PRN ×3 (08:18→21:07)
[2017-06-23] MEDS: PSYLLIUM FIBER SF/GF 6 GM POWD PKT PO SCH ×2 (08:19→21:07)
[2017-06-23] MEDS: SODIUM CHLORIDE 0.9% FLUSH 10 ML FLUSH IV FLUSH SCH ×2 (08:19→21:12)
[2017-06-23 11:21] VITALS: BP 109/55; PULSE 84; RESP 20; TEMP 98.8; O2SAT 97
--- NOTE | 2017-06-23 11:38 | HHI.PR ---
Subjective Remarks says her left eyelids sticking and some drainage after touching her eye by accident with stool contaminated fingers. Objective Vitals heart reg lung cta abd g tube site.skin irritated. foul smell. nystatin in place ileostomy...bag is sealed some semi solid stool Vital Signs Date Time Temp Pulse Resp B/P (MAP) Pulse Ox O2 Delivery O2 Flow Rate FiO2 06/23/17 11:21 98.8 84 20 109/55 (73) 97 06/23/17 08:15 98.5 87 20 123/60 (81) 96 06/22/17 20:44 98.7 94 20 132/63 (86) 99 06/22/17 16:00 98.2 73 18 120/56 (77) 98 06/22/17 12:00 98.5 75 18 105/53 (70) 98 Result Diagram: 06/22/17 0611 Imaging Last Impressions Abdomen X-Ray 05/29/17 0600 Signed Impressions: Service Date/Time: Monday, May 29, 2017 06:24 - CONCLUSION: 1. Persistent dilatation of small bowel which is stable to slightly improved from May 26. Residual contrast throughout colon. Miki Chan MD Small Bowel X-Ray 05/28/17 0000 Signed Impressions: Service Date/Time: Sunday, May 28, 2017 08:36 - CONCLUSION: Delay in transit of the contrast to the large bowel by 8.5 hours. Numerous dilated loops of small intestine are seen. Luisito Barahona MD Abdomen/Pelvis CT 05/25/17 0136 Signed Impressions: Service Date/Time: Thursday, May 25, 2017 01:51 - CONCLUSION: Diffusely dilated loops of small bowel down to the terminal ileum with air-fluid levels suggesting either diffuse ileus or small bowel obstruction. Renato Driscoll MD Procedures ileostomy, g tube placement A/P Problem List: (1) Bowel obstruction ICD Codes: K56.60 - Unspecified intestinal obstruction Status: Acute Plan: - Pt is 71 yo with brca 2 who had ovarian Ca with LIZ/BSO, omentectomy, lysis of adhesions [place] [address] Huang. Has had chemo with Taxol, Carboplatin, Gemzar, Tamoxifen and then Lynparza this past year. There have been concerns of recurrence with a recent rise in ca 125. Dr. Huang has done PET scans and find no major focus of disease. Most recently she has been getting Topotecan weekly for past 3 weeks - comgmt with [employer] [facility] General [facility] - Pt presented with crampy abdomen pain which occurs with each treatment and then progressed to no BM over several days prior to admission. - CT A/P shows diffusely dilated loops of small bowel down to the terminal ileum with air-fluid levels suggesting either diffuse ileus or small bowel obstruction. - Pt had similar events after starting lynparza in 2016 - KUB (05/26) --> Stable abnormally dilated small bowel measuring up to 5.4 cm with paucity of distal bowel gas. Findings are suspicious for distal small bowel obstruction. One of the small bowel segments in the left abdomen demonstrates thumbprinting which can be seen with submucosal edema. - SBFT (05/28) --> Delay in transit of the contrast to the large bowel by 8.5 hours. Numerous dilated loops of small intestine are seen. - SBFT results were discussed with radiology and they feel that these findings are most likely consistent with obstruction. -- Per Dr. 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 Pt had teaching from ostomy nurse and removal of bars - Pt was treated for E.Coli UTI - dvt's...cont anticoagulation. will renal dose. but will convert to eliquis - Per previous discussion with with Dr Huang....cont chemo after pt heals. - Her hyponatremia and declining renal function are barriers to d/c to snf with high ostomy output Her w/up is consistent with dehydration/hyponatremia/vonda from high output ostomy cont IVF. cont lamotil and metamuci.. Her ostomy output has been steadily falling.. down to about 1.6 Liters. But yesterday alot of problems with bag leakage and accurate measurements were not obtained...plus she didn't get both doses of metamucil. try again today for accurate output cipro eye drops left...pt has left eye irritation after "touching it with stool contaminated fingers" if output lower over next 24hrs then trial off NS ivf before d/c to snf. 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 (3) Hypokalemia ICD Codes: E87.6 - Hypokalemia Status: Chronic Plan: - Improved. (4) HTN (hypertension), benign ICD Codes: I10 - Essential (primary) hypertension Status: Chronic Plan: - see above (5) Anxiety ICD Codes: F41.9 - Anxiety disorder, unspecified Status: Chronic Gary Arellano MD Jun 23, 2017 11:38
[2017-06-23] MEDS ORDERED: SODIUM CHLORIDE 0.9% FLUSH 10 ML FLUSH IV FLUSH PRN (12:30)
[2017-06-23] MEDS: CIPROFLOXACIN 0.3% OPTH SOLN 2.5 ML BTL LEFT EYE SCH ×3 (12:42→21:11)
[2017-06-23] MEDS: MUPIROCIN 2% OINT 22 GM TUBE TOPICAL SCH ×2 (14:06→22:10)
[2017-06-23 16:17] VITALS: BP 105/52; PULSE 81; RESP 20; TEMP 98.2; O2SAT 100
[2017-06-23 20:00] VITALS: BP 143/63; PULSE 93; RESP 20; TEMP 98.3; O2SAT 98
[2017-06-24] MEDS: DIPHENOXYLATE/ATROPINE 2.5 MG/0.025 MG TAB PO SCH ×4 (00:21→18:06)
[2017-06-24] MEDS: CIPROFLOXACIN 0.3% OPTH SOLN 2.5 ML BTL LEFT EYE SCH ×6 (00:21→21:47)
[2017-06-24] MEDS: ONDANSETRON HCL 4 MG/2 ML VIAL IV PUSH SCH ×7 (02:50→21:48)
[2017-06-24] MEDS: DRONABINOL 5 MG CAP PO PRN ×4 (02:52→21:48)
[2017-06-24] MEDS: NYSTATIN 100,000 U/GM PWD 15 GM BTL TOPICAL SCH ×3 (06:22→21:47)
[2017-06-24] MEDS: NYSTATIN 100,000 U/GM OINT 15 GM TUBE TOPICAL SCH ×3 (06:22→21:47)
[2017-06-24] MEDS: MUPIROCIN 2% OINT 22 GM TUBE TOPICAL SCH ×3 (06:22→21:49)
[2017-06-24 08:18] VITALS: BP 131/63; PULSE 82; RESP 18; TEMP 97.6; O2SAT 97
[2017-06-24] MEDS: PSYLLIUM FIBER SF/GF 6 GM POWD PKT PO SCH ×2 (08:55→21:47)
[2017-06-24] MEDS: APIXABAN 5 MG TABLET PO SCH ×2 (08:56→21:48)
[2017-06-24] MEDS: SODIUM CHLORIDE 0.9% FLUSH 10 ML FLUSH IV FLUSH SCH ×2 (08:56→21:50)
--- NOTE | 2017-06-24 09:18 | PD.ONC.PN ---
Subjective Subjective Remarks patient is resting in bed without any complaints she is hoping to go to rehab soon so she can restart IV chemo has been up walking and taking in food stool is more formed since starting Metamucil Objective Data Date Time Temp Pulse Resp B/P (MAP) Pulse Ox O2 Delivery O2 Flow Rate FiO2 06/24/17 08:18 97.6 82 18 131/63 (85) 97 06/23/17 20:00 98.3 93 20 143/63 (89) 98 06/23/17 16:17 98.2 81 20 105/52 (69) 100 06/23/17 11:21 98.8 84 20 109/55 (73) 97 06/24/17 06/24/17 06/24/17 07:00 15:00 23:00 Output Total 950 ml 650 ml Balance -950 ml -650 ml Result Diagram: 06/22/17 0611 Laboratory Results Laboratory Tests Test 05/25/17 01:45 05/26/17 06:03 05/29/17 04:00 06/02/17 21:50 Lactic Acid Level 1.0 mmol/L Blood Urea Nitrogen 11 MG/DL 13 MG/DL Creatinine 1.02 MG/DL 1.10 MG/DL Random Glucose 120 MG/DL 117 MG/DL Total Protein 6.3 GM/DL Albumin 3.0 GM/DL Calcium Level 8.3 MG/DL 8.5 MG/DL Alkaline Phosphatase 100 U/L Aspartate Amino Transf (AST/SGOT) 63 U/L Alanine Aminotransferase (ALT/SGPT) 184 U/L Total Bilirubin 0.5 MG/DL Sodium Level 137 MEQ/L 139 MEQ/L Potassium Level 3.2 MEQ/L 3.8 MEQ/L Chloride Level 104 MEQ/L 109 MEQ/L Carbon Dioxide Level 25.2 MEQ/L 20.8 MEQ/L Lipase 114 U/L Phosphorus Level 3.1 MG/DL Magnesium Level 1.7 MG/DL Dohle Bodies PRESENT CA 125 Antigen 325.5 U/ML Urine Calcium Oxalate Crystals OCC /hpf Test 06/03/17 05:45 06/03/17 12:45 06/05/17 09:10 06/06/17 04:00 Helmet Cells OCC Stool C. difficile Toxin (PCR) NEGATIVE Stl C. difficile Toxin Epiderm 027 PRESUMPTIVE NEGATIVE Toxic Granulation 2+ Atypical Lymphocytes % Acanthocytes OCC Test 06/11/17 04:00 10/12/17 04:50 06/14/17 06:30 06/15/17 05:30 Promyelocytes 1 % Keratocytes OCC Tear Drop Cells 1+ Ovalocytes 1+ Basophils % 1 % Polychromasia 2.1 % Test 06/16/17 05:45 06/16/17 17:06 06/17/17 05:34 06/17/17 14:35 Nucleated Red Blood Cells 1 /100 WBC Urine Color YELLOW Urine Turbidity HAZY Urine pH 5.5 Urine Specific [place] 1.021 Urine Protein TRACE mg/dL Urine Glucose (UA) NEG mg/dL Urine Ketones NEG mg/dL Urine Occult Blood TRACE Urine Nitrite NEG Urine Bilirubin NEG Urine Urobilinogen LESS THAN 2.0 MG/DL Urine Leukocyte Esterase LARGE Urine RBC 5 /hpf Urine WBC 144 /hpf Urine WBC Clumps OCC Urine Squamous Epithelial Cells 11 /hpf Urine Transitional Epithelial Cells <1 /hpf Urine Bacteria OCC /hpf Urine Granular Casts 3 /lpf Urine Yeast (Budding) OCC Microscopic Urinalysis Comment CULTURE INDICATED White Blood Count 14.6 TH/MM3 Red Blood Count 3.31 MIL/MM3 Hemoglobin 10.5 GM/DL Hematocrit 31.8 % Mean Corpuscular Volume 96.2 FL Mean Corpuscular Hemoglobin 31.6 PG Mean Corpuscular Hemoglobin Concent 32.9 % Red Cell Distribution Width 19.3 % Platelet Count 463 TH/MM3 Mean Platelet Volume 8.2 FL Neutrophils (%) (Auto) 77.7 % Lymphocytes (%) (Auto) 15.3 % Monocytes (%) (Auto) 5.3 % Eosinophils (%) (Auto) 1.4 % Basophils (%) (Auto) 0.3 % Neutrophils # (Auto) 11.3 TH/MM3 Lymphocytes # (Auto) 2.2 TH/MM3 Monocytes # (Auto) 0.8 TH/MM3 Eosinophils # (Auto) 0.2 TH/MM3 Basophils # (Auto) 0.0 TH/MM3 CBC Comment AUTO DIFF Differential Total Cells Counted 100 Neutrophils % (Manual) 67 % Band Neutrophils % 3 % Lymphocytes % 22 % Monocytes % 5 % Eosinophils % 1 % Neutrophils # (Manual) 10.5 TH/MM3 Metamyelocytes 1 % Myelocytes 1 % Differential Comment FINAL DIFF MANUAL Platelet Estimate HIGH Platelet Morphology Comment NORMAL Serum Osmolality 282 MOSM/KG Blood Urea Nitrogen 55 MG/DL Creatinine 1.96 MG/DL Random Glucose 135 MG/DL Calcium Level 8.2 MG/DL Magnesium Level 2.1 MG/DL Sodium Level 125 MEQ/L Potassium Level 4.3 MEQ/L Chloride Level 89 MEQ/L Carbon Dioxide Level 26.0 MEQ/L Urine Osmolality 616 MOSM/KG Urine Random Sodium LESS THAN 5 MEQ/L Test 06/22/17 06:11 Blood Urea Nitrogen 7 MG/DL Creatinine 0.95 MG/DL Random Glucose 79 MG/DL Calcium Level 7.6 MG/DL Sodium Level 138 MEQ/L Potassium Level 4.0 MEQ/L Chloride Level 111 MEQ/L Carbon Dioxide Level 19.6 MEQ/L Anion Gap 7 MEQ/L Estimat Glomerular Filtration Rate 58 ML/MIN Imaging Studies Last Impressions Chest X-Ray 06/17/17 0800 Signed Impressions: Service Date/Time: Saturday, June 17, 2017 07:48 - CONCLUSION: 1. Small area of atelectasis at the left lung base. The lungs are otherwise clear. Malick Arias MD Abdomen X-Ray 06/16/17 0000 Signed Impressions: Service Date/Time: Friday, June 16, 2017 15:16 - CONCLUSION: 1. No evidence of obstruction. Edgardo Valero MD Lower Extremity Ultrasound 06/01/17 0000 Signed Impressions: Service Date/Time: Thursday, June 01, 2017 13:35 - CONCLUSION: 1. Findings consistent with extensive acute right lower extremity DVT extending from the proximal right femoral vein to the posterior tibial vein. More centrally, the common femoral and iliac veins appear patent. 2. 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 Patricio Pantoja MD Small Bowel X-Ray 05/28/17 0000 Signed Impressions: Service Date/Time: Sunday, May 28, 2017 08:36 - CONCLUSION: Delay in transit of the contrast to the large bowel by 8.5 hours. Numerous dilated loops of small intestine are seen. Luisito Barahona MD Abdomen/Pelvis CT 05/25/17 0136 Signed Impressions: Service Date/Time: Thursday, May 25, 2017 01:51 - CONCLUSION: Diffusely dilated loops of small bowel down to the terminal ileum with air-fluid levels suggesting either diffuse ileus or small bowel obstruction. Reanto Driscoll MD Administered Medications Medications (Trade) Dose Ordered Sig/Anette Route PRN Reason Start Time Stop Time Status Last Admin Dose Admin Alprazolam (Xanax) 1 mg HS PRN PO anxiety 05/25/17 21:00 06/18/17 21:28 Clonidine (Catapres) 0.1 mg Q6H PRN PO sbp > 170 05/26/17 09:00 05/30/17 15:57 Al Hydrox/Mg Hydrox/Simethicone (Mag-Al Plus Susp Liq) 30 ml Q4H PRN PO HEARTBURN 05/26/17 18:30 05/26/17 22:13 Lorazepam (Ativan Inj) 1 mg Q4H PRN IV PUSH anxiety 05/28/17 14:00 06/23/17 22:12 Phenol (Chloraseptic Surprise) 2 spray Q2H PRN OROPHARYNG SORE THROAT 05/31/17 11:45 05/31/17 14:26 Acetaminophen 100 ml @ 400 mls/hr Q6H PRN IV fever/pain 1-10 06/03/17 09:30 06/07/17 04:33 Sodium Chloride (NS Flush) 2 ml UNSCH PRN IV FLUSH FLUSH AFTER USING IV ACCESS 06/05/17 16:45 06/11/17 04:00 Sodium Chloride (NS Flush) 2 ml BID IV FLUSH 06/05/17 21:00 06/24/17 08:56 Oxycodone/ Acetaminophen (Percocet 5-325 Mg) 1 tab Q4H PRN PO PAIN SCALE 1 TO 5 06/05/17 16:45 06/11/17 02:37 Morphine Sulfate (Morphine Inj) 2 mg Q1H PRN IV BREAKTROUGH PAIN > 5 06/05/17 21:00 06/05/17 23:30 Dronabinol (Marinol) 5 mg Q6HR PRN PO nausea 06/12/17 18:00 06/24/17 08:56 Ondansetron HCl (Zofran Inj) 4 mg Q4H IV PUSH 06/16/17 14:00 06/23/17 21:07 Nystatin (Mycostatin Oint) 1 applic Q8HR TOPICAL 06/16/17 14:00 06/24/17 06:22 Sodium Chloride 1,000 ml @ 100 mls/hr Q10H IV 06/17/17 10:45 06/23/17 21:10 Diphenoxylate HCl/ Atropine (Lomotil Tab) 1 tab Q6HR PO 06/18/17 12:00 06/24/17 06:04 Psyllium Hydrophilic Mucilloid (Metamucil Smooth Texture Sf/ Gf Pkt) 1 pkt BID PO 06/19/17 21:00 06/24/17 08:55 Apixaban (Eliquis) 5 mg BID PO 06/20/17 21:00 06/24/17 08:56 Nystatin (Mycostatin Powder) 1 applic Q8HR TOPICAL 06/21/17 16:00 06/24/17 06:22 Mupirocin (Bactroban 2% Oint) 1 applic Q8HR TOPICAL 06/23/17 14:00 06/24/17 06:22 Ciprofloxacin HCl (Ciloxan 0.3% Opth Soln) 2 drop Q4HR LEFT EYE 06/23/17 12:00 06/30/17 12:00 06/24/17 08:19 Objective Remarks GENERAL: Well-nourished, well-developed patient. SKIN: Warm and dry. HEAD: Normocephalic. EYES: No scleral icterus. No injection or drainage. CARDIOVASCULAR: Regular rate and rhythm without murmurs. RESPIRATORY: Breath sounds equal bilaterally. No accessory muscle use. GASTROINTESTINAL: Abdomen soft, non-tender, nondistended. with ileostomy to left quad, formed stool EXTREMITIES: No cyanosis, mild bilat LE edema MUSCULOSKELETAL: Adequate muscle tone. NEUROLOGICAL: No obvious focal deficit. Awake, alert, and oriented x3. PSYCHIATRIC: Appropriate mood and affect; insight and judgment normal. 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 Huang IV chemotherapy (3) UTI (urinary tract infection) ICD Codes: N39.0 - Urinary tract infection, site not specified Status: Resolved Plan: gram + josy (4) Elevated WBC count ICD Codes: D72.829 - Elevated white blood cell count, unspecified Plan: afebrile and improving pt to X ray small area of atelectasis to lower lobe prior abd x ray---- no obstruction (5) Hyponatremia ICD Codes: E87.1 - Hypo-osmolality and hyponatremia Status: Acute Plan: WNL IVF normal saline will slowly wean intake improved continue to monitor labs will look into HH once pt is home from SNF...information faxed to [facility] on 06/21/17 from our office hopefully they can arrange IVF in home if needed. Olivia Thacker Jun 24, 2017 09:18
[2017-06-24] MEDS: SODIUM CHLOR 0.9% 1000 ML INJ 1,000 ML IV SCH (09:38)
--- NOTE | 2017-06-24 11:19 | HHI.PR ---
Subjective Remarks Per pt, she is tolerating Metamucil. For last 24 hours, stools have thickened with decreased output from her ileostomy. 1,640ml output from ileostomy recorded so far for today (06/24/17). Objective Vitals Vital Signs Date Time Temp Pulse Resp B/P (MAP) Pulse Ox O2 Delivery O2 Flow Rate FiO2 06/24/17 08:18 97.6 82 18 131/63 (85) 97 06/23/17 20:00 98.3 93 20 143/63 (89) 98 06/23/17 16:17 98.2 81 20 105/52 (69) 100 06/23/17 11:21 98.8 84 20 109/55 (73) 97 06/24/17 06/24/17 06/25/17 15:00 23:00 07:00 Intake Total 1072 ml Output Total 900 ml Balance 172 ml IV Total 1072 ml Output Urine Total 650 ml Drainage Total 250 ml Result Diagram: 06/22/17 0611 Imaging Last Impressions Chest X-Ray 06/17/17 0800 Signed Impressions: Service Date/Time: Saturday, June 17, 2017 07:48 - CONCLUSION: 1. Small area of atelectasis at the left lung base. The lungs are otherwise clear. Malick Arias MD Abdomen X-Ray 06/16/17 0000 Signed Impressions: Service Date/Time: Friday, June 16, 2017 15:16 - CONCLUSION: 1. No evidence of obstruction. Edgardo Valero MD Lower Extremity Ultrasound 06/01/17 0000 Signed Impressions: Service Date/Time: Thursday, June 01, 2017 13:35 - CONCLUSION: 1. Findings consistent with extensive acute right lower extremity DVT extending from the proximal right femoral vein to the posterior tibial vein. More centrally, the common femoral and iliac veins appear patent. 2. 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 Patricio Pantoja MD Small Bowel X-Ray 05/28/17 0000 Signed Impressions: Service Date/Time: Sunday, May 28, 2017 08:36 - CONCLUSION: Delay in transit of the contrast to the large bowel by 8.5 hours. Numerous dilated loops of small intestine are seen. Luisito Barahona MD Abdomen/Pelvis CT 05/25/17 0136 Signed Impressions: Service Date/Time: Thursday, May 25, 2017 01:51 - CONCLUSION: Diffusely dilated loops of small bowel down to the terminal ileum with air-fluid levels suggesting either diffuse ileus or small bowel obstruction. Renato Driscoll MD Objective Remarks GENERAL: This is a well-nourished, well-developed patient, in no apparent distress. CARDIOVASCULAR: Regular rate and rhythm without murmurs, gallops, or rubs. RESPIRATORY: Clear to auscultation. Breath sounds equal bilaterally. No wheezes , rales, or rhonchi. GASTROINTESTINAL: ileostomy bag recently emptied at the time of my visit, so minimal stool in pt's bag. Some erythema to G-tube site. MUSCULOSKELETAL: Extremities without clubbing, cyanosis, or edema. NEURO: Alert & Oriented x4 to person, place, time, situation. Moves all ext x4 Procedures ileostomy g tube placement A/P Problem List: (1) Bowel obstruction ICD Codes: K56.60 - Unspecified intestinal obstruction Status: Acute Plan: - Pt is 71 yo with brca 2 who had ovarian Ca with LIZ/BSO, omentectomy, lysis of adhesions back [place] [address] Huang. Has had chemo with Taxol, Carboplatin, Gemzar, Tamoxifen and then Lynparza this past year. There have been concerns of recurrence with a recent rise in ca 125. Dr. Huang has done PET scans and find no major focus of disease. Most recently she has been getting Topotecan weekly for past 3 weeks - comgmt with [facility] - Pt presented with crampy abdomen pain which occurs with each treatment and then progressed to no BM over several days prior to admission. - CT A/P shows diffusely dilated loops of small bowel down to the terminal ileum with air-fluid levels suggesting either diffuse ileus or small bowel obstruction. - Pt had similar events after starting lynparza in 2016 - KUB (05/26) --> Stable abnormally dilated small bowel measuring up to 5.4 cm with paucity of distal bowel gas. Findings are suspicious for distal small bowel obstruction. One of the small bowel segments in the left abdomen demonstrates thumbprinting which can be seen with submucosal edema. - SBFT (05/28) --> Delay in transit of the contrast to the large bowel by 8.5 hours. Numerous dilated loops of small intestine are seen. - SBFT results were discussed with radiology and they feel that these findings are most likely consistent with obstruction. -- Per Dr. 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 Pt had teaching from ostomy nurse and removal of bars - Pt was treated for E.Coli UTI - dvt's...cont anticoagulation. with renal dose. but will convert to eliquis - Per previous discussion with with Dr Huang....cont chemo after pt heals. - Her hyponatremia and declining renal function are barriers to d/c to snf with high ostomy output Her w/up is consistent with dehydration/hyponatremia/vonda from high output ostomy - Pt's output from ileostomy appears to have slowed down with scheduled metamucil and prn lamotil - stop IVFs - observe ileostomy output - repeat BMP, Mag in AM - Surgery to evaluate pt for irritation at G-tube site. Case d/w Dr. Peña (06/24/17) - continue cipro ophthalmologic for possible irritation/contamination for left eye - if pt remains stable then anticipate d/c to SNF in next 1-2 days (2) Recurrent carcinoma of ovary ICD Codes: C56.9 - Malignant neoplasm of unspecified ovary Status: Chronic Plan: - See above. (3) Hypokalemia ICD Codes: E87.6 - Hypokalemia Status: Chronic Plan: - Improved. (4) HTN (hypertension), benign ICD Codes: I10 - Essential (primary) hypertension Status: Chronic Plan: - see above (5) Anxiety ICD Codes: F41.9 - Anxiety disorder, unspecified Status: Chronic Brown Rivera DO Jun 24, 2017 11:19
[2017-06-24 11:59] VITALS: BP 124/60; PULSE 87; RESP 18; TEMP 97.9; O2SAT 97
--- NOTE | 2017-06-24 13:51 | PD.WCN.NOT ---
Wound Consult Description: Patient seen on for ostomy teaching and appliance check. Communicated with: Patient Patient at bedside Patient daughter Recommendation: -Empty pouch of effluent when 09/04-1/ full Additional Information: Patient seen for ostomy appliance check and reinforcement of ostomy teaching. Patient to be seen again with daughter tomorrow 06/25/17 @ 1300 Ostomy Type: Ileostomy (loop) Surgeon: Luke Franklin MD Date of Surgery: Jun 05, 2017 Complete: Starter kit (was brought in from home and used by nursing staff. ), Education materials, Rx (left on chart) Educated patient on: Changing appliance prior to leaks and measuring stoma for correct size appliance. Additional information Appliance is intact without leaks noted. Stoma is noted to right mid abdomen, red, moist, moderately protruding, functioning from lumen noted at 3 o'clock. Ileostomy is oval and using a 2 3/4" appliance. Mucocutaneous junction is not visualized at this time. Patient will be assisted with appliance change tomorrow with daughter at bedside. Gabi Giang [facility] Jun 24, 2017 13:51
[2017-06-24 16:33] VITALS: BP 136/63; PULSE 78; RESP 18; TEMP 98.3; O2SAT 95
[2017-06-24 21:05] VITALS: BP 151/60; PULSE 85; RESP 20; TEMP 99; O2SAT 97
[2017-06-25] MEDS: DIPHENOXYLATE/ATROPINE 2.5 MG/0.025 MG TAB PO SCH ×5 (00:16→23:21)
[2017-06-25] MEDS: CIPROFLOXACIN 0.3% OPTH SOLN 2.5 ML BTL LEFT EYE SCH ×7 (00:17→23:36)
[2017-06-25] MEDS: LORazepam 2 MG/ML VIAL IV PUSH PRN ×2 (00:17→23:31)
[2017-06-25] MEDS: ONDANSETRON HCL 4 MG/2 ML VIAL IV PUSH SCH ×6 (01:28→20:48)
[2017-06-25] MEDS: NYSTATIN 100,000 U/GM OINT 15 GM TUBE TOPICAL SCH ×3 (06:02→20:50)
[2017-06-25] MEDS: NYSTATIN 100,000 U/GM PWD 15 GM BTL TOPICAL SCH ×3 (06:02→20:49)
[2017-06-25] MEDS: MUPIROCIN 2% OINT 22 GM TUBE TOPICAL SCH ×3 (06:02→20:49)
[2017-06-25 07:22] LABS: AUTOMATED NEUTROPHIL # 5.5 TH/MM3 (1.8-7.7); BASOPHIL % 0.3 % (0.0-2.0); EOSINOPHIL # 0.3 TH/MM3 (0-0.4); EOSINOPHIL % 3.6 % (0.0-4.0); HEMATOCRIT 23.7 % (35.0-46.0); HEMO FLAGS DIFF FINAL; LYMPH % 15.7 % (9.0-44.0); LYMPHOCYTE # 1.2 TH/MM3 (1.0-4.8); MEAN CORPUSCULAR HEMOGLOBIN 31.4 PG (27.0-34.0); MEAN CORPUSCULAR HGB CONC 33.1 % (32.0-36.0); MONO % 6.4 % (0.0-8.0); PLATELET COUNT 243 TH/MM3 (150-450); RED CELL DISTRIBUTION WIDTH 19.3 % (11.6-17.2); WHITE BLOOD COUNT 7.5 TH/MM3 (4.0-11.0)
[2017-06-25 07:40] LABS: BICARBONATE 21.8 MEQ/L (21.0-32.0); MAGNESIUM 1.2 MG/DL (1.5-2.5); POTASSIUM 3.5 MEQ/L (3.5-5.1)
[2017-06-25] MEDS: PSYLLIUM FIBER SF/GF 6 GM POWD PKT PO SCH (09:00)
[2017-06-25] MEDS: SODIUM CHLORIDE 0.9% FLUSH 10 ML FLUSH IV FLUSH SCH ×2 (09:04→20:41)
[2017-06-25] MEDS: APIXABAN 5 MG TABLET PO SCH ×2 (09:04→20:50)
[2017-06-25] MEDS: DRONABINOL 5 MG CAP PO PRN ×2 (09:04→17:19)
[2017-06-25 12:40] VITALS: BP 137/62; PULSE 96; RESP 20; TEMP 98.5; O2SAT 97
--- NOTE | 2017-06-25 15:07 | PD.WCN.NOT ---
Wound Consult Description: Patient seen on [address] [place] [address] for ostomy teaching and appliance check. Communicated with: Dr Miguel Deal RN Patient Patient daughters at bedside Patient Recommendation: Empty pouch of effluent when 1/3-1/2 full Change appliance as needed or every 3-5 days Additional Information: Patient seen on [address] [place] [address] for Ostomy appliance change with daughters at bedside for demonstration. Ostomy Type: Ileostomy (loop) Surgeon: Luke Franklin MD Date of Surgery: Jun 05, 2017 Complete: Starter kit (was brought in from home and used by nursing staff. ), Education materials, Rx (left on chart) Educated patient on: Peristomal skin complication Stoma assessment Wafer change with pouch When to inform physician of complications regarding stoma and peristomal skin issues Additional information Patient seen on [address] [place] [address] for appointment with patients daughters for demonstration of wafer change. Wafer was removed by patient using adhesive removal wipes. Minimal amount of sanguinous exudate noted when assessing peristomal skin. When peristomal skin was wiped clean an open area was noted ~ 2cm from stoma @ ~11 o'clock. The open area measured ~0.1cm x 0.3cm and not probed for depth. Periwound was gently pressed and a minimal amount of purulent sanguinous drainage was noted. Patient states no pain at the site. Patient daughter took a picture with her phone to show physician. DENISE Deal was called to the bedside for visualization as well as Dr Rivera being notified by rfp writer. Stoma noted to right side mid abdomen is 1 1/2" x 1 3/4" oval, red, moist, moderately protruding, lumens noted at 9 o'clock and 3 o'clock functioning with yellow effluent noted from lumen @ 3 o'clock. Mucocutaneous junction is noted with sutures in place circumferentially. Wafer in size 2 3/4 "could be used for appliance change, however this size was not available at that time, therefore a cut to fit wafer was used that the patients daughter had previously cut. Stoma paste was used circumferentially around stoma for wafer size used to protect peristomal skin from coming into contact with effluent. Barrier and pouch was applied by rfp writer. Patient held her hand over appliances for warmth. It was explained that the surgeon may come in and remove appliance for visualization of wound noted to peristomal skin. Gabi Giang [facility] Jun 25, 2017 15:07
--- NOTE | 2017-06-25 16:02 | HHI.PR ---
Subjective Remarks Pt has had out about 2300 from colostomy overnight Wound care noted a small area of purulent drainage close to the stoma, GS was informed of this Pt upset because the hospital does not have Metamucil to give her this morning Her H/H decreased today but she has not had any obvious signs of bleeding. No melena or hematochezia from ileostomy Objective Vitals Vital Signs Date Time Temp Pulse Resp B/P (MAP) Pulse Ox O2 Delivery O2 Flow Rate FiO2 06/25/17 12:40 98.5 96 20 137/62 (87) 97 06/24/17 21:05 99.0 85 20 151/60 (90) 97 06/24/17 16:33 98.3 78 18 136/63 (87) 95 06/25/17 06/25/17 06/26/17 15:00 23:00 07:00 Output Total 1025 ml Balance -1025 ml Output Urine Total 700 ml Stool Total 325 ml Result Diagram: 06/25/17 0600 06/25/17 0600 Other Results Laboratory Tests Test 06/25/17 06:00 White Blood Count 7.5 TH/MM3 Red Blood Count 2.50 MIL/MM3 Hemoglobin 7.8 GM/DL Hematocrit 23.7 % Mean Corpuscular Volume 95.0 FL Mean Corpuscular Hemoglobin 31.4 PG Mean Corpuscular Hemoglobin Concent 33.1 % Red Cell Distribution Width 19.3 % Platelet Count 243 TH/MM3 Mean Platelet Volume 8.0 FL Neutrophils (%) (Auto) 74.0 % Lymphocytes (%) (Auto) 15.7 % Monocytes (%) (Auto) 6.4 % Eosinophils (%) (Auto) 3.6 % Basophils (%) (Auto) 0.3 % Neutrophils # (Auto) 5.5 TH/MM3 Lymphocytes # (Auto) 1.2 TH/MM3 Monocytes # (Auto) 0.5 TH/MM3 Eosinophils # (Auto) 0.3 TH/MM3 Basophils # (Auto) 0.0 TH/MM3 CBC Comment DIFF FINAL Differential Comment Blood Urea Nitrogen 7 MG/DL Creatinine 0.83 MG/DL Random Glucose 153 MG/DL Calcium Level 8.0 MG/DL Magnesium Level 1.2 MG/DL Sodium Level 139 MEQ/L Potassium Level 3.5 MEQ/L Chloride Level 109 MEQ/L Carbon Dioxide Level 21.8 MEQ/L Anion Gap 8 MEQ/L Estimat Glomerular Filtration Rate 68 ML/MIN Imaging Last Impressions Chest X-Ray 06/17/17 0800 Signed Impressions: Service Date/Time: Saturday, June 17, 2017 07:48 - CONCLUSION: 1. Small area of atelectasis at the left lung base. The lungs are otherwise clear. Malick Arias MD Abdomen X-Ray 06/16/17 0000 Signed Impressions: Service Date/Time: Friday, June 16, 2017 15:16 - CONCLUSION: 1. No evidence of obstruction. Edgardo Valero MD Lower Extremity Ultrasound 06/01/17 0000 Signed Impressions: Service Date/Time: Thursday, June 01, 2017 13:35 - CONCLUSION: 1. Findings consistent with extensive acute right lower extremity DVT extending from the proximal right femoral vein to the posterior tibial vein. More centrally, the common femoral and iliac veins appear patent. 2. 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 Patricio Pantoja MD Small Bowel X-Ray 05/28/17 0000 Signed Impressions: Service Date/Time: Sunday, May 28, 2017 08:36 - CONCLUSION: Delay in transit of the contrast to the large bowel by 8.5 hours. Numerous dilated loops of small intestine are seen. Luisito Barahona MD Abdomen/Pelvis CT 05/25/17 0136 Signed Impressions: Service Date/Time: Thursday, May 25, 2017 01:51 - CONCLUSION: Diffusely dilated loops of small bowel down to the terminal ileum with air-fluid levels suggesting either diffuse ileus or small bowel obstruction. Renato Driscoll MD Objective Remarks General: NAD, AAOx3. Chest: CTA Cardiac: Regular Abd: ileostomy bag recently emptied at the time of my visit, brown stool in pt' s bag. Some erythema to G-tube site. Small area of induration at the stoma (11 o' clock position), no drainage noted Ext: No edema. Procedures ileostomy g tube placement A/P Problem List: (1) Bowel obstruction ICD Codes: K56.60 - Unspecified intestinal obstruction Status: Acute Plan: - Pt is 71 yo with brca 2 who had ovarian Ca with LIZ/BSO, omentectomy, lysis of adhesions [place] [address] Huang. Has had chemo with Taxol, Carboplatin, Gemzar, Tamoxifen and then Lynparza this past year. There have been concerns of recurrence with a recent rise in ca 125. Dr. Huang has done PET scans and find no major focus of disease. Most recently she has been getting Topotecan weekly for past 3 weeks - comgmt with [facility] - Pt presented with crampy abdomen pain which occurs with each treatment and then progressed to no BM over several days prior to admission. - CT A/P shows diffusely dilated loops of small bowel down to the terminal ileum with air-fluid levels suggesting either diffuse ileus or small bowel obstruction. - Pt had similar events after starting lynparza in 2016 - KUB (05/26) --> Stable abnormally dilated small bowel measuring up to 5.4 cm with paucity of distal bowel gas. Findings are suspicious for distal small bowel obstruction. One of the small bowel segments in the left abdomen demonstrates thumbprinting which can be seen with submucosal edema. - SBFT (05/28) --> Delay in transit of the contrast to the large bowel by 8.5 hours. Numerous dilated loops of small intestine are seen. - SBFT results were discussed with radiology and they feel that these findings are most likely consistent with obstruction. -- Per Dr. 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 Pt had teaching from ostomy nurse and removal of bars - Pt was treated for E.Coli UTI - DVT's, cont anticoagulation with Eliquis - Per previous discussion with with Dr Huang....cont chemo after pt heals. - Her hyponatremia and declining renal function are barriers to d/c to snf with high ostomy output Her w/up is consistent with dehydration/hyponatremia/vonda from high output ostomy - Pt's output from ileostomy appears to have slowed down with scheduled metamucil and prn lamotil - IVF stopped - Monitor ileostomy output - Pts H/H decreased today without any obvious signs of bleeding, output from ileostomy is brown stool. Pt is on Eliquis - repeat CBC, BMP, Mag in AM - Surgery to evaluate pt for drainage site around ileostomy. Case d/w Dr. 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 (3) Hypokalemia ICD Codes: E87.6 - Hypokalemia Status: Chronic Plan: - Improved. (4) HTN (hypertension), benign ICD Codes: I10 - Essential (primary) hypertension Status: Chronic Plan: - see above (5) Anxiety ICD Codes: F41.9 - Anxiety disorder, unspecified Status: Chronic Assessment and Plan Patient examined. Assessment and plan formulated with Julita Jones PA-C. I agree with the above. Julita Jones Jun 25, 2017 16:02 Brown Rivera DO Jun 26, 2017 19:57
[2017-06-25] MEDS: CALCIUM POLYCARBOPHIL 625 MG TAB PO SCH ×2 (17:57→20:44)
[2017-06-25 20:00] VITALS: BP 145/63; PULSE 106; RESP 20; TEMP 98.9; O2SAT 98
[2017-06-26] VITALS: BP 136/63; PULSE 85; RESP 20; TEMP 98.5; O2SAT 97
[2017-06-26] MEDS: DRONABINOL 5 MG CAP PO PRN ×4 (00:02→22:55)
[2017-06-26] MEDS: ONDANSETRON HCL 4 MG/2 ML VIAL IV PUSH SCH ×6 (02:00→21:51)
[2017-06-26] MEDS: MUPIROCIN 2% OINT 22 GM TUBE TOPICAL SCH ×3 (06:00→22:00)
[2017-06-26] MEDS: CIPROFLOXACIN 0.3% OPTH SOLN 2.5 ML BTL LEFT EYE SCH ×6 (06:05→22:59)
[2017-06-26] MEDS: DIPHENOXYLATE/ATROPINE 2.5 MG/0.025 MG TAB PO SCH ×4 (06:05→22:54)
[2017-06-26] MEDS: NYSTATIN 100,000 U/GM PWD 15 GM BTL TOPICAL SCH ×3 (06:06→22:47)
[2017-06-26] MEDS: NYSTATIN 100,000 U/GM OINT 15 GM TUBE TOPICAL SCH ×3 (06:06→22:47)
[2017-06-26 07:24] LABS: AUTOMATED NEUTROPHIL # 5.8 TH/MM3 (1.8-7.7); BASOPHIL % 0.3 % (0.0-2.0); EOSINOPHIL # 0.3 TH/MM3 (0-0.4); HEMATOCRIT 25.7 % (35.0-46.0); HEMO FLAGS DIFF FINAL; LYMPH % 22.3 % (9.0-44.0); LYMPHOCYTE # 1.9 TH/MM3 (1.0-4.8); MEAN CORPUSCULAR HEMOGLOBIN 31.4 PG (27.0-34.0); MEAN CORPUSCULAR HGB CONC 33.4 % (32.0-36.0); MONO % 6.2 % (0.0-8.0); NEUT % 68.2 % (16.0-70.0); PLATELET COUNT 254 TH/MM3 (150-450); RED BLOOD COUNT 2.74 MIL/MM3 (4.00-5.30); RED CELL DISTRIBUTION WIDTH 18.9 % (11.6-17.2); WHITE BLOOD COUNT 8.5 TH/MM3 (4.0-11.0)
--- NOTE | 2017-06-26 07:32 | PD.ONC.PN ---
Subjective Subjective Remarks Patient resting in bed feels frustrated that her H/H dropped explained that this can happen with chronic illness/cancer and once she is discharged she will get weekly labs as outpt otherwise she has no complaints and feels anxious to get to rehab so she can restart treatment. Objective Data Date Time Temp Pulse Resp B/P (MAP) Pulse Ox O2 Delivery O2 Flow Rate FiO2 06/26/17 00:00 98.5 85 20 136/63 (87) 97 06/25/17 20:00 98.9 106 20 145/63 (90) 98 06/25/17 12:40 98.5 96 20 137/62 (87) 97 06/26/17 06/26/17 06/26/17 07:00 15:00 23:00 Intake Total 240 ml Output Total 800 ml Balance -560 ml Result Diagram: 06/26/1730 06/25/17 0600 Laboratory Results Laboratory Tests Test 06/26/17 06:30 White Blood Count 8.5 TH/MM3 Red Blood Count 2.74 MIL/MM3 Hemoglobin 8.6 GM/DL Hematocrit 25.7 % Mean Corpuscular Volume 94.0 FL Mean Corpuscular Hemoglobin 31.4 PG Mean Corpuscular Hemoglobin Concent 33.4 % Red Cell Distribution Width 18.9 % Platelet Count 254 TH/MM3 Mean Platelet Volume 8.4 FL Neutrophils (%) (Auto) 68.2 % Lymphocytes (%) (Auto) 22.3 % Monocytes (%) (Auto) 6.2 % Eosinophils (%) (Auto) 3.0 % Basophils (%) (Auto) 0.3 % Neutrophils # (Auto) 5.8 TH/MM3 Lymphocytes # (Auto) 1.9 TH/MM3 Monocytes # (Auto) 0.5 TH/MM3 Eosinophils # (Auto) 0.3 TH/MM3 Basophils # (Auto) 0.0 TH/MM3 CBC Comment DIFF FINAL Differential Comment Administered Medications Medications (Trade) Dose Ordered Sig/Anette Route PRN Reason Start Time Stop Time Status Last Admin Dose Admin Alprazolam (Xanax) 1 mg HS PRN PO anxiety 05/25/17 21:00 06/18/17 21:28 Clonidine (Catapres) 0.1 mg Q6H PRN PO sbp > 170 05/26/17 09:00 05/30/17 15:57 Al Hydrox/Mg Hydrox/Simethicone (Mag-Al Plus Susp Liq) 30 ml Q4H PRN PO HEARTBURN 05/26/17 18:30 05/26/17 22:13 Lorazepam (Ativan Inj) 1 mg Q4H PRN IV PUSH anxiety 05/28/17 14:00 06/25/17 23:31 Phenol (Chloraseptic Palmer) 2 spray Q2H PRN OROPHARYNG SORE THROAT 05/31/17 11:45 05/31/17 14:26 Acetaminophen 100 ml @ 400 mls/hr Q6H PRN IV fever/pain 1-10 06/03/17 09:30 06/07/17 04:33 Sodium Chloride (NS Flush) 2 ml UNSCH PRN IV FLUSH FLUSH AFTER USING IV ACCESS 06/05/17 16:45 06/11/17 04:00 Sodium Chloride (NS Flush) 2 ml BID IV FLUSH 06/05/17 21:00 06/25/17 20:41 Oxycodone/ Acetaminophen (Percocet 5-325 Mg) 1 tab Q4H PRN PO PAIN SCALE 1 TO 5 06/05/17 16:45 06/11/17 02:37 Morphine Sulfate (Morphine Inj) 2 mg Q1H PRN IV BREAKTROUGH PAIN > 5 06/05/17 21:00 06/05/17 23:30 Dronabinol (Marinol) 5 mg Q6HR PRN PO nausea 06/12/17 18:00 06/26/17 00:02 Ondansetron HCl (Zofran Inj) 4 mg Q4H IV PUSH 06/16/17 14:00 06/23/17 21:07 Nystatin (Mycostatin Oint) 1 applic Q8HR TOPICAL 06/16/17 14:00 06/26/17 06:06 Diphenoxylate HCl/ Atropine (Lomotil Tab) 1 tab Q6HR PO 06/18/17 12:00 06/26/17 06:05 Apixaban (Eliquis) 5 mg BID PO 06/20/17 21:00 06/25/17 20:50 Nystatin (Mycostatin Powder) 1 applic Q8HR TOPICAL 06/21/17 16:00 06/26/17 06:06 Mupirocin (Bactroban 2% Oint) 1 applic Q8HR TOPICAL 06/23/17 14:00 06/25/17 20:49 Ciprofloxacin HCl (Ciloxan 0.3% Opth Soln) 2 drop Q4HR LEFT EYE 06/23/17 12:00 06/30/17 12:00 06/26/17 06:05 Heparin Sodium (Porcine) (Heparin Central Flush) 250 units UNSCH PRN IV FLUSH SEE PROTOCOL TABLE 06/23/17 12:30 06/26/17 06:35 Calcium Polycarbophil (Fiber Con) 625 mg BID PO 06/25/17 16:44 06/25/17 20:44 Objective Remarks GENERAL: Well-nourished, well-developed patient. SKIN: Warm and dry. HEAD: Normocephalic. EYES: No scleral icterus. No injection or drainage. NECK: Supple, trachea midline. CARDIOVASCULAR: Regular rate and rhythm without murmurs. RESPIRATORY: Breath sounds equal bilaterally. No accessory muscle use. MUSCULOSKELETAL: Adequate muscle tone. NEUROLOGICAL: No obvious focal deficit. Awake, alert, and oriented x3. PSYCHIATRIC: Appropriate mood and affect; insight and judgment normal. 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 Huang IV chemotherapy will monitor weekly labs as outpt (3) UTI (urinary tract infection) ICD Codes: N39.0 - Urinary tract infection, site not specified Status: Resolved Plan: gram + josy (4) Elevated WBC count ICD Codes: D72.829 - Elevated white blood cell count, unspecified Status: Resolved (5) Hyponatremia ICD Codes: E87.1 - Hypo-osmolality and hyponatremia Status: Acute Plan: WNL intake improved continue to monitor labs as outpt will look into HH once pt is home from SNF...information faxed to [facility] on 06/21/17 from our office hopefully they can arrange IVF in home if needed. Olivia Thacker Jun 26, 2017 07:32
[2017-06-26 07:45] LABS: BICARBONATE 23.4 MEQ/L (21.0-32.0); POTASSIUM 3.7 MEQ/L (3.5-5.1)
[2017-06-26 08:00] VITALS: BP 132/75; PULSE 65; RESP 18; TEMP 98.3; O2SAT 96
[2017-06-26] MEDS: CALCIUM POLYCARBOPHIL 625 MG TAB PO SCH ×2 (08:46→22:55)
[2017-06-26] MEDS: APIXABAN 5 MG TABLET PO SCH ×2 (08:46→22:55)
[2017-06-26] MEDS: SODIUM CHLORIDE 0.9% FLUSH 10 ML FLUSH IV FLUSH SCH ×2 (08:48→21:00)
[2017-06-26 12:00] VITALS: BP 132/61; PULSE 80; RESP 18; TEMP 98.4; O2SAT 99
--- NOTE | 2017-06-26 14:41 | HHI.PR ---
Subjective Remarks output from ostomy has decreased reports feeling well offers no specific complaints discussed possible DC tomorrow- patient and family looking forward to DC from hospital Objective Vitals Vital Signs Date Time Temp Pulse Resp B/P (MAP) Pulse Ox O2 Delivery O2 Flow Rate FiO2 06/26/17 12:00 98.4 80 18 132/61 (84) 99 06/26/17 08:00 98.3 65 18 132/75 (94) 96 06/26/17 00:00 98.5 85 20 136/63 (87) 97 06/25/17 20:00 98.9 106 20 145/63 (90) 98 06/26/17 06/26/17 06/27/17 15:00 23:00 07:00 Output Total 150 ml Balance -150 ml Stool Total 150 ml Result Diagram: 06/26/1730 06/26/17 0630 Other Results Laboratory Tests Test 06/25/17 06:00 06/26/17 06:30 White Blood Count 7.5 TH/MM3 8.5 TH/MM3 Red Blood Count 2.50 MIL/MM3 2.74 MIL/MM3 Hemoglobin 7.8 GM/DL 8.6 GM/DL Hematocrit 23.7 % 25.7 % Mean Corpuscular Volume 95.0 FL 94.0 FL Mean Corpuscular Hemoglobin 31.4 PG 31.4 PG Mean Corpuscular Hemoglobin Concent 33.1 % 33.4 % Red Cell Distribution Width 19.3 % 18.9 % Platelet Count 243 TH/MM3 254 TH/MM3 Mean Platelet Volume 8.0 FL 8.4 FL Neutrophils (%) (Auto) 74.0 % 68.2 % Lymphocytes (%) (Auto) 15.7 % 22.3 % Monocytes (%) (Auto) 6.4 % 6.2 % Eosinophils (%) (Auto) 3.6 % 3.0 % Basophils (%) (Auto) 0.3 % 0.3 % Neutrophils # (Auto) 5.5 TH/MM3 5.8 TH/MM3 Lymphocytes # (Auto) 1.2 TH/MM3 1.9 TH/MM3 Monocytes # (Auto) 0.5 TH/MM3 0.5 TH/MM3 Eosinophils # (Auto) 0.3 TH/MM3 0.3 TH/MM3 Basophils # (Auto) 0.0 TH/MM3 0.0 TH/MM3 CBC Comment DIFF FINAL DIFF FINAL Differential Comment Blood Urea Nitrogen 7 MG/DL 9 MG/DL Creatinine 0.83 MG/DL 0.99 MG/DL Random Glucose 153 MG/DL 154 MG/DL Calcium Level 8.0 MG/DL 8.3 MG/DL Magnesium Level 1.2 MG/DL 1.0 MG/DL Sodium Level 139 MEQ/L 137 MEQ/L Potassium Level 3.5 MEQ/L 3.7 MEQ/L Chloride Level 109 MEQ/L 105 MEQ/L Carbon Dioxide Level 21.8 MEQ/L 23.4 MEQ/L Anion Gap 8 MEQ/L 9 MEQ/L Estimat Glomerular Filtration Rate 68 ML/MIN 55 ML/MIN Imaging Last Impressions Chest X-Ray 06/17/17 0800 Signed Impressions: Service Date/Time: Saturday, June 17, 2017 07:48 - CONCLUSION: 1. Small area of atelectasis at the left lung base. The lungs are otherwise clear. Malick Arias MD Abdomen X-Ray 06/16/17 0000 Signed Impressions: Service Date/Time: Friday, June 16, 2017 15:16 - CONCLUSION: 1. No evidence of obstruction. Edgardo Valero MD Lower Extremity Ultrasound 06/01/17 0000 Signed Impressions: Service Date/Time: Thursday, June 01, 2017 13:35 - CONCLUSION: 1. Findings consistent with extensive acute right lower extremity DVT extending from the proximal right femoral vein to the posterior tibial vein. More centrally, the common femoral and iliac veins appear patent. 2. 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 Ptaricio Pantoja MD Small Bowel X-Ray 05/28/17 0000 Signed Impressions: Service Date/Time: Sunday, May 28, 2017 08:36 - CONCLUSION: Delay in transit of the contrast to the large bowel by 8.5 hours. Numerous dilated loops of small intestine are seen. Luisito Barahona MD Abdomen/Pelvis CT 05/25/17 0136 Signed Impressions: Service Date/Time: Thursday, May 25, 2017 01:51 - CONCLUSION: Diffusely dilated loops of small bowel down to the terminal ileum with air-fluid levels suggesting either diffuse ileus or small bowel obstruction. Renato Driscoll MD Objective Remarks General: NAD, AAOx3. Chest: CTA Cardiac: Regular Abd: ileostomy, brown stool in pt's bag. Some erythema to G-tube site. Small area of induration at the stoma (11 o' clock position) Ext: No edema. Procedures ileostomy g tube placement A/P Problem List: (1) Bowel obstruction ICD Codes: K56.60 - Unspecified intestinal obstruction Status: Acute Plan: - Pt is 71 yo with brca 2 who had ovarian Ca with LIZ/BSO, omentectomy, lysis of adhesions [place] [address] Huang. Has had chemo with Taxol, Carboplatin, Gemzar, Tamoxifen and then Lynparza this past year. There have been concerns of recurrence with a recent rise in ca 125. Dr. Huang has done PET scans and find no major focus of disease. Most recently she has been getting Topotecan weekly for past 3 weeks - comgmt with [employer] [facility] - Pt presented with crampy abdomen pain which occurs with each treatment and then progressed to no BM over several days prior to admission. - CT A/P shows diffusely dilated loops of small bowel down to the terminal ileum with air-fluid levels suggesting either diffuse ileus or small bowel obstruction. - Pt had similar events after starting lynparza in 2016 - KUB (05/26) --> Stable abnormally dilated small bowel measuring up to 5.4 cm with paucity of distal bowel gas. Findings are suspicious for distal small bowel obstruction. One of the small bowel segments in the left abdomen demonstrates thumbprinting which can be seen with submucosal edema. - SBFT (05/28) --> Delay in transit of the contrast to the large bowel by 8.5 hours. Numerous dilated loops of small intestine are seen. - SBFT results were discussed with radiology and they feel that these findings are most likely consistent with obstruction. -- Per Dr. 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 Pt had teaching from ostomy nurse and removal of bars - Pt was treated for E.Coli UTI - DVT's, cont anticoagulation with Eliquis - Per previous discussion with with Dr Huang....cont chemo after pt heals. - Her hyponatremia and declining renal function are barriers to d/c to snf with high ostomy output Her w/up is consistent with dehydration/hyponatremia/vonda from high output ostomy - Pt's output from ileostomy appears to have slowed down with scheduled metamucil and prn lamotil - IVF stopped - Monitor ileostomy output - Pts H/H decreased today without any obvious signs of bleeding, output from ileostomy is brown stool. Pt is on Eliquis - repeat CBC, BMP, Mag in AM - Surgery to evaluate pt for drainage site around ileostomy. Case d/w Dr. 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 (3) Hypokalemia ICD Codes: E87.6 - Hypokalemia Status: Chronic Plan: - Improved. (4) HTN (hypertension), benign ICD Codes: I10 - Essential (primary) hypertension Status: Chronic Plan: - see above (5) Anxiety ICD Codes: F41.9 - Anxiety disorder, unspecified Status: Chronic Assessment and Plan Patient examined. Assessment and plan formulated with Le Flood PA-C. I agree with the above. Decreased output from ileostomy. Electrolytes stable. Hg stable Anticipate d/c to SNF 06/27 Le Flood Jun 26, 2017 14:41 Brown Rivera DO Jun 26, 2017 19:59
--- NOTE | 2017-06-26 15:52 | PD.WCN.NOT ---
Wound Consult Description: Patient seen on for ostomy teaching and appliance check. Communicated with: Patient Recommendation: Empty pouch of effluent when 1/3-1/2 full Change appliance as needed or every 3-5 days Additional Information: *Late entry* Patient seen earlier this am on . Ostomy Type: Ileostomy (loop) Surgeon: Luke Franklin MD Date of Surgery: Jun 05, 2017 Complete: Starter kit (was brought in from home and used by nursing staff. ), Education materials, Rx (left on chart) Educated patient on: Emptying pouch of effluent when /3-/12 full Keep an eye on the peristomal wound (physician ordered to leave open to air) Change appliance every 3-5 days Additional information Patient seen on earlier this morning for ostomy appliance visualization. Wafer and pouch intact without leaks noted. Barrier was trimmed to allow for new wound found yesterday during appliance change, to remain open to air for visualization per Dr Peña. Minimal effluent noted to pouch that was not emptied at this time. Stoma is red, oval, moist, moderately protruding, functioning with lumens noted at 3 and 9 o'clock. Gabi Giang [facility] Jun 26, 2017 15:52
[2017-06-26 16:00] VITALS: BP 131/55; PULSE 88; RESP 18; TEMP 98.3; O2SAT 98
[2017-06-26 20:00] VITALS: BP 132/58; PULSE 95; RESP 20; TEMP 99.2; O2SAT 98
[2017-06-26] MEDS: LORazepam 2 MG/ML VIAL IV PUSH PRN (22:55)
[2017-06-27] MEDS: ONDANSETRON HCL 4 MG/2 ML VIAL IV PUSH SCH ×5 (01:13→12:02)
[2017-06-27] MEDS: CIPROFLOXACIN 0.3% OPTH SOLN 2.5 ML BTL LEFT EYE SCH ×5 (05:55→15:28)
[2017-06-27] MEDS: DIPHENOXYLATE/ATROPINE 2.5 MG/0.025 MG TAB PO SCH ×3 (05:55→17:06)
[2017-06-27] MEDS: NYSTATIN 100,000 U/GM PWD 15 GM BTL TOPICAL SCH ×2 (05:58→12:06)
[2017-06-27] MEDS: MUPIROCIN 2% OINT 22 GM TUBE TOPICAL SCH ×2 (06:00→12:01)
[2017-06-27] MEDS: NYSTATIN 100,000 U/GM OINT 15 GM TUBE TOPICAL SCH ×2 (06:00→12:07)
--- NOTE | 2017-06-27 07:30 | PD.ONC.PN ---
Subjective Subjective Remarks resting in bed no complaints going to rehab today will follow up as outpt with Dr. Huang for discussion on continued treatment Objective Data Date Time Temp Pulse Resp B/P (MAP) Pulse Ox O2 Delivery O2 Flow Rate FiO2 06/26/17 20:00 99.2 95 20 132/58 (82) 98 06/26/17 16:00 98.3 88 18 131/55 (80) 98 06/26/17 12:00 98.4 80 18 132/61 (84) 99 06/26/17 08:00 98.3 65 18 132/75 (94) 96 06/27/17 06/27/17 06/27/17 07:00 15:00 23:00 Output Total 850 ml Balance -850 ml Result Diagram: 06/26/1762906/26/17629 Laboratory Results Laboratory Tests Test 05/25/17 01:45 05/26/17 06:03 05/29/17 04:00 06/02/17 21:50 Lactic Acid Level 1.0 mmol/L Blood Urea Nitrogen 11 MG/DL 13 MG/DL Creatinine 1.02 MG/DL 1.10 MG/DL Random Glucose 120 MG/DL 117 MG/DL Total Protein 6.3 GM/DL Albumin 3.0 GM/DL Calcium Level 8.3 MG/DL 8.5 MG/DL Alkaline Phosphatase 100 U/L Aspartate Amino Transf (AST/SGOT) 63 U/L Alanine Aminotransferase (ALT/SGPT) 184 U/L Total Bilirubin 0.5 MG/DL Sodium Level 137 MEQ/L 139 MEQ/L Potassium Level 3.2 MEQ/L 3.8 MEQ/L Chloride Level 104 MEQ/L 109 MEQ/L Carbon Dioxide Level 25.2 MEQ/L 20.8 MEQ/L Lipase 114 U/L Phosphorus Level 3.1 MG/DL Magnesium Level 1.7 MG/DL Dohle Bodies PRESENT CA 125 Antigen 325.5 U/ML Urine Calcium Oxalate Crystals OCC /hpf Test 06/03/17 05:45 06/03/17 12:45 06/05/17 09:10 06/06/17 04:00 Helmet Cells OCC Stool C. difficile Toxin (PCR) NEGATIVE Stl C. difficile Toxin Epiderm 027 PRESUMPTIVE NEGATIVE Toxic Granulation 2+ Atypical Lymphocytes % Acanthocytes OCC Test 06/11/17 04:00 06/13/17 04:50 06/14/17 06:30 06/15/17 05:30 Promyelocytes 1 % Keratocytes OCC Tear Drop Cells 1+ Ovalocytes 1+ Basophils % 1 % Polychromasia 2.1 % Test 06/16/17 05:45 06/16/17 17:06 06/17/17 05:34 06/17/17 14:35 Nucleated Red Blood Cells 1 /100 WBC Urine Color YELLOW Urine Turbidity HAZY Urine pH 5.5 Urine Specific [place] 1.021 Urine Protein TRACE mg/dL Urine Glucose (UA) NEG mg/dL Urine Ketones NEG mg/dL Urine Occult Blood TRACE Urine Nitrite NEG Urine Bilirubin NEG Urine Urobilinogen LESS THAN 2.0 MG/DL Urine Leukocyte Esterase LARGE Urine RBC 5 /hpf Urine WBC 144 /hpf Urine WBC Clumps OCC Urine Squamous Epithelial Cells 11 /hpf Urine Transitional Epithelial Cells <1 /hpf Urine Bacteria OCC /hpf Urine Granular Casts 3 /lpf Urine Yeast (Budding) OCC Microscopic Urinalysis Comment CULTURE INDICATED Differential Total Cells Counted 100 Neutrophils % (Manual) 67 % Band Neutrophils % 3 % Lymphocytes % 22 % Monocytes % 5 % Eosinophils % 1 % Neutrophils # (Manual) 10.5 TH/MM3 Metamyelocytes 1 % Myelocytes 1 % Platelet Estimate HIGH Platelet Morphology Comment NORMAL Serum Osmolality 282 MOSM/KG Urine Osmolality 616 MOSM/KG Urine Random Sodium LESS THAN 5 MEQ/L Test 06/26/17 06:30 White Blood Count 8.5 TH/MM3 Red Blood Count 2.74 MIL/MM3 Hemoglobin 8.6 GM/DL Hematocrit 25.7 % Mean Corpuscular Volume 94.0 FL Mean Corpuscular Hemoglobin 31.4 PG Mean Corpuscular Hemoglobin Concent 33.4 % Red Cell Distribution Width 18.9 % Platelet Count 254 TH/MM3 Mean Platelet Volume 8.4 FL Neutrophils (%) (Auto) 68.2 % Lymphocytes (%) (Auto) 22.3 % Monocytes (%) (Auto) 6.2 % Eosinophils (%) (Auto) 3.0 % Basophils (%) (Auto) 0.3 % Neutrophils # (Auto) 5.8 TH/MM3 Lymphocytes # (Auto) 1.9 TH/MM3 Monocytes # (Auto) 0.5 TH/MM3 Eosinophils # (Auto) 0.3 TH/MM3 Basophils # (Auto) 0.0 TH/MM3 CBC Comment DIFF FINAL Differential Comment Blood Urea Nitrogen 9 MG/DL Creatinine 0.99 MG/DL Random Glucose 154 MG/DL Calcium Level 8.3 MG/DL Magnesium Level 1.0 MG/DL Sodium Level 137 MEQ/L Potassium Level 3.7 MEQ/L Chloride Level 105 MEQ/L Carbon Dioxide Level 23.4 MEQ/L Anion Gap 9 MEQ/L Estimat Glomerular Filtration Rate 55 ML/MIN Administered Medications Medications (Trade) Dose Ordered Sig/Anette Route PRN Reason Start Time Stop Time Status Last Admin Dose Admin Alprazolam (Xanax) 1 mg HS PRN PO anxiety 05/25/17 21:00 06/18/17 21:28 Clonidine (Catapres) 0.1 mg Q6H PRN PO sbp > 170 05/26/17 09:00 05/30/17 15:57 Al Hydrox/Mg Hydrox/Simethicone (Mag-Al Plus Susp Liq) 30 ml Q4H PRN PO HEARTBURN 05/26/17 18:30 05/26/17 22:13 Lorazepam (Ativan Inj) 1 mg Q4H PRN IV PUSH anxiety 05/28/17 14:00 06/26/17 22:55 Phenol (Chloraseptic [place]) 2 spray Q2H PRN OROPHARYNG SORE THROAT 05/31/17 11:45 05/31/17 14:26 Acetaminophen 100 ml @ 400 mls/hr Q6H PRN IV fever/pain 1-10 06/03/17 09:30 06/07/17 04:33 Sodium Chloride (NS Flush) 2 ml UNSCH PRN IV FLUSH FLUSH AFTER USING IV ACCESS 06/05/17 16:45 06/11/17 04:00 Sodium Chloride (NS Flush) 2 ml BID IV FLUSH 06/05/17 21:00 06/26/17 21:00 Oxycodone/ Acetaminophen (Percocet 5-325 Mg) 1 tab Q4H PRN PO PAIN SCALE 1 TO 5 06/05/17 16:45 06/11/17 02:37 Morphine Sulfate (Morphine Inj) 2 mg Q1H PRN IV BREAKTROUGH PAIN > 5 06/05/17 21:00 06/05/17 23:30 Dronabinol (Marinol) 5 mg Q6HR PRN PO nausea 06/12/17 18:00 06/26/17 22:55 Ondansetron HCl (Zofran Inj) 4 mg Q4H IV PUSH 06/16/17 14:00 06/23/17 21:07 Nystatin (Mycostatin Oint) 1 applic Q8HR TOPICAL 06/16/17 14:00 06/27/17 06:00 Diphenoxylate HCl/ Atropine (Lomotil Tab) 1 tab Q6HR PO 06/18/17 12:00 06/27/17 05:55 Apixaban (Eliquis) 5 mg BID PO 06/20/17 21:00 06/26/17 22:55 Nystatin (Mycostatin Powder) 1 applic Q8HR TOPICAL 06/21/17 16:00 06/27/17 05:58 Mupirocin (Bactroban 2% Oint) 1 applic Q8HR TOPICAL 06/23/17 14:00 06/25/17 20:49 Ciprofloxacin HCl (Ciloxan 0.3% Opth Soln) 2 drop Q4HR LEFT EYE 06/23/17 12:00 06/30/17 12:00 06/27/17 05:55 Heparin Sodium (Porcine) (Heparin Central Flush) 250 units UNSCH PRN IV FLUSH SEE PROTOCOL TABLE 06/23/17 12:30 06/26/17 06:35 Calcium Polycarbophil (Fiber Con) 625 mg BID PO 06/25/17 16:44 06/26/17 22:55 Objective Remarks GENERAL: Well-nourished, well-developed patient. SKIN: Warm and dry. HEAD: Normocephalic. EYES: No scleral icterus. No injection or drainage. GASTROINTESTINAL: Abdomen soft, non-tender, nondistended. g tube to left upper abd, ileostomy to right lower abd MUSCULOSKELETAL: Adequate muscle tone. NEUROLOGICAL: No obvious focal deficit. Awake, alert, and oriented x3. PSYCHIATRIC: Appropriate mood and affect; insight and judgment normal. 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 Huang IV chemotherapy will monitor weekly labs as outpt (3) UTI (urinary tract infection) ICD Codes: N39.0 - Urinary tract infection, site not specified Status: Resolved Plan: gram + josy (4) Elevated WBC count ICD Codes: D72.829 - Elevated white blood cell count, unspecified Status: Resolved (5) Hyponatremia ICD Codes: E87.1 - Hypo-osmolality and hyponatremia Status: Resolved Plan: WNL intake improved continue to monitor labs as outpt HH once discharged from rehab Olivia Thacker Jun 27, 2017 07:30
[2017-06-27 08:00] VITALS: BP 117/58; PULSE 85; RESP 18; TEMP 98.5; O2SAT 95
[2017-06-27] MEDS: CALCIUM POLYCARBOPHIL 625 MG TAB PO SCH (09:02)
[2017-06-27] MEDS: APIXABAN 5 MG TABLET PO SCH (09:02)
[2017-06-27] MEDS: SODIUM CHLORIDE 0.9% FLUSH 10 ML FLUSH IV FLUSH SCH (09:03)
[2017-06-27] MEDS: DRONABINOL 5 MG CAP PO PRN ×2 (10:22→17:06)
[2017-06-27] MEDS ORDERED: CIPR0.3S2 LEFT EYE (10:25)
[2017-06-27] MEDS ORDERED: APIX5TAB PO (10:25)
[2017-06-27] MEDS ORDERED: FIBE625T PO (10:25)
[2017-06-27 12:00] VITALS: BP 121/60; PULSE 89; RESP 18; TEMP 98.9; O2SAT 96
--- NOTE | 2017-06-27 12:51 | HHI.DS ---
Discharge Summary Admission Date May 25, 2017 at 03:39 Discharge Date: Jun 27, 2017 Admitting Diagnosis small bowel obstruction versus ileus (1) Bowel obstruction ICD Codes: K56.60 - Unspecified intestinal obstruction Status: Acute (2) Recurrent carcinoma of ovary ICD Codes: C56.9 - Malignant neoplasm of unspecified ovary Status: Chronic (3) Hypokalemia ICD Codes: E87.6 - Hypokalemia Status: Chronic (4) HTN (hypertension), benign ICD Codes: I10 - Essential (primary) hypertension Status: Chronic (5) Anxiety ICD Codes: F41.9 - Anxiety disorder, unspecified Status: Chronic Consultants Dr. Sal Franklin Procedures 06/05/17 diagnostic laparoscopy, G-tube placement, ileostomy with Dr. Franklin Brief History Pt is 71 yo with brca 2 who had ovarian ca with david/bso, omentectomy, lysis of adhesions [place] [address] Huang. Has had chemo with taxol, carboplatin, gemzar, tamoxifen and then lynparza this past year. There have been concerns of recurrence with a recent rise in ca 125. She and dr Huang have done pet scans and find no major focus of disease. She was admitted last year for ileus felt related to lynparza 5 days after starting it. She needed left ureter stent soon after that admission for hydro and ureter stenosis. Now she has been getting Topotecan weekly for past 3 weeks and pt says this is when she has developed crampy abdomen pain with each treatment and now progression to no bm over past several days. CT in ED of A/P shows some dilation diffusely of the small bowel with afl and tapering down at ileum. Morphine has completely resolved her pain and she has no vomiting this AM. her abdomen is still more distended than baseline. she has been using senakot and miralax daily at home. She also restarted tamoxifen recently. CBC/BMP: 06/26/17 0630 06/26/17 0630 Significant Findings Laboratory Tests Test 06/25/17 06:00 06/26/17 06:30 Red Blood Count 2.50 MIL/MM3 (4.00-5.30) 2.74 MIL/MM3 (4.00-5.30) Hemoglobin 7.8 GM/DL (11.6-15.3) 8.6 GM/DL (11.6-15.3) Hematocrit 23.7 % (35.0-46.0) 25.7 % (35.0-46.0) Red Cell Distribution Width 19.3 % (11.6-17.2) 18.9 % (11.6-17.2) Neutrophils (%) (Auto) 74.0 % (16.0-70.0) Random Glucose 153 MG/DL (74-106) 154 MG/DL (74-106) Calcium Level 8.0 MG/DL (8.5-10.1) 8.3 MG/DL (8.5-10.1) Magnesium Level 1.2 MG/DL (1.5-2.5) 1.0 MG/DL (1.5-2.5) Chloride Level 109 MEQ/L (98-107) Estimat Glomerular Filtration Rate 68 ML/MIN (>89) 55 ML/MIN (>89) Imaging Last Impressions Chest X-Ray 06/17/17 0800 Signed Impressions: Service Date/Time: Saturday, June 17, 2017 07:48 - CONCLUSION: 1. Small area of atelectasis at the left lung base. The lungs are otherwise clear. Malick Arias MD Abdomen X-Ray 06/16/17 0000 Signed Impressions: Service Date/Time: Friday, June 16, 2017 15:16 - CONCLUSION: 1. No evidence of obstruction. Edgardo Valero MD Lower Extremity Ultrasound 06/01/17 0000 Signed Impressions: Service Date/Time: Thursday, June 01, 2017 13:35 - CONCLUSION: 1. Findings consistent with extensive acute right lower extremity DVT extending from the proximal right femoral vein to the posterior tibial vein. More centrally, the common femoral and iliac veins appear patent. 2. 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 Patricio Pantoja MD Small Bowel X-Ray 05/28/17 0000 Signed Impressions: Service Date/Time: Sunday, May 28, 2017 08:36 - CONCLUSION: Delay in transit of the contrast to the large bowel by 8.5 hours. Numerous dilated loops of small intestine are seen. Luisito Barahona MD Abdomen/Pelvis CT 05/25/17 0136 Signed Impressions: Service Date/Time: Thursday, May 25, 2017 01:51 - CONCLUSION: Diffusely dilated loops of small bowel down to the terminal ileum with air-fluid levels suggesting either diffuse ileus or small bowel obstruction. Renato Driscoll MD PE at Discharge General: NAD, AAOx3. Chest: CTA Cardiac: Regular Abd: ileostomy present Some erythema to G-tube site. Small area of induration at the stoma (11 o' clock position) Ext: No edema. Hospital Course Bowel obstruction - Pt is 71 yo with brca 2 who had ovarian Ca with DAVID/BSO, omentectomy, lysis of adhesions [place] [address] Huang. Has had chemo with Taxol, Carboplatin, Gemzar, Tamoxifen and then Lynparza this past year. There have been concerns of recurrence with a recent rise in ca 125. Dr. Huang has done PET scans and find no major focus of disease. Most recently she has been getting Topotecan weekly for past 3 weeks - comgmt with [facility] - Pt presented with crampy abdomen pain which occurs with each treatment and then progressed to no BM over several days prior to admission. - CT A/P shows diffusely dilated loops of small bowel down to the terminal ileum with air-fluid levels suggesting either diffuse ileus or small bowel obstruction. - Pt had similar events after starting lynparza in 2016 - KUB (05/26) --> Stable abnormally dilated small bowel measuring up to 5.4 cm with paucity of distal bowel gas. Findings are suspicious for distal small bowel obstruction. One of the small bowel segments in the left abdomen demonstrates thumbprinting which can be seen with submucosal edema. - SBFT (05/28) --> Delay in transit of the contrast to the large bowel by 8.5 hours. Numerous dilated loops of small intestine are seen. - SBFT results were discussed with radiology and they feel that these findings are most likely consistent with obstruction. -- Per Dr. 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 Pt had teaching from ostomy nurse and removal of bars - Pt was treated for E.Coli UTI - DVT's, cont anticoagulation with Eliquis - Per previous discussion with with Dr Huang....cont chemo after pt heals. - Her hyponatremia and declining renal function are barriers to d/c to snf with high ostomy output Her w/up is consistent with dehydration/hyponatremia/vonda from high output ostomy - Pt's output from ileostomy appears to have slowed down with scheduled metamucil and prn lamotil - IVF stopped - Monitor ileostomy output - Pts H/H decreased today without any obvious signs of bleeding, output from ileostomy is brown stool. Pt is on Eliquis - Surgery to evaluate pt for drainage site around ileostomy. Case d/w Dr. Peña (06/25/17) - continue cipro ophthalmologic for possible irritation/contamination for left eye 06/26/17 - output from ostomy decreased - PO intake improved, labs stable off IVF - H&H improved Recurrent carcinoma of ovary - See above. Hypokalemia - Improved. HTN (hypertension), benign - see above Anxiety Chronic Pt Condition on Discharge: Fair Discharge Disposition: Discharge to SNF Discharge Instructions DIET: Follow Instructions for: As Tolerated, No Restrictions Additional Diet Instructions: patient has ileostomy Activities you can perform: Regular-No Restrictions Follow up Referrals: Oncology - [address] Huang PCP Follow-up - [address] Nik Hensley Surgical - 2 Weeks with Luke Franklin MD New Medications: Lorazepam (Lorazepam) 1 Mg Tab 1 MG PO Q6H PRN for ANXIETY, #60 TAB 1 Refill Ondansetron (Zofran) 4 Mg Tab 4 MG PO Q6HR PRN for NAUSEA OR VOMITING, #60 TAB 0 Refills Apixaban (Eliquis) 5 Mg Tab 5 MG PO BID for DVT, #60 TAB 0 Refills Calcium Polycarbophil (Fibercon) 625 Mg Tab 625 MG PO BID for bulking agent, #60 TAB 0 Refills Ciprofloxacin Opth Drops (Ciprofloxacin Opth Drops) 0.3% Soln 2 DROP LEFT EYE Q4HR for antibiotic for 4 Days, #1 ML 0 Refills while awake x 5 days total stop date 06/30/17 Diphenoxylate-Atropine (Diphenoxylate-Atropine) 2.5-0.025 Mg Tab 1 TAB PO Q6HR for Diarrhea, #120 TAB hold for constipation Dronabinol (Dronabinol) 5 Mg Cap 5 MG PO Q6HR PRN for nausea, #60 CAP 0 Refills Nystatin Topical (Nystop Topical) 100,000 Unit/Gm Powd 1 APPLIC TOPICAL Q8HR for fungal infection for 10 Days, #1 BOTTLE apply to affect areas including under breast and Right axilla Oxycodone-Acetaminophen (Oxycodone-Acetaminophen) 5-325 mg Tab 1 TAB PO Q4H PRN for PAIN SCALE 1 TO 5, #90 TAB 0 Refills 1 tablet q4h, pain 1-5 2 tab, q4h pain 6-10 Discontinued Medications: Alprazolam (Xanax) 1 Mg Tab 1 MG PO HS PRN for ANXIETY, TAB 0 Refills Lisinopril (Lisinopril) 40 Mg Tab 40 MG PO BID for Blood Pressure Management, #30 TAB 0 Refills Metoclopramide (Reglan) 10 Mg Tab 10 MG PO BID, TAB 0 Refills Sennosides (Senokot) 8.6 Mg Tab 8.6 MG PO BID for Constipation, #30 TAB 0 Refills [Lynparza] () 8 TAB PO BID [place] Jun 27, 2017 12:51
--- NOTE | 2017-06-27 12:52 | HHI.DCPOC ---
Discharge Care Plan Diagnosis: (1) DVT (deep venous thrombosis) (2) Bowel obstruction (3) Recurrent carcinoma of ovary Goals to Promote Your Health * To prevent worsening of your condition and complications * To maintain your health at the optimal level Directions to Meet Your Goals Take your medications as prescribed Follow your dietary instruction Follow activity as directed Keep your appointments as scheduled Take your immunizations and boosters as scheduled If your symptoms worsen call your PCP, if no PCP go to Urgent Care Center or Emergency Room Smoking is Dangerous to Your Health. Avoid second hand smoke Call the 24-hour hour crisis hotline for domestic abuse at [place] Jun 27, 2017 12:52
[2017-06-27] MEDS ORDERED: DRON5CAP PO (14:13)
[2017-06-27] MEDS ORDERED: OXYC1TAB63 PO (14:13)
[2017-06-27] MEDS ORDERED: DIPH2.5T14 PO (14:13)
[2017-06-27] MEDS ORDERED: LORA1TAB12 PO (14:13)
[2017-06-27] MEDS ORDERED: ZOFR4TAB PO (14:35)
[2017-06-27] MEDS ORDERED: NYST10007 TOPICAL (14:39)
--- NOTE | 2017-06-27 15:26 | PD.WCN.NOT ---
Wound Consult Description: Patient seen on [address] [place] [address] for ostomy teaching and appliance check. Communicated with: Patient Recommendation: Empty pouch of effluent when 1/3-1/2 full Change appliance as needed or every 3-5 days Additional Information: Patient seen on [address] [place] [address] for ostomy assessment and appliance change prior to discharge. Ostomy Type: Ileostomy (loop) Surgeon: Luke Franklin MD Date of Surgery: Jun 05, 2017 Complete: Starter kit (was brought in from home and used by nursing staff. ), Education materials, Rx (left on chart) Educated patient on: 2 1/4" appliance used for today's appliance barrier and pouch change prior to discharge. Drinking plenty of fluids Emptying pouch when 1/3-1/2 full Changing appliance when needed or every 3-5 days Additional information Patient stoma measures 1 1/2" slightly oval indicating appliance size of 2 1/4" be ordered for patient to be discharged with. Stoma is red, moist, oval, moderately protruding, functioning with liquid effluent. Peristomal wound has dried exudate, no fluctuance, and no drainage noted. Barrier was removed using adhesive removal wipes. Peristomal skin was minimally denuded at 6 o'clock and was encrusted using stoma powder and cavilon skin prep prior to applying new barrier that was cut to fit stoma. Mucocutaneous junction noted with sutures circumferentially otherwise unremarkable. Gabi Giang [facility] Jun 27, 2017 15:26
[2017-06-27] MEDS ORDERED: SODIUM CHLORIDE 0.9% FLUSH 10 ML FLUSH IV FLUSH PRN (16:45)
== END 2017-06-27 18:33 | DRG 330 ==
LOC: NEPE 01:12 → NEDA 03:39 → HOCA 06:07 → N06A 06-13 18:55 → N05B 06-17 23:40
PROVIDERS: ADMIT Hospitalist; ATTEND Hospitalist
PROC: 0DH63UZ Insertion of Feeding Device into Stomach, Percutaneous Approach (ICD-10-PCS; 2017-06-05)
PROC: 0D1B4Z4 Bypass Ileum to Cutaneous, Percutaneous Endoscopic Approach (ICD-10-PCS; principal; 2017-06-05 13:47)
DX: K56.609 Unspecified intestinal obstruction, unspecified as to partial versus complete obstruction (principal); C56.9 Malignant neoplasm of unspecified ovary; N17.9 Acute kidney failure, unspecified; C80.0 Disseminated malignant neoplasm, unspecified; I82.411 Acute embolism and thrombosis of right femoral vein; N39.0 Urinary tract infection, site not specified; E86.0 Dehydration; E87.1 Hypo-osmolality and hyponatremia; B96.20 Unspecified Escherichia coli [E. coli] as the cause of diseases classified elsewhere; J98.11 Atelectasis; I82.441 Acute embolism and thrombosis of right tibial vein; K94.19 Other complications of enterostomy; I10 Essential (primary) hypertension; F32.9 Major depressive disorder, single episode, unspecified; R63.4 Abnormal weight loss; F41.9 Anxiety disorder, unspecified; E87.6 Hypokalemia; D64.9 Anemia, unspecified; Z92.21 Personal history of antineoplastic chemotherapy; Z85.43 Personal history of malignant neoplasm of ovary; Z90.710 Acquired absence of both cervix and uterus; Z90.722 Acquired absence of ovaries, bilateral
CPT/HCPCS: 36591; 71010; 71020; 74000; 74020; 74176; 74250; 76937; 80048; 80053; 81001; 82948; 83605; 83690; 83735; 83930; 83935; 84100; 84300; 85007; 85025; 85027; 86304; 87040; 87077; 87086; 87186; 87493; 93005; 93970; 94150; 96361; 96365; 96366; 96374; 96375; J0131; J0330; J1170; J1642; J1650; J1885; J1956; J2060; J2250; J2270; J2370; J2405; J2710; J2765; J3010; J3370; J3480; J7030; J7050; J7070; J7120; Q0167; Q9963

== ENCOUNTER 2018-06-22 19:59 | Inpatient (IN) ==
[2018-06-22] MEDS ORDERED: Sod Chloride 0.9% Inj 1,000 ML IV.SIG ONE (20:40)
[2018-06-22 20:59] LABS: Baso % (Auto) 0.2 % (0.0-2.0); Eos % (Auto) 0.4 % (0.0-4.0); Hematocrit 36.2 % (35.0-46.0); Hemoglobin 12.1 gm/dL (11.6-15.3); Lymph % (Auto) 9.4 % (9.0-44.0); Mean Corpuscular HGB Conc 33.4 % (32.0-36.0); Mean Corpuscular Volume 80.9 fL (80.0-100.0); Mean Platelet Volume 8.4 fL (7.0-11.0); Mono # (Auto) 0.1 th/mm3 (0.0-0.9); Mono % (Auto) 0.9 % (0.0-8.0); Neut % (Auto) 89.1 % (16.0-70.0); Platelet Count 195 th/mm3 (150-450); Red Blood Count 4.48 mil/mm3 (4.00-5.30); Red Cell Distribution Width 18.1 % (11.6-17.2); White Blood Count 10.1 th/mm3 (4.0-11.0)
[2018-06-22 21:04] LABS: Prothrombin Time 9.8 sec (9.8-11.6)
--- NOTE | 2018-06-22 21:12 | XR ---
EXAM DATE: 06/22/2018 8:40 PM EDT AGE/SEX: 72 years / Female INDICATIONS: Free air. CLINICAL DATA: This is the patient's initial encounter. Patient reports that signs and symptoms have been present for 1 day and indicates a pain score of 0/10. MEDICAL/SURGICAL HISTORY: Hypertension. Carcinoma, ovarian. . Port placement. COMPARISON: [facility] [place], CHEST PA & LAT, 06/17/2017. . FINDINGS: A single AP view of the chest demonstrates the lungs to be symmetrically aerated without evidence of mass, infiltrate or effusion. The cardiomediastinal contours are unremarkable. Osseous structures a re intact. CONCLUSION: Right [id number] in superior vena cava. No consolidation or effusion. Electronically signed by: Miki Chan MD 06/22/2018 9:11 PM EDT
[2018-06-22 21:15] LABS: Albumin 3.5 g/dL (3.4-5.0); Anion Gap 12 meq/L (5-15); Aspartate Aminotransferase 52 U/L (15-37); Blood Urea Nitrogen 40 mg/dL (7-18); Calcium 9.5 mg/dL (8.5-10.1); Carbon Dioxide 18.3 meq/L (21.0-32.0); Chloride 103 meq/L (98-107); Glomerular Filtration Rate 24 mL/min (>89); Glucose,Random 161 mg/dL (74-106); Lipase 300 U/L (73-393); Magnesium 1.7 mg/dL (1.5-2.5); Potassium 4.7 meq/L (3.5-5.1); Sodium 133 meq/L (136-145)
[2018-06-22 21:16] LABS: Alanine Aminotransferase 90 U/L (10-53)
[2018-06-22 21:20] LABS: Alkaline Phosphatase 167 U/L (45-117); Total Protein 8.7 g/dL (6.4-8.2)
[2018-06-22 21:24] LABS: Creatine Kinase 32 U/L (26-192)
--- NOTE | 2018-06-22 21:36 | ED ---
HPI General Chief complaint: Abdominal Pain Stated complaint: blockage Time Seen by Provider: 06/22/18 20:11 Source: patient Limitations: no limitations History of Present Illness HPI narrative: The patient is a 72 year old female who presents to the [facility] emergency department with a history of increased output from her ileostomy that began at approximately 1 AM. 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 She reports that she has short bowel syndrome and high output into her ileostomy requiring her to empty the bag every 3 hours, however since the increased watery stool began at 1 AM she has had to empty it every hour. She reports that she tried multiple measures to thicken her stool. She reports that she tried taking Lomotil eating peanut butter and bread and various other oral intake that is helped in the past, however nothing seemed to be helping up until 3 hours ago. At that time the stool became slightly thicker and the patient developed a severe midepigastric abdominal pain. She reports that the abdominal pain is a cramping sensation. She reports that it comes and goes. She reports that she then began to have nausea and vomiting and has had 3 episodes of vomiting prior to arrival. She reports concerned that she may have a bowel obstruction as the symptoms are similar to her symptoms a year ago. She denies having any chest pain, chest pressure, or shortness of breath. She denies having any known fevers or chills. She reports that she last had chemotherapy 2 days ago. Her oncologist is Dr. Huang. She denies having any blood in her stool or black or tarry stools. On review of systems otherwise, the patient denies any cough, congestion, neck pain , urinary symptoms, or neurologic symptoms. Related Data Home Medications Medication Instructions Recorded Confirmed alprazolam [Xanax] 1 mg PO HS PRN 05/09/18 06/22/18 metoprolol tartrate 25 mg PO BID 05/09/18 06/22/18 sodium chloride 0.9 % 1,000 ml IV DIRECTED 06/09/18 06/22/18 Allergies Allergy/AdvReac Type Severity Reaction Status Date / Time amlodipine Allergy Severe Rash Verified 06/16/18 12:33 atorvastatin Allergy Severe RENAL Verified 06/16/18 12:33 FAILURE penicillin G Allergy Severe RASH Verified 06/16/18 12:33 pravastatin Allergy Severe RENAL Verified 06/16/18 12:33 FAILURE simvastatin Allergy Severe RENAL Verified 06/16/18 12:33 FAILURE doxorubicin [From Doxil] AdvReac Shortness Verified 06/16/18 12:33 of Breath ZOCOR AdvReac Severe RENAL Uncoded 06/16/18 12:33 FAILURE Review of Systems ROS: all other systems reviewed are negative PMFSH Medical History Medical History History of gastrostomy tube placement (Acute) History of hysterectomy (Acute) Ileostomy in place (Acute) Ovarian cancer (Acute) Surgical History Surgical History History of delivery (Acute) History of cholecystectomy (Acute) History of tonsillectomy (Acute) Social History Social History Substance History: No History of Abuse Smoking Status: Former smoker How Often Do You Have a Drink Containing Alcohol: Never Recent Travel in [facility] within the Last 8 Weeks: No Recent Out of Country Travel within the Last 8 Weeks: No Immunization History Tetanus Immunization: >5 Years Exam Const General: cooperative, no acute distress and well developed Nutritional Appearance: well nourished Orientation: alert, awake and oriented x3 HENMT Head: normocephalic and atraumatic Nose: no nasal discharge and no epistaxis Mouth: moist mucous membranes Eyes Sclera: normal sclerae Pupils: PERRL Neck Neck: trachea midline and no JVD Resp Effort & Inspection: no use of accessory muscles Auscultation: clear to auscultation bilaterally Cardio Rate: regular rate Rhythm: regular rhythm Heart Sounds: no murmurs GI Inspection: non-distended and other (The patient has an ileostomy bag in place in the right lower quadrant of the abdomen with a clear/yellow fluid contained within the bag. Minimal stool is present.) Palpation: soft, no hepatosplenomegaly and nontender Auscultation: high-pitched sounds Back/Spine/Pelvis Back: no CVA tenderness Skin General: dry skin (warm) Neuro General: alert, awake, oriented x3 and other (Grossly nonfocal.) Speech: speech normal Motor: no movement abnormalities noted Extrem General: normal to inspection, no clubbing, no cyanosis and no edema Psych Mood: congruent mood Affect: normal affect Judgment: judgment good Course Consultations Consultation #1: The patient's case including history, pertinent physical examination findings, and laboratory studies were discussed with Dr. Du. It was agreed that the patient would be admitted to the [facility] hospitalist service. Initial Documented Vital Signs Temperature 97.1 F L 06/22/18 20:01 Pulse Rate 106 H 06/22/18 20:01 Respiratory Rate 20 06/22/18 20:01 Pulse Oximetry 98 06/22/18 20:01 Last Documented Vital Signs Temperature 97.3 F L 06/22/18 20:09 Pulse Rate 86 06/23/18 00:00 Respiratory Rate 16 06/23/18 00:00 Blood Pressure 131/57 L 06/23/18 00:00 Pulse Oximetry 99 06/23/18 00:00 Medical Decision Making MDM Narrative Medical decision making narrative: During the course of the patient's emergency department visit, the patient's history, examination, and differential diagnosis were reviewed with the patient. The patient was placed on a manager commodities with oximetry and frequent blood pressure monitoring. The patient had IV access obtained and blood work sent for analysis. A diagnostic evaluation was started regarding the patient's abdominal pain. The patient was initially provided morphine for pain, Zofran for nausea. The patient was started on normal saline IV fluids. The patient had reported increased anxiety. She reports taking Xanax 1 mg every 6 hours as needed anxiety, however due to the patient's n.p.o. status, instead Ativan 0.5 mg IV was administered. The patient's diagnostic studies are remarkable for a white count of 10.1, hemoglobin within normal limits, platelets 195 with 89.1 neutrophils, PT 9.8, PTT 23, chemistry is remarkable for sodium 133, CO2 18.3, BUN 40, creatinine 2.04, increased from prior kidney function evaluations consistent with an acute kidney injury, glucose 161, lactic acid within normal limits, AST 52, ALT 90, alk phos 167, cardiac enzymes within normal limits, lipase within normal limits. Urinalysis shows no acute abnormality. CHEST X-RAY: No infiltrate, pneumothorax or mediastinal widening. Showed no consolidation or effusion, CT scan of the abdomen and pelvis reveals abnormal development of small bowel dilatation on the left side with multiple air-fluid levels consistent characteristic of an early or partial small bowel obstruction. The patient's results were discussed with the patient, including the plan of care. I explained that further testing and/ or monitoring is indicated based on the patient's history, examination, and/ or laboratory findings. Therefore, I recommended admission for additional evaluation. The patient expressed understanding and was agreeable with this plan. The patient was admitted to the hospital in guarded condition and sent to a bed under the care of the [facility] hospitalist's service. Medical Screen Exam Complete: Yes Emergency Medical Condition: Yes Differential Diagnosis Differential Diagnosis: Small bowel obstruction, versus dehydration, versus electrolyte derangements, versus pancreatitis Medical Records Medical records reviewed: Yes I reviewed the patient's medical records. Lab Data Lab results reviewed: Yes I reviewed the patient's lab results. Result diagrams: 06/22/18 20:35 06/22/18 20:35 Lab Results 06/22/18 06/22/18 06/22/18 Range/Units 20:25 20:35 20:35 WBC 10.1 (4.0-11.0) th/mm3 RBC 4.48 (4.00-5.30) mil/mm3 Hgb 12.1 (11.6-15.3) gm/dL Hct 36.2 (35.0-46.0) % MCV 80.9 (80.0-100.0) fL MCH 27.0 (27.0-34.0) pg MCHC 33.4 (32.0-36.0) % RDW 18.1 H (11.6-17.2) % Plt Count 195 D (150-450) th/mm3 MPV 8.4 (7.0-11.0) fL Neut % (Auto) 89.1 H (16.0-70.0) % Lymph % (Auto) 9.4 (9.0-44.0) % [place] % (Auto) 0.9 (0.0-8.0) % Eos % (Auto) 0.4 (0.0-4.0) % Baso % (Auto) 0.2 (0.0-2.0) % Neut # (Auto) 9.0 H (1.8-7.7) th/mm3 Lymph # (Auto) 1.0 (1.0-4.8) th/mm3 [place] # (Auto) 0.1 (0.0-0.9) th/mm3 Eos # (Auto) 0.0 (0.0-0.4) th/mm3 Baso # (Auto) 0.0 (0.0-0.2) th/mm3 WBC Differential . Differential Comment Auto diff final PT 9.8 (9.8-11.6) sec INR 1.0 Ratio APTT 23.0 L (24.3-30.1) sec Sodium (136-145) meq/L Potassium (3.5-5.1) meq/L Chloride (98-107) meq/L Carbon Dioxide (21.0-32.0) meq/L Anion Gap (5-15) meq/L BUN (7-18) mg/dL Creatinine (0.50-1.00) mg/dL Estimated GFR (>89) mL/min POC Glucose 140 H (68-110) mg/dl Random Glucose (74-106) mg/dL Lactic Acid (0.4-2.0) mmol/L Calcium (8.5-10.1) mg/dL Magnesium (1.5-2.5) mg/dL Total Bilirubin (0.2-1.0) mg/dL AST (15-37) U/L ALT (10-53) U/L Alkaline Phosphatase (45-117) U/L Total Creatine Kinase (26-192) U/L Troponin I (0.02-0.05) ng/mL Total Protein (6.4-8.2) g/dL Albumin (3.4-5.0) g/dL Lipase (73-393) U/L Urine Color (Yellw/Straw) Urine Clarity (Clear) Urine pH (5.0-8.5) Ur Specific [place] (1.002-1.035) Urine Protein (Neg-Trace) mg/dL Urine Glucose (UA) (Negative) mg/dL Urine Ketones (Negative) mg/dL Urine Occult Blood (Negative) Urine Nitrate (Negative) Urine Bilirubin (Negative) Urine Urobilinogen (Less than 2) mg/dL Ur Leukocyte Esterase (Negative) Urine RBC (0-3) /hpf Urine WBC (0-5) /hpf Ur Squamous Epith Cells (0-5) /hpf Amorphous Sediment (None) /hpf Urine Bacteria (None) /hpf Hyaline Casts (0-3) /lpf Granular Casts (None) /lpf Urine Mucus (Occasional) /lpf Micro UA Comment Ur Microscopic Review Urine Culture Comments 06/22/18 06/22/18 06/22/18 Range/Units 20:35 21:35 22:00 WBC (4.0-11.0) th/mm3 RBC (4.00-5.30) mil/mm3 Hgb (11.6-15.3) gm/dL Hct (35.0-46.0) % MCV (80.0-100.0) fL MCH (27.0-34.0) pg MCHC (32.0-36.0) % RDW (11.6-17.2) % Plt Count (150-450) th/mm3 MPV (7.0-11.0) fL Neut % (Auto) (16.0-70.0) % Lymph % (Auto) (9.0-44.0) % [place] % (Auto) (0.0-8.0) % Eos % (Auto) (0.0-4.0) % Baso % (Auto) (0.0-2.0) % Neut # (Auto) (1.8-7.7) th/mm3 Lymph # (Auto) (1.0-4.8) th/mm3 [place] # (Auto) (0.0-0.9) th/mm3 Eos # (Auto) (0.0-0.4) th/mm3 Baso # (Auto) (0.0-0.2) th/mm3 WBC Differential Differential Comment PT (9.8-11.6) sec INR Ratio APTT (24.3-30.1) sec Sodium 133 L (136-145) meq/L Potassium 4.7 (3.5-5.1) meq/L Chloride 103 (98-107) meq/L Carbon Dioxide 18.3 L (21.0-32.0) meq/L Anion Gap 12 (5-15) meq/L BUN 40 H (7-18) mg/dL Creatinine 2.04 H (0.50-1.00) mg/dL Estimated GFR 24 L (>89) mL/min POC Glucose (68-110) mg/dl Random Glucose 161 H (74-106) mg/dL Lactic Acid 1.7 (0.4-2.0) mmol/L Calcium 9.5 (8.5-10.1) mg/dL Magnesium 1.7 (1.5-2.5) mg/dL Total Bilirubin 0.5 (0.2-1.0) mg/dL AST 52 H (15-37) U/L ALT 90 H (10-53) U/L Alkaline Phosphatase 167 H (45-117) U/L Total Creatine Kinase 32 (26-192) U/L Troponin I Less than 0.02 L (0.02-0.05) ng/mL Total Protein 8.7 H (6.4-8.2) g/dL Albumin 3.5 (3.4-5.0) g/dL Lipase 300 (73-393) U/L Urine Color Yellow (Yellw/Straw) Urine Clarity Cloudy H (Clear) Urine pH 8.0 (5.0-8.5) Ur Specific [place] 1.005 (1.002-1.035) Urine Protein 30 H (Neg-Trace) mg/dL Urine Glucose (UA) Negative (Negative) mg/dL Urine Ketones Negative (Negative) mg/dL Urine Occult Blood Moderate H (Negative) Urine Nitrate Negative (Negative) Urine Bilirubin Negative (Negative) Urine Urobilinogen Less than 2 (Less than 2) mg/dL Ur Leukocyte Esterase Moderate H (Negative) Urine RBC 6 H (0-3) /hpf Urine WBC 1 (0-5) /hpf Ur Squamous Epith Cells <1 (0-5) /hpf Amorphous Sediment Occasional H (None) /hpf Urine Bacteria Occasional H (None) /hpf Hyaline Casts (0-3) /lpf Granular Casts (None) /lpf Urine Mucus Few H (Occasional) /lpf Micro UA Comment Culture not ind Ur Microscopic Review Not Reportable Urine Culture Comments Culture not ind 06/22/18 Range/Units 22:45 WBC (4.0-11.0) th/mm3 RBC (4.00-5.30) mil/mm3 Hgb (11.6-15.3) gm/dL Hct (35.0-46.0) % MCV (80.0-100.0) fL MCH (27.0-34.0) pg MCHC (32.0-36.0) % RDW (11.6-17.2) % Plt Count (150-450) th/mm3 MPV (7.0-11.0) fL Neut % (Auto) (16.0-70.0) % Lymph % (Auto) (9.0-44.0) % [place] % (Auto) (0.0-8.0) % Eos % (Auto) (0.0-4.0) % Baso % (Auto) (0.0-2.0) % Neut # (Auto) (1.8-7.7) th/mm3 Lymph # (Auto) (1.0-4.8) th/mm3 [place] # (Auto) (0.0-0.9) th/mm3 Eos # (Auto) (0.0-0.4) th/mm3 Baso # (Auto) (0.0-0.2) th/mm3 WBC Differential Differential Comment PT (9.8-11.6) sec INR Ratio APTT (24.3-30.1) sec Sodium (136-145) meq/L Potassium (3.5-5.1) meq/L Chloride (98-107) meq/L Carbon Dioxide (21.0-32.0) meq/L Anion Gap (5-15) meq/L BUN (7-18) mg/dL Creatinine (0.50-1.00) mg/dL Estimated GFR (>89) mL/min POC Glucose (68-110) mg/dl Random Glucose (74-106) mg/dL Lactic Acid (0.4-2.0) mmol/L Calcium (8.5-10.1) mg/dL Magnesium (1.5-2.5) mg/dL Total Bilirubin (0.2-1.0) mg/dL AST (15-37) U/L ALT (10-53) U/L Alkaline Phosphatase (45-117) U/L Total Creatine Kinase (26-192) U/L Troponin I (0.02-0.05) ng/mL Total Protein (6.4-8.2) g/dL Albumin (3.4-5.0) g/dL Lipase (73-393) U/L Urine Color Yellow (Yellw/Straw) Urine Clarity Hazy H (Clear) Urine pH 5.0 (5.0-8.5) Ur Specific [place] 1.018 (1.002-1.035) Urine Protein Negative (Neg-Trace) mg/dL Urine Glucose (UA) Negative (Negative) mg/dL Urine Ketones Negative (Negative) mg/dL Urine Occult Blood Negative (Negative) Urine Nitrate Negative (Negative) Urine Bilirubin Negative (Negative) Urine Urobilinogen Less than 2 (Less than 2) mg/dL Ur Leukocyte Esterase Negative (Negative) Urine RBC Less than 1 (0-3) /hpf Urine WBC 2 (0-5) /hpf Ur Squamous Epith Cells (0-5) /hpf Amorphous Sediment Rare H (None) /hpf Urine Bacteria Rare H (None) /hpf Hyaline Casts 4 (0-3) /lpf Granular Casts 18 (None) /lpf Urine Mucus Few H (Occasional) /lpf Micro UA Comment Cath-culture ind Ur Microscopic Review Not Reportable Urine Culture Comments Cath-cult indicated Imaging Data Radiologist's impression: Chest X-Ray 06/22/18 20:40 CONCLUSION: Right Ehmkpi-l-Bilt in superior vena cava. No consolidation or effusion. Abdomen/Pelvis CT 06/22/18 22:07 CONCLUSION: 1. Compared with May 29 there is abnormal development of small bowel dilatation on the left side with multiple air-fluid levels characteristic of an early or partial small bowel obstruction. 2. Previously described soft tissue nodules in the anterior abdominal wall and within the mesentery and omentum are similar to prior examination and likely represent metastatic disease. Right lower quadrant ostomy unchanged. ECG Data Attestation: I personally reviewed and interpreted this ECG as follows: Interpretation: The patient had a EKG done on arrival that shows a sinus rhythm heart rate of 96, QRS duration 92 ms, QTC 392 ms. The patient is noted to have a left anterior fascicular block, no acute ST segment elevation. T waves are inverted in aVL. Discharge Plan Discharge Disposition Patient Disposition: 30 Still Patient Discharge Details Diagnosis: Partial obstruction of small intestine Physicians Team ED Provider: Silvia Bah Primary Care Provider: Nik Hensley Attending Provider: Brown Rivera Status ED Status: Admitted Patient
[2018-06-22 21:54] LABS: Amorphous Sediment,Urine Occasional /hpf; Bacteria,Urine Occasional /hpf; Bilirubin,Urine Negative (Negative); Glucose,Urine (UA) Negative (Negative); Leukocyte Esterase,Urine Moderate (Negative); Mucus,Urine Few /lpf (Occasional); Nitrite,Urine Negative (Negative); Specific Gravity,Urine 1.005 (1.002-1.035); Squamous Epithelial Cell,Urine <1 /hpf (0-5)
[2018-06-22 21:56] LABS: Clarity,Urine Cloudy (Clear); Color,Urine Yellow (Yellw/Straw)
[2018-06-22] MEDS ORDERED: Sodium Chlor 0.9% Inj 500 ML IV.SIG ONE (22:07)
--- NOTE | 2018-06-22 22:52 | CT ---
EXAM DATE: 06/22/2018 10:12 PM EDT AGE/SEX: 72 years / Female INDICATIONS: Abdominal pain; possible obstruction. CLINICAL DATA: This is the patient's initial encounter. Patient reports that signs and symptoms have been present for 1 day and indicates a pain score of 8/10. MEDICAL/SURGICAL HISTORY: Carcinoma, ovarian. Hysterectomy. section. Cholecystectomy . Tonsillectomy, Ileostomy RADIATION DOSE: 10.92 CTDI (mGy) COMPARISON: [facility], CT ABDOMEN AND PELVIS W AND W/O CONTRAST, 05/29/2018. . TECHNIQUE: Multiple contiguous axial images were obtained through the abdomen. Images were obtained using multiple row detector helical technique. Using automated exposure control and adjustment of the mA and/or kV according to patient size, radiation dose was kept as low as reasonably achievable to o btain optimal diagnostic quality images. DICOM format image data is available electronically for rev iew and comparison. FINDINGS: Lung bases are clear except minimal atelectasis or scarring. Previous breast augmentation. No acute findings in the liver, spleen, adrenals, kidneys or pancreas. There is a right lower quadrant ostomy. Previously described multiple soft tissue nodules in the ante rior abdominal wall again visualized and relatively stable in appearance. There is also new pelvic ad enopathy with a relatively stable 2.6 cm necrotic appearing right external iliac lymph node. Bladder unremarkable. There are new dilated loops of small bowel with multiple air-fluid levels and some distal decompressi on most characteristic of at least a partial small bowel obstruction. CONCLUSION: 1. Compared with May 29 there is abnormal development of small bowel dilatation on the left si de with multiple air-fluid levels characteristic of an early or partial small bowel obstruction. 2. Previously described soft tissue nodules in the anterior abdominal wall and within the mesentery and omentum are similar to prior examination and likely represent metastatic disease. Right lower galina drant ostomy unchanged. Electronically signed by: Miki Chan MD 06/22/2018 10:50 PM EDT
[2018-06-22] MEDS ORDERED: Morphine Inj 4 MG/ML Vial IV.PUSH ONE (22:57)
[2018-06-22 22:59] LABS: Amorphous Sediment,Urine Rare /hpf; Bacteria,Urine Rare /hpf; Bilirubin,Urine Negative (Negative); Clarity,Urine Hazy (Clear); Color,Urine Yellow (Yellw/Straw); Glucose,Urine (UA) Negative (Negative); Hyaline Casts,Urine 4 /lpf (0-3); Leukocyte Esterase,Urine Negative (Negative); Mucus,Urine Few /lpf (Occasional); Nitrite,Urine Negative (Negative); Specific Gravity,Urine 1.018 (1.002-1.035)
[2018-06-23] MEDS ORDERED: Bisacodyl 10 MG Supp RECTAL PRN (02:13)
[2018-06-23] MEDS ORDERED: Temazepam 15 MG Capsule PO PRN (02:13)
[2018-06-23] MEDS ORDERED: Naloxone Inj 0.4 MG/ML Vial IV.PUSH PRN (02:27)
[2018-06-23] MEDS ORDERED: Morphine Sulfate Inj 2 MG/ML Vial IV.PUSH PRN (02:27)
[2018-06-23] MEDS: Sod Chloride 0.9% Inj 1,000 ML IV.CONT SCH ×2 (02:50→12:24)
[2018-06-23] MEDS: HYDROmorphone PF Inj 2 MG/ML Vial IV.PUSH PRN ×4 (02:53→21:29)
[2018-06-23] MEDS: Metoprolol Tartrate 25 MG Tablet PO SCH ×2 (09:03→21:23)
--- NOTE | 2018-06-23 09:18 | P.CON ---
History of Present Illness Service: barrel bander/onc Consult date: 06/23/18 Primary Care Provider: Nik Hensley Chief Complaint: vomitng, abdominal pain History of Present Illness: This is a 72 year old with recurrent metastatic ovarian cancer. She is currently on 10th line treatment with Topotecan. She received cycle one on SaturdayJune 20. She has a PMH of SBO resulting in ileostomy placed about 1 year ago. She reports that over the weekend she started having a lot of outpt from her ileostomy and tried her normal routine to slow the out put. She states nothing helped and she started having vomiting yesterday with increasing abdominal pain, her ileostomy drainage slowed and she presented to the ER for further evaluation. CT scan showed dilated loops of bowel suggestive of SBO. She was admitted for further evaluation. I had a lengthy discussion with Mrs. Ocasio this morning about her symptoms over the weekend and based on her past she mostly likely is not a surgical candidate. I explained that an NG tube will be placed to [facility] in hopes to medically manage the obstruction. She is currently NPO and general surgery has been consulted. She is very anxious and I will add Ativan 0.5mg Q 6 hours prn anxiety since she can not take her Xanax. She denies any further nausea or vomiting at this time but she did receive Compazine X 1 in the ER. I also talked with her about Palliative Care in helping her clarify her goals, establish code status and she expressed her fear of suffering. She states she does not want to suffer. Review of Systems Gastrointestinal: Reports abdominal pain, Reports change in bowel habits, Reports vomiting PMFSH - History History Provided By: Patient, Family Member - Medical History Medical History: Medical History (Last Reviewed 06/22/18 @ 21:35 by Silvia Bah MD) History of gastrostomy tube placement History of hysterectomy Ileostomy in place Ovarian cancer - Surgical History Surgical History: Surgical History (Last Reviewed 06/22/18 @ 21:35 by Silvia Bah MD) History of delivery History of cholecystectomy History of tonsillectomy - Tobacco History Second Hand Smoke Exposure: No Smoking Status: Former smoker - Alcohol History How Often Do You Have a Drink Containing Alcohol: Never - Substance Use History Substance History: No History of Abuse - Travel History Recent Travel in the [place] Within the Last 8 Weeks: No Recent Travel Out of the Country Within the Last 8 Weeks: No - Immunization History Tetanus Immunization: >5 Years Hx Influenza Vaccine This Season: No Medications and Allergies Active Medications: Active Medications Al Hydroxide/Mg Hydroxide (Milk Of Magnesia Liq) 30 ml PO Q12H PRN PRN Reason: Mild Constipation Alprazolam (Xanax) 1 mg PO HS PRN PRN Reason: Anxiety Bisacodyl (Dulcolax Supp) 10 mg RECTAL DAILY PRN PRN Reason: SEVERE CONSITIPATION Hydromorphone HCl (Dilaudid Pf Inj) 1 mg IV.PUSH Q3H PRN PRN Reason: BREAKTHROUGH PAIN Last Admin: 06/23/18 06:48 Dose: 1 mg Sodium Chloride (Ns Inj) 1,000 mls @ 100 mls/hr IV.CONT .Q10H STEVE Last Admin: 06/23/18 02:50 Dose: 100 mls/hr Lactulose (Lactulose Liq) 30 ml PO DAILY PRN PRN Reason: SEVERE CONSITIPATION Lorazepam (Ativan Inj) 0.5 mg IV.PUSH Q6H PRN PRN Reason: ANXIETY Metoclopramide HCl (Reglan Inj) 5 mg IV.PUSH Q6HR PRN; Protocol PRN Reason: intractable nausea Metoprolol Tartrate (Lopressor) 25 mg PO BID STEVE Morphine Sulfate (Morphine Inj) 2 mg IV.PUSH Q3H PRN PRN Reason: PAIN 3-5; IF UABLE TO TAKE PO Morphine Sulfate (Morphine Inj) 4 mg IV.PUSH Q3H PRN PRN Reason: PAIN 6-10;IF UNABLE TO TAKE PO Naloxone HCl (Narcan Inj) 0.4 mg IV.PUSH UNSCH PRN PRN Reason: SEE LABEL COMMENTS Ondansetron HCl (Zofran Inj) 4 mg IV.PUSH Q6H PRN PRN Reason: NAUSEA OR VOMITING Last Admin: 06/23/18 04:55 Dose: 4 mg Sennosides (Senokot) 17.2 mg PO Q12H PRN PRN Reason: Moderate Constipation Sodium Chloride (Ns Flush) 2 ml IV.FLUSH PRN PRN PRN Reason: FLUSH AFTER USING IV ACCESS Last Admin: 06/22/18 20:52 Dose: 2 ml Temazepam (Restoril) 15 mg PO HS PRN PRN Reason: INSOMNIA Allergies Allergy/AdvReac Type Severity Reaction Status Date / Time amlodipine Allergy Severe Rash Verified 06/16/18 12:33 atorvastatin Allergy Severe RENAL Verified 06/16/18 12:33 FAILURE penicillin G Allergy Severe RASH Verified 06/16/18 12:33 pravastatin Allergy Severe RENAL Verified 06/16/18 12:33 FAILURE simvastatin Allergy Severe RENAL Verified 06/16/18 12:33 FAILURE doxorubicin [From Doxil] AdvReac Shortness Verified 06/16/18 12:33 of Breath ZOCOR AdvReac Severe RENAL Uncoded 06/16/18 12:33 FAILURE Home Medications Medication Instructions Recorded Confirmed Type alprazolam [Xanax] 1 mg PO HS PRN 05/09/18 06/22/18 History metoprolol tartrate 25 mg PO BID 05/09/18 06/22/18 History sodium chloride 0.9 % 1,000 ml IV DIRECTED 06/09/18 06/22/18 History Physical Exam Vital signs: Vital Signs 06/22/18 20:01 06/22/18 20:09 06/22/18 21:30 Temperature 97.1 F L 97.3 F L Pulse Rate 106 H 96 H 88 Respiratory Rate 20 22 18 Blood Pressure 145/88 H 168/81 H Pulse Oximetry 98 100 99 06/23/18 00:00 06/23/18 03:00 06/23/18 04:00 Temperature 97.6 F 97.6 F Pulse Rate 86 88 98 H Respiratory Rate 16 16 18 Blood Pressure 131/57 L 136/70 136/70 Pulse Oximetry 99 97 100 06/23/18 08:00 Temperature 97.8 F Pulse Rate 103 H Respiratory Rate 18 Blood Pressure 168/97 H Pulse Oximetry 94 L Intake & Output 06/22/18 06/23/18 06/23/18 18:59 06:59 18:59 Intake Total 1500 / 1500 Output Total 100 / 100 Balance 1400 / 1400 Weight 89.1 kg Intake: IV 1500 / 1500 NS Inj 1,000 ML @ Wide Open IV. 1000 / 1000 SIG BOLUS ONE Rx#:[id number] NS Inj 500 ML @ Wide Open IV. 500 / 500 SIG BOLUS ONE Rx#:[id number] Oral 0 / 0 Output: Urine 0 / 0 Stool Amount (Stoma) 100 / 100 Pre-Hospital: 100 / 100 Other: # Voids 1 Weight On Admission 89.5 kg - Constitutional no acute distress, chronically ill appearing - Routine HEENT Exam Head: Present: normocephalic, atraumatic - Routine Neck Exam Present: supple - Routine Respiratory Exam Present: CTA bilaterally - Routine Cardiovascular Exam Present: RRR - Routine Abdominal Exam Present: firm Comments: ileostomy, stoma pink - Routine Extremities Exam Comments: teds and scds - Routine Skin Exam Present: intact - Detailed Neurological Exam: Coma Scale Eye Opening: Spontaneous Verbal Response: Oriented - Routine Psychiatric Exam Present: normal affect, normal thought process Assessment and Plan - Assessment (1) Partial obstruction of small intestine Code(s): K56.600 - Partial intestinal obstruction, unspecified as to cause Status: Acute - Plan A 72 year old with recurrent metastatic ovarian cancer stage 1C, s/p line 10 cycle 1 Topotecan from 06/20/18. Admitted with recurrent SBO. ITA LOPEZ, discussed with patient and RN general surgery consulted, appreciate assistance Palliative Care consulted, appreciate assistance IVF NPO at this time Ativan 0.5mg IV Q 6 hours prn anxiety pain controlled supportive care Medicine team following and we appreciate assistance - Attending Attestation Discussed with patient, RN and Dr. Huang.
--- NOTE | 2018-06-23 09:21 | P.HPIM ---
History of Present Illness Primary Care Physician: Nik Hensley Chief Complaint: Abd pain and distension History of Present Illness: Mrs. Hayden is a pleasant 72 yo female with metastatic BRCA 2+ ovarian cancer s/p LIZ/BSO, omentectomy, lysis of adhesions [place] [address] Huang. 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 She has had multiple chemotherapies and per GynOnc noted she is currently on 10th line treatment with Topotecan. She received cycle one on Saturday06/20/18 and over the weekend she started having a lot of out put from her ileostomy and tried her normal routine to slow the out put, but nothing helped. Then yesterday she started having vomiting with increasing abdominal pain, and her ileostomy drainage slowed. Pt was concerned about SBO and she presented to the ED at [facility] [place] on for further evaluation. CT Abd/pelvis (06/22/18) noted small bowel dilatation on the left side with multiple air-fluid levels characteristic of an early or partial small bowel obstruction. Pt has orders for NG tube placement but she doesn't want this placed until she talks with Dr. Huang about it. She is currently NPO and general surgery has been consulted. She denies any further nausea or vomiting at this time. Her main complaint is that of anxiety. She just received IV Ativan. She has had some liquid output from her ileostomy. She does not feel that her abdomen is more distended than normal. Past Medical History Metastatic ovarian cancer, BRCA 2 SBO s/p ileostomy placement in 06/2017 HTN Anxiety Past Surgical Hx: Loop ileostomy placement in 06/2017 LIZ/BSO, omentectomy, lysis of adhesions back in 2011 Abdominoplasty Cholecystectomy Port placement Bilateral breast reconstruction Cesarian section x 2 Cryotherapy of the cervix Tonsillectomy Face lift Family History Noncontributory Social History Denies any alcohol, tobacco or illicit drug use - Diagnosis (1) Partial obstruction of small intestine (2) Ovarian cancer, BRCA2 positive (3) Anxiety (4) HTN (hypertension) Inpatient Certification: I certify that the inpatient services were ordered in accordance with Medicare regulations governing the order. This includes certification that hospital inpatient services are reasonable and necessary and in the case of services not specified as inpatient-only under 42 CFR 419.22(n), that they are appropriately provided as inpatient services in accordance to with the 2-midnight benchmark under 43 CFR 412.3(e) Estimated Total Length of Stay (Days): 4 Plans for Post Hospital Care: Home Review of Systems Constitutional: Denies chills, Denies fever(s) Eyes: Denies change in vision Ears, Nose, Mouth, and Throat: Denies dizziness, Denies neck pain, Denies sinus pressure, Denies sore throat Cardiovascular: Denies chest pain, Denies rapid, pounding, or irregular heartbeat, Denies shortness of breath Respiratory: Denies chest congestion, Denies cough, Denies shortness of breath, Denies wheezing Gastrointestinal: Reports abdominal pain, Reports bloating, Reports loose stools , Reports nausea, Reports vomiting Genitourinary: Denies painful urination, Denies urinary incontinence, Denies urinary urgency Musculoskeletal: Denies back pain, Denies neck pain, Denies numbness Skin/Breast: Denies rash, Denies wounds Neurologic: Denies confusion, Denies dizziness Psychiatric: Reports anxiety PMFSH - History History Provided By: Patient, Family Member - Medical History Medical History: Medical History (Last Reviewed 06/22/18 @ 21:35 by Silvia Bah MD) History of gastrostomy tube placement History of hysterectomy Ileostomy in place Ovarian cancer - Surgical History Surgical History: Surgical History (Last Reviewed 06/22/18 @ 21:35 by Silvia Bah MD) History of delivery History of cholecystectomy History of tonsillectomy - Tobacco History Second Hand Smoke Exposure: No Smoking Status: Former smoker - Alcohol History How Often Do You Have a Drink Containing Alcohol: Never - Substance Use History Substance History: No History of Abuse - Travel History Recent Travel in the [place] Within the Last 8 Weeks: No Recent Travel Out of the Country Within the Last 8 Weeks: No - Immunization History Tetanus Immunization: >5 Years Hx Influenza Vaccine This Season: No Medications and Allergies Allergies Allergy/AdvReac Type Severity Reaction Status Date / Time amlodipine Allergy Severe Rash Verified 06/16/18 12:33 atorvastatin Allergy Severe RENAL Verified 06/16/18 12:33 FAILURE penicillin G Allergy Severe RASH Verified 06/16/18 12:33 pravastatin Allergy Severe RENAL Verified 06/16/18 12:33 FAILURE simvastatin Allergy Severe RENAL Verified 06/16/18 12:33 FAILURE doxorubicin [From Doxil] AdvReac Shortness Verified 06/16/18 12:33 of Breath ZOCOR AdvReac Severe RENAL Uncoded 06/16/18 12:33 FAILURE Home Medications Medication Instructions Recorded Confirmed Type alprazolam [Xanax] 1 mg PO HS PRN 05/09/18 06/22/18 History metoprolol tartrate 25 mg PO BID 05/09/18 06/22/18 History sodium chloride 0.9 % 1,000 ml IV DIRECTED 06/09/18 06/22/18 History Active Medications: Active Medications Al Hydroxide/Mg Hydroxide (Milk Of Magnesia Liq) 30 ml PO Q12H PRN PRN Reason: Mild Constipation Alprazolam (Xanax) 1 mg PO HS PRN PRN Reason: Anxiety Bisacodyl (Dulcolax Supp) 10 mg RECTAL DAILY PRN PRN Reason: SEVERE CONSITIPATION Hydromorphone HCl (Dilaudid Pf Inj) 1 mg IV.PUSH Q3H PRN PRN Reason: BREAKTHROUGH PAIN Last Admin: 06/23/18 06:48 Dose: 1 mg Sodium Chloride (Ns Inj) 1,000 mls @ 100 mls/hr IV.CONT .Q10H COUNT INCLUDES THE [facility] Last Admin: 06/23/18 02:50 Dose: 100 mls/hr Lactulose (Lactulose Liq) 30 ml PO DAILY PRN PRN Reason: SEVERE CONSITIPATION Lorazepam (Ativan Inj) 0.5 mg IV.PUSH Q6H PRN PRN Reason: ANXIETY Last Admin: 06/23/18 09:03 Dose: 0.5 mg Metoclopramide HCl (Reglan Inj) 5 mg IV.PUSH Q6HR PRN; Protocol PRN Reason: intractable nausea Metoprolol Tartrate (Lopressor) 25 mg PO BID COUNT INCLUDES THE [facility] Last Admin: 06/23/18 09:03 Dose: 25 mg Morphine Sulfate (Morphine Inj) 2 mg IV.PUSH Q3H PRN PRN Reason: PAIN 3-5; IF UABLE TO TAKE PO Morphine Sulfate (Morphine Inj) 4 mg IV.PUSH Q3H PRN PRN Reason: PAIN 6-10;IF UNABLE TO TAKE PO Naloxone HCl (Narcan Inj) 0.4 mg IV.PUSH UNSCH PRN PRN Reason: SEE LABEL COMMENTS Ondansetron HCl (Zofran Inj) 4 mg IV.PUSH Q6H PRN PRN Reason: NAUSEA OR VOMITING Last Admin: 06/23/18 04:55 Dose: 4 mg Sennosides (Senokot) 17.2 mg PO Q12H PRN PRN Reason: Moderate Constipation Sodium Chloride (Ns Flush) 2 ml IV.FLUSH PRN PRN PRN Reason: FLUSH AFTER USING IV ACCESS Last Admin: 06/22/18 20:52 Dose: 2 ml Temazepam (Restoril) 15 mg PO HS PRN PRN Reason: INSOMNIA Exam Vital signs: Vital Signs 06/22/18 20:01 06/22/18 20:09 06/22/18 21:30 Temperature 97.1 F L 97.3 F L Pulse Rate 106 H 96 H 88 Respiratory Rate 20 22 18 Blood Pressure 145/88 H 168/81 H Pulse Oximetry 98 100 99 06/23/18 00:00 06/23/18 03:00 06/23/18 04:00 Temperature 97.6 F 97.6 F Pulse Rate 86 88 98 H Respiratory Rate 16 16 18 Blood Pressure 131/57 L 136/70 136/70 Pulse Oximetry 99 97 100 06/23/18 08:00 Temperature 97.8 F Pulse Rate 103 H Respiratory Rate 18 Blood Pressure 168/97 H Pulse Oximetry 94 L Intake & Output 06/22/18 06/23/18 06/23/18 18:59 06:59 18:59 Intake Total 1500 / 1500 Output Total 100 / 100 Balance 1400 / 1400 Weight 89.1 kg Intake: IV 1500 / 1500 NS Inj 1,000 ML @ Wide Open IV. 1000 / 1000 SIG BOLUS ONE Rx#:[id number] NS Inj 500 ML @ Wide Open IV. 500 / 500 SIG BOLUS ONE Rx#:[id number] Oral 0 / 0 Output: Urine 0 / 0 Stool Amount (Stoma) 100 / 100 Pre-Hospital: 100 / 100 Other: # Voids 1 Weight On Admission 89.5 kg Narrative: GENERAL: NAD, AAOx3 SKIN: Warm and dry. HEENT: Atraumatic. Normocephalic. Pupils equal and round. No scleral icterus. No injection or drainage. No nasal bleeding or discharge. Mucous membranes pink and moist. NECK: Trachea midline. No JVD. CARDIO: Regular rate and rhythm. RESP: No accessory muscle use. Clear to auscultation. Breath sounds equal bilaterally. ABD: +BS, firm, mildly distended, non-tender. EXT: Extremities without clubbing, cyanosis, or edema. No obvious deformities. NEURO: Awake and alert. DUBON, Normal speech PSYCHIATRIC: Anxious Results - Labs CBC & Chem 7: 06/26/18 06:04 06/26/18 06:04 Labs: Short CBC 06/22/18 Range/Units 20:35 WBC 10.1 (4.0-11.0) th/mm3 Hgb 12.1 (11.6-15.3) gm/dL Hct 36.2 (35.0-46.0) % Plt Count 195 D (150-450) th/mm3 BMP 06/22/18 20:35 Sodium 133 L Potassium 4.7 Chloride 103 Carbon Dioxide 18.3 L BUN 40 H Creatinine 2.04 H Calcium 9.5 Cardiac Enzymes 06/22/18 Range/Units 20:35 Total Creatine Kinase 32 (26-192) U/L Troponin I Less than 0.02 L (0.02-0.05) ng/mL Liver Function 06/22/18 Range/Units 20:35 Total Bilirubin 0.5 (0.2-1.0) mg/dL AST 52 H (15-37) U/L ALT 90 H (10-53) U/L Alkaline Phosphatase 167 H (45-117) U/L Albumin 3.5 (3.4-5.0) g/dL Urine 06/22/18 06/22/18 Range/Units 21:35 22:45 Urine Color Yellow Yellow (Yellw/Straw) Urine Clarity Cloudy H Hazy H (Clear) Urine pH 8.0 5.0 (5.0-8.5) Ur Specific [place] 1.005 1.018 (1.002-1.035) Urine Protein 30 H Negative (Neg-Trace) mg/dL Urine Glucose (UA) Negative Negative (Negative) mg/dL - Imaging Impressions Chest X-Ray 06/22/18 20:40 CONCLUSION: Right Weazeq-x-Lmdp in superior vena cava. No consolidation or effusion. Abdomen/Pelvis CT 06/22/18 22:07 CONCLUSION: 1. Compared with May 29 there is abnormal development of small bowel dilatation on the left side with multiple air-fluid levels characteristic of an early or partial small bowel obstruction. 2. Previously described soft tissue nodules in the anterior abdominal wall and within the mesentery and omentum are similar to prior examination and likely represent metastatic disease. Right lower quadrant ostomy unchanged. Caprini VTE Risk Assessment Caprini VTE Risk Assessment: Moderate/High Risk (score >= 2) Caprini Risk Assessment Model: Point Value = 1 Point Value = 2 Point Value = 3 Point Value = 5 Age 41-60 Minor surgery BMI > 25 kg/m2 Swollen legs Varicose veins or History of unexplained or recurrent spontaneous Oral contraceptives or hormone replacement Sepsis (< 1 month) Serious lung disease, including pneumonia (< 1 month) Abnormal pulmonary function Acute myocardial infarction Congestive heart failure (< 1 month) History of inflammatory bowel disease Medical patient at bed rest Age 61-74 Arthroscopic surgery Major open surgery (> 45 min) Laparoscopic surgery (> 45 min) Malignancy Confined to bed (> 72 hours) Immobilizing plaster cast Central venous access Age >= 75 History of VTE Family history of VTE Factor V Leiden Prothrombin [id number] Lupus anticoagulant Anticardiolipin antibodies Elevated serum homocysteine Heparin-induced thrombocytopenia Other congenital or acquired thrombophilia Stroke (< 1 month) Elective arthroplasty Hip, pelvis, or leg fracture Acute spinal cord injury (< 1 month) Prophylaxis Regimen: Total Risk Factor Score Risk Level Prophylaxis Regimen 0-1 Low Early ambulation 2 Moderate Order ONE of the following: *Sequential Compression Device (SCD) *Heparin 5000 units SQ BID 3-4 Higher Order ONE of the following medications: *Heparin 5000 units SQ TID *Enoxaparin/Lovenox 40 mg SQ daily (WT < 150 kg, CrCl > 30 mL/min) *Enoxaparin/Lovenox 30 mg SQ daily (WT < 150 kg, CrCl > 10-29 mL/min) *Enoxaparin/Lovenox 30 mg SQ BID (WT < 150 kg, CrCl > 30 mL/min) AND/OR *Sequential Compression Device (SCD) 5 or more Highest Order ONE of the following medications: *Heparin 5000 units SQ TID (Preferred with Epidurals) *Enoxaparin/Lovenox 40 mg SQ daily (WT < 150 kg, CrCl > 30 mL/min) *Enoxaparin/Lovenox 30 mg SQ daily (WT < 150 kg, CrCl > 10-29 mL/min) *Enoxaparin/Lovenox 30 mg SQ BID (WT < 150 kg, CrCl > 30 mL/min) AND *Sequential Compression Device (SCD) Assessment and Plan - Assessment (1) Partial obstruction of small intestine Code(s): K56.600 - Partial intestinal obstruction, unspecified as to cause Status: Acute Plan: Partial SBO High output ileostomy - Pt is a72 yo female with metastatic BRCA 2+ ovarian cancer s/p LIZ/BSO, omentectomy, lysis of adhesions [place] [address] Huang. 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 She has had multiple chemotherapies and per GynOnc noted she is currently on 10th line treatment with Topotecan. She received cycle one on Saturday06/20/18 and over the weekend she started having a lot of out put from her ileostomy and tried her normal routine to slow the out put, but nothing helped. Then yesterday she started having vomiting with increasing abdominal pain, and her ileostomy drainage slowed. Pt was concerned about SBO and she presented to the ED at [facility] [place] on 06/22/18 for further evaluation. - CT Abd/pelvis (06/22/18) noted small bowel dilatation on the left side with multiple air-fluid levels characteristic of an early or partial small bowel obstruction. - Pt has orders for NG tube placement but she doesn't want this placed until she talks with Dr. Huang about it. - She is currently NPO and general surgery has been consulted. - IVF - Pain control PRN - Antiemetics PRN - Anxiolytics PRN - KUB in AM - Palliative care has been consulted as well to help with goals of care ADOLFO Hyponatremia - Likely related to dehydration secondary to her high volume stool output - Repeat labs in AM Metastatic ovarian cancer, BRCA 2 - Pt follows with Dr. Huang - She is currently on 10th line treatment with Topotecan. She received cycle one on Saturday06/20/18 Anxiety - Ativan 0.5mg IV Q6H PRN HTN - Vasotec PRN (2) Ovarian cancer, BRCA2 positive Code(s): C56.9 - Malignant neoplasm of unspecified ovary; Z15.01 - Genetic susceptibility to malignant neoplasm of breast; Z15.09 - Genetic susceptibility to other malignant neoplasm Status: Acute (3) Anxiety Code(s): F41.9 - Anxiety disorder, unspecified Status: Acute (4) HTN (hypertension) Code(s): I10 - Essential (primary) hypertension Status: Acute - Attending Attestation The exam, history, and the medical decision-making described in the above note were completed with the assistance of the mid-level provider. I reviewed and agree with the findings presented. I attest that I had a [id number] encounter with the patient on the same day, and personally performed and documented my assessment and findings in the medical record. Patient examined. Assessment and plan formulated with Julita Jones PA-C. I agree with the above. H&P: Quality - VTE Deep Vein Thrombosis/Pulmonary Embolism Present on Admission: No
[2018-06-23] MEDS: Morphine Inj 4 MG/ML Vial IV.PUSH PRN ×3 (11:12→19:38)
--- NOTE | 2018-06-23 12:36 | P.PNGS ---
Subjective Patient reports: pain is less (Denies N/V not taking PO. Pain is better. ) Physical Exam Vital signs: Vital Signs 06/22/18 20:01 06/22/18 20:09 06/22/18 21:30 Temperature 97.1 F L 97.3 F L Pulse Rate 106 H 96 H 88 Respiratory Rate 20 22 18 Blood Pressure 145/88 H 168/81 H Pulse Oximetry 98 100 99 06/23/18 00:00 06/23/18 03:00 06/23/18 04:00 Temperature 97.6 F 97.6 F Pulse Rate 86 88 98 H Respiratory Rate 16 16 18 Blood Pressure 131/57 L 136/70 136/70 Pulse Oximetry 99 97 100 06/23/18 08:00 Temperature 97.8 F Pulse Rate 103 H Respiratory Rate 18 Blood Pressure 168/97 H Pulse Oximetry 94 L Intake & Output 06/22/18 06/23/18 06/23/18 18:59 06:59 18:59 Intake Total 1500 / 1500 1000 / 1000 Output Total 100 / 100 Balance 1400 / 1400 1000 / 1000 Weight 89.1 kg Intake: IV 1500 / 1500 1000 / 1000 NS Inj 1,000 ML @ 100 mls/hr IV 1000 / 1000 .CONT .Q10H STEVE Rx#:[id number] NS Inj 1,000 ML @ Wide Open IV. 1000 / 1000 SIG BOLUS ONE Rx#:[id number] NS Inj 500 ML @ Wide Open IV. 500 / 500 SIG BOLUS ONE Rx#:[id number] Oral 0 / 0 Output: Urine 0 / 0 Stool Amount (Stoma) 100 / 100 Pre-Hospital: 100 / 100 Other: # Voids 1 Weight On Admission 89.5 kg - Constitutional no acute distress - Routine Cardiovascular Exam Present: RRR, S1, S2 - Routine Abdominal Exam Present: tenderness, distended, firm Comments: ileostomy intact, copious yellow discharge. - Routine Neurological Exam Present: alert Results - Labs 06/22/18 20:35 06/22/18 20:35 Laboratory Results - last 24 hr 06/22/18 06/22/18 06/22/18 20:25 20:35 20:35 WBC 10.1 RBC 4.48 Hgb 12.1 Hct 36.2 MCV 80.9 MCH 27.0 MCHC 33.4 RDW 18.1 H Plt Count 195 D MPV 8.4 Neut % (Auto) 89.1 H Lymph % (Auto) 9.4 [place] % (Auto) 0.9 Eos % (Auto) 0.4 Baso % (Auto) 0.2 Neut # (Auto) 9.0 H Lymph # (Auto) 1.0 [place] # (Auto) 0.1 Eos # (Auto) 0.0 Baso # (Auto) 0.0 WBC Differential . Differential Comment Auto diff final PT 9.8 INR 1.0 APTT 23.0 L Sodium Potassium Chloride Carbon Dioxide Anion Gap BUN Creatinine Estimated GFR POC Glucose 140 H Random Glucose Lactic Acid Calcium Magnesium Total Bilirubin AST ALT Alkaline Phosphatase Total Creatine Kinase Troponin I Total Protein Albumin Lipase Urine Color Urine Clarity Urine pH Ur Specific [place] Urine Protein Urine Glucose (UA) Urine Ketones Urine Occult Blood Urine Nitrate Urine Bilirubin Urine Urobilinogen Ur Leukocyte Esterase Urine RBC Urine WBC Ur Squamous Epith Cells Amorphous Sediment Urine Bacteria Hyaline Casts Granular Casts Urine Mucus Micro UA Comment Ur Microscopic Review Urine Culture Comments Stl C.difficile DNA Amp St C. diff Tox Epid 027 06/22/18 06/22/18 06/22/18 20:35 21:35 22:00 WBC RBC Hgb Hct MCV MCH MCHC RDW Plt Count MPV Neut % (Auto) Lymph % (Auto) [place] % (Auto) Eos % (Auto) Baso % (Auto) Neut # (Auto) Lymph # (Auto) [place] # (Auto) Eos # (Auto) Baso # (Auto) WBC Differential Differential Comment PT INR APTT Sodium 133 L Potassium 4.7 Chloride 103 Carbon Dioxide 18.3 L Anion Gap 12 BUN 40 H Creatinine 2.04 H Estimated GFR 24 L POC Glucose Random Glucose 161 H Lactic Acid 1.7 Calcium 9.5 Magnesium 1.7 Total Bilirubin 0.5 AST 52 H ALT 90 H Alkaline Phosphatase 167 H Total Creatine Kinase 32 Troponin I Less than 0.02 L Total Protein 8.7 H Albumin 3.5 Lipase 300 Urine Color Yellow Urine Clarity Cloudy H Urine pH 8.0 Ur Specific [place] 1.005 Urine Protein 30 H Urine Glucose (UA) Negative Urine Ketones Negative Urine Occult Blood Moderate H Urine Nitrate Negative Urine Bilirubin Negative Urine Urobilinogen Less than 2 Ur Leukocyte Esterase Moderate H Urine RBC 6 H Urine WBC 1 Ur Squamous Epith Cells <1 Amorphous Sediment Occasional H Urine Bacteria Occasional H Hyaline Casts Granular Casts Urine Mucus Few H Micro UA Comment Culture not ind Ur Microscopic Review Not Reportable Urine Culture Comments Culture not ind Stl C.difficile DNA Amp St C. diff Tox Epid 027 06/22/18 06/23/18 22:45 08:15 WBC RBC Hgb Hct MCV MCH MCHC RDW Plt Count MPV Neut % (Auto) Lymph % (Auto) [place] % (Auto) Eos % (Auto) Baso % (Auto) Neut # (Auto) Lymph # (Auto) [place] # (Auto) Eos # (Auto) Baso # (Auto) WBC Differential Differential Comment PT INR APTT Sodium Potassium Chloride Carbon Dioxide Anion Gap BUN Creatinine Estimated GFR POC Glucose Random Glucose Lactic Acid Calcium Magnesium Total Bilirubin AST ALT Alkaline Phosphatase Total Creatine Kinase Troponin I Total Protein Albumin Lipase Urine Color Yellow Urine Clarity Hazy H Urine pH 5.0 Ur Specific [place] 1.018 Urine Protein Negative Urine Glucose (UA) Negative Urine Ketones Negative Urine Occult Blood Negative Urine Nitrate Negative Urine Bilirubin Negative Urine Urobilinogen Less than 2 Ur Leukocyte Esterase Negative Urine RBC Less than 1 Urine WBC 2 Ur Squamous Epith Cells Amorphous Sediment Rare H Urine Bacteria Rare H Hyaline Casts 4 Granular Casts 18 Urine Mucus Few H Micro UA Comment Cath-culture ind Ur Microscopic Review Not Reportable Urine Culture Comments Cath-cult indicated Stl C.difficile DNA Amp Negative St C. diff Tox Epid 027 Negative - Imaging Imaging: ITS Impressions Chest X-Ray 06/22/18 20:40 CONCLUSION: Right [id number] in superior vena cava. No consolidation or effusion. Abdomen/Pelvis CT 06/22/18 22:07 CONCLUSION: 1. Compared with May 29 there is abnormal development of small bowel dilatation on the left side with multiple air-fluid levels characteristic of an early or partial small bowel obstruction. 2. Previously described soft tissue nodules in the anterior abdominal wall and within the mesentery and omentum are similar to prior examination and likely represent metastatic disease. Right lower quadrant ostomy unchanged. 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 Pt is not currently taking PO will defer to Oncology Ileostomy with 250 ml in last 12 hours. Not a surgical candidate at this time. Code Status: full Discussed Condition With: patient and
--- NOTE | 2018-06-23 16:36 | ECG ---
Date Performed: 06/22/2018 Time Performed: 20:59:08 PTAGE: 72 years EKG: Sinus rhythm LEFT ANTERIOR FASCICULAR BLOCK POSSIBLE ANTERIOR MYOCARDIAL INFARCTION Since the previous tracing, n o significant change noted ABNORMAL ECG PREVIOUS TRACING : 05/25/2017 03.43 DOCTOR: Cristiane Zarate Interpretating Date/Time 06/23/2018 16:36:10
--- NOTE | 2018-06-23 19:07 | P.CONPAL ---
Consult Service: Palliative Care Requesting Physician: Olivia Thacker Reason for Consult: a. To assist with evaluation and management of symptoms including: abdominal pain, N/V, weakness. b. To assist medical decision maker(s) with: better understanding of current medical conditions; weighing benefits/burdens of medical treatment options; making medical treatment decisions. Primary Care Provider: Nik Hensley History of Present Illness History of Present Illness: Mrs Hayden is a 72 year old female with past medical history of hypertension, hyperlipidemia, ovarian cancer, recurrent small bowel obstruction requiring ileostomy 1 year ago, anxiety. She underwent robotic assisted laparoscopic vaginal hysterectomy, bilateral salpingo-oophorectomy, omentectomy , intraperitoneal biopsies, lysis of adhesions for ovarian cancer staging on 08/[address] Huang, surgically Stage Ic (with positive peritoneal washings). Since that time she has undergone multiple lines of chemotherapy, most recently line 10, Cycle 1 of Topotecan (last dose~06/20/18). Patient presented to [facility] emergency department on 06/22/18 when she noticed increased ileostomy output. She later developed nausea and vomiting with increased mid epigastric severe abdominal pain and decreased ileostomy output. She denied any fever or chills. Chest x-ray revealed right port, no consolidation or effusion. CT abdomen/pelvis compared to 05/29/18 revealed abnormal development of small bowel dilatation on the left side with multiple air-fluid levels characteristic of early or partial small bowel obstruction, previously described soft tissue nodules in the anterior abdominal wall and within the mesentery and omentum similar to prior exam likely represent metastatic disease, right lower quadrant ostomy unchanged. Patient was admitted with small bowel obstruction. [employer] oncology was consulted. N.P.O. Patient declined NG tube placement. General surgery, Dr. Sinha was consulted, patient is felt not to be a surgical candidate. Palliative care was consulted to assist with further clarification of medical treatment goals, assistance with symptom management, establishing CODE STATUS and end-of-life wishes. At the time of my visit patient is tired, she lives with her eyes closed, does not want to participate in conversation. She welcomes me to continue speaking with her . When asked if she wanted me to review current medical findings she stated no. I asked if I could speak with her outside of the room she advised yes then said are you going to give him bad news. I asked her if she was fearful that I would be giving him bad news she indicated yes. She did not want to talk further and agreed that I could come back on 06/24/18. Lengthy conversation with patient's to review current medical findings, concern for disease progression, recurrent small bowel obstruction and limitations of treatment options. Explained while she may be able to get through this acute small bowel obstruction that these problems may continue, he verbalizes her appetite has been decreasing and she is increasingly tired and fatigued. He reports that she is afraid to suffer at the end of life. He indicates that she has had some negative experiences in the past with family members and friends who she felt were suffering at end-of-life. He is very open and appreciative of this conversation. He and the patient both verbalize wanting Dr. Huang his opinion on where to go from here, prognosis etc. Agreed that I would follow up on 06/24/18. Discussed CODE STATUS with patient's spouse he indicates that she would not want cardiac resuscitation or mechanical ventilation. We agreed to discuss this when the patient is more open to these conversations. Palliative care number provided. [facility] - History History Provided By: Patient, Family Member - Medical History Medical History: Medical History (Last Reviewed 06/22/18 @ 21:35 by Silvia Bah MD) History of gastrostomy tube placement History of hysterectomy Ileostomy in place Ovarian cancer - Surgical History Surgical History: Surgical History (Last Reviewed 06/22/18 @ 21:35 by Silvia Bah MD) History of delivery History of cholecystectomy History of tonsillectomy - Tobacco History Second Hand Smoke Exposure: No Smoking Status: Former smoker - Alcohol History How Often Do You Have a Drink Containing Alcohol: Never - Substance Use History Substance History: No History of Abuse - Travel History Recent Travel in the [place] Within the Last 8 Weeks: No Recent Travel Out of the Country Within the Last 8 Weeks: No - Immunization History Tetanus Immunization: >5 Years Hx Influenza Vaccine This Season: No Medications and Allergies Active Medications: Active Medications Al Hydroxide/Mg Hydroxide (Milk Of Magnaaron Liq) 30 ml PO Q12H PRN PRN Reason: Mild Constipation Alprazolam (Xanax) 1 mg PO HS PRN PRN Reason: Anxiety Bisacodyl (Dulcolax Supp) 10 mg RECTAL DAILY PRN PRN Reason: SEVERE CONSITIPATION Enalaprilat (Vasotec Inj) 1.25 mg IV.PUSH Q6H PRN PRN Reason: SBP 180 or above Hydromorphone HCl (Dilaudid Pf Inj) 1 mg IV.PUSH Q3H PRN PRN Reason: BREAKTHROUGH PAIN Last Admin: 06/23/18 06:48 Dose: 1 mg Sodium Chloride (Ns Inj) 1,000 mls @ 100 mls/hr IV.CONT .Q10H [facility] Last Admin: 06/23/18 12:24 Dose: 100 mls/hr Lactulose (Lactulose Liq) 30 ml PO DAILY PRN PRN Reason: SEVERE CONSITIPATION Lorazepam (Ativan Inj) 0.5 mg IV.PUSH Q6H PRN PRN Reason: ANXIETY Last Admin: 06/23/18 15:21 Dose: 0.5 mg Metoclopramide HCl (Reglan Inj) 5 mg IV.PUSH Q6HR PRN; Protocol PRN Reason: intractable nausea Metoprolol Tartrate (Lopressor) 25 mg PO BID [facility] Last Admin: 06/23/18 09:03 Dose: 25 mg Morphine Sulfate (Morphine Inj) 2 mg IV.PUSH Q3H PRN PRN Reason: PAIN 3-5; IF UABLE TO TAKE PO Morphine Sulfate (Morphine Inj) 4 mg IV.PUSH Q3H PRN PRN Reason: PAIN 6-10;IF UNABLE TO TAKE PO Last Admin: 06/23/18 16:20 Dose: 4 mg Naloxone HCl (Narcan Inj) 0.4 mg IV.PUSH UNSCH PRN PRN Reason: SEE LABEL COMMENTS Ondansetron HCl (Zofran Inj) 4 mg IV.PUSH Q6H PRN PRN Reason: NAUSEA OR VOMITING Last Admin: 06/23/18 04:55 Dose: 4 mg Sennosides (Senokot) 17.2 mg PO Q12H PRN PRN Reason: Moderate Constipation Sodium Chloride (Ns Flush) 2 ml IV.FLUSH PRN PRN PRN Reason: FLUSH AFTER USING IV ACCESS Last Admin: 06/22/18 20:52 Dose: 2 ml Temazepam (Restoril) 15 mg PO HS PRN PRN Reason: INSOMNIA Allergies Allergy/AdvReac Type Severity Reaction Status Date / Time amlodipine Allergy Severe Rash Verified 06/16/18 12:33 atorvastatin Allergy Severe RENAL Verified 06/16/18 12:33 FAILURE penicillin G Allergy Severe RASH Verified 06/16/18 12:33 pravastatin Allergy Severe RENAL Verified 06/16/18 12:33 FAILURE simvastatin Allergy Severe RENAL Verified 06/16/18 12:33 FAILURE doxorubicin [From Doxil] AdvReac Shortness Verified 06/16/18 12:33 of Breath ZOCOR AdvReac Severe RENAL Uncoded 06/16/18 12:33 FAILURE Home Medications Medication Instructions Recorded Confirmed Type alprazolam [Xanax] 1 mg PO HS PRN 05/09/18 06/22/18 History metoprolol tartrate 25 mg PO BID 05/09/18 06/22/18 History sodium chloride 0.9 % 1,000 ml IV DIRECTED 06/09/18 06/22/18 History Advance Directives Living Will: No Healthcare Surrogate: No Power of Upholstery Tech: No Today's verbally stated goals: Patient does not want to discuss her health, symptoms or other problems at this time. Family/friends goals: Patient's spouse wishes to support his 's goals and wishes. Has a good understanding of her current medical conditions, prognosis. Ethical and Legal Issues: Patient is currently capacitated to make her own healthcare decisions. Should she lose capacity, according to [place] statutes, healthcare proxy decision making would fall to her spouse. Physical Exam Vital Signs: Vital Signs - 24 hr 06/22/18 20:01 06/22/18 20:09 06/22/18 21:30 Temperature 97.1 F L 97.3 F L Pulse Rate 106 H 96 H 88 Respiratory Rate 20 18 Blood Pressure 145/88 H 168/81 H Pulse Oximetry 98 100 99 06/23/18 00:00 06/23/18 03:00 06/23/18 04:00 Temperature 97.6 F 97.6 F Pulse Rate 86 88 98 H Respiratory Rate 16 16 18 Blood Pressure 131/57 L 136/70 136/70 Pulse Oximetry 99 97 100 06/23/18 08:00 06/23/18 12:00 06/23/18 16:00 Temperature 97.8 F 98 F 97.8 F Pulse Rate 103 H 88 88 Respiratory Rate 18 16 18 Blood Pressure 168/97 H 151/89 H 153/96 H Pulse Oximetry 94 L 97 96 I&O: Intake & Output 06/21/18 06/22/18 06/23/18 06/24/18 06:59 06:59 06:59 06:59 Intake Total 1500 / 1500 1000 / 1000 Output Total 100 / 100 750 / 750 Balance 1400 / 1400 250 / 250 Weight 89.1 kg Physical Exam: CONSTITUTIONAL/GENERAL: This is an adequately nourished patient, in no apparent distress. TUBES/LINES/DRAINS: right port. Ileostomy. SKIN: No jaundice, rashes, or lesions. Ecchymoses on upper extremities. No wounds seen anteriorly. Skin temperature appropriate. Not diaphoretic. HEAD: Atraumatic. Normocephalic. EYES: Pupils equal and round and reactive. ENT: Hearing grossly normal. Nose without bleeding or purulent drainage. Oral mucosa dry. NECK: Trachea midline. Supple, nontender. No palpable thyroid enlargement or nodularity. CARDIOVASCULAR: Regular rate and rhythm without murmurs, gallops, or rubs. No JVD. Peripheral pulses symmetric. RESPIRATORY/CHEST: Symmetric, unlabored respirations. Clear to auscultation. Breath sounds equal bilaterally. No wheezes, rales, or rhonchi. GASTROINTESTINAL: Abdomen tender, mildly distended. No guarding. Bowel sounds hypoactive. Ileostomy with watery output. GENITOURINARY: Without palpable bladder distension. MUSCULOSKELETAL: Extremities without clubbing, cyanosis, or edema. No mottling or clubbing. LYMPHATICS: No palpable cervical or supraclavicular adenopathy. NEUROLOGICAL: Awakens, tired, does not want to participate in conversation today. Follows commands. Cognitively sharp. Moves all extremities. PSYCHIATRIC: + anxiety. Diagnostic Tests Laboratory: Laboratory Results - last 72 hr 06/22/18 06/22/18 06/22/18 20:25 20:35 20:35 WBC 10.1 RBC 4.48 Hgb 12.1 Hct 36.2 MCV 80.9 MCH 27.0 MCHC 33.4 RDW 18.1 H Plt Count 195 D MPV 8.4 Neut % (Auto) 89.1 H Lymph % (Auto) 9.4 [place] % (Auto) 0.9 Eos % (Auto) 0.4 Baso % (Auto) 0.2 Neut # (Auto) 9.0 H Lymph # (Auto) 1.0 [place] # (Auto) 0.1 Eos # (Auto) 0.0 Baso # (Auto) 0.0 WBC Differential . Differential Comment Auto diff final PT 9.8 INR 1.0 APTT 23.0 L Sodium Potassium Chloride Carbon Dioxide Anion Gap BUN Creatinine Estimated GFR POC Glucose 140 H Random Glucose Lactic Acid Calcium Magnesium Total Bilirubin AST ALT Alkaline Phosphatase Total Creatine Kinase Troponin I Total Protein Albumin Lipase Urine Color Urine Clarity Urine pH Ur Specific [place] Urine Protein Urine Glucose (UA) Urine Ketones Urine Occult Blood Urine Nitrate Urine Bilirubin Urine Urobilinogen Ur Leukocyte Esterase Urine RBC Urine WBC Ur Squamous Epith Cells Amorphous Sediment Urine Bacteria Hyaline Casts Granular Casts Urine Mucus Micro UA Comment Ur Microscopic Review Urine Culture Comments Stl C.difficile DNA Amp St C. diff Tox Epid 027 06/22/18 06/22/18 06/22/18 20:35 21:35 22:00 WBC RBC Hgb Hct MCV MCH MCHC RDW Plt Count MPV Neut % (Auto) Lymph % (Auto) [place] % (Auto) Eos % (Auto) Baso % (Auto) Neut # (Auto) Lymph # (Auto) [place] # (Auto) Eos # (Auto) Baso # (Auto) WBC Differential Differential Comment PT INR APTT Sodium 133 L Potassium 4.7 Chloride 103 Carbon Dioxide 18.3 L Anion Gap 12 BUN 40 H Creatinine 2.04 H Estimated GFR 24 L POC Glucose Random Glucose 161 H Lactic Acid 1.7 Calcium 9.5 Magnesium 1.7 Total Bilirubin 0.5 AST 52 H ALT 90 H Alkaline Phosphatase 167 H Total Creatine Kinase 32 Troponin I Less than 0.02 L Total Protein 8.7 H Albumin 3.5 Lipase 300 Urine Color Yellow Urine Clarity Cloudy H Urine pH 8.0 Ur Specific [place] 1.005 Urine Protein 30 H Urine Glucose (UA) Negative Urine Ketones Negative Urine Occult Blood Moderate H Urine Nitrate Negative Urine Bilirubin Negative Urine Urobilinogen Less than 2 Ur Leukocyte Esterase Moderate H Urine RBC 6 H Urine WBC 1 Ur Squamous Epith Cells <1 Amorphous Sediment Occasional H Urine Bacteria Occasional H Hyaline Casts Granular Casts Urine Mucus Few H Micro UA Comment Culture not ind Ur Microscopic Review Not Reportable Urine Culture Comments Culture not ind Stl C.difficile DNA Amp St C. diff Tox Epid 027 06/22/18 06/23/18 22:45 08:15 WBC RBC Hgb Hct MCV MCH MCHC RDW Plt Count MPV Neut % (Auto) Lymph % (Auto) [place] % (Auto) Eos % (Auto) Baso % (Auto) Neut # (Auto) Lymph # (Auto) [place] # (Auto) Eos # (Auto) Baso # (Auto) WBC Differential Differential Comment PT INR APTT Sodium Potassium Chloride Carbon Dioxide Anion Gap BUN Creatinine Estimated GFR POC Glucose Random Glucose Lactic Acid Calcium Magnesium Total Bilirubin AST ALT Alkaline Phosphatase Total Creatine Kinase Troponin I Total Protein Albumin Lipase Urine Color Yellow Urine Clarity Hazy H Urine pH 5.0 Ur Specific [place] 1.018 Urine Protein Negative Urine Glucose (UA) Negative Urine Ketones Negative Urine Occult Blood Negative Urine Nitrate Negative Urine Bilirubin Negative Urine Urobilinogen Less than 2 Ur Leukocyte Esterase Negative Urine RBC Less than 1 Urine WBC 2 Ur Squamous Epith Cells Amorphous Sediment Rare H Urine Bacteria Rare H Hyaline Casts 4 Granular Casts 18 Urine Mucus Few H Micro UA Comment Cath-culture ind Ur Microscopic Review Not Reportable Urine Culture Comments Cath-cult indicated Stl C.difficile DNA Amp Negative St C. diff Tox Epid 027 Negative Result Diagrams: 06/22/18 20:35 06/22/18 20:35 Microbiology: Microbiology 06/22/18 22:45 Urine Culture - Preliminary Catheterized Urine No growth in 24 hours Patient/Family Conference Issues Discussed: * Palliative care role, purpose, approach * Additional medical, psychosocial, and spiritual history * Patients general health, functional status, and cognitive changes in the months leading up to the current hospitalization * Patient/family understanding of the current medical problems * Patient/family understanding of prognosis * Patients goals of care as best understood from advance directives and/or conversations and/or values * Current medical treatment options and benefits/burdens of those options * Likely scenarios comparing ongoing aggressive care with a transition to comfort measures only * Questions answered to the best of my ability * Palliative care contact information provided Assessment and Plan - Disease Oriented Problem List (1) Partial obstruction of small intestine (2) Ovarian cancer, BRCA2 positive (3) Anxiety (4) HTN (hypertension) - Symptom Scale (1) Abdominal pain 0-10 Scale: 0 (2) Weakness 0-10 Scale: Unable to quantify (3) N&V (nausea and vomiting) 0-10 Scale: 0 (4) Anxiety 0-10 Scale: 5 Pertinent Non-Medical Issues: Psychosocial: . Has 3 sons and 2 daughters. Spiritual: Orthodox tiffanie, declines imaging tech visits. Legal: Patient is currently capacitated to make her own health care decisions. No written advanced directives, should she lose capacity, according to [place] statutes, health care proxy decision making falls to her spouse. Ethical issues impacting care: No known concerns at this time. Important Contacts: * Brandt Hayden, spouse: [phone] home or [phone] * Mariam Galindo, daughter: [phone] Prognosis: Ms. Hayden is a 72-year-old female with progressive ovarian cancer status post Line 10 chemotherapy admitted with recurrent SBO, not a candidate for surgery. Overall prognosis is poor. She is a candidate for hospice services if goals are comfort oriented. . Plan: * Patient is currently capacitated to make her own health care decisions. No written advanced directives, should she lose capacity, according to [place] statutes, health care proxy decision making falls to her spouse. * FULL CODE * Patient did not want to talk today, she was tired, she verbalized being afraid that she would hear bad news. Spouse indicates that she is afraid of suffering at end-of-life as she has had multiple experiences with friends and loved ones where she felt they were suffering, the first incident watching her father when she was 9 years old. She welcomes palliative care visit on . Lengthy conversation with patient's spouse outside of the room, reviewed current medical findings, ovarian cancer, treatments, history and likely overall poor prognosis. He understands that while we may be able to reverse this acute SBO that likely her cancer treatment options are limited and that she will continue to have disease progression. Patient and family are anxious to hear what [employer] oncology, Dr. Huang feels her prognosis is. * SYMPTOMS: Nausea and vomiting: Have resolved since admission. Weakness: Secondary to progressive ovarian cancer, recent nausea vomiting, decreased appetite. N.p.o. status due to small bowel obstruction. Abdominal pain: Intermittent severe abdominal pain, patient reports relieved with current morphine orders rates her pain 0 during my visit today. * Palliative care number provided. * Palliative care will continue to follow to assist with symptom management further clarification of medical treatment goals as needed. Appreciation Thank you for the opportunity to participate in the care of Shahida Hayden. Attestation Attestation: To help prompt me to consider important information that might be impacting today's encounter and assessment, information from prior notes written by myself or my colleagues may have been "brought forward" into today's note. My signature on this note, however, is an attestation that I personally performed the exam, history, and/or decision-making noted today, and, unless otherwise indicated, the interactions with patient, family, and staff as well as the review of records all occurred today. I also attest that the listed assessment and stated plan reflect my best clinical judgment today based on the combination of historical information, prior notes, and today's exam/ interactions. When time spent is documented, it refers only to time spent today by the signer, or if indicated, combined time spent today by collaborating physician/nurse practitioner.
[2018-06-24] MEDS: Morphine Inj 4 MG/ML Vial IV.PUSH PRN ×4 (00:19→17:41)
[2018-06-24] MEDS: Sod Chloride 0.9% Inj 1,000 ML IV.CONT SCH ×3 (00:23→17:24)
[2018-06-24] MEDS: HYDROmorphone PF Inj 2 MG/ML Vial IV.PUSH PRN (03:13)
[2018-06-24 07:12] LABS: Baso % (Auto) 0.3 % (0.0-2.0); Eos % (Auto) 1.2 % (0.0-4.0); Hematocrit 28.3 % (35.0-46.0); Hemoglobin 9.4 gm/dL (11.6-15.3); Lymph # (Auto) 0.6 th/mm3 (1.0-4.8); Lymph % (Auto) 22.2 % (9.0-44.0); Mean Corpuscular Hemoglobin 26.7 pg (27.0-34.0); Mean Corpuscular Volume 80.9 fL (80.0-100.0); Mean Platelet Volume 8.2 fL (7.0-11.0); Mono # (Auto) 0.1 th/mm3 (0.0-0.9); Mono % (Auto) 1.9 % (0.0-8.0); Neut # (Auto) 2.1 th/mm3 (1.8-7.7); Neut % (Auto) 74.4 % (16.0-70.0); Platelet Count 143 th/mm3 (150-450); Red Cell Distribution Width 17.8 % (11.6-17.2); White Blood Count 2.9 th/mm3 (4.0-11.0)
[2018-06-24 07:53] LABS: Alanine Aminotransferase 58 U/L (10-53); Albumin 2.7 g/dL (3.4-5.0); Alkaline Phosphatase 142 U/L (45-117); Anion Gap 6 meq/L (5-15); Aspartate Aminotransferase 30 U/L (15-37); Blood Urea Nitrogen 36 mg/dL (7-18); Calcium 8.4 mg/dL (8.5-10.1); Carbon Dioxide 21.8 meq/L (21.0-32.0); Chloride 114 meq/L (98-107); Glomerular Filtration Rate 34 mL/min (>89); Glucose,Random 105 mg/dL (74-106); Potassium 4.2 meq/L (3.5-5.1); Sodium 142 meq/L (136-145); Total Protein 6.7 g/dL (6.4-8.2)
[2018-06-24] MEDS: Metoprolol Tartrate 25 MG Tablet PO SCH ×3 (08:30→20:38)
--- NOTE | 2018-06-24 09:23 | MB ---
cc: Betzaida Huang MD,Luke Jaime MD, John DATE: 06/24/2018 PHYSICIAN REQUESTING CONSULT: Brown Rivera DO. REASON FOR CONSULTATION: Recurrent ovarian cancer. REASON FOR ADMISSION: Small-bowel obstruction. HISTORY OF PRESENT ILLNESS: This patient is seen and evaluated by me. Her findings are reviewed. She is counseled and examined by me in conjunction with her nurse practitioner (Olivia Thacker). I agree with her findings, assessment, and plan. This is a 72-year-old female who has been under our care for a long period of time with known recurrent ovarian cancer. Most recently, she has had elevated CA-125 and nonresponse to her most recent chemotherapy such that she was recently changed to single agent topotecan which was only recently changed in that she just received her first infusion on 06/20/2018. She reports some nausea, decreased ileostomy output, abdominal pain, and is admitted now for further evaluation and management. I believe this current chemotherapy change represents her 10th line of chemotherapy. We have had numerous lengthy discussions over the years regarding the nature of ovarian cancer, the difficult nature of this disease, how it progresses and becomes more and more difficult to get it to respond to therapy over time, and as it has been exposed to a number of various therapeutic agents. She has had to undergo a prior diverting ileostomy due to multifocal carcinomatous implants and multifocal obstructions. Dr. Luke Sinha did that surgery. He has seen her in consultation and I had the opportunity to speak with him. I concur with his findings and recommendations in that this problem is related to multifocal intraperitoneal carcinomatosis and that she is not a surgical candidate as it would be most improbable that any proximal obstruction in the already shortened small bowel could be corrected surgically and ultimately would require response to chemotherapy. Time was spent answering numerous questions of Ms. Hayden. She tends to draw a cause and effect between topotecan and intestinal obstruction as it was initiated last year after which she received 1 cycle. Shortly thereafter, she was admitted with small bowel obstruction; but, in fact, the chemotherapy was started due to progressive disease, increasing CA-125, and increasing symptoms, such that an adequate trial of this medication was not provided. Similarly, now it was reinitiated as she only received 1 prior cycle and it may be an active agent for ovarian cancer. It was initiated at a time when the CA-125 was rapidly increasing and she was showing evidence of progressive disease. It is the underlying disease that is contributing to the intestinal obstruction, not causative from the topotecan. Nevertheless, this is her concern and observation. I appreciate palliative care input. Shahida Hayden remains steadfast in her hope to continue treatment and to continue fighting this disease. It is explained again that this becomes more and more difficult. As her performance status weakens and as her digestive function and ability to acquire nutrition diminishes, this becomes more and more difficult. The rationale for the nasogastric tube placement was again discussed. She had declined it yesterday, despite our recommendations, but yesterday evening allowed placement, 1100 mL were out overnight. She reports less pain than at the time of admission. There is minimal output per ileostomy. Her past medical history, surgical history, medications, allergies, family history, and so forth are as outlined in the chart. They are reviewed and have no new additional information to add in that regard. PHYSICAL EXAMINATION: GENERAL: She is anxious, but in no acute cardiac or pulmonary distress. VITAL SIGNS: She has remained afebrile, pulse 88 to 94, respirations 16 to 18, blood pressure 140 to 160 over 67 to 96. O2 saturations greater than or equal to 94%. Nasogastric tube in place. ABDOMEN: Distended, soft. Bowel sounds are hypoactive. Minimal output from the ostomy. No significant rebound or guarding. LABORATORY DATA: White count low at 2.9, H and H 9.4 and 28.3, platelets 143, potassium 4.2, BUN and creatinine 36 and 1.49 consistent with preexisting baseline elevated creatinine. Transaminases are elevated. ALT 58, alkaline phosphatase 142. Serum protein low at 2.7. More questions were asked and answered. Discussion ensued. I am sorry she is feeling poorly. We will try to resolve this bout of partial small-bowel obstruction/bowel obstruction with conservative measures. The value of getting out of bed, physical activity, and limited narcotic medication were discussed. She expressed good understanding. ASSESSMENT AND PLAN: 1. Recurrent ovarian cancer. 2. Partial versus full bowel obstruction. 3. Known intraperitoneal carcinomatosis, status post diverting ileostomy last year. 4. Recent reinitiation of topotecan and chemotherapy. 5. Extensive discussion. PLAN: 1. Appreciate the excellent care from Dr. Von Rivera and his colleagues. Appreciate the input from Dr. Sinha, general surgery, and appreciate palliative care and others. 2. Continue present management with supportive care nasogastric decompression, bowel rest, IV fluid support, and electrolyte repletion. Thank you. We will follow along in her care. MD JOSE Collado/sirisha , 08:10 AM , 08:26 AM
--- NOTE | 2018-06-24 10:47 | P.PNIM ---
Subjective Interval history: Pt had NGT placed yesterday evening and had out about 400mL immediately and a total of 1100cc She had recorded output from ileostomy of 450cc last night and 250cc so far this morning. Pt walked down the [place] with PT this morning but states that she was exhausted after that. She is requesting multi B vitamin infusion which she normally does every M-W- at home. She reports that this help with her energy levels significantly Physical Exam Vital signs: Vital Signs 06/23/18 12:00 06/23/18 16:00 06/23/18 20:00 Temperature 98 F 97.8 F 98.1 F Pulse Rate 88 88 94 H Respiratory Rate 16 18 17 Blood Pressure 151/89 H 153/96 H 160/74 H Pulse Oximetry 97 96 94 L 06/23/18 23:55 06/24/18 04:39 06/24/18 08:00 Temperature 98.3 F 98.6 F 98.6 F Pulse Rate 95 H 92 H 87 Respiratory Rate 18 17 14 Blood Pressure 151/71 H 140/67 147/89 H Pulse Oximetry 96 96 95 Intake & Output 06/23/18 06/24/18 06/24/18 18:59 06:59 18:59 Intake Total 1000 / 1000 1000 / 1000 1000 / 1000 Output Total 1400 / 1400 2550 / 2550 400 / 400 Balance -400 / -400 -1550 / -1550 600 / 600 Weight 90 kg Intake: IV 1000 / 1000 1000 / 1000 1000 / 1000 NS Inj 1,000 ML @ 100 mls/hr IV 1000 / 1000 1000 / 1000 1000 / 1000 .CONT .Q10H [facility] Rx#:[id number] Output: Urine 875 / 875 1000 / 1000 150 / 150 Emesis 100 / 100 Stool Amount (Stoma) 425 / 425 450 / 450 250 / 250 Pre-Hospital: 425 / 425 450 / 450 250 / 250 Gastric Drainage 1100 / 1100 Right Nare Nasogastric Tube 1100 / 1100 Other: # Voids 1 Date of Last Bowel Movement 06/23/18 06/23/18 Narrative: GENERAL: NAD, AAOx3 CARDIO: Regular RESP: CTA bilaterally. ABD: +BS, semi-firm, mildly distended, non-tender. EXT: Extremities without clubbing, cyanosis, or edema. No obvious deformities. Results - Labs CBC & Chem 7: 06/26/18 06:04 06/26/18 06:04 Laboratory Results - last 24 hr 06/24/18 06/24/18 06:30 06:30 WBC 2.9 L RBC 3.50 L Hgb 9.4 L D Hct 28.3 L MCV 80.9 MCH 26.7 L MCHC 33.0 RDW 17.8 H Plt Count 143 L MPV 8.2 Neut % (Auto) 74.4 H Lymph % (Auto) 22.2 [place] % (Auto) 1.9 Eos % (Auto) 1.2 Baso % (Auto) 0.3 Neut # (Auto) 2.1 Lymph # (Auto) 0.6 L [place] # (Auto) 0.1 Eos # (Auto) 0.0 Baso # (Auto) 0.0 WBC Differential . Differential Comment Auto diff final Sodium 142 Potassium 4.2 Chloride 114 H D Carbon Dioxide 21.8 Anion Gap 6 BUN 36 H Creatinine 1.49 H Estimated GFR 34 L Random Glucose 105 Calcium 8.4 L D Total Bilirubin 0.5 AST 30 ALT 58 H Alkaline Phosphatase 142 H Total Protein 6.7 D Albumin 2.7 L D Microbiology 06/22/18 22:45 Catheterized Urine Urine Culture - Final No growth in 48 hours 06/23/18 08:15 Stool Enteric Pathogens (PCR) - Final No enteric pathogens detected by PCR (No Salmonella sp., Shigella sp., Campylobacter sp., Yersinia enterocolitica, Vibrio sp., Norovirus, or EHEC (Shiga Toxin 1 or Shiga Toxin 2) detected. - Imaging Chest X-Ray 06/22/18 20:40 CONCLUSION: Right [id number] in superior vena cava. No consolidation or effusion. Abdomen/Pelvis CT 06/22/18 22:07 CONCLUSION: 1. Compared with May 29 there is abnormal development of small bowel dilatation on the left side with multiple air-fluid levels characteristic of an early or partial small bowel obstruction. 2. Previously described soft tissue nodules in the anterior abdominal wall and within the mesentery and omentum are similar to prior examination and likely represent metastatic disease. Right lower quadrant ostomy unchanged. Assessment and Plan - Assessment (1) Partial obstruction of small intestine Code(s): K56.600 - Partial intestinal obstruction, unspecified as to cause Status: Acute Plan: Partial SBO High output ileostomy - Pt is a 72 yo female with metastatic BRCA 2+ ovarian cancer s/p LIZ/BSO, omentectomy, lysis of adhesions [place] [address] Huang. 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 She has had multiple chemotherapies and per GynOnc noted she is currently on 10th line treatment with Topotecan. She received cycle one on Saturday06/20/18 and over the weekend she started having a lot of out put from her ileostomy and tried her normal routine to slow the out put, but nothing helped. Then yesterday she started having vomiting with increasing abdominal pain, and her ileostomy drainage slowed. Pt was concerned about SBO and she presented to the ED at [facility] [place] on 06/22/18 for further evaluation. - CT Abd/pelvis (06/22/18) noted small bowel dilatation on the left side with multiple air-fluid levels characteristic of an early or partial small bowel obstruction. - Pt had NGT placed yesterday evening and had out about 400mL immediately and a total of 1100cc - She had recorded output from ileostomy of 450cc last night and 250cc so far this morning. - Stool for enteric pathogens is negative. - IVF - Pain control PRN - Antiemetics PRN - Anxiolytics PRN - KUB today - Appreciate Palliative care consultation to help with goals of care ADOLFO Hyponatremia - Likely related to dehydration secondary to her high volume stool output - Improved with IVF hydration. - Repeat labs in AM Metastatic ovarian cancer, BRCA 2 - Pt follows with Dr. Huang - She is currently on 10th line treatment with Topotecan. She received cycle one on Saturday06/20/18 Anxiety - Ativan 0.5mg IV Q6H PRN HTN - Vasotec PRN (2) Ovarian cancer, BRCA2 positive Code(s): C56.9 - Malignant neoplasm of unspecified ovary; Z15.01 - Genetic susceptibility to malignant neoplasm of breast; Z15.09 - Genetic susceptibility to other malignant neoplasm Status: Acute (3) Anxiety Code(s): F41.9 - Anxiety disorder, unspecified Status: Acute (4) HTN (hypertension) Code(s): I10 - Essential (primary) hypertension Status: Acute - Attending Attestation The exam, history, and the medical decision-making described in the above note were completed with the assistance of the mid-level provider. I reviewed and agree with the findings presented. I attest that I had a hopm-iy-[id number] encounter with the patient on the same day, and personally performed and documented my assessment and findings in the medical record. Patient examined. Assessment and plan formulated with Julita Jones PA-C. I agree with the above.
--- NOTE | 2018-06-24 11:50 | XR ---
EXAM DATE: 06/24/2018 12:00 AM EDT AGE/SEX: 72 years / Female INDICATIONS: Vomiting, obstruction. CLINICAL DATA: This is the patient's initial encounter. Patient reports that signs and symptoms have been present for 2 days and indicates a pain score of 4/10. MEDICAL/SURGICAL HISTORY: Hypertension. Carcinoma, ovarian. Tonsillectomy. port, c- section, a denoidectomy, ileostomy COMPARISON: [facility] [place], CT ABDOMEN & PELVIS W/O CONTRAST, 06/22/2018. . FINDINGS: NG tube is present with tip in the stomach. There are organized loops of small bowel which aren't d istended maximum diameter of 5.2 cm in the left side of the abdomen. There is however gas and stool s een within the rectum. The maximum diameter of the small bowel on the prior CT examination from 06/22 measures almost 3.2 cm. There is no evidence for free intraperitoneal air for technique. CONCLUSION: Further distention of loops of small bowel since the prior CT from 06/22/2018 characteristic of parti al small bowel obstruction with some gas and stool seen within the colon particularly rectum. The alfonso earance is suggestive of high-grade partial small bowel obstruction. Electronically signed by: Scarlett Newman MD 06/24/2018 11:48 AM EDT
[2018-06-24] MEDS: Multivitamin Inj 10 ML, Folic Acid Inj 1 MG in Sodium Chlor 0.9% Inj 500 ML IV.SIG SCH (12:24)
--- NOTE | 2018-06-24 20:04 | P.PNPAL ---
Reason for Visit Reason for visit: a. To assist with evaluation and management of symptoms including: abdominal pain, weakness. b. To assist medical decision maker(s) with: better understanding of current medical conditions; weighing benefits/burdens of medical treatment options; making medical treatment decisions. Subjective Subjective/Interval History: Patient seen and examined in room, son and at bedside. Patient awakens easily. She remembers me from my visit on 06/23/18. She is more open to conversation today. She tells me she spoke with Dr. Huang and hopes to get back to chemotherapy after DC. She understands the difficulties in treating the ovarian cancer, the limited treatment options and reality of limitation of chemotherapy as she is on Line 10 of treatment. She is asking questions about immunotherapy and clinical trials. We talked about clinical trials and the eligibility criteria. I advised her to talk to Dr. Huang about these options when she sees him upon DC, she agrees. She also now seems to have a better understanding of how trials work and limited available immunotherapies in the setting of ovarian cancer, if I remember correctly she failed one of these therapies in the past. She has had intermittent throbbing upper abdominal / epigastric pain, increased apin with movement. No significant improvement in pain or nausea with NG tube placement. She reports the pain meds (Morphine and Dilaudid)are effective in treating pain when used. She does not feel one is more effective than the other. She also indicates that the pain medicine is helping decrease her anxiety. Will schedule ATC lorazepam (0.5mg IV every 8 hours ATC) in hopes that this will improve overall anxiety. She and her family reports that she has high anxiety levels and that this has been a problem for a prolonged period of time. Hopefully we can decrease her need for Morphine and Dilaudid if we can better control anxiety, as she seems to be using pain meds to assist with anxiety management more than for pain. I am concerned that opioids will also contribute to continued bowel issues. She has had 3 doses of Dilaudid 1mg IV and 5 doses of Morphine 4mg IV in the past [address] Rivera. Telemetry has been DCd. WBC now 2.9 post chemo. Creatinine decreased from 2.04 to 1.49. Albumin 2.7. Lengthy conversation with patient and her family, patient elects NO CODE. She wants to be allowed "to go when it is her time." Will need complete [place] D[place] prior to DC home. She continues to hope for treatment, is realistic. She also verbalizes a desires for IV fluids at end of life if needed. She is not ready to stop fighting this cancer. She verbalizes frustration that her mind wants to fight, but her body is not cooperating. She welcomes continued visits. Family/Friend Interactions: see interval note Advance Directives Living Will: Never completed Health Care Surrogate: Never completed Durable Power of Land Department Head: Never completed Health Care Surrogate Name and Number: Health care proxy, spouse, Brandt Hayden: [phone] Documented care wishes:: No written advance directives. Significant change in goals:: NO CODE. She desires continued aggressive care short of NO CODE, she hopes to return to outpatient chemotherapy upon discharge. Objective Vital Signs: Vital Signs 06/23/18 20:00 06/23/18 23:55 06/24/18 04:39 Temperature 98.1 F 98.3 F 98.6 F Pulse Rate 94 H 95 H 92 H Respiratory Rate 17 18 17 Blood Pressure 160/74 H 151/71 H 140/67 Pulse Oximetry 94 L 96 96 06/24/18 08:00 06/24/18 12:00 Temperature 98.6 F 98.9 F Pulse Rate 87 87 Respiratory Rate 14 14 Blood Pressure 147/89 H 138/85 Pulse Oximetry 95 97 Intake & Output 06/24/18 06/24/18 06/25/18 06:59 18:59 06:59 Intake Total 1000 / 1000 2160.2 / 2160.2 Output Total 2550 / 2550 725 / 725 Balance -1550 / -1550 1435.2 / 1435.2 Weight 90 kg Intake: IV 1000 / 1000 2160.2 / 2160.2 NS Inj 1,000 ML @ 100 mls/hr IV 1000 / 1000 1650 / 1650 .CONT .Q10H [facility] Rx#:[id number] [id number] Inj 10 ML Folvite Inj 1 510.2 / 510.2 MG In NS Inj 500 ML @ 125 mls/ hr IV.SIG DAILY [facility] Rx#: [id number] Output: Urine 1000 / 1000 150 / 150 Stool Amount (Stoma) 450 / 450 250 / 250 Pre-Hospital: 450 / 450 250 / 250 Gastric Drainage 1100 / 1100 325 / 325 Right Nare Nasogastric Tube 1100 / 1100 325 / 325 Other: Date of Last Bowel Movement 06/23/18 Physical Exam: CONSTITUTIONAL/GENERAL: This is an adequately nourished patient, in no apparent distress. TUBES/LINES/DRAINS: NG tube, right port. Ileostomy. SKIN: No jaundice, rashes, or lesions. Ecchymoses on upper extremities. No wounds seen anteriorly. Skin temperature appropriate. Not diaphoretic. ENT: Hearing grossly normal. Nose without bleeding or purulent drainage. Oral mucosa dry. NECK: Trachea midline. Supple, nontender. No palpable thyroid enlargement or nodularity. CARDIOVASCULAR: Regular rate and rhythm without murmurs, gallops, or rubs. No JVD. Peripheral pulses symmetric. RESPIRATORY/CHEST: Symmetric, unlabored respirations. Clear to auscultation. Breath sounds equal bilaterally. No wheezes, rales, or rhonchi. GASTROINTESTINAL: Abdomen tender, mildly distended. No guarding. Bowel sounds hypoactive. Ileostomy with watery output. GENITOURINARY: Without palpable bladder distension. MUSCULOSKELETAL: Extremities without clubbing, cyanosis, or edema. No mottling or clubbing. NEUROLOGICAL: Awakens, tired, does not want to participate in conversation today. Follows commands. Cognitively sharp. Moves all extremities. PSYCHIATRIC: + anxiety. Diagnostic Tests Laboratory: Laboratory Results - last 72 hr 06/22/18 06/22/18 06/22/18 20:25 20:35 20:35 WBC 10.1 RBC 4.48 Hgb 12.1 Hct 36.2 MCV 80.9 MCH 27.0 MCHC 33.4 RDW 18.1 H Plt Count 195 D MPV 8.4 Neut % (Auto) 89.1 H Lymph % (Auto) 9.4 [place] % (Auto) 0.9 Eos % (Auto) 0.4 Baso % (Auto) 0.2 Neut # (Auto) 9.0 H Lymph # (Auto) 1.0 [place] # (Auto) 0.1 Eos # (Auto) 0.0 Baso # (Auto) 0.0 WBC Differential . Differential Comment Auto diff final PT 9.8 INR 1.0 APTT 23.0 L Sodium Potassium Chloride Carbon Dioxide Anion Gap BUN Creatinine Estimated GFR POC Glucose 140 H Random Glucose Lactic Acid Calcium Magnesium Total Bilirubin AST ALT Alkaline Phosphatase Total Creatine Kinase Troponin I Total Protein Albumin Lipase Urine Color Urine Clarity Urine pH Ur Specific [place] Urine Protein Urine Glucose (UA) Urine Ketones Urine Occult Blood Urine Nitrate Urine Bilirubin Urine Urobilinogen Ur Leukocyte Esterase Urine RBC Urine WBC Ur Squamous Epith Cells Amorphous Sediment Urine Bacteria Hyaline Casts Granular Casts Urine Mucus Micro UA Comment Ur Microscopic Review Urine Culture Comments Stl C.difficile DNA Amp St C. diff Tox Epid 027 06/22/18 06/22/18 06/22/18 20:35 21:35 22:00 WBC RBC Hgb Hct MCV MCH MCHC RDW Plt Count MPV Neut % (Auto) Lymph % (Auto) [place] % (Auto) Eos % (Auto) Baso % (Auto) Neut # (Auto) Lymph # (Auto) [place] # (Auto) Eos # (Auto) Baso # (Auto) WBC Differential Differential Comment PT INR APTT Sodium 133 L Potassium 4.7 Chloride 103 Carbon Dioxide 18.3 L Anion Gap 12 BUN 40 H Creatinine 2.04 H Estimated GFR 24 L POC Glucose Random Glucose 161 H Lactic Acid 1.7 Calcium 9.5 Magnesium 1.7 Total Bilirubin 0.5 AST 52 H ALT 90 H Alkaline Phosphatase 167 H Total Creatine Kinase 32 Troponin I Less than 0.02 L Total Protein 8.7 H Albumin 3.5 Lipase 300 Urine Color Yellow Urine Clarity Cloudy H Urine pH 8.0 Ur Specific [place] 1.005 Urine Protein 30 H Urine Glucose (UA) Negative Urine Ketones Negative Urine Occult Blood Moderate H Urine Nitrate Negative Urine Bilirubin Negative Urine Urobilinogen Less than 2 Ur Leukocyte Esterase Moderate H Urine RBC 6 H Urine WBC 1 Ur Squamous Epith Cells <1 Amorphous Sediment Occasional H Urine Bacteria Occasional H Hyaline Casts Granular Casts Urine Mucus Few H Micro UA Comment Culture not ind Ur Microscopic Review Not Reportable Urine Culture Comments Culture not ind Stl C.difficile DNA Amp St C. diff Tox Epid 027 06/22/18 06/23/18 06/24/18 22:45 08:15 06:30 WBC 2.9 L RBC 3.50 L Hgb 9.4 L D Hct 28.3 L MCV 80.9 MCH 26.7 L MCHC 33.0 RDW 17.8 H Plt Count 143 L MPV 8.2 Neut % (Auto) 74.4 H Lymph % (Auto) 22.2 [place] % (Auto) 1.9 Eos % (Auto) 1.2 Baso % (Auto) 0.3 Neut # (Auto) 2.1 Lymph # (Auto) 0.6 L [place] # (Auto) 0.1 Eos # (Auto) 0.0 Baso # (Auto) 0.0 WBC Differential . Differential Comment Auto diff final PT INR APTT Sodium Potassium Chloride Carbon Dioxide Anion Gap BUN Creatinine Estimated GFR POC Glucose Random Glucose Lactic Acid Calcium Magnesium Total Bilirubin AST ALT Alkaline Phosphatase Total Creatine Kinase Troponin I Total Protein Albumin Lipase Urine Color Yellow Urine Clarity Hazy H Urine pH 5.0 Ur Specific [place] 1.018 Urine Protein Negative Urine Glucose (UA) Negative Urine Ketones Negative Urine Occult Blood Negative Urine Nitrate Negative Urine Bilirubin Negative Urine Urobilinogen Less than 2 Ur Leukocyte Esterase Negative Urine RBC Less than 1 Urine WBC 2 Ur Squamous Epith Cells Amorphous Sediment Rare H Urine Bacteria Rare H Hyaline Casts 4 Granular Casts 18 Urine Mucus Few H Micro UA Comment Cath-culture ind Ur Microscopic Review Not Reportable Urine Culture Comments Cath-cult indicated Stl C.difficile DNA Amp Negative St C. diff Tox Epid 027 Negative 06/24/18 06:30 WBC RBC Hgb Hct MCV MCH MCHC RDW Plt Count MPV Neut % (Auto) Lymph % (Auto) [place] % (Auto) Eos % (Auto) Baso % (Auto) Neut # (Auto) Lymph # (Auto) [place] # (Auto) Eos # (Auto) Baso # (Auto) WBC Differential Differential Comment PT INR APTT Sodium 142 Potassium 4.2 Chloride 114 H D Carbon Dioxide 21.8 Anion Gap 6 BUN 36 H Creatinine 1.49 H Estimated GFR 34 L POC Glucose Random Glucose 105 Lactic Acid Calcium 8.4 L D Magnesium Total Bilirubin 0.5 AST 30 ALT 58 H Alkaline Phosphatase 142 H Total Creatine Kinase Troponin I Total Protein 6.7 D Albumin 2.7 L D Lipase Urine Color Urine Clarity Urine pH Ur Specific [place] Urine Protein Urine Glucose (UA) Urine Ketones Urine Occult Blood Urine Nitrate Urine Bilirubin Urine Urobilinogen Ur Leukocyte Esterase Urine RBC Urine WBC Ur Squamous Epith Cells Amorphous Sediment Urine Bacteria Hyaline Casts Granular Casts Urine Mucus Micro UA Comment Ur Microscopic Review Urine Culture Comments Stl C.difficile DNA Amp St C. diff Tox Epid 027 Result Diagrams: 06/24/18 06:30 06/24/18 06:30 Microbiology: Microbiology 06/22/18 22:45 Urine Culture - Final Catheterized Urine No growth in 48 hours 06/23/18 08:15 Enteric Pathogens (PCR) - Final Stool No enteric pathogens detected by PCR (No Salmonella sp., Shigella sp., Campylobacter sp., Yersinia enterocolitica, Vibrio sp., Norovirus, or EHEC (Shiga Toxin 1 or Shiga Toxin 2) detected. Imaging: Chest X-Ray 06/22/18 20:40 CONCLUSION: Right Owhlmv-o-Okva in superior vena cava. No consolidation or effusion. Abdomen/Pelvis CT 06/22/18 22:07 CONCLUSION: 1. Compared with May 29 there is abnormal development of small bowel dilatation on the left side with multiple air-fluid levels characteristic of an early or partial small bowel obstruction. 2. Previously described soft tissue nodules in the anterior abdominal wall and within the mesentery and omentum are similar to prior examination and likely represent metastatic disease. Right lower quadrant ostomy unchanged. Abdomen X-Ray 06/24/18 00:00 CONCLUSION: Further distention of loops of small bowel since the prior CT from 06/22/2018 characteristic of partial small bowel obstruction with some gas and stool seen within the colon particularly rectum. The appearance is suggestive of high- grade partial small bowel obstruction. Assessment and Plan - Disease Oriented Problem List (1) Partial obstruction of small intestine (2) Ovarian cancer, BRCA2 positive (3) Anxiety (4) HTN (hypertension) - Symptom Scale (1) Abdominal pain 0-10 Scale: 0 (2) Weakness 0-10 Scale: Unable to quantify (3) N&V (nausea and vomiting) 0-10 Scale: 0 (4) Anxiety 0-10 Scale: 6 Pertinent Non-Medical Issues: Psychosocial: . Has 3 sons and 2 daughters. 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 Legal: Patient is currently capacitated to make her own health care decisions. No written advanced directives, should she lose capacity, according to [place] statutes, health care proxy decision making falls to her spouse. Ethical issues impacting care: No known concerns at this time. Important Contacts: * Brandt Hayden, spouse: [phone] home or [phone] * Mariam Galindo, daughter: [phone] Prognosis: Ms. Hayden is a 72-year-old female with progressive ovarian cancer status post Line 10 chemotherapy admitted with recurrent SBO, not a candidate for surgery. Overall prognosis is poor. She is a candidate for hospice services if goals are comfort oriented. . Code Status: No Code DNR Plan: * Patient is currently capacitated to make her own health care decisions. No written advanced directives, should she lose capacity, according to [place] statutes, health care proxy decision making falls to her spouse. * NO CODE * Lengthy conversation with patient and her family, patient elects NO CODE. She wants to be allowed "to go when it is her time." Will need complete [place] D[place] prior to DC home. She continues to hope for treatment, is realistic. She also verbalizes a desires for IV fluids at end of life if needed. She is not ready to stop fighting this cancer. She verbalizes frustration that her mind wants to fight, but her body is not cooperating. She welcomes continued visits. * Discussed with Dr. Rivera. * SYMPTOMS: Nausea and vomiting: Have resolved since admission. Weakness: Secondary to progressive ovarian cancer, recent nausea vomiting, decreased appetite. N.p.o. status due to small bowel obstruction. Abdominal pain: Intermittent severe abdominal pain, patient reports relieved with current morphine orders rates her pain 0 during my visit today. * Palliative care will continue to follow to assist with symptom management further clarification of medical treatment goals as needed. Attestation Attestation: To help prompt me to consider important information that might be impacting today's encounter and assessment, information from prior notes written by myself or my colleagues may have been "brought forward" into today's note. My signature on this note, however, is an attestation that I personally performed the exam, history, and/or decision-making noted today, and, unless otherwise indicated, the interactions with patient, family, and staff as well as the review of records all occurred today. I also attest that the listed assessment and stated plan reflect my best clinical judgment today based on the combination of historical information, prior notes, and today's exam/ interactions. When time spent is documented, it refers only to time spent today by the signer, or if indicated, combined time spent today by collaborating physician/nurse practitioner.
[2018-06-25] MEDS: Sod Chloride 0.9% Inj 1,000 ML IV.CONT SCH (05:22)
--- NOTE | 2018-06-25 07:52 | P.PNONC ---
Subjective Interval history: patient is resting in bed, states feels better today was OOB to ambulate yesterday more drainage from ileostomy denies any n/v mild upper abd cramping after ambulation anxious to try and advance diet Objective Vital Signs/Intake & Output: Vital Signs 06/24/18 08:00 06/24/18 12:00 06/24/18 20:01 Temperature 98.6 F 98.9 F 97.3 F L Pulse Rate 87 87 81 Respiratory Rate 14 14 17 Blood Pressure 147/89 H 138/85 164/72 H Pulse Oximetry 95 97 95 06/25/18 00:10 06/25/18 04:00 Temperature 98.8 F Pulse Rate 83 Respiratory Rate 18 18 Blood Pressure 157/69 H Pulse Oximetry 95 Intake & Output 06/24/18 06/25/18 06/25/18 18:59 06:59 18:59 Intake Total 2160.2 / 2160.2 1000 / 1000 Output Total 725 / 725 1140 / 1140 Balance 1435.2 / 1435.2 -140 / -140 Weight 90 kg Intake: IV 2160.2 / 2160.2 1000 / 1000 NS Inj 1,000 ML @ 100 mls/hr IV 1650 / 1650 1000 / 1000 .CONT .Q10H [facility] Rx#:[id number] MVI-12 Inj 10 ML Folvite Inj 1 510.2 / 510.2 MG In NS Inj 500 ML @ 125 mls/ hr IV.SIG DAILY STEVE Rx#: [id number] Output: Urine 150 / 150 640 / 640 Stool Amount (Stoma) 250 / 250 500 / 500 Pre-Hospital: 250 / 250 500 / 500 Gastric Drainage 325 / 325 Right Nare Nasogastric Tube 325 / 325 Other: Date of Last Bowel Movement 06/23/18 06/23/18 Result Diagrams: 06/24/18 06:30 06/24/18 06:30 Laboratory Results: Laboratory Results - last 24 hr 06/24/18 06:30 Sodium 142 Potassium 4.2 Chloride 114 H D Carbon Dioxide 21.8 Anion Gap 6 BUN 36 H Creatinine 1.49 H Estimated GFR 34 L Random Glucose 105 Calcium 8.4 L D Total Bilirubin 0.5 AST 30 ALT 58 H Alkaline Phosphatase 142 H Total Protein 6.7 D Albumin 2.7 L D Culture Results: Microbiology 06/22/18 22:45 Urine Culture - Final Catheterized Urine No growth in 48 hours 06/23/18 08:15 Enteric Pathogens (PCR) - Final Stool No enteric pathogens detected by PCR (No Salmonella sp., Shigella sp., Campylobacter sp., Yersinia enterocolitica, Vibrio sp., Norovirus, or EHEC (Shiga Toxin 1 or Shiga Toxin 2) detected. Imaging Studies: Impressions Abdomen X-Ray 06/24/18 00:00 CONCLUSION: Further distention of loops of small bowel since the prior CT from 06/22/2018 characteristic of partial small bowel obstruction with some gas and stool seen within the colon particularly rectum. The appearance is suggestive of high- grade partial small bowel obstruction. Medications: Active Medications Generic Name Dose Route Start Last Admin Trade Name Freq PRN Reason Stop Dose Admin Hydromorphone HCl 1 mg 06/23/18 02:30 06/24/18 03:13 Dilaudid Pf Inj IV.PUSH 1 mg Q3H PRN Administration BREAKTHROUGH PAIN Sodium Chloride 1,000 mls @ 100 mls/hr 06/23/18 02:15 06/25/18 05:22 Ns Inj IV.CONT Not Given .Q10H STEVE Multivitamins 10 ml/ Folic 510.2 mls @ 125 mls/hr 06/24/18 12:00 06/24/18 16: 46 Acid 1 mg/ Sodium Chloride IV.SIG Infused DAILY STEVE Infusion Lorazepam 0.5 mg 06/23/18 19:19 06/24/18 10:45 Ativan Inj IV.PUSH 0.5 mg Q4H PRN Administration ANXIETY Lorazepam 0.5 mg 06/24/18 20:00 06/25/18 04:36 Ativan Inj IV.PUSH 0.5 mg Q8H STEVE Administration Metoprolol Tartrate 25 mg 06/23/18 09:00 06/24/18 20:38 Lopressor PO 25 mg BID STEVE Administration Morphine Sulfate 4 mg 06/23/18 02:27 06/24/18 17:41 Morphine Inj IV.PUSH 4 mg Q3H PRN Administration PAIN 6-10;IF UNABLE TO TAKE PO Ondansetron HCl 4 mg 06/23/18 02:13 06/23/18 04:55 Zofran Inj IV.PUSH 4 mg Q6H PRN Administration NAUSEA OR VOMITING Sodium Chloride 2 ml 06/22/18 20:40 06/22/18 20:52 Ns Flush IV.FLUSH 2 ml PRN PRN Administration FLUSH AFTER USING IV ACCESS Objective Remarks: GENERAL: Well-nourished, well-developed patient. SKIN: Warm and dry. HEAD: Normocephalic. EYES: No scleral icterus. No injection or drainage. RESPIRATORY: No accessory muscle use. GASTROINTESTINAL: nondistended, nontender + BS x 4, ileostomy EXTREMITIES: teds and scds MUSCULOSKELETAL: Adequate muscle tone. NEUROLOGICAL: No obvious focal deficit. Awake, alert, and oriented x3. PSYCHIATRIC: Appropriate mood and affect; insight and judgment normal. Assessment/Plan (1) Partial obstruction of small intestine Code(s): K56.600 - Partial intestinal obstruction, unspecified as to cause Status: Acute - Plan SBO overall improvement NG tube to LIWS IVF ambulate supportive care Palliative Care following appreciate assistance medical management for SBO, Hospitalist following appreciate assistance not a surgical candidate per general surgery, s/p ileostomy X 1 year ago with resolution of SBO will restart IV chemotherapy currently on weekly Topotecan
[2018-06-25] MEDS: Multivitamin Inj 10 ML, Folic Acid Inj 1 MG in Sodium Chlor 0.9% Inj 500 ML IV.SIG SCH (08:08)
[2018-06-25] MEDS: Metoprolol Tartrate 25 MG Tablet PO SCH (08:13)
--- NOTE | 2018-06-25 09:08 | XR ---
EXAM DATE: 06/25/2018 8:00 AM EDT AGE/SEX: 72 years / Female INDICATIONS: Evaluate for obstruction. CLINICAL DATA: This is the patient's subsequent encounter. Patient reports that signs and symptoms h ave been present for 3 weeks and indicates a pain score of 0/10. MEDICAL/SURGICAL HISTORY: . Hypertension. Carcinoma, ovarian. section. Infusaport. Hy sterectomy. Cholecystectomy. Tonsillectomy. Ileostomy. COMPARISON: [facility], ABDOMEN 1V KUB, 06/24/2018. . FINDINGS: Stable NGT in the stomach. Redemonstration of multiple loops of air-filled distended small bowel thr oughout the left abdomen which appears slightly more prominent in comparison to yesterday's exam. No gross pneumatosis or free air. Air and stool still noted in the colon extending to the rectum. Remain christiano of the exam is unchanged. CONCLUSION: 1. Progressive distention of small bowel loops consistent with worsening small bowel obstruction. Electronically signed by: Patricio Pantoja MD 06/25/2018 9:07 AM EDT
--- NOTE | 2018-06-25 11:30 | P.PNIM ---
Subjective Interval history: Follow up partial SBO with high out ileostomy, hypokalemia and Metastatic ovarian cancer Patient reports more output from ileostomy today, (750 ml output from ileostomy in the last 24 hours) NG tube output 325ml in the past 24 hours reports feeling a little better Physical Exam Vital signs: Vital Signs 06/24/18 12:00 06/24/18 20:01 06/25/18 00:10 Temperature 98.9 F 97.3 F L 98.8 F Pulse Rate 87 81 83 Respiratory Rate 14 17 18 Blood Pressure 138/85 164/72 H 157/69 H Pulse Oximetry 97 95 95 06/25/18 04:00 06/25/18 08:00 Temperature 97.5 F L Pulse Rate 90 Respiratory Rate 18 18 Blood Pressure 164/74 H Pulse Oximetry 96 Intake & Output 06/24/18 06/25/18 06/25/18 18:59 06:59 18:59 Intake Total 2160.2 / 2160.2 1000 / 1000 Output Total 725 / 725 1140 / 1140 Balance 1435.2 / 1435.2 -140 / -140 Weight 90 kg Intake: IV 2160.2 / 2160.2 1000 / 1000 NS Inj 1,000 ML @ 100 mls/hr IV 1650 / 1650 1000 / 1000 .CONT .Q10H [facility] Rx#:[id number] MVI-12 Inj 10 ML Folvite Inj 1 510.2 / 510.2 MG In NS Inj 500 ML @ 125 mls/ hr IV.SIG DAILY STEVE Rx#: [id number] Output: Urine 150 / 150 640 / 640 Stool Amount (Stoma) 250 / 250 500 / 500 Pre-Hospital: 250 / 250 500 / 500 Gastric Drainage 325 / 325 Right Nare Nasogastric Tube 325 / 325 Other: Date of Last Bowel Movement 06/23/18 06/23/18 Narrative: GENERAL: NAD, AAOx3 CARDIO: Regular RESP: CTA bilaterally. ABD: +BS, semi-firm, mildly distended, non-tender. Absent bowel sounds. NG tube in place to LIWS. ileostomy in place with liquid output EXT: Extremities without clubbing, cyanosis, or edema. No obvious deformities. Results - Labs CBC & Chem 7: 06/26/18 06:04 06/26/18 06:04 Microbiology 06/22/18 22:45 Catheterized Urine Urine Culture - Final No growth in 48 hours - Imaging Impressions Abdomen X-Ray 06/24/18 00:00 CONCLUSION: Further distention of loops of small bowel since the prior CT from 06/22/2018 characteristic of partial small bowel obstruction with some gas and stool seen within the colon particularly rectum. The appearance is suggestive of high- grade partial small bowel obstruction. Abdomen X-Ray 06/25/18 08:00 CONCLUSION: 1. Progressive distention of small bowel loops consistent with worsening small bowel obstruction. Assessment and Plan - Assessment (1) Partial obstruction of small intestine Code(s): K56.600 - Partial intestinal obstruction, unspecified as to cause Status: Acute Plan: Partial SBO High output ileostomy - Pt is a 72 yo female with metastatic BRCA 2+ ovarian cancer s/p LIZ/BSO, omentectomy, lysis of adhesions [place] [address] Huang. 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 She has had multiple chemotherapies and per GynOnc noted she is currently on 10th line treatment with Topotecan. She received cycle one on Saturday06/20/18 and over the weekend she started having a lot of out put from her ileostomy and tried her normal routine to slow the out put, but nothing helped. Then yesterday she started having vomiting with increasing abdominal pain, and her ileostomy drainage slowed. Pt was concerned about SBO and she presented to [place] [facility] [place] for further evaluation. - CT Abd/pelvis (06/22/18) noted small bowel dilatation on the left side with multiple air-fluid levels characteristic of an early or partial small bowel obstruction. - Pt had NGT placed yesterday evening and had out about 400mL immediately and a total of 1100cc - She had recorded output from ileostomy of 450cc last night and 250cc so far this morning. - Stool for enteric pathogens is negative. - IVF - Pain control PRN - Antiemetics PRN - Anxiolytics PRN - KUB 06/25: Progressive distention of small bowel loops consistent with worsening small bowel obstruction. - Appreciate Palliative care consultation to help with goals of care - repeat KUB in AM ADOLFO- improving Hyponatremia - resolved - Likely related to dehydration secondary to her high volume stool output - Improved with IVF hydration. - Repeat labs for today pending Metastatic ovarian cancer, BRCA 2 - Pt follows with Dr. Huang - She is currently on 10th line treatment with Topotecan. She received cycle one on Saturday06/20/18 Anxiety - Ativan 0.5mg IV Q6H PRN HTN - Vasotec PRN - add Catapres patch Hypokalemia potassium 3.4 06/25 replaced IV fluids changed to NS with 20 meq KCL at 84 ml/H (2) Ovarian cancer, BRCA2 positive Code(s): C56.9 - Malignant neoplasm of unspecified ovary; Z15.01 - Genetic susceptibility to malignant neoplasm of breast; Z15.09 - Genetic susceptibility to other malignant neoplasm Status: Acute (3) Anxiety Code(s): F41.9 - Anxiety disorder, unspecified Status: Acute (4) HTN (hypertension) Code(s): I10 - Essential (primary) hypertension Status: Acute - Attending Attestation The exam, history, and the medical decision-making described in the above note were completed with the assistance of the mid-level provider. I reviewed and agree with the findings presented. I attest that I had a [id number] encounter with the patient on the same day, and personally performed and documented my assessment and findings in the medical record. Patient examined. Assessment and plan formulated with Le Flood PA-C. I agree with the above.
[2018-06-25 12:26] LABS: Baso % (Auto) 0.5 % (0.0-2.0); Eos % (Auto) 1.6 % (0.0-4.0); Hemoglobin 8.9 gm/dL (11.6-15.3); Lymph # (Auto) 0.7 th/mm3 (1.0-4.8); Lymph % (Auto) 30.7 % (9.0-44.0); Mean Corpuscular Hemoglobin 26.4 pg (27.0-34.0); Mean Corpuscular Volume 80.2 fL (80.0-100.0); Mean Platelet Volume 7.9 fL (7.0-11.0); Mono # (Auto) 0.1 th/mm3 (0.0-0.9); Neut # (Auto) 1.5 th/mm3 (1.8-7.7); Neut % (Auto) 64.2 % (16.0-70.0); Platelet Count 131 th/mm3 (150-450); Red Blood Count 3.36 mil/mm3 (4.00-5.30); Red Cell Distribution Width 17.7 % (11.6-17.2); White Blood Count 2.4 th/mm3 (4.0-11.0)
[2018-06-25 12:45] LABS: Calcium 8.7 mg/dL (8.5-10.1); Carbon Dioxide 25.2 meq/L (21.0-32.0); Potassium 3.4 meq/L (3.5-5.1)
[2018-06-25] MEDS: Morphine Inj 4 MG/ML Vial IV.PUSH PRN (13:56)
[2018-06-25] MEDS ORDERED: Potassium Chlor 20 mEq Premix 20 MEQ/100 ML PIGGYBACK IV.SIG ONE (14:30)
[2018-06-25] MEDS ORDERED: Phenol 1.4% 180 ML Spray Bottle OROPHARYNG PRN (17:22)
--- NOTE | 2018-06-25 18:37 | P.PNPAL ---
Reason for Visit Reason for visit: a. To assist with evaluation and management of symptoms including: abdominal pain, weakness, anxiety, sore throat. b. To assist medical decision maker(s) with: better understanding of current medical conditions; weighing benefits/burdens of medical treatment options; making medical treatment decisions. Subjective Subjective/Interval History: Patient seen and examined in room, son, daughters at bedside. Patient is awake and alert. She is upset that she is "not getting better." She verbalizes frustration getting differing opinions from oncology and medical team. She tells me she was told this morning she had bowel sounds and that we would be able to clamp NG tube and this evening that this was not recommended as no bowel sounds heard. I explained Abdominal x-ray revealed progressive distention of small bowel loops consistent with worsening small bowel obstruction. Explained that oncology may not of had these results at the time of the visit this morning and that because clinically she was feeling better they may have considered clamping the NG tube. She of course is quite frustrated that the x- ray appears slightly worse. She is angry because she wants to go home, wants to eat, wants to feel better and because her throat hurts. Ordered Chloraseptic spray in an attempt to decrease throat irritation. Family indicates that Dr. Rivera has agreed to allow her to have ice chips and 4 ounces of apple juice every 12 hours, I have also updated the white board to reflect this change per the family's request. Lengthy conversation with patient regarding her anxiety, she is not certain that she feels any better with scheduled ATC lorazepam. She has had 3 doses of scheduled lorazepam and no PRN. Yesterday she indicated that she was using as needed morphine and Dilaudid to help decrease her anxiety I have encouraged the patient to only use the morphine and/or Dilaudid for pain control. And encouraged her to use the as needed Lorazepam in between the scheduled lorazepam to control her anxiety. I advised her that I will make adjustments to the dose if needed, explained also that I would like to monitor her need over the next 24 hours prior to making significant dose adjustments. She and her family are in agreement. I have updated her white board to reflect these changes. She denies any abdominal pain she reports intermittent upper abdominal /epigastric pain after ambulating otherwise denies any pain except for the throat discomfort as described above. She has required to sparing PRN morphine and Dilaudid in the past 24 hours. Creatinine continues to decrease now 1.16. Otherwise labs relatively stable. Discussed with Dr. Rivera. Family/Friend Interactions: See interval note. Advance Directives Living Will: Never completed Health Care Surrogate: Never completed Durable Power of Ecommerce Manager: Never completed Health Care Surrogate Name and Number: Health care proxy, spouse, Brandt Hayden: [phone] Documented care wishes:: No written advance directives. Significant change in goals:: NO CODE. Patient desires continued aggressive care short of NO CODE STATUS. Objective Vital Signs: Vital Signs 06/24/18 20:01 06/25/18 00:10 06/25/18 04:00 Temperature 97.3 F L 98.8 F Pulse Rate 81 83 Respiratory Rate 17 18 18 Blood Pressure 164/72 H 157/69 H Pulse Oximetry 95 95 06/25/18 08:00 06/25/18 12:00 06/25/18 16:00 Temperature 97.5 F L 98.4 F 97.8 F Pulse Rate 90 85 91 H Respiratory Rate 18 18 18 Blood Pressure 164/74 H 170/76 H 161/90 H Pulse Oximetry 96 97 97 06/25/18 18:12 Temperature Pulse Rate Respiratory Rate Blood Pressure 147/70 H Pulse Oximetry Intake & Output 06/24/18 06/25/18 06/25/18 18:59 06:59 18:59 Intake Total 2160.2 / 2160.2 1000 / 1000 610.2 / 610.2 Output Total 725 / 725 1140 / 1140 1900 / 1900 Balance 1435.2 / 1435.2 -140 / -140 -1289.8 / -1289.8 Weight 90 kg Intake: IV 2160.2 / 2160.2 1000 / 1000 610.2 / 610.2 NS Inj 1,000 ML @ 100 mls/hr IV 1650 / 1650 1000 / 1000 .CONT .Q10H STEVE Rx#:[id number] MVI-12 Inj 10 ML Folvite Inj 1 510.2 / 510.2 510.2 / 510.2 MG In NS Inj 500 ML @ 125 mls/ hr IV.SIG DAILY STEVE Rx#: [id number] KCl 20 mEq Premix Inj 20 meq In 100 / 100 100 ml @ 50 mls/hr IV.SIG ONCE ONE Rx#:[id number] Output: Urine 150 / 150 640 / 640 Stool 1100 / 1100 Stool Amount (Stoma) 250 / 250 500 / 500 Pre-Hospital: 250 / 250 500 / 500 Gastric Drainage 325 / 325 800 / 800 Right Nare Nasogastric Tube 325 / 325 800 / 800 Other: Date of Last Bowel Movement 06/23/18 06/23/18 Physical Exam: CONSTITUTIONAL/GENERAL: This is an adequately nourished patient, in no apparent distress. TUBES/LINES/DRAINS: NG tube, right port. Ileostomy. SKIN: No jaundice, rashes, or lesions. Ecchymoses on upper extremities. No wounds seen anteriorly. Skin temperature appropriate. Not diaphoretic. ENT: Hearing grossly normal. Nose without bleeding or purulent drainage. Oral mucosa dry. NECK: Trachea midline. Supple, nontender. No palpable thyroid enlargement or nodularity. CARDIOVASCULAR: Regular rate and rhythm without murmurs, gallops, or rubs. No JVD. Peripheral pulses symmetric. RESPIRATORY/CHEST: Symmetric, unlabored respirations. Clear to auscultation. Breath sounds equal bilaterally. No wheezes, rales, or rhonchi. GASTROINTESTINAL: Abdomen tender, mildly distended. No guarding. Bowel sounds hypoactive. Ileostomy with watery output. GENITOURINARY: Without palpable bladder distension. MUSCULOSKELETAL: Extremities without clubbing, cyanosis, or edema. No mottling or clubbing. NEUROLOGICAL: Awake, follows commands. Cognitively sharp. Moves all extremities. PSYCHIATRIC: + anxiety, agitation. Diagnostic Tests Laboratory: Laboratory Results - last 72 hr 06/22/18 06/22/18 06/22/18 20:25 20:35 20:35 WBC 10.1 RBC 4.48 Hgb 12.1 Hct 36.2 MCV 80.9 MCH 27.0 MCHC 33.4 RDW 18.1 H Plt Count 195 D MPV 8.4 Neut % (Auto) 89.1 H Lymph % (Auto) 9.4 Benzie % (Auto) 0.9 Eos % (Auto) 0.4 Baso % (Auto) 0.2 Neut # (Auto) 9.0 H Lymph # (Auto) 1.0 Benzie # (Auto) 0.1 Eos # (Auto) 0.0 Baso # (Auto) 0.0 WBC Differential . Differential Comment Auto diff final PT 9.8 INR 1.0 APTT 23.0 L Sodium Potassium Chloride Carbon Dioxide Anion Gap BUN Creatinine Estimated GFR POC Glucose 140 H Random Glucose Lactic Acid Calcium Magnesium Total Bilirubin AST ALT Alkaline Phosphatase Total Creatine Kinase Troponin I Total Protein Albumin Lipase Urine Color Urine Clarity Urine pH Ur Specific Harbert Urine Protein Urine Glucose (UA) Urine Ketones Urine Occult Blood Urine Nitrate Urine Bilirubin Urine Urobilinogen Ur Leukocyte Esterase Urine RBC Urine WBC Ur Squamous Epith Cells Amorphous Sediment Urine Bacteria Hyaline Casts Granular Casts Urine Mucus Micro UA Comment Ur Microscopic Review Urine Culture Comments Stl C.difficile DNA Amp St C. diff Tox Epid 027 06/22/18 06/22/18 06/22/18 20:35 21:35 22:00 WBC RBC Hgb Hct MCV MCH MCHC RDW Plt Count MPV Neut % (Auto) Lymph % (Auto) Benzie % (Auto) Eos % (Auto) Baso % (Auto) Neut # (Auto) Lymph # (Auto) Benzie # (Auto) Eos # (Auto) Baso # (Auto) WBC Differential Differential Comment PT INR APTT Sodium 133 L Potassium 4.7 Chloride 103 Carbon Dioxide 18.3 L Anion Gap 12 BUN 40 H Creatinine 2.04 H Estimated GFR 24 L POC Glucose Random Glucose 161 H Lactic Acid 1.7 Calcium 9.5 Magnesium 1.7 Total Bilirubin 0.5 AST 52 H ALT 90 H Alkaline Phosphatase 167 H Total Creatine Kinase 32 Troponin I Less than 0.02 L Total Protein 8.7 H Albumin 3.5 Lipase 300 Urine Color Yellow Urine Clarity Cloudy H Urine pH 8.0 Ur Specific Harbert 1.005 Urine Protein 30 H Urine Glucose (UA) Negative Urine Ketones Negative Urine Occult Blood Moderate H Urine Nitrate Negative Urine Bilirubin Negative Urine Urobilinogen Less than 2 Ur Leukocyte Esterase Moderate H Urine RBC 6 H Urine WBC 1 Ur Squamous Epith Cells <1 Amorphous Sediment Occasional H Urine Bacteria Occasional H Hyaline Casts Granular Casts Urine Mucus Few H Micro UA Comment Culture not ind Ur Microscopic Review Not Reportable Urine Culture Comments Culture not ind Stl C.difficile DNA Amp St C. diff Tox Epid 027 06/22/18 06/23/18 06/24/18 22:45 08:15 06:30 WBC 2.9 L RBC 3.50 L Hgb 9.4 L D Hct 28.3 L MCV 80.9 MCH 26.7 L MCHC 33.0 RDW 17.8 H Plt Count 143 L MPV 8.2 Neut % (Auto) 74.4 H Lymph % (Auto) 22.2 Benzie % (Auto) 1.9 Eos % (Auto) 1.2 Baso % (Auto) 0.3 Neut # (Auto) 2.1 Lymph # (Auto) 0.6 L Benzie # (Auto) 0.1 Eos # (Auto) 0.0 Baso # (Auto) 0.0 WBC Differential . Differential Comment Auto diff final PT INR APTT Sodium Potassium Chloride Carbon Dioxide Anion Gap BUN Creatinine Estimated GFR POC Glucose Random Glucose Lactic Acid Calcium Magnesium Total Bilirubin AST ALT Alkaline Phosphatase Total Creatine Kinase Troponin I Total Protein Albumin Lipase Urine Color Yellow Urine Clarity Hazy H Urine pH 5.0 Ur Specific Harbert 1.018 Urine Protein Negative Urine Glucose (UA) Negative Urine Ketones Negative Urine Occult Blood Negative Urine Nitrate Negative Urine Bilirubin Negative Urine Urobilinogen Less than 2 Ur Leukocyte Esterase Negative Urine RBC Less than 1 Urine WBC 2 Ur Squamous Epith Cells Amorphous Sediment Rare H Urine Bacteria Rare H Hyaline Casts 4 Granular Casts 18 Urine Mucus Few H Micro UA Comment Cath-culture ind Ur Microscopic Review Not Reportable Urine Culture Comments Cath-cult indicated Stl C.difficile DNA Amp Negative St C. diff Tox Epid 027 Negative 06/24/18 06/25/18 06/25/18 06:30 11:55 11:55 WBC 2.4 L RBC 3.36 L Hgb 8.9 L Hct 27.0 L MCV 80.2 MCH 26.4 L MCHC 33.0 RDW 17.7 H Plt Count 131 L MPV 7.9 Neut % (Auto) 64.2 Lymph % (Auto) 30.7 Benzie % (Auto) 3.0 Eos % (Auto) 1.6 Baso % (Auto) 0.5 Neut # (Auto) 1.5 L Lymph # (Auto) 0.7 L Benzie # (Auto) 0.1 Eos # (Auto) 0.0 Baso # (Auto) 0.0 WBC Differential . Differential Comment Auto diff final PT INR APTT Sodium 142 144 Potassium 4.2 3.4 L D Chloride 114 H D 111 H Carbon Dioxide 21.8 25.2 Anion Gap 6 8 BUN 36 H 26 H Creatinine 1.49 H 1.16 H Estimated GFR 34 L 46 L POC Glucose Random Glucose 105 92 Lactic Acid Calcium 8.4 L D 8.7 Magnesium Total Bilirubin 0.5 AST 30 ALT 58 H Alkaline Phosphatase 142 H Total Creatine Kinase Troponin I Total Protein 6.7 D Albumin 2.7 L D Lipase Urine Color Urine Clarity Urine pH Ur Specific Harbert Urine Protein Urine Glucose (UA) Urine Ketones Urine Occult Blood Urine Nitrate Urine Bilirubin Urine Urobilinogen Ur Leukocyte Esterase Urine RBC Urine WBC Ur Squamous Epith Cells Amorphous Sediment Urine Bacteria Hyaline Casts Granular Casts Urine Mucus Micro UA Comment Ur Microscopic Review Urine Culture Comments Stl C.difficile DNA Amp St C. diff Tox Epid 027 Result Diagrams: 06/25/18 11:55 06/25/18 11:55 Microbiology: Microbiology 06/22/18 22:45 Urine Culture - Final Catheterized Urine No growth in 48 hours 06/23/18 08:15 Enteric Pathogens (PCR) - Final Stool No enteric pathogens detected by PCR (No Salmonella sp., Shigella sp., Campylobacter sp., Yersinia enterocolitica, Vibrio sp., Norovirus, or EHEC (Shiga Toxin 1 or Shiga Toxin 2) detected. Imaging: Chest X-Ray 06/22/18 20:40 CONCLUSION: Right [id number] in superior vena cava. No consolidation or effusion. Abdomen/Pelvis CT 06/22/18 22:07 CONCLUSION: 1. Compared with May 29 there is abnormal development of small bowel dilatation on the left side with multiple air-fluid levels characteristic of an early or partial small bowel obstruction. 2. Previously described soft tissue nodules in the anterior abdominal wall and within the mesentery and omentum are similar to prior examination and likely represent metastatic disease. Right lower quadrant ostomy unchanged. Abdomen X-Ray 06/25/18 08:00 CONCLUSION: 1. Progressive distention of small bowel loops consistent with worsening small bowel obstruction. Assessment and Plan - Disease Oriented Problem List (1) Partial obstruction of small intestine (2) Ovarian cancer, BRCA2 positive (3) Anxiety (4) HTN (hypertension) - Symptom Scale (1) Abdominal pain 0-10 Scale: 1 (2) Weakness 0-10 Scale: Unable to quantify (3) N&V (nausea and vomiting) 0-10 Scale: 0 (4) Anxiety 0-10 Scale: 7 Pertinent Non-Medical Issues: Psychosocial: . Has 3 sons and 2 daughters. Spiritual: Voodoo tiffanie, declines gas distribution and emergency clerk visits. Legal: Patient is currently capacitated to make her own health care decisions. No written advanced directives, should she lose capacity, according to [place] statutes, health care proxy decision making falls to her spouse. Ethical issues impacting care: No known concerns at this time. Important Contacts: * Brandt Hayden, spouse: [phone] home or [phone] * Mariam Galindo, daughter: [phone] Prognosis: Ms. Hayden is a 72-year-old female with progressive ovarian cancer status post Line 10 chemotherapy admitted with recurrent SBO, not a candidate for surgery. Overall prognosis is poor. She is a candidate for hospice services if goals are comfort oriented. . Code Status: No Code DNR Plan: * Patient is currently capacitated to make her own health care decisions. No written advanced directives, should she lose capacity, according to [place] statutes, health care proxy decision making falls to her spouse. * NO CODE - She wants to be allowed "to go when it is her time." Will need complete [place] DNR prior to DC home. * Lengthy conversation with patient and her family, patient elects NO CODE. * Discussed with Dr. Rivera. * SYMPTOMS: Nausea and vomiting: Have resolved since admission. NG tube to LIWS. Weakness: Secondary to progressive ovarian cancer, recent nausea vomiting , decreased appetite. N.p.o. status due to small bowel obstruction. Abdominal pain: Intermittent severe abdominal pain, patient reports relieved with current morphine orders rates her pain 0 during my visit today. Has PRN Morphine and Dilaudid available, encouraged not to use if able due to worsening SBO. Sore throat: Ordered Chloraseptic spray PRN. Anxiety: Long history of anxiety. Used to take Valium 10mg every 2 hours (many years ago). Prior to admission was taking Xanax at least TID. Lorazepam 0.5mg IV every 8 hours ATC and every 4 hours PRn BT anxiety. * Palliative care will continue to follow to assist with symptom management further clarification of medical treatment goals as needed. . Attestation Attestation: To help prompt me to consider important information that might be impacting today's encounter and assessment, information from prior notes written by myself or my colleagues may have been "brought forward" into today's note. My signature on this note, however, is an attestation that I personally performed the exam, history, and/or decision-making noted today, and, unless otherwise indicated, the interactions with patient, family, and staff as well as the review of records all occurred today. I also attest that the listed assessment and stated plan reflect my best clinical judgment today based on the combination of historical information, prior notes, and today's exam/ interactions. When time spent is documented, it refers only to time spent today by the signer, or if indicated, combined time spent today by collaborating physician/nurse practitioner.
[2018-06-26] MEDS: HYDROmorphone PF Inj 2 MG/ML Vial IV.PUSH PRN ×2 (03:53→17:35)
[2018-06-26 07:37] LABS: Baso % (Auto) 0.4 % (0.0-2.0); Eos % (Auto) 1.6 % (0.0-4.0); Hemoglobin 8.3 gm/dL (11.6-15.3); Lymph # (Auto) 0.6 th/mm3 (1.0-4.8); Lymph % (Auto) 25.8 % (9.0-44.0); Mean Corpuscular HGB Conc 33.4 % (32.0-36.0); Mean Corpuscular Hemoglobin 26.5 pg (27.0-34.0); Mean Corpuscular Volume 79.3 fL (80.0-100.0); Mean Platelet Volume 7.3 fL (7.0-11.0); Mono # (Auto) 0.1 th/mm3 (0.0-0.9); Mono % (Auto) 4.5 % (0.0-8.0); Neut # (Auto) 1.6 th/mm3 (1.8-7.7); Neut % (Auto) 67.7 % (16.0-70.0); Platelet Count 104 th/mm3 (150-450); Red Blood Count 3.15 mil/mm3 (4.00-5.30); Red Cell Distribution Width 17.7 % (11.6-17.2); White Blood Count 2.3 th/mm3 (4.0-11.0)
[2018-06-26 07:41] LABS: Calcium 8.3 mg/dL (8.5-10.1); Carbon Dioxide 27.8 meq/L (21.0-32.0); Potassium 3.6 meq/L (3.5-5.1)
[2018-06-26] MEDS: Morphine Inj 4 MG/ML Vial IV.PUSH PRN ×2 (07:47→16:56)
[2018-06-26] MEDS: Multivitamin Inj 10 ML, Folic Acid Inj 1 MG in Sodium Chlor 0.9% Inj 500 ML IV.SIG SCH (08:30)
[2018-06-26] MEDS ORDERED: Diatrizoate Meglum/Diatrizoate Sod Liq 120 ML Bottle (for RAD diag) NG/OG ONE (09:00)
--- NOTE | 2018-06-26 11:38 | FL ---
EXAM DATE: 06/26/2018 11:19 AM EDT AGE/SEX: 72 years / Female INDICATIONS: Obstruction. CLINICAL DATA: This is the patient's subsequent encounter. Patient reports that signs and symptoms h ave been present for 3 days and indicates a pain score of 3/10. MEDICAL/SURGICAL HISTORY: Carcinoma, colon. Hypertension. Carcinoma, ovarian. . secti on. [id number]. Hysterectomy. Cholecystectomy. Tonsillectomy. Ileostomy. COMPARISON: [facility], ABDOMEN 1V KUB, 06/25/2018. . FLUORO TIME: 0 IMAGE COUNT: 15 CONTRAST: FINDINGS: Preliminary film shows abnormally dilated small bowel loops throughout the left abdomen. An ostomy ri ng projects over the right lower abdominal quadrant. The stomach is grossly unremarkable. Examination of the small bowel demonstrates diffuse small bowel distention with no obvious discrete t ransition point. However, anatomic detail is limited as the contrast becomes very faint distally. On the final images, contrast material is identified within the ostomy bag in the bowel appears to be le ss distended possibly representing some resolving hypodynamic ileus. CONCLUSION: 1. [employer] image shows diffuse dilation of small bowel loops in the left abdomen with an ostomy device in the right lower abdominal quadrant. 2. Transit time is approximately 2 hours with contrast eventually identified in the ostomy bag. 3. The last few images show some interval decompression of the small bowel possibly representing a t ransient hypodynamic ileus. I do not see an obvious transition point to suggest a discrete obstructio n. Electronically signed by: Luis Weiss MD 06/26/2018 11:37 AM EDT
--- NOTE | 2018-06-26 13:51 | MB ---
cc: Betzaida Huang MD,Brown Melendez,Le Sheikh DATE: 06/26/2018 FOLLOWUP CONSULTATION HISTORY OF PRESENT ILLNESS: I had the opportunity to again see Shahida Hayden today where we had an extensive discussion and then I had the opportunity to meet with her , where we talked some more; 30 minutes of this 30-minute [id number] encounter was spent in counseling and coordination of care. I am pleased in discussion with her to hear that she had some spontaneous return of bowel function with a large volume of gas and output during the night into the ileostomy bag. Furthermore this morning, we moved forward with a Gastrografin study as ordered and is interpreted by Dr. Weiss and in review of the films also with Dr. Pantoja. There was complete transit of the Gastrografin into the ileostomy bag over approximately a 2-hour time. There were some areas of narrowing, but there was no focal point and certainly no evidence of mechanical obstruction. Overall, the findings were more consistent with an adynamic ileus. These results are shared with her and her and are pleased that it suggests progress. The ileus is still in process of recovering. We know there is some mechanical contribution due to the intraperitoneal carcinomatous implants. I think we can start a trial of intermittently clamping the NG tube and letting her try a liquid diet. We will assess this over the next 24 hours or so and should she continue to tolerate this and have output from her ileostomy, we could then move forward toward considering discontinuing the NG tube and advancing her diet further. I summarized lab results, culture findings. She had questions about urinary tract infection. I explained that those cultures were negative. I also explained that the stool cultures were negative for any pathogens. Her creatinine has improved. Although it is still elevated, it has improved with hydration. She is anemic, but it is stable. Her neutropenia count is not below threshold for worry. Discussion ensued; questions were asked and answered. She is encouraged by these findings, as am I. I then had the opportunity to speak with Dr. Braulio Rivera to update him on the status, x-ray findings, and plan of care and he concurs. I had the opportunity to speak with Clover Spence from the palliative care team to update her as well, so that we can all be coordinated in our efforts to help in her care. MD JOSE Collado/brennen , 12:13 PM , 12:21 PM
--- NOTE | 2018-06-26 14:31 | P.PNIM ---
Subjective Interval history: Pt with increased outpt from ileostomy. No new complaints. Pt is in good spirits. Physical Exam Vital signs: 06/26/18 12:00 Temperature 98.6 F Pulse Rate 96 H Respiratory Rate 18 Blood Pressure 144/78 H Pulse Oximetry 98 Narrative: GENERAL: NAD, AAOx3 CARDIO: Regular RESP: CTA bilaterally. ABD: +BS, semi-firm, mildly distended, non-tender. Absent bowel sounds. NG tube in place to intermittent LIWS. ileostomy in place with liquid output EXT: Extremities without clubbing, cyanosis, or edema. No obvious deformities. Results - Labs CBC & Chem 7: 06/28/18 05:30 06/28/18 05:30 - Imaging Small Bowel X-Ray 06/26/18 08:00 1. Bundle Clerk image shows diffuse dilation of small bowel loops in the left abdomen with an ostomy device in the right lower abdominal quadrant. 2. Transit time is approximately 2 hours with contrast eventually identified in the ostomy bag. 3. The last few images show some interval decompression of the small bowel possibly representing a transient hypodynamic ileus. I do not see an obvious transition point to suggest a discrete obstruction. Assessment and Plan - Assessment (1) Partial obstruction of small intestine Code(s): K56.600 - Partial intestinal obstruction, unspecified as to cause Status: Acute Plan: Partial SBO High output ileostomy - Pt is a 72 yo female with metastatic BRCA 2+ ovarian cancer s/p LIZ/BSO, omentectomy, lysis of adhesions [place] [address] Huang. 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 She has had multiple chemotherapies and per GynOnc noted she is currently on 10th line treatment with Topotecan. She received cycle one on Saturday06/20/18 and over the weekend she started having a lot of out put from her ileostomy and tried her normal routine to slow the out put, but nothing helped. Then yesterday she started having vomiting with increasing abdominal pain, and her ileostomy drainage slowed. Pt was concerned about SBO and she presented to the ED at [facility] on 06/22/18 for further evaluation. - CT Abd/pelvis (06/22/18) noted small bowel dilatation on the left side with multiple air-fluid levels characteristic of an early or partial small bowel obstruction. - KUB 06/25: Progressive distention of small bowel loops consistent with worsening small bowel obstruction. - Small Bowel X-Ray 06/26/18 08:00 1. Bundle Clerk image shows diffuse dilation of small bowel loops in the left abdomen with an ostomy device in the right lower abdominal quadrant. 2. Transit time is approximately 2 hours with contrast eventually identified in the ostomy bag. 3. The last few images show some interval decompression of the small bowel possibly representing a transient hypodynamic ileus. I do not see an obvious transition point to suggest a discrete obstruction. - NGT, now intermittent LWS, 800ml output - ileostomy output 1,100ml output 06/26 - Case d/w [facility], Dr. Hampton (06/26/18). Cautiously optimistic. NGT now to intermittent suction. Possible will remove NGT 06/27 - Stool for enteric pathogens is negative. - IVF - Pain control PRN - Antiemetics PRN - Anxiolytics PRN - Appreciate Palliative care consultation to help with goals of care ADOLFO- improving Hyponatremia - resolved - Likely related to dehydration secondary to her high volume stool output - Improved with IVF hydration. - Repeat labs for today pending Metastatic ovarian cancer, BRCA 2 - Pt follows with Dr. Huang - She is currently on 10th line treatment with Topotecan. She received cycle one on Saturday06/20/18 Anxiety - Ativan 0.5mg IV Q6H PRN HTN - Vasotec PRN - add Catapres patch Hypokalemia potassium 3.4 06/25 replaced IV fluids changed to NS with 20 meq KCL at 84 ml/H (2) Ovarian cancer, BRCA2 positive Code(s): C56.9 - Malignant neoplasm of unspecified ovary; Z15.01 - Genetic susceptibility to malignant neoplasm of breast; Z15.09 - Genetic susceptibility to other malignant neoplasm Status: Acute (3) Anxiety Code(s): F41.9 - Anxiety disorder, unspecified Status: Acute (4) HTN (hypertension) Code(s): I10 - Essential (primary) hypertension Status: Acute - Attending Attestation The exam, history, and the medical decision-making described in the above note were completed with the assistance of the mid-level provider. I reviewed and agree with the findings presented. I attest that I had a [id number]-[id number] encounter with the patient on the same day, and personally performed and documented my assessment and findings in the medical record. Patient examined. Assessment and plan formulated with Le Flood PA-C. I agree with the above.
--- NOTE | 2018-06-26 21:12 | P.PNPAL ---
Reason for Visit Reason for visit: a. To assist with evaluation and management of symptoms including: abdominal pain, weakness, anxiety, sore throat, nausea/vomiting. b. To assist medical decision maker(s) with: better understanding of current medical conditions; weighing benefits/burdens of medical treatment options; making medical treatment decisions. Subjective Subjective/Interval History: Discussed with Dr. Huang prior to my visit. Patient seen and examined in room, son, daughter and spouse at bedside. Patient is laying in bed with eyes closed due to nausea and vomiting episode. NG tube is clamped. She was pleased with test results this morning and feeling a bit frustrated this evening. I encouraged her about the improvement and that this is an ileus not bowel obstruction. She is getting some clear liquids. Patient is speaking in a whisper today due to throat irritation from NGT. She has not gotten any Chloraseptic spray, order written to leave spray at bedside for patient use. She has had 3 doses of PRN Morphine. She had gotten ATC Lorazepam and 3 doses of PRN Lorazepam. We agreed to increase Lorazepam to 1mg IV every 8 hours ATC and continue PRN for breakthrough. This may also help with nausea/ vomiting. She indicates no relief with Zofran. Discussed with Dr. Rivera, will increase Zofran and Reglan, she agrees to try the Reglan. Will monitor need and effect. Family is also in agreement with plan of care. Again encouraged her to avoid opioid use if and when able. She reports intermittent epigastric pain, requests pain med during my visit. Rates pain 7/10. Discussed with Dr. Rivera following my visit. Family/Friend Interactions: Answered family questions at bedside. Provided support. Completed paperwork for [employer] and faxed. Copy sent to son. Offered to assist daughter with [facility] paperwork if needed. Advance Directives Living Will: Never completed Health Care Surrogate: Never completed Durable Power of Mobile Sales Technician: Never completed Health Care Surrogate Name and Number: Health care proxy, spouse, Brandt Hayden: [phone] Documented care wishes:: No written advance directives. Significant change in goals:: NO CODE. Goals remain aggressive at this time in hopes she can return home and seek additional chemotherapy. Objective Vital Signs: Vital Signs 06/26/18 00:00 06/26/18 04:00 06/26/18 08:00 Temperature 98.1 F 98.4 F 98.3 F Pulse Rate 90 96 H 95 H Respiratory Rate 20 20 18 Blood Pressure 131/72 126/75 137/69 Pulse Oximetry 97 96 94 L 06/26/18 12:00 Temperature 98.6 F Pulse Rate 96 H Respiratory Rate 18 Blood Pressure 144/78 H Pulse Oximetry 98 Intake & Output 06/26/18 06/26/18 06/27/18 06:59 18:59 06:59 Intake Total 1480 / 1480 1510.2 / 1510.2 Output Total 200 / 200 Balance 1480 / 1480 1310.2 / 1310.2 Intake: IV 1000 / 1000 1510.2 / 1510.2 NS + KCl 20 mEq Inj 1,000 ML @ 1000 / 1000 1000 / 1000 84 mls/hr IV.CONT .[id number] [facility] Rx#:[id number] MVI-12 Inj 10 ML Folvite Inj 1 510.2 / 510.2 MG In NS Inj 500 ML @ 125 mls/ hr IV.SIG DAILY [facility] Rx#: [id number] Oral 480 / 480 Output: Gastric Drainage 200 / 200 Right Nare Nasogastric Tube 200 / 200 Other: # Voids 2 Physical Exam: CONSTITUTIONAL/GENERAL: This is an adequately nourished patient, in no apparent distress. TUBES/LINES/DRAINS: NG tube, right port. Ileostomy. SKIN: No jaundice, rashes, or lesions. Ecchymoses on upper extremities. No wounds seen anteriorly. Skin temperature appropriate. Not diaphoretic. ENT: Oral mucosa dry. CARDIOVASCULAR: Regular rate and rhythm without murmurs. RESPIRATORY/CHEST: Symmetric, unlabored respirations. Clear to auscultation. Breath sounds equal bilaterally. No wheezes, rales, or rhonchi. GASTROINTESTINAL: Abdomen tender, mildly distended. No guarding. Bowel sounds hypoactive. Ileostomy with watery output. GENITOURINARY: Without palpable bladder distension. Incontinent of urine at end of my visit (new for pt). MUSCULOSKELETAL: Extremities without clubbing, cyanosis, or edema. No mottling or clubbing. NEUROLOGICAL: Awake, follows commands. Cognitively sharp. Moves all extremities. PSYCHIATRIC: + anxiety, agitation. Diagnostic Tests Laboratory: Laboratory Results - last 72 hr 06/24/18 06/24/18 06/25/18 06:30 06:30 11:55 WBC 2.9 L 2.4 L RBC 3.50 L 3.36 L Hgb 9.4 L D 8.9 L Hct 28.3 L 27.0 L MCV 80.9 80.2 MCH 26.7 L 26.4 L MCHC 33.0 33.0 RDW 17.8 H 17.7 H Plt Count 143 L 131 L MPV 8.2 7.9 Neut % (Auto) 74.4 H 64.2 Lymph % (Auto) 22.2 30.7 [place] % (Auto) 1.9 3.0 Eos % (Auto) 1.2 1.6 Baso % (Auto) 0.3 0.5 Neut # (Auto) 2.1 1.5 L Lymph # (Auto) 0.6 L 0.7 L [place] # (Auto) 0.1 0.1 Eos # (Auto) 0.0 0.0 Baso # (Auto) 0.0 0.0 WBC Differential . . Differential Comment Auto diff final Auto diff final Sodium 142 Potassium 4.2 Chloride 114 H D Carbon Dioxide 21.8 Anion Gap 6 BUN 36 H Creatinine 1.49 H Estimated GFR 34 L Random Glucose 105 Calcium 8.4 L D Total Bilirubin 0.5 AST 30 ALT 58 H Alkaline Phosphatase 142 H Total Protein 6.7 D Albumin 2.7 L D 06/25/18 06/26/18 06/26/18 11:55 06:04 06:04 WBC 2.3 L RBC 3.15 L Hgb 8.3 L Hct 25.0 L MCV 79.3 L MCH 26.5 L MCHC 33.4 RDW 17.7 H Plt Count 104 L MPV 7.3 Neut % (Auto) 67.7 Lymph % (Auto) 25.8 [place] % (Auto) 4.5 Eos % (Auto) 1.6 Baso % (Auto) 0.4 Neut # (Auto) 1.6 L Lymph # (Auto) 0.6 L [place] # (Auto) 0.1 Eos # (Auto) 0.0 Baso # (Auto) 0.0 WBC Differential . Differential Comment Auto diff final Sodium 144 146 H Potassium 3.4 L D 3.6 Chloride 111 H 111 H Carbon Dioxide 25.2 27.8 Anion Gap 8 7 BUN 26 H 25 H Creatinine 1.16 H 1.21 H Estimated GFR 46 L 44 L Random Glucose 92 107 H Calcium 8.7 8.3 L Total Bilirubin AST ALT Alkaline Phosphatase Total Protein Albumin Result Diagrams: 06/26/18 06:04 06/26/18 06:04 Microbiology: Microbiology 06/22/18 22:45 Urine Culture - Final Catheterized Urine No growth in 48 hours 06/23/18 08:15 Enteric Pathogens (PCR) - Final Stool No enteric pathogens detected by PCR (No Salmonella sp., Shigella sp., Campylobacter sp., Yersinia enterocolitica, Vibrio sp., Norovirus, or EHEC (Shiga Toxin 1 or Shiga Toxin 2) detected. Imaging: Chest X-Ray 06/22/18 20:40 CONCLUSION: Right [id number]-[id number] in superior vena cava. No consolidation or effusion. Abdomen/Pelvis CT 06/22/18 22:07 CONCLUSION: 1. Compared with May 29 there is abnormal development of small bowel dilatation on the left side with multiple air-fluid levels characteristic of an early or partial small bowel obstruction. 2. Previously described soft tissue nodules in the anterior abdominal wall and within the mesentery and omentum are similar to prior examination and likely represent metastatic disease. Right lower quadrant ostomy unchanged. Abdomen X-Ray 06/25/18 08:00 CONCLUSION: 1. Progressive distention of small bowel loops consistent with worsening small bowel obstruction. Small Bowel X-Ray 06/26/18 08:00 CONCLUSION: 1. Music Education Director image shows diffuse dilation of small bowel loops in the left abdomen with an ostomy device in the right lower abdominal quadrant. 2. Transit time is approximately 2 hours with contrast eventually identified in the ostomy bag. 3. The last few images show some interval decompression of the small bowel possibly representing a transient hypodynamic ileus. I do not see an obvious transition point to suggest a discrete obstruction. Assessment and Plan - Disease Oriented Problem List (1) Partial obstruction of small intestine (2) Ovarian cancer, BRCA2 positive (3) Anxiety (4) HTN (hypertension) - Symptom Scale (1) Abdominal pain 0-10 Scale: 7 (2) Weakness 0-10 Scale: Unable to quantify (3) N&V (nausea and vomiting) 0-10 Scale: 7 (4) Anxiety 0-10 Scale: 7 Pertinent Non-Medical Issues: Psychosocial: . Has 3 sons and 2 daughters. 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 Legal: Patient is currently capacitated to make her own health care decisions. No written advanced directives, should she lose capacity, according to [place] statutes, health care proxy decision making falls to her spouse. Ethical issues impacting care: No known concerns at this time. Important Contacts: * Brandt Hayden, spouse: [phone] home or [phone] * Mariam Galindo, daughter: [phone] Prognosis: Ms. Hayden is a 72-year-old female with progressive ovarian cancer status post Line 10 chemotherapy admitted with recurrent SBO, not a candidate for surgery. Overall prognosis is poor. She is a candidate for hospice services if goals are comfort oriented. . Code Status: No Code DNR Plan: * Patient is currently capacitated to make her own health care decisions. No written advanced directives, should she lose capacity, according to [place] statutes, health care proxy decision making falls to her spouse. * NO CODE - She wants to be allowed "to go when it is her time." Will need complete [place] DNR prior to DC home. * Lengthy conversation with patient and her family, reviewed plan for symptom management, all are in agreement. Goals remain aggressive short of NO CODE. * Discussed with De. Sal Perkins and family. * SYMPTOMS: Nausea and vomiting: Have resolved since admission. NG tube to LIWS , clamping periodically. Will increase Zofran and Reglan doses. Weakness: Secondary to progressive ovarian cancer, recent nausea vomiting, decreased appetite. N.p.o. status due to small bowel obstruction. Abdominal pain: Intermittent severe abdominal pain, patient reports relieved with current morphine orders rates her pain 0 during my visit today. Has PRN Morphine and Dilaudid available, encouraged not to use if able due to worsening SBO. Sore throat: Ordered Chloraseptic spray PRN, may keep at bedside. Anxiety: Long history of anxiety. Used to take Valium 10mg every 2 hours (many years ago). Prior to admission was taking Xanax at least TID. Increased Lorazepam to 1mg IV every 8 hours ATC and every 4 hours PRN BT anxiety. * Palliative care will continue to follow to assist with symptom management further clarification of medical treatment goals as needed. .
--- NOTE | 2018-06-27 08:49 | P.PN ---
Subjective Interval history: tolerated clamping of ngt with continued ostomy output one exception emesis after chicken broth (understandable if anyone has ever tried it . . . ) excess sedation on current ativan, but allowed non-use of bowel delaying narcotics Physical Exam Vital signs: Vital Signs 06/26/18 12:00 06/26/18 20:00 06/27/18 00:00 Temperature 98.6 F 98.3 F 98.8 F Pulse Rate 96 H 116 H 120 H Respiratory Rate 18 20 20 Blood Pressure 144/78 H 169/79 H 146/73 H Pulse Oximetry 98 96 92 L Intake & Output 06/26/18 06/27/18 06/27/18 18:59 06:59 18:59 Intake Total 1510.2 / 1510.2 1436 / 1436 Output Total 200 / 200 850 / 850 Balance 1310.2 / 1310.2 586 / 586 Weight 90 kg Intake: IV 1510.2 / 1510.2 1196 / 1196 NS + KCl 20 mEq Inj 1,000 ML @ 1000 / 1000 1196 / 1196 84 mls/hr IV.CONT .[id number] [facility] Rx#:[id number] MVI-12 Inj 10 ML Folvite Inj 1 510.2 / 510.2 MG In NS Inj 500 ML @ 125 mls/ hr IV.SIG DAILY [facility] Rx#: [id number] Oral 240 / 240 Output: Stool Amount (Stoma) 850 / 850 Pre-Hospital: 850 / 850 Gastric Drainage 200 / 200 Right Nare Nasogastric Tube 200 / 200 Other: Date of Last Bowel Movement 06/27/18 - Constitutional somnolent - Routine HEENT Exam Head: Present: normocephalic Eye: Present: EOMI - Routine Abdominal Exam Present: soft (non-tender, good ostomy output) - Routine Psychiatric Exam Present: anxious Results - Labs CBC & Chem 7: 06/26/18 06:04 06/26/18 06:04 - Imaging Impressions Small Bowel X-Ray 06/26/18 08:00 CONCLUSION: 1. Marketing Sales Supervisor image shows diffuse dilation of small bowel loops in the left abdomen with an ostomy device in the right lower abdominal quadrant. 2. Transit time is approximately 2 hours with contrast eventually identified in the ostomy bag. 3. The last few images show some interval decompression of the small bowel possibly representing a transient hypodynamic ileus. I do not see an obvious transition point to suggest a discrete obstruction. Assessment and Plan - Assessment (1) Partial obstruction of small intestine Code(s): K56.600 - Partial intestinal obstruction, unspecified as to cause Status: Acute - Attending Attestation did well overnight, if ngt clamp tolerated with clears this morning will consider removal of NGT cpm, oob to chair, ambulate with assist
[2018-06-27] MEDS: Multivitamin Inj 10 ML, Folic Acid Inj 1 MG in Sodium Chlor 0.9% Inj 500 ML IV.SIG SCH (10:17)
--- NOTE | 2018-06-27 16:20 | P.PNIM ---
Subjective Interval history: Pt reported episode of vomiting this AM to Dr. Huang. Pt reported 2nd episode of vomiting shortly before my arrival this afternoon. Pt c/o dysuria and fever with last set of vitals. Physical Exam Vital signs: 06/27/18 12:00 Temperature 100.6 F H Pulse Rate 110 H Respiratory Rate 17 Blood Pressure 154/70 H Pulse Oximetry 94 L Narrative: GENERAL: NAD, AAOx3 CARDIO: Regular RESP: CTA bilaterally. ABD: +BS, semi-firm, ND, non-tender. soft bowels sounds. NG tube in place to intermittent LIWS. ileostomy in place with liquid output EXT: Extremities without clubbing, cyanosis, or edema. No obvious deformities. Results - Labs CBC & Chem 7: 06/28/18 05:30 06/28/18 05:30 Assessment and Plan - Assessment (1) Partial obstruction of small intestine Code(s): K56.600 - Partial intestinal obstruction, unspecified as to cause Status: Acute Plan: Partial SBO High output ileostomy - Pt is a 72 yo female with metastatic BRCA 2+ ovarian cancer s/p LIZ/BSO, omentectomy, lysis of adhesions [place] [address] Huang. 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 She has had multiple chemotherapies and per GynOnc noted she is currently on 10th line treatment with Topotecan. She received cycle one on Saturday06/20/18 and over the weekend she started having a lot of out put from her ileostomy and tried her normal routine to slow the out put, but nothing helped. Then yesterday she started having vomiting with increasing abdominal pain, and her ileostomy drainage slowed. Pt was concerned about SBO and she [place] [facility] [place] for further evaluation. - CT Abd/pelvis (06/22/18) noted small bowel dilatation on the left side with multiple air-fluid levels characteristic of an early or partial small bowel obstruction. - KUB 06/25: Progressive distention of small bowel loops consistent with worsening small bowel obstruction. - Small Bowel X-Ray 06/26/18 08:00 1. Ballast Cleaning Operator image shows diffuse dilation of small bowel loops in the left abdomen with an ostomy device in the right lower abdominal quadrant. 2. Transit time is approximately 2 hours with contrast eventually identified in the ostomy bag. 3. The last few images show some interval decompression of the small bowel possibly representing a transient hypodynamic ileus. I do not see an obvious transition point to suggest a discrete obstruction. - NGT, now intermittent LWS - ileostomy with good output - Case d/w [facility], Dr. Hampton (06/26/18). Cautiously optimistic. NGT now to intermittent suction. - Pt reports 2 episodes of vomiting today. - continue NGT with intermittent clamping for now. Hopefully remove NGT tomorrow. - Stool for enteric pathogens is negative. - IVF - Pain control PRN - Antiemetics PRN - Anxiolytics PRN - Appreciate Palliative care consultation to help with goals of care Dysuria - obtain UA/Cx - clindamycin IV x once - follow UA/Cx results - repeat CBC in AM ADOLFO- improving Hyponatremia - resolved - Likely related to dehydration secondary to her high volume stool output - Improved with IVF hydration. - Repeat labs in AM Metastatic ovarian cancer, BRCA 2 - Pt follows with Dr. Huang - She is currently on 10th line treatment with Topotecan. She received cycle one on Saturday06/20/18 Anxiety - Ativan 0.5mg IV Q6H PRN HTN - Vasotec PRN - add Catapres patch Hypokalemia potassium 3.4 06/25 replaced IV fluids changed to NS with 20 meq KCL at 84 ml/H (2) Ovarian cancer, BRCA2 positive Code(s): C56.9 - Malignant neoplasm of unspecified ovary; Z15.01 - Genetic susceptibility to malignant neoplasm of breast; Z15.09 - Genetic susceptibility to other malignant neoplasm Status: Acute (3) Anxiety Code(s): F41.9 - Anxiety disorder, unspecified Status: Acute (4) HTN (hypertension) Code(s): I10 - Essential (primary) hypertension Status: Acute
[2018-06-27] MEDS ORDERED: Morphine Sulfate Inj 2 MG/ML Vial IV.PUSH PRN (16:24)
[2018-06-27] MEDS ORDERED: Clindamycin 600 mg/NS Premix 600 MG/50 ML PIGGYBACK IV.SIG ONE (16:30)
[2018-06-27 18:21] LABS: Bacteria,Urine Moderate /hpf; Bilirubin,Urine Negative (Negative); Clarity,Urine Cloudy (Clear); Color,Urine Dark-Yellow (Yellw/Straw); Glucose,Urine (UA) Negative (Negative); Leukocyte Esterase,Urine Trace (Negative); Nitrite,Urine Positive (Negative); Squamous Epithelial Cell,Urine <1 /hpf (0-5)
[2018-06-27] MEDS: KCL 20 mEq/NACL 0.45% Inj 1,000 ML IV.CONT SCH (18:59)
--- NOTE | 2018-06-28 00:30 | XR ---
EXAM DATE: 06/28/2018 12:25 AM EDT AGE/SEX: 72 years / Female INDICATIONS: Fever. CLINICAL DATA: This is the patient's initial encounter. Patient reports that signs and symptoms have been present for 1 day and indicates a pain score of 0/10. MEDICAL/SURGICAL HISTORY: . Hypertension. Carcinoma, ovarian. . . Port placement. COMPARISON: [facility], CHEST 1V SINGLE AP, 06/22/2018. . FINDINGS: A single AP view of the chest demonstrates the lungs to be symmetrically aerated without evidence of mass, infiltrate or effusion. The cardiomediastinal contours are unremarkable. Osseous structures a re intact. [id number]-t-Olqw catheter tip in the mid superior vena cava. Gastric tube tip and side-port p roject within the stomach. CONCLUSION: The lungs are clear. Electronically signed by: Renato Driscoll MD 06/28/2018 12:28 AM EDT
[2018-06-28] MEDS: Acetaminophen 500 MG Tablet PO PRN ×2 (01:19→23:13)
[2018-06-28 07:18] LABS: Baso % (Auto) 0.1 % (0.0-2.0); Eos % (Auto) 0.2 % (0.0-4.0); Hematocrit 30.4 % (35.0-46.0); Hemoglobin 10.1 gm/dL (11.6-15.3); Lymph # (Auto) 0.6 th/mm3 (1.0-4.8); Lymph % (Auto) 11.1 % (9.0-44.0); Mean Corpuscular HGB Conc 33.2 % (32.0-36.0); Mean Corpuscular Hemoglobin 26.1 pg (27.0-34.0); Mean Corpuscular Volume 78.8 fL (80.0-100.0); Mean Platelet Volume 8.1 fL (7.0-11.0); Mono # (Auto) 0.1 th/mm3 (0.0-0.9); Mono % (Auto) 2.2 % (0.0-8.0); Neut # (Auto) 4.3 th/mm3 (1.8-7.7); Neut % (Auto) 86.4 % (16.0-70.0); Platelet Count 72 th/mm3 (150-450); Red Blood Count 3.85 mil/mm3 (4.00-5.30); Red Cell Distribution Width 18.2 % (11.6-17.2); White Blood Count 4.9 th/mm3 (4.0-11.0)
[2018-06-28 07:28] LABS: Calcium 8.9 mg/dL (8.5-10.1); Carbon Dioxide 28.4 meq/L (21.0-32.0); Magnesium 1.8 mg/dL (1.5-2.5); Potassium 3.6 meq/L (3.5-5.1)
[2018-06-28 08:56] LABS: Dohle Bodies Present; Lymphocytes 16 % (9-44); Monocytes 1 % (0-8); Toxic Granulation 1+; Toxic Vacuolation Present
[2018-06-28 08:57] LABS: Ovalocytes 1+; Platelet Morphology Normal (Normal); Tear Drop Cells 1+
[2018-06-28] MEDS: Multivitamin Inj 10 ML, Folic Acid Inj 1 MG in Sodium Chlor 0.9% Inj 500 ML IV.SIG SCH (09:43)
[2018-06-28] MEDS: KCL 20 mEq/NACL 0.45% Inj 1,000 ML IV.CONT SCH (15:46)
--- NOTE | 2018-06-28 17:18 | P.PNIM ---
Subjective Interval history: Pt had fever overnight. Pt vomited this evening. Physical Exam Vital signs: 06/28/18 16:00 Temperature 100.5 F H Pulse Rate 110 H Respiratory Rate 19 Blood Pressure 127/60 Pulse Oximetry 91 L Narrative: GENERAL: NAD, AAOx3 CARDIO: Regular RESP: CTA bilaterally. ABD: +BS, semi-firm, ND, non-tender. soft bowels sounds. NG tube in place to intermittent LIWS. ileostomy in place with liquid output EXT: Extremities without clubbing, cyanosis, or edema. No obvious deformities. Results - Labs CBC & Chem 7: 06/28/18 05:30 06/28/18 05:30 06/27/18 18:00 Clean Catch Urine Urine Culture - Preliminary gram negative rods - Imaging Chest X-Ray 06/28/18 00:06 The lungs are clear. Assessment and Plan - Assessment (1) Partial obstruction of small intestine Code(s): K56.600 - Partial intestinal obstruction, unspecified as to cause Status: Acute Plan: Partial SBO High output ileostomy - Pt is a 72 yo female with metastatic BRCA 2+ ovarian cancer s/p LIZ/BSO, omentectomy, lysis of adhesions [place] [address] Huang. 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 She has had multiple chemotherapies and per GynOnc noted she is currently on 10th line treatment with Topotecan. She received cycle one on Saturday06/20/18 and over the weekend she started having a lot of out put from her ileostomy and tried her normal routine to slow the out put, but nothing helped. Then yesterday she started having vomiting with increasing abdominal pain, and her ileostomy drainage slowed. Pt was concerned about SBO and she presented to the ED at [facility] [place] on 06/22/18 for further evaluation. - CT Abd/pelvis (06/22/18) noted small bowel dilatation on the left side with multiple air-fluid levels characteristic of an early or partial small bowel obstruction. - KUB 06/25: Progressive distention of small bowel loops consistent with worsening small bowel obstruction. - Small Bowel X-Ray 06/26/18 08:00 1. Signs And Displays Sales Representative image shows diffuse dilation of small bowel loops in the left abdomen with an ostomy device in the right lower abdominal quadrant. 2. Transit time is approximately 2 hours with contrast eventually identified in the ostomy bag. 3. The last few images show some interval decompression of the small bowel possibly representing a transient hypodynamic ileus. I do not see an obvious transition point to suggest a discrete obstruction. - NGT, now intermittent LWS - ileostomy with good output - Case d/w Special Education Aide Oncology, Dr. Hampton (06/26/18). Cautiously optimistic. NGT now to intermittent suction. - Pt reports 1 episode of vomiting this evening - resume intermittent clamping for now - Hopefully remove NGT tomorrow. - Stool for enteric pathogens is negative. - IVF - Pain control PRN - Antiemetics PRN - Anxiolytics PRN - Appreciate Palliative care consultation to help with goals of care Dysuria - UA --> gram negative rods - continue Rocephin - repeat CBC in AM ADOLFO- improving Hyponatremia - resolved - Likely related to dehydration secondary to her high volume stool output - Improved with IVF hydration. - Repeat labs in AM Metastatic ovarian cancer, BRCA 2 - Pt follows with Dr. Huang - She is currently on 10th line treatment with Topotecan. She received cycle one on Saturday06/20/18 Anxiety - Ativan 0.5mg IV Q6H PRN HTN - Vasotec PRN - add Catapres patch Hypokalemia potassium 3.4 06/25 replaced IV fluids changed to NS with 20 meq KCL at 84 ml/H (2) Ovarian cancer, BRCA2 positive Code(s): C56.9 - Malignant neoplasm of unspecified ovary; Z15.01 - Genetic susceptibility to malignant neoplasm of breast; Z15.09 - Genetic susceptibility to other malignant neoplasm Status: Acute (3) Anxiety Code(s): F41.9 - Anxiety disorder, unspecified Status: Acute (4) HTN (hypertension) Code(s): I10 - Essential (primary) hypertension Status: Acute
[2018-06-29] MEDS ORDERED: KCL 20 mEq/NACL 0.45% Inj 1,000 ML IV.CONT SCH (08:45)
[2018-06-29] MEDS: Multivitamin Inj 10 ML, Folic Acid Inj 1 MG in Sodium Chlor 0.9% Inj 500 ML IV.SIG SCH (09:23)
[2018-06-29 10:13] LABS: Baso % (Auto) 0.1 % (0.0-2.0); Eos # (Auto) 0.1 th/mm3 (0.0-0.4); Eos % (Auto) 1.7 % (0.0-4.0); Hematocrit 28.8 % (35.0-46.0); Hemoglobin 9.5 gm/dL (11.6-15.3); Lymph # (Auto) 0.6 th/mm3 (1.0-4.8); Lymph % (Auto) 11.7 % (9.0-44.0); Mean Corpuscular HGB Conc 32.9 % (32.0-36.0); Mean Corpuscular Hemoglobin 26.1 pg (27.0-34.0); Mean Corpuscular Volume 79.3 fL (80.0-100.0); Mean Platelet Volume 9.5 fL (7.0-11.0); Mono # (Auto) 0.2 th/mm3 (0.0-0.9); Mono % (Auto) 3.4 % (0.0-8.0); Neut # (Auto) 3.9 th/mm3 (1.8-7.7); Neut % (Auto) 83.1 % (16.0-70.0); Platelet Count 94 th/mm3 (150-450); Red Blood Count 3.63 mil/mm3 (4.00-5.30); Red Cell Distribution Width 18.5 % (11.6-17.2); White Blood Count 4.7 th/mm3 (4.0-11.0)
[2018-06-29 10:36] LABS: Calcium 8.6 mg/dL (8.5-10.1); Carbon Dioxide 32.7 meq/L (21.0-32.0); Potassium 3.3 meq/L (3.5-5.1)
[2018-06-29 11:23] LABS: Dohle Bodies Present; Eosinophils 3 % (0-4); Lymphocytes 12 % (9-44); Monocytes 3 % (0-8); Ovalocytes 1+; Platelet Morphology Normal (Normal); Tear Drop Cells 1+; Toxic Granulation 2+; Toxic Vacuolation Present
[2018-06-29] MEDS: KCL 20 mEq/NACL 0.45% Inj 1,000 ML IV.CONT SCH (11:30)
--- NOTE | 2018-06-29 11:44 | P.PNIM ---
Subjective Interval history: NGT has been clamped x 5 hours. No vomiting. No c/o nausea. Pt is tolerating clears. Pt denies fever or chills. Physical Exam Vital signs: 06/29/18 00:00 06/29/18 04:00 06/29/18 08:00 Temperature 100.8 F H 98.7 F 98.4 F Pulse Rate 104 H 96 H Respiratory Rate 21 19 Blood Pressure 141/70 H 140/64 Pulse Oximetry 94 L 92 L Narrative: GENERAL: NAD, AAOx3 CARDIO: Regular RESP: CTA bilaterally. ABD: +BS, semi-firm, non-tender. scant bowel sounds, RUQ with some distension NG tube clamped. ileostomy in place with liquid output EXT: Extremities without clubbing, cyanosis, or edema. No obvious deformities. Results - Labs CBC & Chem 7: 06/29/18 09:35 06/29/18 09:35 06/28/18 17:00 Blood - Peripheral Aerobic Blood Culture - Preliminary No growth in 1 day 06/28/18 17:00 Blood - Peripheral Anaerobic Blood Culture - Preliminary No growth in 1 day 06/27/18 18:00 Clean Catch Urine Urine Culture - Final Escherichia coli 06/28/18 01:00 Blood - Line Aerobic Blood Culture - Preliminary gram negative rods 06/28/18 01:00 Blood - Line Anaerobic Blood Culture - Preliminary gram negative rods Assessment and Plan - Assessment (1) Partial obstruction of small intestine Code(s): K56.600 - Partial intestinal obstruction, unspecified as to cause Status: Acute Plan: Partial SBO High output ileostomy - Pt is a 72 yo female with metastatic BRCA 2+ ovarian cancer s/p LIZ/BSO, omentectomy, lysis of adhesions [place] [address] Huang. 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 She has had multiple chemotherapies and per GynOnc noted she is currently on 10th line treatment with Topotecan. She received cycle one on Saturday06/20/18 and over the weekend she started having a lot of out put from her ileostomy and tried her normal routine to slow the out put, but nothing helped. Then yesterday she started having vomiting with increasing abdominal pain, and her ileostomy drainage slowed. Pt was concerned about SBO and she presented to the ED at [facility] [place] on 06/22/18 for further evaluation. - CT Abd/pelvis (06/22/18) noted small bowel dilatation on the left side with multiple air-fluid levels characteristic of an early or partial small bowel obstruction. - KUB 06/25: Progressive distention of small bowel loops consistent with worsening small bowel obstruction. - Small Bowel X-Ray 06/26/18 08:00 1. Hand Clipper image shows diffuse dilation of small bowel loops in the left abdomen with an ostomy device in the right lower abdominal quadrant. 2. Transit time is approximately 2 hours with contrast eventually identified in the ostomy bag. 3. The last few images show some interval decompression of the small bowel possibly representing a transient hypodynamic ileus. I do not see an obvious transition point to suggest a discrete obstruction. 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 Hampotn (06/26/18). Cautiously optimistic. NGT now to intermittent suction. - Last episode of vomiting 06/28/18 - NGT clamped - clear diet - IF no further vomiting, then will likely remove NGT tomorrow 06/30/18 - Pain control PRN - Antiemetics PRN - Anxiolytics PRN - Appreciate Palliative care consultation to help with goals of care BACTEREMIA - Urine Cx (06/27) --> E.Coli - Blood Cx (06/28) --> E. Coli - continue Rocephin - Pt with multiple drug allergies. Allergic to PCN, but tolerating Rocephin - Appreciate input from ID, Dr. Barger. - Case d/w Dr. Barger (06/29/18) - continue IV Rocephin ADOLFO Hyponatremia - resolved - Repeat labs in AM Metastatic ovarian cancer, BRCA 2 - Pt follows with Dr. Huang - She is currently on 10th line treatment with Topotecan. She received cycle one on Saturday06/20/18 Anxiety - Ativan 0.5mg IV Q6H PRN HTN - Vasotec PRN - add Catapres patch Hypokalemia potassium 3.4 06/25 replaced (2) Ovarian cancer, BRCA2 positive Code(s): C56.9 - Malignant neoplasm of unspecified ovary; Z15.01 - Genetic susceptibility to malignant neoplasm of breast; Z15.09 - Genetic susceptibility to other malignant neoplasm Status: Acute (3) Anxiety Code(s): F41.9 - Anxiety disorder, unspecified Status: Acute (4) HTN (hypertension) Code(s): I10 - Essential (primary) hypertension Status: Acute
[2018-06-29] MEDS ORDERED: Acetaminophen 325 MG Tablet PO PRN (11:45)
--- NOTE | 2018-06-29 16:18 | MB ---
cc: Celso Parnell MD DATE: 06/29/2018 REQUESTING PHYSICIAN: Brown Rivera MD REASON FOR CONSULTATION: Bacteremia. HISTORY OF PRESENT ILLNESS: This is a 72-year-old white female with history of ovarian cancer. The patient received chemotherapy in the form of topotecan on 06/20/2018. Subsequent to that, she was noted to have a lot of output from her ileostomy. She had an ileostomy placed for small-bowel obstruction in 2017. A CT scan of the abdomen was performed and it showed development of small bowel dilatation and multiple air fluid levels, characteristic of early or partial small bowel obstruction. There were previously described soft tissue nodules in the anterior abdominal wall and within the mesentery and omentum, similar to prior examination. The patient was afebrile after admission. She had temperature spike to 101.4 degrees on 06/27/2018, and again temperature leeann to 102 degrees on 06/28/2018. Urine culture was taken and blood cultures were obtained on 06/28/2018. The urine culture came back with Escherichia coli and the blood culture also had Escherichia coli. She was started on ceftriaxone intravenous. The temperature has gradually improved and today, the temperature is normal. The patient had decrease in the white blood cell count from 10.1 on 06/22/2018 to 2.9 on 06/24/2018 and has gradually improved, and today it is 4.7. She has an NG tube in place, which has bilious return. She was noted to have vomiting after she drank liquids yesterday. It was felt that she had too much liquids, and that caused her to vomit. Her son at bedside mentions that she took in more liquids than she should have. She has not vomited in the past 6 hours. Chest x-ray on 06/28/2018 was unremarkable. PAST MEDICAL HISTORY: Hypertension, ovarian cancer. PAST SURGICAL HISTORY: Ileostomy, hysterectomy, history of gastrostomy tube placement port placement, cholecystectomy, tonsillectomy. ALLERGIES: PENICILLIN, AMLODIPINE, ATORVASTATIN, PRAVASTATIN, SIMVASTATIN, DOXORUBICIN, ZOCOR. MEDICATIONS: 1. Ceftriaxone. 2. Vasotec. 3. Ativan. 4. Lopressor. 5. Multiple vitamin. SOCIAL HISTORY: The patient is . No tobacco use. She is a former smoker. No alcohol. No illicit drugs. FAMILY HISTORY: Noncontributory. REVIEW OF SYSTEMS: All systems have been reviewed and are negative, except for features mentioned in history of present illness. PHYSICAL EXAMINATION: GENERAL: This is a well-developed female who is in no acute distress. She is awake and alert and oriented. VITAL SIGNS: Temperature 98.4, BP 140/64, respirations 20, heart rate 96. HEENT: Head is atraumatic. Extraocular movements grossly intact. Pupils reactive to light. No icterus. Oropharynx moist mucosa without lesions. NECK: Supple. No adenopathy. LUNGS: Clear to auscultation. HEART: Regular S1, S2, without audible murmurs. ABDOMEN: Bowel sounds present, soft. Ileostomy at the right lower abdomen appears intact and the mucosa is pink. RECTAL: Not performed. EXTREMITIES: No clubbing, cyanosis or edema. SKIN: No diffuse rash. NEUROLOGIC: Nonfocal. PSYCHIATRIC: The patient is calm and cooperative. LABORATORY DATA: WBC 4.7, platelets 94, hemoglobin 9.5, 83% neutrophils, 11% lymphocytes. Creatinine 2.17, BUN 38, estimated GFR 22. Sodium 143, AST 30, ALT 58. Stool C. difficile toxin negative. IMPRESSION: 1. Bacteremia due to Escherichia coli. The patient developed fever and also had tachycardia and positive urine culture. Features suggesting sepsis. 2. Urinary tract infection. Source of bacteremia. 3. Ovarian cancer. Status post chemotherapy. White blood cell count adequate. The white blood cell count had dropped to 2.3, but is improving. The patient is immunosuppressed from chemotherapy. RECOMMENDATIONS: Continue ceftriaxone as you are doing. If she continues to be stable, I would keep her on ceftriaxone and plan on doing 10 days of treatment. I would avoid using Levaquin and would prefer to give 10 days of IV, given her immune system and treating her for 10 days. I would avoid Levaquin. Thank you for this consultation. I will monitor her progress and make recommendations and follow up if necessary. MD JUAN CARLOS Cabral/abel , 12:33 PM , 12:46 PM
[2018-06-29] MEDS: ALPRAZolam 0.5 MG Tablet PO PRN (20:45)
[2018-06-30 07:10] LABS: Baso % (Auto) 0.2 % (0.0-2.0); Eos # (Auto) 0.1 th/mm3 (0.0-0.4); Eos % (Auto) 2.4 % (0.0-4.0); Hematocrit 28.7 % (35.0-46.0); Hemoglobin 9.6 gm/dL (11.6-15.3); Lymph # (Auto) 0.7 th/mm3 (1.0-4.8); Lymph % (Auto) 14.2 % (9.0-44.0); Mean Corpuscular HGB Conc 33.5 % (32.0-36.0); Mean Corpuscular Hemoglobin 26.2 pg (27.0-34.0); Mean Corpuscular Volume 78.5 fL (80.0-100.0); Mean Platelet Volume 10.1 fL (7.0-11.0); Mono # (Auto) 0.3 th/mm3 (0.0-0.9); Mono % (Auto) 7.3 % (0.0-8.0); Neut # (Auto) 3.6 th/mm3 (1.8-7.7); Neut % (Auto) 75.9 % (16.0-70.0); Platelet Count 152 th/mm3 (150-450); Red Blood Count 3.65 mil/mm3 (4.00-5.30); White Blood Count 4.8 th/mm3 (4.0-11.0)
[2018-06-30 07:41] LABS: Calcium 8.5 mg/dL (8.5-10.1); Carbon Dioxide 34.2 meq/L (21.0-32.0); Magnesium 1.7 mg/dL (1.5-2.5); Potassium 3.4 meq/L (3.5-5.1)
--- NOTE | 2018-06-30 07:53 | P.PNONC ---
Subjective Interval history: Mrs. Hayden anxious to have NG tube out denies any nausea or vomiting, NG has been clamped clear liquids, advance to soft diet discussed with Dr. Arellano She has been OOB to chair and ambulating denies pain + ileostomy output Objective Vital Signs/Intake & Output: Vital Signs 06/29/18 08:00 06/29/18 12:00 06/29/18 16:00 Temperature 98.4 F 99.2 F 98.8 F Pulse Rate 96 H 104 H 99 H Respiratory Rate 19 19 18 Blood Pressure 140/64 141/67 H 160/83 H Pulse Oximetry 92 L 95 94 L 06/29/18 20:00 06/30/18 00:00 06/30/18 03:16 Temperature 99.7 F H 99.5 F 97.1 F L Pulse Rate 101 H 105 H Respiratory Rate 18 18 Blood Pressure 145/71 H 137/63 Pulse Oximetry 93 L 94 L Intake & Output 06/29/18 06/30/18 06/30/18 18:59 06:59 18:59 Intake Total 1480.2 / 1480.2 Output Total 1725 / 1725 2150 / 2150 Balance -244.8 / -244.8 -2150 / -2150 Weight 82.8 kg Intake: IV 830.2 / 830.2 Potassium Chlor 20 mEq/NACL 0. 220 / 220 45% Inj 1,000 ML @ 55 mls/hr IV .CONT .[id number] STEVE Rx#:[id number] MVI-12 Inj 10 ML Folvite Inj 1 510.2 / 510.2 MG In NS Inj 500 ML @ 125 mls/ hr IV.SIG DAILY STEVE Rx#: [id number] Rocephin Inj 1,000 MG In NS Inj 100 / 100 100 ML @ 200 mls/hr IV.SIG Q24H STEVE Rx#:[id number] Oral 650 / 650 Output: Urine 200 / 200 1000 / 1000 Stool Amount (Stoma) 1225 / 1225 1150 / 1150 Right Lower Abdomen 1225 / 1225 1150 / 1150 Gastric Drainage 300 / 300 Right Nare Nasogastric Tube 300 / 300 Other: # Voids 450 # Bowel Movements 0 Result Diagrams: 06/30/18 06:10 06/29/18 09:35 Laboratory Results: Laboratory Results - last 24 hr 06/29/18 06/29/18 06/30/18 09:35 09:35 06:10 WBC 4.7 4.8 RBC 3.63 L 3.65 L Hgb 9.5 L 9.6 L Hct 28.8 L 28.7 L MCV 79.3 L 78.5 L MCH 26.1 L 26.2 L MCHC 32.9 33.5 RDW 18.5 H 18.0 H Plt Count 94 L D 152 D MPV 9.5 10.1 Prelim Diff (Auto) Slide review pending Neut % (Auto) 83.1 H 75.9 H Lymph % (Auto) 11.7 14.2 [place] % (Auto) 3.4 7.3 Eos % (Auto) 1.7 2.4 Baso % (Auto) 0.1 0.2 Neut # (Auto) 3.9 3.6 Lymph # (Auto) 0.6 L 0.7 L [place] # (Auto) 0.2 0.3 Eos # (Auto) 0.1 0.1 Baso # (Auto) 0.0 0.0 WBC Differential Manual diff final . Seg Neuts % (Manual) 73 H Band Neuts % (Manual) 9 H Lymphocytes % (Manual) 12 Monocytes % (Manual) 3 Eosinophils % (Manual) 3 Abs Neuts (Manual) 3.9 Differential Comment . Auto diff final Toxic Granulation 2+ H Toxic Vacuolation Present H Dohle Bodies Present H Platelet Estimate Low L Platelet Morphology Normal Tear Drop Cells 1+ H Ovalocytes 1+ H Sodium 143 Potassium 3.3 L Chloride 102 D Carbon Dioxide 32.7 H Anion Gap 8 BUN 38 H Creatinine 2.17 H Estimated GFR 22 L Random Glucose 160 H Calcium 8.6 Culture Results: Microbiology 06/28/18 01:00 Aerobic Blood Culture - Preliminary Blood - Line Escherichia coli Anaerobic Blood Culture - Preliminary gram negative rods 06/28/18 17:00 Aerobic Blood Culture - Preliminary Blood - Peripheral No growth in 1 day Anaerobic Blood Culture - Preliminary No growth in 1 day 06/27/18 18:00 Urine Culture - Final Clean Catch Urine Escherichia coli Medications: Active Medications Generic Name Dose Route Start Last Admin Trade Name Freq PRN Reason Stop Dose Admin Acetaminophen 500 mg 06/28/18 00:29 06/28/18 23:13 Tylenol PO 500 mg Q6H PRN Administration FEVER > 100.5 Alprazolam 0.5 mg 06/29/18 18:27 06/29/18 20:45 Xanax PO 0.5 mg HS PRN Administration ANXIETY Clonidine HCl 1 patch 06/28/18 18:00 06/28/18 18:25 Catapress-Tts 0.1 Mg Patch.7d T-DERMAL 1 patch Q7D STEVE Administration Enalaprilat 1.25 mg 06/23/18 09:55 06/25/18 16:29 Vasotec Inj IV.PUSH 1.25 mg Q6H PRN Administration SBP 160 or above Multivitamins 10 ml/ Folic 510.2 mls @ 125 mls/hr 06/24/18 12:00 06/29/18 15: 15 Acid 1 mg/ Sodium Chloride IV.SIG Infused DAILY STEVE Infusion Ceftriaxone Sodium 1,000 mg/ 100 mls @ 200 mls/hr 06/28/18 17:00 06/29/18 18: 40 Sodium Chloride IV.SIG Infused Q24H STEVE Infusion Lorazepam 0.5 mg 06/23/18 19:19 06/28/18 01:15 Ativan Inj IV.PUSH 0.5 mg Q4H PRN Administration ANXIETY Lorazepam 0.75 mg 06/27/18 12:00 06/30/18 03:37 Ativan Inj IV.PUSH Not Given Q8H STEVE Metoprolol Tartrate 25 mg 06/23/18 09:00 06/25/18 08:13 Lopressor PO 25 mg BID STEVE Administration Ondansetron HCl 8 mg 06/26/18 17:56 06/30/18 00:09 Zofran Inj IV.PUSH 8 mg Q6H PRN Administration NAUSEA OR VOMITING Sodium Chloride 2 ml 06/22/18 20:40 06/22/18 20:52 Ns Flush IV.FLUSH 2 ml PRN PRN Administration FLUSH AFTER USING IV ACCESS Throat Lozenges 2 spray 06/25/18 17:22 06/26/18 22:48 Chloraseptic [place] OROPHARYNG 2 spray Q2H PRN Administration sore throat Objective Remarks: GENERAL: Well-nourished, well-developed patient. SKIN: Warm and dry. HEAD: Normocephalic. EYES: No scleral icterus. No injection or drainage. CARDIOVASCULAR: Regular rate and rhythm without murmurs. RESPIRATORY: Breath sounds equal bilaterally. No accessory muscle use. GASTROINTESTINAL: Abdomen soft, non-tender, nondistended. + ileostomy, + BS X 4 EXTREMITIES: teds/scds MUSCULOSKELETAL: Adequate muscle tone. NEUROLOGICAL: No obvious focal deficit. Awake, alert, and oriented x3. PSYCHIATRIC: Appropriate mood and affect; insight and judgment normal. Assessment/Plan (1) Partial obstruction of small intestine Code(s): K56.600 - Partial intestinal obstruction, unspecified as to cause Status: Acute - Plan SBO overall improvement NG tube to LIWS IVF ambulate supportive care Palliative Care following appreciate assistance medical management for SBO, Hospitalist following appreciate assistance not a surgical candidate per general surgery, s/p ileostomy X 1 year ago with resolution of SBO will restart IV chemotherapy currently on weekly Topotecan 06/30/18 ileus per small bowel follow through 06/26/18 overall appears to be improving, D/C NG tube today and advance diet, electrolyte replacement per med team IVF supportive care will continue with IV chemotherapy once discharged Palliative care following, patient DNR afebrile + e. coli + urine + blood cultures ID following recommends to continue Ceftriaxone X 10 days
[2018-06-30] MEDS: Multivitamin Inj 10 ML, Folic Acid Inj 1 MG in Sodium Chlor 0.9% Inj 500 ML IV.SIG SCH (09:15)
--- NOTE | 2018-06-30 09:56 | P.PNIM ---
Subjective Interval history: Follow up: Partial SBO Patient has had NG tube overnight Patient denies N/V overnight reports feeling much better today Physical Exam Vital signs: Last Vital Signs Temp 98.5 F 06/30/18 08:00 Pulse 97 H 06/30/18 08:00 Resp 18 06/30/18 08:00 BP 147/88 H 06/30/18 08:00 Pulse Ox 97 06/30/18 08:00 Narrative: GENERAL: NAD, AAOx3 CARDIO: Regular RESP: CTA bilaterally. ABD: +BS, soft, non-tender, non-distension positive normoactive bowel sounds in all four quadrants NG tube clamped. ileostomy in place with liquid output EXT: Extremities without clubbing, cyanosis, or edema. No obvious deformities. Results Labs CBC & Chem 7: 06/30/18 06:10 06/30/18 06:10 Assessment and Plan Assessment (1) Partial obstruction of small intestine: Code(s): K56.600 - Partial intestinal obstruction, unspecified as to cause Status: Acute (2) Ovarian cancer, BRCA2 positive: Code(s): C56.9 - Malignant neoplasm of unspecified ovary; Z15.01 - Genetic susceptibility to malignant neoplasm of breast; Z15.09 - Genetic susceptibility to other malignant neoplasm Status: Acute (3) Anxiety: Code(s): F41.9 - Anxiety disorder, unspecified Status: Acute (4) HTN (hypertension): Code(s): I10 - Essential (primary) hypertension Status: Acute Plan Partial SBO High output ileostomy - Pt is a 72 yo female with metastatic BRCA 2+ ovarian cancer s/p LIZ/BSO, omentectomy, lysis of adhesions [place] [address] Huang. 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 She has had multiple chemotherapies and per GynOnc noted she is currently on 10th line treatment with Topotecan. She received cycle one on Saturday06/20/18 and over the weekend she started having a lot of out put from her ileostomy and tried her normal routine to slow the out put, but nothing helped. Then yesterday she started having vomiting with increasing abdominal pain, and her ileostomy drainage slowed. Pt was concerned about SBO and she presented to the ED at [facility] [place] on 06/22/18 for further evaluation. - CT Abd/pelvis (06/22/18) noted small bowel dilatation on the left side with multiple air-fluid levels characteristic of an early or partial small bowel obstruction. - KUB 06/25: Progressive distention of small bowel loops consistent with worsening small bowel obstruction. - Small Bowel X-Ray 06/26/18 08:00 1. It Security Engineer image shows diffuse dilation of small bowel loops in the left abdomen with an ostomy device in the right lower abdominal quadrant. 2. Transit time is approximately 2 hours with contrast eventually identified in the ostomy bag. 3. The last few images show some interval decompression of the small bowel possibly representing a transient hypodynamic ileus. I do not see an obvious transition point to suggest a discrete obstruction. - NGT -> LIWS -> clamped -> removed (06/30) - ileostomy with good output - Case d/w Hand I Tube Bender Oncology, Dr. Huang (06/26/18). Cautiously optimistic. NGT now to intermittent suction. - Last episode of vomiting 06/28/18 - Diet advanced to soft diet - Pain control PRN - Antiemetics PRN - Anxiolytics PRN - Appreciate Palliative care consultation to help with goals of care BACTEREMIA - Urine Cx (06/27) --> E.Coli - Blood Cx (06/28) --> E. Coli - continue Rocephin - Pt with multiple drug allergies. Allergic to PCN, but tolerating Rocephin - Appreciate input from ID, Dr. Barger. - Dr. Rivera discussed the case with Dr. Barger (06/29/18) - continue IV Rocephin- ID recommending 10 days of IV Rocephin ADOLFO Hyponatremia - resolved - creatinine (06/29) 2.17 -> 2.16 (06/20) - Repeat labs in AM Metastatic ovarian cancer, BRCA 2 - Pt follows with Dr. Huang - She is currently on 10th line treatment with Topotecan. She received cycle one on Saturday06/20/18 Anxiety - Ativan 0.5mg IV Q6H PRN HTN - Vasotec PRN - add Catapres patch Hypokalemia potassium 3.4 06/30 replaced Attending Attestation Patient examined. Assessment and plan formulated with Le Flood PA-C. I agree with the above. Pt has bowel sounds today. ostomy with stool. remove ngt and advance diet. tolerated clears. ambulate. dc in next 24hrs if tolerating po and ostomy functional. Progress Note: Quality VTE Deep Vein Thrombosis/Pulmonary Embolism Present on Admission: No _ (1) Ovarian cancer, BRCA2 positive Qualifiers: Laterality: (2) HTN (hypertension) Qualifiers: Hypertension type:
[2018-06-30] MEDS ORDERED: Potassium Chloride 10 MEQ ER Capsule PO ONE (10:10)
[2018-06-30] MEDS: ALPRAZolam 0.5 MG Tablet PO PRN (22:12)
[2018-06-30] MEDS ORDERED: POTASSIUM CHLORIDE IV.SIG SCH (23:00)
[2018-06-30] MEDS ORDERED: SODIUM CHLOR 0.9% IV.SIG SCH (23:00)
[2018-07-01] MEDS: Morphine Inj 4 MG/ML Vial IV.PUSH PRN ×4 (00:29→13:13)
[2018-07-01 05:07] LABS: Calcium 8.6 mg/dL (8.5-10.1); Carbon Dioxide 34.6 meq/L (21.0-32.0); Potassium 3.5 meq/L (3.5-5.1)
--- NOTE | 2018-07-01 08:06 | P.PNIM ---
Subjective Interval history: Follow up: partial SBO Patient reports she had a terrible night due to gas pains and retention Patient denies vomiting liquid output noted in ileostomy bag Physical Exam Vital signs: Last Vital Signs Temp 99.1 F 07/01/18 00:00 Pulse 101 H 07/01/18 00:00 Resp 20 07/01/18 00:00 BP 136/63 07/01/18 00:00 Pulse Ox 93 L 07/01/18 00:00 Narrative: GENERAL: NAD, AAOx3 CARDIO: Regular RESP: CTA bilaterally. ABD: +BS, non-tender, mild distension, hyperactive bowel sounds in all four quadrants NG tube clamped. ileostomy in place with liquid output EXT: Extremities without clubbing, cyanosis, or edema. No obvious deformities. Results Labs CBC & Chem 7: 06/30/18 06:10 07/01/18 04:20 Assessment and Plan Assessment (1) Partial obstruction of small intestine: Code(s): K56.600 - Partial intestinal obstruction, unspecified as to cause Status: Acute (2) Ovarian cancer, BRCA2 positive: Code(s): C56.9 - Malignant neoplasm of unspecified ovary; Z15.01 - Genetic susceptibility to malignant neoplasm of breast; Z15.09 - Genetic susceptibility to other malignant neoplasm Status: Acute (3) Anxiety: Code(s): F41.9 - Anxiety disorder, unspecified Status: Acute (4) HTN (hypertension): Code(s): I10 - Essential (primary) hypertension Status: Acute Plan Partial SBO High output ileostomy - Pt is a 72 yo female with metastatic BRCA 2+ ovarian cancer s/p LIZ/BSO, omentectomy, lysis of adhesions [place] [address] Huang. 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 She has had multiple chemotherapies and per GynOnc noted she is currently on 10th line treatment with Topotecan. She received cycle one on Saturday06/20/18 and over the weekend she started having a lot of out put from her ileostomy and tried her normal routine to slow the out put, but nothing helped. Then yesterday she started having vomiting with increasing abdominal pain, and her ileostomy drainage slowed. Pt was concerned about SBO and she presented to the ED at [facility] [place] on 06/22/18 for further evaluation. - CT Abd/pelvis (06/22/18) noted small bowel dilatation on the left side with multiple air-fluid levels characteristic of an early or partial small bowel obstruction. - KUB 06/25: Progressive distention of small bowel loops consistent with worsening small bowel obstruction. - Small Bowel X-Ray 06/26/18 08:00 1. Automotive Instructor image shows diffuse dilation of small bowel loops in the left abdomen with an ostomy device in the right lower abdominal quadrant. 2. Transit time is approximately 2 hours with contrast eventually identified in the ostomy bag. 3. The last few images show some interval decompression of the small bowel possibly representing a transient hypodynamic ileus. I do not see an obvious transition point to suggest a discrete obstruction. 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 Huang (06/26/18). Cautiously optimistic. NGT now to intermittent suction. - Last episode of vomiting 06/28/18 - Diet advanced to soft diet - Pain control PRN - Antiemetics PRN - Anxiolytics PRN - Add Simethicone TID - add IV fluids x1 L - 07/[address] Huang recommending laxative and reglan to increase motility - Dulcolax x 1 - Reglan TID - Appreciate Palliative care consultation to help with goals of care BACTEREMIA - Urine Cx (06/27) --> E.Coli - Blood Cx (06/28) --> E. Coli - continue Rocephin - Pt with multiple drug allergies. Allergic to PCN, but tolerating Rocephin - Appreciate input from ID, Dr. Barger. - Dr. Rivera discussed the case with Dr. Barger (06/29/18) - continue IV Rocephin- ID recommending 10 days of IV Rocephin ADOLFO Hyponatremia - resolved - creatinine (06/29) 2.17 -> 2.16 (06/20) -> 2.08 (07/01) - Repeat labs in AM Metastatic ovarian cancer, BRCA 2 - Pt follows with Dr. Huang - She is currently on 10th line treatment with Topotecan. She received cycle one on Saturday06/20/18 Anxiety - Ativan 0.5mg IV Q6H PRN HTN - Vasotec PRN - add Catapres patch Hypokalemia potassium 3.4 06/30 -> 3.5 (07/01) Progress Note: Quality VTE Deep Vein Thrombosis/Pulmonary Embolism Present on Admission: No _ (1) Ovarian cancer, BRCA2 positive Qualifiers: Laterality: (2) HTN (hypertension) Qualifiers: Hypertension type:
[2018-07-01] MEDS ORDERED: Simethicone 80 MG Chew Tablet PO PRN (08:30)
[2018-07-01] MEDS: Multivitamin Inj 10 ML, Folic Acid Inj 1 MG in Sodium Chlor 0.9% Inj 500 ML IV.SIG SCH (08:40)
[2018-07-01] MEDS ORDERED: Potassium Chloride Inj 10 MEQ in Sod Chloride 0.9% Inj 1,000 ML IV.CONT SCH (09:30)
[2018-07-01] MEDS: Simethicone 125 MG Chew Tablet PO SCH ×2 (12:07→17:13)
[2018-07-01] MEDS ORDERED: Simethicone 125 MG Chew Tablet PO SCH (13:00)
--- NOTE | 2018-07-01 14:35 | P.PN ---
Subjective Interval history: she c/o uncomfortable gas pains overnight with some abdominal distention no n/v in past 24 hours, liquid output per stoma continues she is hungry and thirsty and would like to try advancing her oral intake Physical Exam Vital signs: Vital Signs 06/30/18 16:00 06/30/18 22:11 07/01/18 00:00 Temperature 98.1 F 98.8 F 99.1 F Pulse Rate 97 H 101 H 101 H Respiratory Rate 18 18 20 Blood Pressure 127/60 140/67 136/63 Pulse Oximetry 97 95 93 L 07/01/18 12:00 Temperature 99.3 F Pulse Rate 112 H Respiratory Rate 17 Blood Pressure 144/71 H Pulse Oximetry 91 L Intake & Output 06/30/18 07/01/18 07/01/18 18:59 06:59 18:59 Intake Total 1410.2 / 1410.2 745 / 745 510.2 / 510.2 Output Total 1650 / 1650 800 / 800 75 / 75 Balance -239.8 / -239.8 -55 / -55 435.2 / 435.2 Weight 84.1 kg Intake: IV 610.2 / 610.2 505 / 505 510.2 / 510.2 MVI-12 Inj 10 ML Folvite Inj 1 510.2 / 510.2 510.2 / 510.2 MG In NS Inj 500 ML @ 125 mls/ hr IV.SIG DAILY STEVE Rx#: [id number] KCl Inj 10 MEQ In NS Inj 500 ML 505 / 505 @ 100 mls/hr IV.SIG ONCE STEVE Rx#:[id number] Rocephin Inj 1,000 MG In NS Inj 100 / 100 100 ML @ 200 mls/hr IV.SIG Q24H STEVE Rx#:[id number] Oral 800 / 800 240 / 240 Output: Urine 700 / 700 400 / 400 Stool Amount (Stoma) 950 / 950 400 / 400 75 / 75 Right Lower Abdomen 950 / 950 400 / 400 75 / 75 - Constitutional mild distress (anxious) - Routine HEENT Exam Eye: Present: EOMI, PERRL - Routine Abdominal Exam Present: distended (non-acute, ileostomy patent with output) - Routine Neurological Exam Present: alert, oriented X3 Results - Labs CBC & Chem 7: 06/30/18 06:10 07/01/18 04:20 Laboratory Results - last 24 hr 07/01/18 04:20 Sodium 143 Potassium 3.5 Chloride 100 Carbon Dioxide 34.6 H Anion Gap 8 BUN 30 H Creatinine 2.08 H Estimated GFR 23 L Random Glucose 153 H Calcium 8.6 Microbiology 06/28/18 17:00 Blood - Peripheral Aerobic Blood Culture - Final Staphylococcus coag negative 06/28/18 17:00 Blood - Peripheral Anaerobic Blood Culture - Preliminary No growth in 3 days 06/28/18 01:00 Blood - Line Aerobic Blood Culture - Final Escherichia coli 06/28/18 01:00 Blood - Line Anaerobic Blood Culture - Final Escherichia coli Assessment and Plan - Assessment (1) Partial obstruction of small intestine Code(s): K56.600 - Partial intestinal obstruction, unspecified as to cause Status: Acute - Plan no mechanical obstruction as per gastrografin study/imaging output per ostomy but with some ileus type gas pains and abdominal distention long discussion, q&a. also discussed with Dr. Arellano minimize narcotics, increase oob activity, add cathartics, adat, continue hydration, continue antibiotics for urosepsis
[2018-07-01 17:59] LABS: ABG PCO2 36 mmHg (38-42); ABG PO2 59 mmHg (61-120)
[2018-07-01] MEDS ORDERED: Acetaminophen 650 MG Supp RECTAL PRN (18:55)
[2018-07-01] MEDS ORDERED: Morphine Sulfate Inj 2 MG/ML Vial IV.PUSH PRN (19:03)
[2018-07-01] MEDS ORDERED: Morphine Inj 4 MG/ML Vial IV.PUSH PRN (19:03)
--- NOTE | 2018-07-01 19:26 | P.PNPAL ---
Reason for Visit Reason for visit: a. To assist with evaluation and management of symptoms including: anxiety, shortness of breath, N/V. b. To assist medical decision maker(s) with: better understanding of current medical conditions; weighing benefits/burdens of medical treatment options; making medical treatment decisions. Subjective Subjective/Interval History: Discussed with Dr. Huang this morning. 6pm: Call from Rachael Coulter to report Armandoicat and family was requesting to speak with me. Nurses indicate patient became hypoxic, lethargic. Her Oxygen saturation upon my arrival to unit was 74% on 100% NRB. Patient is shaking, nods yes to anxiety and shortness of breath. Nods no to pain. She does not answer any other questions. Patient seen and examined in room, daughters and spouse at bedside. Patient is laying in bed with eyes closed. Family reports she vomiting 6 times overnight. She has had increased cough. She has been accepting meds for anxiety, she has had 1 dose of Lorazepam in the past 24 hours. She has had 4 doses of PRN Morphine in the past 24 hours. Met with family outside the room. They again verbalize patient desire for NO CODE (DNR/DNI). They are certain she does not want to be intubated. We discussed transfer to ICU vs transition to comfort with hospice support. Family all in agreement that they do not want her to suffer anymore. Questions answered. Support provided. Discussed with Rachael Coulter; Dr. Arellano and Dr. Huang following my visit. All in agreement with plan for transition to comfort measures with hospice support. Will admit patient inpatient hospice tonight, may consider care center in AM if patient survives. Advance Directives Living Will: Never completed Health Care Surrogate: Never completed Durable Power of Die Casting Supervisor: Never completed Health Care Surrogate Name and Number: Health care proxy, spouse, Brandt Hayden: [phone] Documented care wishes:: No written advance directives. Significant change in goals:: NO CODE (DNR/DNI). Family has elected transition to comfort with hospice support. Will admit inpatient hospice tonight. May consider transition to care center in AM if she survives. Objective Vital Signs: Vital Signs 06/30/18 22:11 07/01/18 00:00 07/01/18 12:00 Temperature 98.8 F 99.1 F 99.3 F Pulse Rate 101 H 101 H 112 H Respiratory Rate 18 20 17 Blood Pressure 140/67 136/63 144/71 H Pulse Oximetry 95 93 L 91 L 07/01/18 16:00 07/01/18 17:19 07/01/18 17:35 Temperature 98.3 F Pulse Rate 118 H Respiratory Rate 18 Blood Pressure 182/87 H 87/51 L 152/58 H Pulse Oximetry 91 L 07/01/18 18:13 Temperature Pulse Rate Respiratory Rate Blood Pressure Pulse Oximetry 88 L Intake & Output 07/01/18 07/01/18 07/02/18 06:59 18:59 06:59 Intake Total 745 / 745 610.2 / 610.2 Output Total 800 / 800 75 / 75 Balance -55 / -55 535.2 / 535.2 Weight 84.1 kg Intake: IV 505 / 505 610.2 / 610.2 MVI-12 Inj 10 ML Folvite Inj 1 510.2 / 510.2 MG In NS Inj 500 ML @ 125 mls/ hr IV.SIG DAILY STEVE Rx#: [id number] KCl Inj 10 MEQ In NS Inj 500 ML 505 / 505 @ 100 mls/hr IV.SIG ONCE STEVE Rx#:[id number] Rocephin Inj 1,000 MG In NS Inj 100 / 100 100 ML @ 200 mls/hr IV.SIG Q24H STEVE Rx#:[id number] Oral 240 / 240 Output: Urine 400 / 400 Stool Amount (Stoma) 400 / 400 75 / 75 Right Lower Abdomen 400 / 400 75 / 75 Physical Exam: CONSTITUTIONAL/GENERAL: This is an adequately nourished patient,hypoxic. TUBES/LINES/DRAINS: right port. Ileostomy. SKIN: No jaundice, rashes, or lesions. Ecchymoses on upper extremities. No wounds seen anteriorly. Skin temperature appropriate. Not diaphoretic. ENT: Oral mucosa dry. CARDIOVASCULAR: tachycardic. RESPIRATORY/CHEST: O2 sat 74% on 100% NRB. Labored respirations at rest. Coarse breath sounds. GASTROINTESTINAL: Abdomen tender, mildly distended. No guarding. Bowel sounds hypoactive. Ileostomy with watery output. GENITOURINARY: Without palpable bladder distension. MUSCULOSKELETAL: Extremities without clubbing, cyanosis, or edema. No mottling or clubbing. NEUROLOGICAL: Lethargic. Nods yes/ no to a few simple questions, then falls off to sleep. PSYCHIATRIC: + anxiety. Lethargy. Diagnostic Tests Laboratory: Laboratory Results - last 72 hr 06/29/18 06/29/18 06/30/18 09:35 09:35 06:10 WBC 4.7 4.8 RBC 3.63 L 3.65 L Hgb 9.5 L 9.6 L Hct 28.8 L 28.7 L MCV 79.3 L 78.5 L MCH 26.1 L 26.2 L MCHC 32.9 33.5 RDW 18.5 H 18.0 H Plt Count 94 L D 152 D MPV 9.5 10.1 Prelim Diff (Auto) Slide review pending Neut % (Auto) 83.1 H 75.9 H Lymph % (Auto) 11.7 14.2 Piatt % (Auto) 3.4 7.3 Eos % (Auto) 1.7 2.4 Baso % (Auto) 0.1 0.2 Neut # (Auto) 3.9 3.6 Lymph # (Auto) 0.6 L 0.7 L Piatt # (Auto) 0.2 0.3 Eos # (Auto) 0.1 0.1 Baso # (Auto) 0.0 0.0 WBC Differential Manual diff final . Seg Neuts % (Manual) 73 H Band Neuts % (Manual) 9 H Lymphocytes % (Manual) 12 Monocytes % (Manual) 3 Eosinophils % (Manual) 3 Abs Neuts (Manual) 3.9 Differential Comment . Auto diff final Toxic Granulation 2+ H Toxic Vacuolation Present H Dohle Bodies Present H Platelet Estimate Low L Platelet Morphology Normal Tear Drop Cells 1+ H Ovalocytes 1+ H Puncture Site Patient Temperature O2 Saturation ABG pH ABG pCO2 ABG pO2 ABG HCO3 ABG O2 Content ABG Base Excess ABG Methemoglobin Aroldo Test Hemoglobin Carboxyhemoglobin O2 Delivery Device Inspired O2 Critical Value Sodium 143 Potassium 3.3 L Chloride 102 D Carbon Dioxide 32.7 H Anion Gap 8 BUN 38 H Creatinine 2.17 H Estimated GFR 22 L POC Glucose Random Glucose 160 H Calcium 8.6 Magnesium 06/30/18 07/01/18 07/01/18 06:10 04:20 17:32 WBC RBC Hgb Hct MCV MCH MCHC RDW Plt Count MPV Prelim Diff (Auto) Neut % (Auto) Lymph % (Auto) Piatt % (Auto) Eos % (Auto) Baso % (Auto) Neut # (Auto) Lymph # (Auto) Piatt # (Auto) Eos # (Auto) Baso # (Auto) WBC Differential Seg Neuts % (Manual) Band Neuts % (Manual) Lymphocytes % (Manual) Monocytes % (Manual) Eosinophils % (Manual) Abs Neuts (Manual) Differential Comment Toxic Granulation Toxic Vacuolation Dohle Bodies Platelet Estimate Platelet Morphology Tear Drop Cells Ovalocytes Puncture Site Patient Temperature O2 Saturation ABG pH ABG pCO2 ABG pO2 ABG HCO3 ABG O2 Content ABG Base Excess ABG Methemoglobin Aroldo Test Hemoglobin Carboxyhemoglobin O2 Delivery Device Inspired O2 Critical Value Sodium 143 143 Potassium 3.4 L 3.5 Chloride 102 100 Carbon Dioxide 34.2 H 34.6 H Anion Gap 7 8 BUN 34 H 30 H Creatinine 2.16 H 2.08 H Estimated GFR 22 L 23 L POC Glucose 138 H Random Glucose 121 H 153 H Calcium 8.5 8.6 Magnesium 1.7 07/01/18 17:45 WBC RBC Hgb Hct MCV MCH MCHC RDW Plt Count MPV Prelim Diff (Auto) Neut % (Auto) Lymph % (Auto) Piatt % (Auto) Eos % (Auto) Baso % (Auto) Neut # (Auto) Lymph # (Auto) Piatt # (Auto) Eos # (Auto) Baso # (Auto) WBC Differential Seg Neuts % (Manual) Band Neuts % (Manual) Lymphocytes % (Manual) Monocytes % (Manual) Eosinophils % (Manual) Abs Neuts (Manual) Differential Comment Toxic Granulation Toxic Vacuolation Dohle Bodies Platelet Estimate Platelet Morphology Tear Drop Cells Ovalocytes Puncture Site Right radial Patient Temperature 98.6 O2 Saturation 88 L* ABG pH 7.48 H ABG pCO2 36 L ABG pO2 59 L* ABG HCO3 26 ABG O2 Content 14.2 ABG Base Excess 3.0 H ABG Methemoglobin 1.0 Aroldo Test Present Hemoglobin 11.5 L Carboxyhemoglobin 1.2 O2 Delivery Device Non-rebreathing mask Inspired O2 100 Critical Value Yes Sodium Potassium Chloride Carbon Dioxide Anion Gap BUN Creatinine Estimated GFR POC Glucose Random Glucose Calcium Magnesium Result Diagrams: 06/30/18 06:10 07/01/18 04:20 Microbiology: Microbiology 06/28/18 17:00 Aerobic Blood Culture - Final Blood - Peripheral Staphylococcus coag negative Anaerobic Blood Culture - Preliminary No growth in 3 days 06/28/18 01:00 Aerobic Blood Culture - Final Blood - Line Escherichia coli Anaerobic Blood Culture - Final Escherichia coli 06/27/18 18:00 Urine Culture - Final Clean Catch Urine Escherichia coli Imaging: Abdomen/Pelvis CT 06/22/18 22:07 CONCLUSION: 1. Compared with May 29 there is abnormal development of small bowel dilatation on the left side with multiple air-fluid levels characteristic of an early or partial small bowel obstruction. 2. Previously described soft tissue nodules in the anterior abdominal wall and within the mesentery and omentum are similar to prior examination and likely represent metastatic disease. Right lower quadrant ostomy unchanged. Abdomen X-Ray 06/25/18 08:00 CONCLUSION: 1. Progressive distention of small bowel loops consistent with worsening small bowel obstruction. Small Bowel X-Ray 06/26/18 08:00 CONCLUSION: 1. [employer] image shows diffuse dilation of small bowel loops in the left abdomen with an ostomy device in the right lower abdominal quadrant. 2. Transit time is approximately 2 hours with contrast eventually identified in the ostomy bag. 3. The last few images show some interval decompression of the small bowel possibly representing a transient hypodynamic ileus. I do not see an obvious transition point to suggest a discrete obstruction. Chest X-Ray 06/28/18 00:06 CONCLUSION: The lungs are clear. Assessment and Plan - Disease Oriented Problem List (1) Partial obstruction of small intestine (2) Ovarian cancer, BRCA2 positive (3) Anxiety (4) HTN (hypertension) - Symptom Scale (1) Abdominal pain 0-10 Scale: Unable to quantify (2) Weakness 0-10 Scale: Unable to quantify (3) N&V (nausea and vomiting) 0-10 Scale: Unable to quantify (4) Anxiety 0-10 Scale: Unable to quantify Pertinent Non-Medical Issues: Psychosocial: . Has 3 sons and 2 daughters. Spiritual: Baptism tiffanie, declines senior unix administrator visits. Legal: Patient is currently capacitated to make her own health care decisions. No written advanced directives, should she lose capacity, according to [place] statutes, health care proxy decision making falls to her spouse. Ethical issues impacting care: No known concerns at this time. Important Contacts: * Brandt Catracho, spouse: [phone] home or [phone] * Mariam Galindo, daughter: [phone] Prognosis: Ms. Hayden is a 72-year-old female with progressive ovarian cancer status post Line 10 chemotherapy admitted with recurrent SBO, not a candidate for surgery. Overall prognosis is poor. She is a candidate for hospice services if goals are comfort oriented. . Code Status: No Code DNR Plan: * Patient is currently capacitated to make her own health care decisions. No written advanced directives, should she lose capacity, according to [place] statutes, health care proxy decision making falls to her spouse. * NO CODE - She wants to be allowed "to go when it is her time." Will need complete [place] DNR prior to DC home. * Met with family outside the room. They again verbalize patient desire for NO CODE (DNR/DNI). They are certain she does not want to be intubated. We discussed transfer to ICU vs transition to comfort with hospice support. Family all in agreement that they do not want her to suffer anymore. Questions answered. Support provided. * Discussed with [facility] Rachael reyes; Dr. Arellano and Dr. Huang following my visit. All in agreement with plan for transition to comfort measures with hospice support. Will admit patient inpatient hospice tonight, may consider care center in AM if patient survives. * SYMPTOMS: Nausea and vomiting: Has been vomiting again in the past 24 hours. On Reglan. Will schedule ATC Lorazepam for SOB, anxiety and nausea. Has PRN Zofran. Abdominal pain: Intermittent severe abdominal pain, patient unable to quantify or qualify pain today due to lethargy. Will continue PRN Morphine and schedule ATC Morphine for comfort. Anxiety: Long history of anxiety. Used to take Valium 10mg every 2 hours (many years ago). Prior to admission was taking Xanax at least TID. Increased Lorazepam to 1mg IV every 4 hours ATC and every 4 hours PRN BT anxiety. Family does not want patient to suffer. Orders written for comfort. * Palliative care will continue to follow to assist with symptom management further clarification of medical treatment goals as needed. . Attestation Attestation: To help prompt me to consider important information that might be impacting today's encounter and assessment, information from prior notes written by myself or my colleagues may have been "brought forward" into today's note. My signature on this note, however, is an attestation that I personally performed the exam, history, and/or decision-making noted today, and, unless otherwise indicated, the interactions with patient, family, and staff as well as the review of records all occurred today. I also attest that the listed assessment and stated plan reflect my best clinical judgment today based on the combination of historical information, prior notes, and today's exam/ interactions. When time spent is documented, it refers only to time spent today by the signer, or if indicated, combined time spent today by collaborating physician/nurse practitioner.
[2018-07-01] MEDS: Morphine Inj 4 MG/ML Vial IV.PUSH SCH ×2 (20:22→23:54)
[2018-07-01] MEDS: Hyoscyamine Inj 0.5 MG/ML Ampul IV.PUSH PRN (20:24)
[2018-07-02] MEDS: Morphine Inj 4 MG/ML Vial IV.PUSH SCH ×5 (04:06→20:55)
[2018-07-02] MEDS: Hyoscyamine Inj 0.5 MG/ML Ampul IV.PUSH PRN ×3 (04:08→18:21)
--- NOTE | 2018-07-02 10:22 | P.PNPAL ---
Reason for Visit Reason for visit: a. To assist with evaluation and management of symptoms including: anxiety, shortness of breath. b. To assist medical decision maker(s) with: better understanding of current medical conditions; weighing benefits/burdens of medical treatment options; making medical treatment decisions. Subjective Subjective/Interval History: Discussed with Dr. Huang and Dr. Arellano. On inpatient hospice, comfort measures only. Patient seen and examined in room, sons, daughters and spouse at bedside. Patient is laying in bed with eyes closed. On oxygen via NC. Oxygen sats mid to upper 80s, up to 90 during my visit. No vomiting overnight. She was opening eyes intermittently overnight, has not been responsive for the past few hours per family report. She has mildly labored respirations at rest, using some accessory muscles to breath. She does not appear painful. No facial grimacing or moaning noted. Tachycardic, rate 120s. On bedside monitor per family request. Family/Friend Interactions: Met with spouse, children and other family at bedside. Family is upset that security barged into room demanding they cannot stay in the hospital. I advised they are welcome to stay at patient bedside, unit secretary agrees. Offered to move patient to hospice care center, family does not want to move patient now. She is comfortable and they do not want to create anymore reason for stress or anxiety for her now. They are comfortable here in the hospital and report staff are providing good care. Family is very appreciative and feel patient has been much more comfortable with current medication regimen. Questions answered. Support offered. Dr. Huang also visited during my visit. Advance Directives Living Will: Never completed Health Care Surrogate: Never completed Durable Power of Camouflage Assembler: Never completed Health Care Surrogate Name and Number: Health care proxy, spouse, Brandt Hayden: [phone] Documented care wishes:: No written advance directives. Significant change in goals:: NO CODE (DNR/DNI). Inpatient hospice. Comfort measures only with hospice support. Objective Vital Signs: Vital Signs 07/01/18 12:00 07/01/18 16:00 07/01/18 17:19 Temperature 99.3 F 98.3 F Pulse Rate 112 H 118 H Respiratory Rate 17 18 Blood Pressure 144/71 H 182/87 H 87/51 L Pulse Oximetry 91 L 91 L 07/01/18 17:35 07/01/18 18:13 07/01/18 20:00 Temperature 98.7 F Pulse Rate 126 H Respiratory Rate 22 Blood Pressure 152/58 H 126/58 L Pulse Oximetry 88 L 98 07/02/18 00:04 Temperature Pulse Rate Respiratory Rate 22 Blood Pressure Pulse Oximetry Intake & Output 07/01/18 07/02/18 07/02/18 18:59 06:59 18:59 Intake Total 610.2 / 610.2 750 / 750 Output Total 75 / 75 150 / 150 Balance 535.2 / 535.2 600 / 600 Weight 84.1 kg Intake: IV 610.2 / 610.2 750 / 750 KCl Inj 10 MEQ In NS Inj 1,000 750 / 750 ML @ 75 mls/hr IV.CONT .[id number] STEVE Rx#:[id number] MVI-12 Inj 10 ML Folvite Inj 1 510.2 / 510.2 MG In NS Inj 500 ML @ 125 mls/ hr IV.SIG DAILY STEVE Rx#: [id number] Rocephin Inj 1,000 MG In NS Inj 100 / 100 100 ML @ 200 mls/hr IV.SIG Q24H STEVE Rx#:[id number] Oral 0 / 0 Output: Stool Amount (Stoma) 75 / 75 150 / 150 Right Lower Abdomen 75 / 75 150 / 150 Other: # Voids 0 Physical Exam: CONSTITUTIONAL/GENERAL: This is an adequately nourished patient,imminently dying. TUBES/LINES/DRAINS: right port. Ileostomy. SKIN: Warm, no mottling. ENT: Oral mucosa dry. CARDIOVASCULAR: tachycardic. RESPIRATORY/CHEST: mildly labored shallow respirations at rest. GASTROINTESTINAL: Abdomen distended. Ileostomy. GENITOURINARY: Without palpable bladder distension. MUSCULOSKELETAL: Extremities warm, no edema or mottling. NEUROLOGICAL: Unresponsive. PSYCHIATRIC: Unresponsive. Diagnostic Tests Laboratory: Laboratory Results - last 72 hr 06/29/18 06/29/18 06/30/18 09:35 09:35 06:10 WBC 4.7 4.8 RBC 3.63 L 3.65 L Hgb 9.5 L 9.6 L Hct 28.8 L 28.7 L MCV 79.3 L 78.5 L MCH 26.1 L 26.2 L MCHC 32.9 33.5 RDW 18.5 H 18.0 H Plt Count 94 L D 152 D MPV 9.5 10.1 Prelim Diff (Auto) Slide review pending Neut % (Auto) 83.1 H 75.9 H Lymph % (Auto) 11.7 14.2 Kendall % (Auto) 3.4 7.3 Eos % (Auto) 1.7 2.4 Baso % (Auto) 0.1 0.2 Neut # (Auto) 3.9 3.6 Lymph # (Auto) 0.6 L 0.7 L Kendall # (Auto) 0.2 0.3 Eos # (Auto) 0.1 0.1 Baso # (Auto) 0.0 0.0 WBC Differential Manual diff final . Seg Neuts % (Manual) 73 H Band Neuts % (Manual) 9 H Lymphocytes % (Manual) 12 Monocytes % (Manual) 3 Eosinophils % (Manual) 3 Abs Neuts (Manual) 3.9 Differential Comment . Auto diff final Toxic Granulation 2+ H Toxic Vacuolation Present H Dohle Bodies Present H Platelet Estimate Low L Platelet Morphology Normal Tear Drop Cells 1+ H Ovalocytes 1+ H Puncture Site Patient Temperature O2 Saturation ABG pH ABG pCO2 ABG pO2 ABG HCO3 ABG O2 Content ABG Base Excess ABG Methemoglobin Aroldo Test Hemoglobin Carboxyhemoglobin O2 Delivery Device Inspired O2 Critical Value Sodium 143 Potassium 3.3 L Chloride 102 D Carbon Dioxide 32.7 H Anion Gap 8 BUN 38 H Creatinine 2.17 H Estimated GFR 22 L POC Glucose Random Glucose 160 H Calcium 8.6 Magnesium 06/30/18 07/01/18 07/01/18 06:10 04:20 17:32 WBC RBC Hgb Hct MCV MCH MCHC RDW Plt Count MPV Prelim Diff (Auto) Neut % (Auto) Lymph % (Auto) Kendall % (Auto) Eos % (Auto) Baso % (Auto) Neut # (Auto) Lymph # (Auto) Kendall # (Auto) Eos # (Auto) Baso # (Auto) WBC Differential Seg Neuts % (Manual) Band Neuts % (Manual) Lymphocytes % (Manual) Monocytes % (Manual) Eosinophils % (Manual) Abs Neuts (Manual) Differential Comment Toxic Granulation Toxic Vacuolation Dohle Bodies Platelet Estimate Platelet Morphology Tear Drop Cells Ovalocytes Puncture Site Patient Temperature O2 Saturation ABG pH ABG pCO2 ABG pO2 ABG HCO3 ABG O2 Content ABG Base Excess ABG Methemoglobin Aroldo Test Hemoglobin Carboxyhemoglobin O2 Delivery Device Inspired O2 Critical Value Sodium 143 143 Potassium 3.4 L 3.5 Chloride 102 100 Carbon Dioxide 34.2 H 34.6 H Anion Gap 7 8 BUN 34 H 30 H Creatinine 2.16 H 2.08 H Estimated GFR 22 L 23 L POC Glucose 138 H Random Glucose 121 H 153 H Calcium 8.5 8.6 Magnesium 1.7 07/01/18 17:45 WBC RBC Hgb Hct MCV MCH MCHC RDW Plt Count MPV Prelim Diff (Auto) Neut % (Auto) Lymph % (Auto) Kendall % (Auto) Eos % (Auto) Baso % (Auto) Neut # (Auto) Lymph # (Auto) Kendall # (Auto) Eos # (Auto) Baso # (Auto) WBC Differential Seg Neuts % (Manual) Band Neuts % (Manual) Lymphocytes % (Manual) Monocytes % (Manual) Eosinophils % (Manual) Abs Neuts (Manual) Differential Comment Toxic Granulation Toxic Vacuolation Dohle Bodies Platelet Estimate Platelet Morphology Tear Drop Cells Ovalocytes Puncture Site Right radial Patient Temperature 98.6 O2 Saturation 88 L* ABG pH 7.48 H ABG pCO2 36 L ABG pO2 59 L* ABG HCO3 26 ABG O2 Content 14.2 ABG Base Excess 3.0 H ABG Methemoglobin 1.0 Aroldo Test Present Hemoglobin 11.5 L Carboxyhemoglobin 1.2 O2 Delivery Device Non-rebreathing mask Inspired O2 100 Critical Value Yes Sodium Potassium Chloride Carbon Dioxide Anion Gap BUN Creatinine Estimated GFR POC Glucose Random Glucose Calcium Magnesium Result Diagrams: 06/30/18 06:10 07/01/18 04:20 Microbiology: Microbiology 06/28/18 17:00 Aerobic Blood Culture - Final Blood - Peripheral Staphylococcus coag negative Anaerobic Blood Culture - Preliminary No growth in 3 days 06/28/18 01:00 Aerobic Blood Culture - Final Blood - Line Escherichia coli Anaerobic Blood Culture - Final Escherichia coli 06/27/18 18:00 Urine Culture - Final Clean Catch Urine Escherichia coli Imaging: Abdomen/Pelvis CT 06/22/18 22:07 CONCLUSION: 1. Compared with May 29 there is abnormal development of small bowel dilatation on the left side with multiple air-fluid levels characteristic of an early or partial small bowel obstruction. 2. Previously described soft tissue nodules in the anterior abdominal wall and within the mesentery and omentum are similar to prior examination and likely represent metastatic disease. Right lower quadrant ostomy unchanged. Abdomen X-Ray 06/25/18 08:00 CONCLUSION: 1. Progressive distention of small bowel loops consistent with worsening small bowel obstruction. Small Bowel X-Ray 06/26/18 08:00 CONCLUSION: 1. Boat Wrapper image shows diffuse dilation of small bowel loops in the left abdomen with an ostomy device in the right lower abdominal quadrant. 2. Transit time is approximately 2 hours with contrast eventually identified in the ostomy bag. 3. The last few images show some interval decompression of the small bowel possibly representing a transient hypodynamic ileus. I do not see an obvious transition point to suggest a discrete obstruction. Chest X-Ray 06/28/18 00:06 CONCLUSION: The lungs are clear. Assessment and Plan - Disease Oriented Problem List (1) Partial obstruction of small intestine (2) Ovarian cancer, BRCA2 positive (3) Anxiety (4) HTN (hypertension) - Symptom Scale (1) Abdominal pain 0-10 Scale: Unable to quantify (2) Weakness 0-10 Scale: Unable to quantify (3) N&V (nausea and vomiting) 0-10 Scale: Unable to quantify (4) Anxiety 0-10 Scale: Unable to quantify Pertinent Non-Medical Issues: Psychosocial: . Has 3 sons and 2 daughters. Spiritual: Taoism tiffanie, declines manager of internal visits. Legal: Patient is currently capacitated to make her own health care decisions. No written advanced directives, should she lose capacity, according to [place] [employer], health care proxy decision making falls to her spouse. Ethical issues impacting care: No known concerns at this time. Important Contacts: * Brandt Hayden, spouse: [phone] home or [phone] * Mariam Galindo, daughter: [phone] Prognosis: Ms. Hayden is a 72-year-old female with progressive ovarian cancer status post Line 10 chemotherapy admitted with recurrent SBO, not a candidate for surgery. Overall prognosis is poor. She is a candidate for hospice services if goals are comfort oriented. . Code Status: No Code DNR Plan: * Patient is currently capacitated to make her own health care decisions. No written advanced directives, should she lose capacity, according to [place] statutes, health care proxy decision making falls to her spouse. * NO CODE - She wants to be allowed "to go when it is her time." * Met with family at bedside. Update provided. PPS 10. Reviewed prognosis of hours to days and plan to continue current symptom management. Ramu does not want to move patient to hospice care center, patient and family are comfortable here with staff and feel moving her would create more stress and anxiety for patient. * Discussed with Dr. Arellano and Dr. Huang and unit secretary, Yo. * SYMPTOMS: Nausea and vomiting: Has been vomiting again in the past 24 hours. On Reglan. Will schedule ATC Lorazepam for SOB, anxiety and nausea. Has PRN Zofran. Abdominal pain: Intermittent severe abdominal pain, patient unable to quantify or qualify pain today due to lethargy. Will continue PRN Morphine and schedule ATC Morphine for comfort. Anxiety: Long history of anxiety. Used to take Valium 10mg every 2 hours (many years ago). Prior to admission was taking Xanax at least TID. Increased Lorazepam to 1mg IV every 4 hours ATC and every 4 hours PRN BT anxiety. Family does not want patient to suffer. Continue current ATC Morphine and Lorazepam orders. * Palliative care will continue to follow to assist with symptom management further clarification of medical treatment goals as needed. . Attestation Attestation: To help prompt me to consider important information that might be impacting today's encounter and assessment, information from prior notes written by myself or my colleagues may have been "brought forward" into today's note. My signature on this note, however, is an attestation that I personally performed the exam, history, and/or decision-making noted today, and, unless otherwise indicated, the interactions with patient, family, and staff as well as the review of records all occurred today. I also attest that the listed assessment and stated plan reflect my best clinical judgment today based on the combination of historical information, prior notes, and today's exam/ interactions. When time spent is documented, it refers only to time spent today by the signer, or if indicated, combined time spent today by collaborating physician/nurse practitioner.
--- NOTE | 2018-07-02 12:35 | P.PNIM ---
Subjective Interval history: comfortable family present Physical Exam Vital signs: Last Vital Signs Temp 98.7 F 07/01/18 20:00 Pulse 126 H 07/01/18 20:00 Resp 22 07/02/18 00:04 BP 126/58 L 07/01/18 20:00 Pulse Ox 98 07/01/18 20:00 Narrative: comfortable Results Labs CBC & Chem 7: 06/30/18 06:10 07/01/18 04:20 Assessment and Plan Assessment (1) Partial obstruction of small intestine: Code(s): K56.600 - Partial intestinal obstruction, unspecified as to cause Status: Acute (2) Ovarian cancer, BRCA2 positive: Code(s): C56.9 - Malignant neoplasm of unspecified ovary; Z15.01 - Genetic susceptibility to malignant neoplasm of breast; Z15.09 - Genetic susceptibility to other malignant neoplasm Status: Acute (3) Anxiety: Code(s): F41.9 - Anxiety disorder, unspecified Status: Acute (4) HTN (hypertension): Code(s): I10 - Essential (primary) hypertension Status: Acute Plan Partial SBO High output ileostomy - Pt is a 72 yo female with metastatic BRCA 2+ ovarian cancer s/p LIZ/BSO, omentectomy, lysis of adhesions [place] [address] Huang. 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 She has had multiple chemotherapies and per GynOnc noted she is currently on 10th line treatment with Topotecan. She received cycle one on Saturday06/20/18 and over the weekend she started having a lot of out put from her ileostomy and tried her normal routine to slow the out put, but nothing helped. Then yesterday she started having vomiting with increasing abdominal pain, and her ileostomy drainage slowed. Pt was concerned about SBO and she presented to the ED at [facility] on 06/22/18 for further evaluation. - CT Abd/pelvis (06/22/18) noted small bowel dilatation on the left side with multiple air-fluid levels characteristic of an early or partial small bowel obstruction. - KUB 06/25: Progressive distention of small bowel loops consistent with worsening small bowel obstruction. - Small Bowel X-Ray 06/26/18 08:00 1. Clinical Business Analyst image shows diffuse dilation of small bowel loops in the left abdomen with an ostomy device in the right lower abdominal quadrant. 2. Transit time is approximately 2 hours with contrast eventually identified in the ostomy bag. 3. The last few images show some interval decompression of the small bowel possibly representing a transient hypodynamic ileus. I do not see an obvious transition point to suggest a discrete obstruction. - NGT -> LIWS -> clamped -> removed (06/30) - ileostomy with good output - Case d/w [employer] Operator Oncology, Dr. Huang (06/26/18). Cautiously optimistic. NGT now to intermittent suction. - Last episode of vomiting 06/28/18 - Diet advanced to soft diet - Pain control PRN - Antiemetics PRN - Anxiolytics PRN - Add Simethicone TID - add IV fluids x1 L - 07/[address] Huang recommending laxative and reglan to increase motility - Dulcolax x 1 - Reglan TID Pt developed AMS yesterday. She probably aspirated. Family chose hospice/comfort. Palliative/hospice is following family at bedside and pt appears comfortable. - Appreciate Palliative care consultation to help with goals of care BACTEREMIA - Urine Cx (06/27) --> E.Coli - Blood Cx (06/28) --> E. Coli - continue Rocephin - Pt with multiple drug allergies. Allergic to PCN, but tolerating Rocephin - Appreciate input from ID, Dr. Barger. - Dr. Rivera discussed the case with Dr. Barger (06/29/18) - continue IV Rocephin- ID recommending 10 days of IV Rocephin ADOLFO Hyponatremia - resolved - creatinine (06/29) 2.17 -> 2.16 (06/20) -> 2.08 (07/01) - Repeat labs in AM Metastatic ovarian cancer, BRCA 2 - Pt follows with Dr. Huang - She is currently on 10th line treatment with Topotecan. She received cycle one on Saturday06/20/18 Anxiety - Ativan 0.5mg IV Q6H PRN HTN - Vasotec PRN - add Catapres patch Hypokalemia potassium 3.4 06/30 -> 3.5 (07/01) Progress Note: Quality VTE Deep Vein Thrombosis/Pulmonary Embolism Present on Admission: No _ (1) Ovarian cancer, BRCA2 positive Qualifiers: Laterality: (2) HTN (hypertension) Qualifiers: Hypertension type:
[2018-07-03 00:05] VITALS: BP 93/50; PULSE 128; RESP 22; TEMP 97.9; O2SAT 80
[2018-07-03] MEDS: Morphine Inj 4 MG/ML Vial IV.PUSH SCH ×2 (00:21→04:33)
[2018-07-03] MEDS: Hyoscyamine Inj 0.5 MG/ML Ampul IV.PUSH PRN (00:21)
--- NOTE | 2018-07-03 09:20 | P.DN ---
Documented by User: CELI Ledesma 07/03/18 10:27 Discharge Sum: Prov Provider Primary care physician: Nik Hensley Discharge Sum: Summary Date and Time Date of admission: 06/22/18 23:55 Date of : Time of : Summary Details: Partial SBO High output ileostomy Metastatic ovarian cancer, BRCA 2 BACTEREMIA - Pt is a 72 yo female with metastatic BRCA 2+ ovarian cancer s/p LIZ/BSO, omentectomy, lysis of adhesions [place] [address] Huang. 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 She has had multiple chemotherapies and per GynOn notes she was on 10th line treatment with Topotecan prior to hospitalization. She received cycle one on Saturday06/20/18 and over the weekend she started having a lot of out put from her ileostomy and tried her normal routine to slow the out put, but nothing helped. Then the day prior to admission she started having vomiting with increasing abdominal pain, and her ileostomy drainage slowed. Pt was concerned about SBO and she presented to the ED at [facility] on 06/22/18 for further evaluation. In the ED CT Abd/pelvis (06/22/18 ) noted small bowel dilatation on the left side with multiple air-fluid levels characteristic of an early or partial small bowel obstruction. She had NGT placed to [facility] on 06/23/18 once the pt was agreeable to placement. KUB 06/25 noted progressive distention of small bowel loops consistent with worsening small bowel obstruction. . Small Bowel X-Ray (06/26/18) revealed section housekeeper image shows diffuse dilation of small bowel loops in the left abdomen with an ostomy device in the right lower abdominal quadrant, transit time is approximately 2 hours with contrast eventually identified in the ostomy bag, the last few images show some interval decompression of the small bowel possibly representing a transient hypodynamic ileus, do not see an obvious transition point to suggest a discrete obstruction. She had temperature spike to 101.4 degrees on 06/27/2018, and again temperature leeann to 102 degrees on 06/28/2018. Urine culture was taken and blood cultures were obtained on 06/28/2018. The urine culture came back with Escherichia coli and the blood culture also grew out Escherichia coli. She was started on ceftriaxone intravenous. ID was consulted. Her temperature gradually improved and normalized. NGT was able to eventually be clamped and subsequently removed on 06/30. Her ileostomy had good output initially. She developed severe gas pain and nausea and Family reported she vomiting 6 times overnight on 07/01. Simethicone was added to her regimen. On 07/01 the case was discussed with Dr. Huang who recommended laxative and Reglan to increase motility. In the evening on 07/01, a Halicat was called as the patient became hypoxic, lethargic. Her Oxygen saturation was in the 70s on 100% NRB. Pt and family met with Palliative Care RN LABOR DELIVERY and expressed desire for NO CODE (DNR/DNI). They were certain she would not want to be intubated. They discussed transfer to ICU vs transition to comfort with hospice support. Family agreed that they do not want her to suffer anymore and pt was transitioned to comfort measures with hospice support. Pt remained in the hospital on comfort measures only until her expiration on 07/03/18 at 0630AM. Additional Data Attending physician: Dr. Gary Arellano MD Documented by User: Gary Arellaon MD 07/03/18 10:28 Discharge Sum: Summary Summary Details: Patient examined. Assessment and plan formulated with Julita Jones PA-C. I agree with the above.
== END 2018-07-03 06:30 | disposition expired ==
LOC: NEPE 19:59 → NEDA 23:55 → N07 06-23 02:34
PROVIDERS: ADMIT Hospitalist; ATTEND Hospitalist
DX: R53.1 Weakness; R97.1 Elevated cancer antigen 125 [CA 125]; R00.0 Tachycardia, unspecified; Z15.01 Genetic susceptibility to malignant neoplasm of breast; N17.9 Acute kidney failure, unspecified; F41.9 Anxiety disorder, unspecified; B96.20 Unspecified Escherichia coli [E. coli] as the cause of diseases classified elsewhere; Z66 Do not resuscitate; R78.81 Bacteremia; Z93.2 Ileostomy status; E87.6 Hypokalemia; Z51.5 Encounter for palliative care; Z92.21 Personal history of antineoplastic chemotherapy; Z88.8 Allergy status to other drugs, medicaments and biological substances; Z87.891 Personal history of nicotine dependence; R06.02 Shortness of breath; N39.0 Urinary tract infection, site not specified; Z88.0 Allergy status to penicillin; Z90.49 Acquired absence of other specified parts of digestive tract; E87.1 Hypo-osmolality and hyponatremia; J02.9 Acute pharyngitis, unspecified; K56.600 Partial intestinal obstruction, unspecified as to cause; K56.7 Ileus, unspecified; Z93.1 Gastrostomy status; R11.2 Nausea with vomiting, unspecified; R41.82 Altered mental status, unspecified; C78.6 Secondary malignant neoplasm of retroperitoneum and peritoneum; Z90.710 Acquired absence of both cervix and uterus; I10 Essential (primary) hypertension; C56.9 Malignant neoplasm of unspecified ovary; E86.0 Dehydration